=== PATIENT | female | born 1930 | race Two or more races ===

== ENCOUNTER 2016-07-24 10:23 | Outpatient (CLI) | payer MEDICARE, OTHER ==
[~2016-07-24] VITALS: Ht 152.4 cm; Wt 60.9 kg
[2016-07-24 10:35] VITALS: BP 183/72; PULSE 73; RESP 18; Ht 152.4 cm; Wt 60.9 kg
[2016-07-24] MEDS ORDERED: HYDR-3670 PO (10:45)
[2016-07-24] MEDS ORDERED: DOCU240C14 PO (10:45)
[2016-07-24] MEDS ORDERED: LEVO25TA53 PO (10:45)
[2016-07-24] MEDS ORDERED: MELA1TAB25 PO (10:45)
[2016-07-24] MEDS ORDERED: [UNRECOGNIZED DRUG - CODE] PO (10:45)
[2016-07-24] MEDS ORDERED: VIT1CAPS15 PO (10:45)
[2016-07-24] MEDS ORDERED: CITA10TA84 PO (10:45)
--- NOTE | 2016-07-24 23:18 | CONS ---
[facility] INITIAL OUTPATIENT CONSULTATION NOTE DATE OF CONSULTATION: 07/24/2016 PLACE OF SERVICE: [facility] at [facility], [place]. IMPRESSION AND PLAN: A very pleasant 85-year-old lady with a few comorbid issues presenting with pancreatic or splenic cysts that appear to be multiple in number and varied in size. These may certainly be from trauma to the left upper quadrant. The cysts appear to me to involve the spleen, more than they do the pancreas. She does not have any history of any infectious process to explain infectious cysts of the spleen. Her weight loss is certainly concerning for malignant process and malignancy cannot be ruled out with available images. I recommended that the patient undergo endoscopic ultrasound for further clarification of the clinical picture. My suspicion is that there is more than 60% to 80% chance that this is a benign process and that the patient would not need any further aggressive intervention, but the endoscopic ultrasound can shed more light on this clinical picture and help clarify goals of treatment. The patient herself is very hesitant to perform any procedures or interventions. She did not appear at all interested in surgical intervention and I asked her to please discuss the number of issues that I had brought up during our discussion regarding the risks, benefits, and alternatives of the performance of an endoscopic ultrasound and to hopefully agree to undergo this procedure. I answered all the patient's and family's questions to the best of my ability and I believe that they understood and agreed with the plan. With above assessment, I recommend the followin. Endoscopic ultrasound evaluation of the tail of pancreas with possible biopsy and workup for malignancy. 2. Multidisciplinary Tumor Board presentation. 3. Follow up with us after above. Thank you again for allowing us to participate in the care of this very pleasant lady and her wonderful family. If there are any questions, please feel free to contact me at [phone]. UPDATED CLINICAL SUMMARY: The patient is a very pleasant 85-year-old lady with a few comorbid issues including BMI 26.2 as well as hypertension, atrial fibrillation, hypothyroidism, chronic kidney disease, and legal blindness, presenting with cyst noted in the tail of the pancreas and spleen area after a fall that led to hemorrhage. COMORBIDITIES: 1. BMI 26.2. 2. Hypertension. 3. Atrial fibrillation. 4. Hyperthyroidism. 5. Chronic kidney disease. 6. Legal blindness. 7. Recent fall 05/2016 with admission to the hospital and CT of abdomen and pelvis showing splenic laceration with subcapsular hemorrhage. Cysts were noted near the tail of pancreas. No biopsy performed. HISTORY OF PRESENT ILLNESS: The patient is a very pleasant 85-year-old lady with above-mentioned comorbidities whom we were kindly asked to consult regarding management of the cysts seen on the CT scan of abdomen and pelvis as outlined above. The patient herself reports having approximately 10 to 20 pound weight loss over the last number of months with low appetite as the presumed cause. She does not report any abdominal pain. No nausea or vomiting. No fevers or chills. No history of infections and no prior history of pancreatitis. No family history of malignancy noted. She also does not smoke, drink, or use intravenous drugs. ALLERGIES: NO KNOWN DRUG ALLERGIES. MEDICATIONS: The patient is on a number of medications includin. Citalopram. 2. Docusate calcium. 3. Hydralazine. 4. Levothyroxine. 5. Melatonin. 6. PreserVision. 7. Lutein. 8. Vitamin E. SOCIAL HISTORY: The patient lives with her family in that includes her . She has 3 children and 2 [id number]. She has a few grandchildren. She does not report any smoking, drinking, or intravenous drug abuse. FAMILY HISTORY: No mention of any major medical, surgical, or oncologic problems in the family. REVIEW OF SYSTEMS: Other than the above-mentioned, there are no other pertinent positives or pertinent negatives in a complete 14-point review of systems. PHYSICAL EXAMINATION: GENERAL: The patient appears to be a very pleasant lady of /[place] descent, appearing stated age, sitting in a chair comfortably, and in no acute distress. Her BMI is 26.2. Essentially blind. VITAL SIGNS: Temperature 98.3, blood pressure 183/72, pulse 73, respiratory rate 18, pulse oximetry 97% on room air. HEENT: Normocephalic and atraumatic. Extraocular muscles and hearing are grossly intact bilaterally and symmetrically. Sclerae are nonicteric. Oral cavity is clear; oral mucosa appeared to be pink and moist. Dentition: fair. NECK: Supple. There is no lymphadenopathy or JVD. There is no submental, submandibular or supraclavicular lymphadenopathy. CHEST: Rises symmetrically with each breath; patient is breathing comfortably. There are no audible wheezes, rales or rhonchi on the gross exam. HEART: Pulse is regular and palpable on the right wrist. Capillary refill was normal. Carotid pulses are palpable bilaterally and symmetrically in the neck. EXTREMITIES: Lower extremities contain no pitting edema around the ankles bilaterally and symmetrically. ABDOMEN: Abdomen is soft, nontender and nondistended. There are no peritoneal signs or guarding. No evidence of ascites, organomegaly, caput medusae, engorged subcutaneous veins, or other abnormalities. SKIN: Appears to be pink and feels warm to touch. NEUROLOGIC: Awake, alert, and follows commands appropriately. LABORATORY VALUES: Dated 03/2016: White blood cell count 7.3, platelets 186. INR 4.9. Creatinine 0.82, CO2 of 29. IMAGING: The patient's MRI from 07/06/2016 showed an approximately 4.8 x 2.5 cm area of abnormal enhancement localized to the pancreatic tail and inseparable from the adjacent splenic hilum with adjacent soft tissue stranding and multiple associated cysts. Inflammatory process extended to the gastrosplenic ligament. Largest cyst measures approximately 5 cm with smaller adjacent cysts measuring between 1 cm and 1.6 cm in size. Differential includes pancreatitis with multiple pseudocysts versus pancreatic malignancy. Note that I personally reviewed all the available and pertinent images and I agree in general with their overall reported findings, although some of these cysts appear to be more within the spleen itself and they seem to be sparing most of the tail of the pancreas. Dictated By: ERIK CAROLINA/REINA Conf#: [id number] DID#: [id number] CC: Silvino Ly; Javed Baum;*EndCC* MTDD
== END 2016-07-24 14:40 | disposition home or self-care (01) ==
LOC: HPC 10:23
PROVIDERS: ATTEND Transplant Surgery
DX: K86.2 Cyst of pancreas (principal); D73.4 Cyst of spleen; R63.4 Abnormal weight loss; Z68.26 Body mass index [BMI] 26.0-26.9, adult; I48.91 Unspecified atrial fibrillation; E03.9 Hypothyroidism, unspecified; I12.9 Hypertensive chronic kidney disease with stage 1 through stage 4 chronic kidney disease, or unspecified chronic kidney disease; N18.9 Chronic kidney disease, unspecified; H54.8 Legal blindness, as defined in USA
CPT/HCPCS: G0463

== ENCOUNTER 2016-10-18 10:17 | Outpatient (CLI) | payer MEDICARE, OTHER ==
[~2016-10-18 10:17] MED LIST: CITA10TA84 PO; DOCU240C14 PO; HYDR-3670 PO; LEVO25TA53 PO; MELA1TAB25 PO; VIT1CAPS15 PO; [UNRECOGNIZED DRUG - CODE] PO
[2016-10-18 10:25] VITALS: BP 107/53; PULSE 85; RESP 18
[2016-10-18] MEDS ORDERED: LEVO50TA74 PO (10:43)
[2016-10-18] MEDS ORDERED: MEGE40TA17 PO (10:43)
[2016-10-18] MEDS ORDERED: LOSA25TA5 PO (10:43)
[2016-10-18] MEDS ORDERED: METO-448 PO (10:43)
[2016-10-18] MEDS ORDERED: CITA20TA6 PO (10:43)
[2016-10-18] MEDS ORDERED: ATOR20TA38 PO (10:43)
[2016-10-18] MEDS ORDERED: MELA1TAB10 PO (10:43)
[2016-10-18] MEDS ORDERED: WARF3TAB PO (10:43)
[2016-10-18] MEDS ORDERED: DOCU-159 PO (10:43)
[2016-10-18] MEDS ORDERED: HYDR-3671 PO (10:43)
--- NOTE | 2016-10-18 11:16 | CONS ---
Date/Time of Note Date/Time of Note DATE: 10/18/16 TIME: 10:53 Assessment/Plan Assessment/Plan Additional Assessment/Plan [facility] INITIAL OUTPATIENT CONSULTATION NOTE DATE OF CONSULTATION: 10/18/16 PLACE OF SERVICE: [facility]creas [facility] at [facility]. IMPRESSION AND PLAN: Adenocarcinoma of tail of the pancreas. Questionable candidacy for surgery. Had a long discussion with patient and her , and then separately with her and son and [id number] and discussed the issues at length. I also had a long discussion with patient's primary care physician. It is questionable in my mind whether the patient will truly be eligible to receive distal pancreatectomy and splenectomy which would be what I would recommend in this situation. Patient's family is also not sure that the patient should have fairly major operation or procedures for this problem. I explained my rationale behind my reasoning to both patient and family and I answered multiple questions to the best my ability. Patient and family appear to understand and agreed with plans. With above assessment, I recommend the followin. Patient's family to have a discussion amongst themselves and with the patient and to decide on level of aggressiveness of care 2. If decision is to proceed, to then perform pancreas protocol CT with IV and oral contrast and repeat laboratory values including tumor markers 3. Multidisciplinary Tumor Board presentation. 4. Follow up with us after above. Thank you again for allowing us to participate in the care of this very pleasant lady and her wonderful family. If there are any questions, please feel free to contact me at [phone]. UPDATED CLINICAL SUMMARY: The patient is a very pleasant 85-year-old lady with a few comorbid issues including BMI 26.2 as well as hypertension, atrial fibrillation, hypothyroidism, chronic kidney disease, and legal blindness, presenting with cyst noted in the tail of the pancreas and spleen area after a fall that led to hemorrhage. COMORBIDITIES: 1. BMI 26.2. 2. Hypertension. 3. Atrial fibrillation. 4. Hyperthyroidism. 5. Chronic kidney disease. 6. Legal blindness. 7. Recent fall 05/2016 with admission to the hospital and CT of abdomen and pelvis showing splenic laceration with subcapsular hemorrhage. Cysts were noted near the tail of pancreas. No biopsy performed. HISTORY OF PRESENT ILLNESS: The patient is a very pleasant 85-year-old lady with above-mentioned comorbidities whom we were kindly asked to consult regarding management of the cysts seen on the CT scan of abdomen and pelvis as outlined above. The patient herself reports having approximately 10 to 20 pound weight loss over the last number of months with low appetite as the presumed cause. She does not report any abdominal pain. No nausea or vomiting. No fevers or chills. No history of infections and no prior history of pancreatitis. No family history of malignancy noted. She also does not smoke, drink, or use intravenous drugs. She underwent endoscopic ultrasound evaluation by Dr. Sow on 08/04/2016, where unfortunately adenocarcinoma of the tail of the pancreas was found. In retrospect, the cysts seen near the tail of the pancreas are likely pseudocysts from localized pancreatitis caused by this malignant process. Patient herself reports ongoing issues with fatigue, and the family reports that these 2 episodes where the patient was essentially nonresponsive and had to be taken to the emergency room for evaluation including EEG monitoring and further neurologic assessments. ALLERGIES: NO KNOWN DRUG ALLERGIES. MEDICATIONS: The patient is on a number of medications includin. Citalopram. 2. Docusate calcium. 3. Hydralazine. 4. Levothyroxine. 5. Melatonin. 6. PreserVision. 7. Lutein. 8. Vitamin E. SOCIAL HISTORY: The patient lives with her family in that includes her . She has 3 children and 2 [id number]. She has a few grandchildren. She does not report any smoking, drinking, or intravenous drug abuse. FAMILY HISTORY: No mention of any major medical, surgical, or oncologic problems in the family. REVIEW OF SYSTEMS: Other than the above-mentioned, there are no other pertinent positives or pertinent negatives in a complete 14-point review of systems. PHYSICAL EXAMINATION: GENERAL: The patient appears to be a very pleasant lady of /[place] descent, appearing stated age, sitting in a chair comfortably, and in no acute distress. Her BMI was 26.2. Essentially blind. VITAL SIGNS: Carefully recorded and reviewed in electronic health record system. HEENT: Normocephalic and atraumatic. Extraocular muscles and hearing are grossly intact bilaterally and symmetrically. Sclerae are nonicteric. Oral cavity is clear; oral mucosa appeared to be pink and moist. Dentition: fair. NECK: Supple. There is no lymphadenopathy or JVD. There is no submental, submandibular or supraclavicular lymphadenopathy. CHEST: Rises symmetrically with each breath; patient is breathing comfortably. There are no audible wheezes, rales or rhonchi on the gross exam. HEART: Pulse is regular and palpable on the right wrist. Capillary refill was normal. Carotid pulses are palpable bilaterally and symmetrically in the neck. EXTREMITIES: Lower extremities contain no pitting edema around the ankles bilaterally and symmetrically. ABDOMEN: Abdomen is soft, nontender and nondistended. There are no peritoneal signs or guarding. No evidence of ascites, organomegaly, caput medusae, engorged subcutaneous veins, or other abnormalities. SKIN: Appears to be pink and feels warm to touch. NEUROLOGIC: Awake, alert, and follows commands appropriately. LABORATORY VALUES: Dated 03/2016: White blood cell count 7.3, platelets 186. INR 4.9. Creatinine 0.82, CO2 of 29. IMAGING: The patient's MRI from 07/06/2016 showed an approximately 4.8 x 2.5 cm area of abnormal enhancement localized to the pancreatic tail and inseparable from the adjacent splenic hilum with adjacent soft tissue stranding and multiple associated cysts. Inflammatory process extended to the gastrosplenic ligament. Largest cyst measures approximately 5 cm with smaller adjacent cysts measuring between 1 cm and 1.6 cm in size. Differential includes pancreatitis with multiple pseudocysts versus pancreatic malignancy. Note that I personally reviewed all the available and pertinent images and I agree in general with their overall reported findings, although some of these cysts appear to be more within the spleen itself and they seem to be sparing most of the tail of the pancreas. Consultation Date/Type/Reason Admit Date/Time Initial Consult Date Exam/Review of Systems Vital Signs Vitals Vital Signs Date Time Temp Pulse Resp B/P Pulse Ox O2 Delivery O2 Flow Rate FiO2 10/18/16 10:25 98.0 85 18 107/53 95 Room Air ERIK ALVARADO M.D. Oct 18, 2016 11:16 ERIK ALVARADO M.D. Oct 18, 2016 11:16
== END 2016-10-18 17:00 | disposition home or self-care (01) ==
LOC: HPC 10:17
PROVIDERS: ATTEND Transplant Surgery
DX: C25.9 Malignant neoplasm of pancreas, unspecified (principal); I10 Essential (primary) hypertension; E03.9 Hypothyroidism, unspecified; E05.90 Thyrotoxicosis, unspecified without thyrotoxic crisis or storm; I48.91 Unspecified atrial fibrillation; N18.9 Chronic kidney disease, unspecified; H54.8 Legal blindness, as defined in USA; Z91.81 History of falling
CPT/HCPCS: G0463

== ENCOUNTER 2017-01-23 11:01 | Inpatient (IN) | payer MEDICARE, OTHER ==
[~2017-01-23] VITALS: Ht 157.5 cm; Wt 65.0 kg
[~2017-01-23 11:01] MED LIST changes: +ATOR20TA38 PO; -CITA10TA84 PO; +CITA20TA6 PO; +DOCU-159 PO; -DOCU240C14 PO; -HYDR-3670 PO; +HYDR-3671 PO; -LEVO25TA53 PO; +LEVO50TA74 PO; +LOSA25TA5 PO; +MEGE40TA17 PO; +MELA1TAB10 PO; -MELA1TAB25 PO; +METO-448 PO; +WARF3TAB PO
[2017-01-23 11:13] VITALS: Ht 157.5 cm; Wt 65.0 kg
[2017-01-23] MEDS ORDERED: SOD CHLORIDE 0.9% 500 ML IV STA (11:27)
[2017-01-23] MEDS ORDERED: DILTIAZEM 25 MG INJ IV ONE (11:30)
[2017-01-23 12:04] LABS: ABNORMAL IP MESSAGE 1; MEAN CORPUSCULAR HEMOGLOBIN 27.2 pg (29.0-33.0); MEAN CORPUSCULAR VOLUME 82.3 fl (82.0-101.0); MEAN PLATELET VOLUME 11.5 fl (7.4-10.4); NUCLEATED RED BLOOD CELLS% 0.1 /100WBC (0.0-0.0); PLATELET COUNT 299 10^3/UL (140-415); RED BLOOD COUNT 2.43 10^6/ul (4.20-5.40); RED CELL DISTRIBUTION WIDTH 16.1 % (11.5-14.5); WHITE BLOOD COUNT 32.3 10^3/ul (4.8-10.8)
[2017-01-23 12:13] LABS: HEMOGLOBIN 6.6 g/dl (12.0-16.0); POSITIVE DIFF @See below
--- NOTE | 2017-01-23 12:16 | RADRPT ---
PROCEDURE: XR Chest. CLINICAL INDICATION: Chest pain TECHNIQUE: Single portable view of the chest was obtained COMPARISON: No priors for comparison FINDINGS: The trachea is midline. The cardiac silhouette is enlarged and pulmonary vascularity are within norm al limits. There is a left lower lobe opacification and small left pleural effusion. There is athero sclerotic calcification of the aorta. IMPRESSION: 1. Left lower lobe opacification; pneumonia versus atelectasis and small left pleural effusion. 2. Cardiomegaly and atherosclerotic disease. RPTAT: AAPP Physician Andry Date Time Electronically viewed and signed by Physician Andry on 01/23/2017 12:16 CELINA/
[2017-01-23 12:22] LABS: CALCIUM 9.3 mg/dl (8.4-10.2); CREATININE 1.63 mg/dl (0.44-1.00); POTASSIUM 4.8 mmol/L (3.5-5.1)
[2017-01-23] MEDS ORDERED: CEFEPIME 2GM/50 ML (PMX) 50 ML IVPB STA (12:25)
[2017-01-23] MEDS ORDERED: SODIUM CHLORIDE 0.9% 1L BAG IV* STA (12:25)
[2017-01-23] MEDS ORDERED: VANCOMYCIN 1 GM (PMX) 250 ML IVPB ONE (12:30)
[2017-01-23 12:37] LABS: TROPONIN-I 0.016 ng/ml (0.00-0.12)
[2017-01-23 12:48] LABS: ALBUMIN 2.5 g/dl (3.3-4.9); BILIRUBIN,INDIRECT 0.1 mg/dl (0-1.1); BILIRUBIN,TOTAL 0.1 mg/dl (0.2-1.3); TOTAL PROTEIN 5.9 g/dl (6.1-8.1)
[2017-01-23 12:48] LABS: URINE BLOOD (Dip) POC Trace-intact (NEGATIVE)
[2017-01-23 12:59] LABS: ADD UMIC YES; UR ASCORBIC ACID 40 mg/dL (NEGATIVE); UR BACTERIA MANY /HPF (NONE SEEN); UR BILIRUBIN (Dip) NEGATIVE (NEGATIVE); UR BLOOD (Dip) NEGATIVE (NEGATIVE); UR CLARITY SLIGHTLY CLOUDY (CLEAR); UR COLOR YELLOW (YELLOW); UR GLUCOSE (Dip) NEGATIVE (NEGATIVE); UR KETONES (Dip) NEGATIVE (NEGATIVE); UR LEUKOCYTE ESTERASE (Dip) 2+ Leu/ul (NEGATIVE); UR NITRITE (Dip) POSITIVE (NEGATIVE); UR RBC 1 /HPF (0-5); UR SPECIFIC GRAVITY (Dip) 1.013 (1.003-1.030); UR TOTAL PROTEIN (Dip) NEGATIVE (NEGATIVE); UR UROBILINOGEN (Dip) NEGATIVE (NEGATIVE)
[2017-01-23] MEDS ORDERED: SOD CHLORIDE 0.9% 250 ML IV ONE (13:06)
[2017-01-23] MEDS ORDERED: SOD CHLORIDE 0.9% 1,000 ML IV SCH (13:09)
--- NOTE | 2017-01-23 13:16 | ERD ---
ER Documentation Chief Complaint Chief Complaint BIB RA 81 FOR EVAL OF GENERALIZED WEAKNESS. HPI This is an 86-year-old female with a history of hypertension, hypothyroidism, atrial fibrillation who presents to the emergency room for evaluation of generalized weakness. This patient was brought in by ambulance from her home for evaluation of her symptoms. According to the patient's family member was at bedside this patient has had these symptoms for 24 hours. The patient has been feeling weak and does state that she feels warm and has had chills as well. He denies any aggravating or relieving factors for her symptoms and family members called 9 1 about the patient to the ER ROS All systems reviewed and are negative except as per history of present illness. Medications Home Meds Reported Medications Atorvastatin Calcium* (Atorvastatin Calcium*) 20 Mg Tablet, 20 MG PO QHS, #30 TAB 10/18/16 Melatonin-Pyridoxine Hcl (Melatonin) 5-10 Mg Tablet, 1 TAB PO HS, TAB 10/18/16 Megestrol Acetate* (Megestrol Acetate*) 40 Mg Tablet, 40 MG PO DAILY, TAB 10/18/16 Warfarin Sodium* (Coumadin*) 3 Mg Tablet, 3 MG PO DAILY, TAB 10/18/16 Citalopram Hydrobromide* (Citalopram Hydrobromide*) 20 Mg Tablet, 20 MG PO DAILY , #30 TAB 10/18/16 Hydralazine Hcl* (Hydralazine Hcl*) 25 Mg Tab, 25 MG PO DAILY, #120 TAB 10/18/16 Losartan Potassium* (Losartan Potassium*) 25 Mg Tablet, 25 MG PO DAILY, TAB 10/18/16 Docusate Sodium* (Docusate Sodium*) 100 Mg Capsule, 100 MG PO BID, #60 CAP 10/18/16 Metoprolol Tartrate* (Lopressor*) 25 Mg Tab, 25 MG PO BID, #60 TAB 10/18/16 Levothyroxine Sodium* (Levothyroxine Sodium*) 50 Mcg Tablet, 50 MCG PO BEFORE BREAKFAST, #30 TAB 10/18/16 Vitamin E (Dl,Tocopheryl Acet) (Vitamin E) 100 Unit/0.25 Ml Drops, 100 UNIT PO, DROP 07/24/16 Vit C/Giuliano Ac/Lut/Copper/Znox (PRESERVISION LUTEIN SOFTGEL) 1 Each Capsule, 1 EACH PO, CAP 07/24/16 Allergies Allergies: Coded Allergies: No Known Allergy (Unverified , 02/14/13) PMhx/Soc History of Surgery: Yes (APPENDECTOMY, KNEES REPLACEMENT) Anesthesia Reaction: No Hx Neurological Disorder: No Hx Respiratory Disorders: No Hx Cardiac Disorders: Yes (AFIB?) Hx Psychiatric Problems: No Hx Miscellaneous Medical Probl: No (pancreatic CA) Hx Alcohol Use: No Hx Substance Use: No Hx Tobacco Use: No Smoking Status: Unknown if ever smoked Physical Exam Vitals Vital Signs Date Time Temp Pulse Resp B/P Pulse Ox O2 Delivery O2 Flow Rate FiO2 01/23/17 13:06 98.0 98 18 101/45 98 Room Air 01/23/17 11:48 Nasal Cannula 3 01/23/17 11:13 97.5 126 20 80/59 100 Physical Exam INITIAL VITAL SIGNS: Reviewed by me GENERAL: The patient is well developed and appropriate for usual state of health in no apparent distress HEENT: Conjunctival pallor, dry mucous membranes, pupils equal, round, and reactive to light. EOMI. There is no scleral icterus. NECK: C-spine is soft and supple, there is no meningismus. There is no cervical lymphadenopathy. LUNGS: Breath sounds bilaterally with rhonchi auscultated in the bilateral lower lobes HEART: Irregularly irregular rhythm, no murmurs, clicks, rubs or gallops. ABDOMEN: Soft, non-tender, non-distended. There are bowel sounds in all four quadrants. No rebound or guarding. EXTREMITIES: There is no peripheral cyanosis or edema. No focal swelling or erythema. NEUROLOGICAL: The patient moves all four extremities with 5/5 strength. Cranial nerves II - XII are intact. Normal gait. Alert and oriented SKIN: Pale skin, there is no apparent rash or petechiae. HEME/LYMPHATIC: There is no evidence of excessive bruising or lymphedema. PSYCHIATRIC: The patient does not appear anxious or depressed. Result Diagram: 01/23/17 1125 01/23/17 1127 Results 24 hrs Laboratory Tests Test 01/23/17 11:25 01/23/17 11:27 01/23/17 12:30 01/23/17 12:45 White Blood Count 32.310^3/ul Red Blood Count 2.4310^6/ul Hemoglobin 6.6g/dl Hematocrit 20.0% Mean Corpuscular Volume 82.3fl Mean Corpuscular Hemoglobin 27.2pg Mean Corpuscular Hemoglobin Concent 33.0g/dl Red Cell Distribution Width 16.1% Platelet Count 99829^3/UL Mean Platelet Volume 11.5fl Neutrophils % % Lymphocytes % % Monocytes % % Eosinophils % % Basophils % % Nucleated Red Blood Cells % 0.1/100WBC Neutrophils # 10^3/ul Lymphocytes # 10^3/ul Monocytes # 10^3/ul Eosinophils # 10^3/ul Basophils # 10^3/ul Nucleated Red Blood Cells # 10^3/ul Lactic Acid Level 2.0mmol/L Total Bilirubin 0.1mg/dl Direct Bilirubin 0.00mg/dl Indirect Bilirubin 0.1mg/dl Aspartate Amino Transf (AST/SGOT) 51IU/L Alanine Aminotransferase (ALT/SGPT) 44IU/L Alkaline Phosphatase 182IU/L Total Protein 5.9g/dl Albumin 2.5g/dl Sodium Level 141mmol/L Potassium Level 4.8mmol/L Chloride Level 105mmol/L Carbon Dioxide Level 23mmol/L Anion Gap 18 Blood Urea Nitrogen 108mg/dl Creatinine 1.63mg/dl Glucose Level 89mg/dl Calcium Level 9.3mg/dl Troponin I 0.016ng/ml Prothrombin Time Pending Prothrombin Time Ratio 7.0 INR International Normalized Ratio Pending Activated Partial Thromboplast Time Pending Bedside Urine pH (LAB) 5.5 Bedside Urine Protein (LAB) Trace Bedside Urine Glucose (UA) Negative Bedside Urine Ketones (LAB) Negative Bedside Urine Blood Trace-intact Bedside Urine Nitrite (LAB) Positive Bedside Urine Leukocyte Esterase (L 2+ Test 01/23/17 12:50 Urine Color YELLOW Urine Clarity SLIGHTLY CLOUDY Urine pH 5.0 Urine Specific [place] 1.013 Urine Ketones NEGATIVEmg/dL Urine Nitrite POSITIVEmg/dL Urine Bilirubin NEGATIVEmg/dL Urine Urobilinogen NEGATIVEmg/dL Urine Leukocyte Esterase 2+Daphne/ul Urine Microscopic RBC 1/HPF Urine Microscopic WBC 53/HPF Urine Bacteria MANY/HPF Urine Hemoglobin NEGATIVEmg/dL Urine Glucose NEGATIVEmg/dL Urine Total Protein NEGATIVEmg/dl Current Medications Medications (Trade) Dose Ordered Sig/Pavel Route PRN Reason Start Time Stop Time Status Last Admin Dose Admin Sodium Chloride (NS) 500 ml @ 500 mls/hr Q1H STAT IV 01/23/17 11:27 01/23/17 12:26 DC 01/23/17 11:37 Diltiazem HCl (Cardizem Iv) 10 mg ONCE ONCE IV 01/23/17 11:30 01/23/17 11:31 DC 01/23/17 11:37 Sodium Chloride 2020 ml 2,020 ml BOLUS OVER 2 HOURS STAT IV* 01/23/17 12:25 01/23/17 12:36 DC 01/23/17 13:05 Cefepime HCl 50 ml @ 100 mls/hr ONCE STAT IVPB 01/23/17 12:25 01/23/17 12:54 DC 01/23/17 13:05 Vancomycin HCl 250 ml @ 125 mls/hr ONCE ONCE IVPB 01/23/17 12:30 01/23/17 14:29 Sodium Chloride 250 ml @ 0 mls/hr Q0M ONCE IV 01/23/17 13:06 01/23/17 13:08 DC Sodium Chloride (NS) 1,000 ml @ 80 mls/hr [id number] IV 01/23/17 13:09 01/24/17 01:38 Ondansetron HCl (Zofran Inj) 4 mg ER BRIDGE PRN IV NAUSEA AND/OR VOMITING 01/23/17 13:30 01/24/17 13:29 Acetaminophen (Tylenol Tab) 650 mg ER BRIDGE PRN PO MILD PAIN/FEVER 01/23/17 13:30 01/24/17 13:29 Procedures/MDM EKG: Rate/Rhythm: A. fib with RVR QRS, ST, T-waves: [No changes consistent w/ acute ischemia] Impression: A. fib with RVR Chest X-ray 1V Interpreted by me: Soft Tissue: No acute abnormalities Bones: No acute abnormalities Mediastinum/Cardiac Silhouette/Lungs: Bilateral pneumonia CT brain without: This 86-year-old female presents to the ER for evaluation of generalized weakness. When I evaluated this patient this patient was febrile tachycardic and was hypotensive with a systolic blood pressure of 82. This patient was immediately given IV fluids, and a septic workup was started on this patient. This patient was found to have a leukocytosis, x-ray does reveal bilateral pneumonia, and urinalysis does reveal nitrite positive urinary tract infection. Patient was given greater than 30 cc/kg of IV normal saline. She was started on vancomycin and cefepime after blood and urine cultures were obtained. The patient was given 10 mg of Cardizem for A. fib with RVR and when I reevaluated this patient she had a blood pressure of 101/64, and a heart rate of 92 bpm. This patient was also found to have a hemoglobin of 6.6. She is refusing a rectal exam at this time however she does take Coumadin 3 mg daily for A. fib. Given this patient's drop in hemoglobin this patient will be transfused 2 units of packed red blood cells. She was given 80 mg of Protonix IV. I have spoken to this patient and the patient's family in regards to her diagnosis, and they are in agreement with admission at this time. This patient will be placed on the telemetry floor under the care of Dr. Castro. Critical Care: Excluding all billable procedures Time: 48 minutes Treatments/Evaluations: Close monitoring and treatment of unstable vital signs, cardiorespiratory, and neurologic status, while maintaining tight balance of fluid, respiratory, and cardiac interventions. Departure Diagnosis: Primary Impression: Sepsis Additional Impressions: Bilateral pneumonia Anemia Atrial fibrillation with RVR GI bleed Condition: LUZ MARINA Person DO Jan 23, 2017 13:16
[2017-01-23] MEDS ORDERED: ONDANSETRON 4 MG INJ IV PRN ×2 (13:30→14:30)
[2017-01-23] MEDS ORDERED: ACETAMINOPHEN 325 MG TAB PO PRN ×2 (13:30→14:30)
[2017-01-23] MEDS ORDERED: PANTOPRAZOLE 40 MG INJ IV ONE (13:30)
[2017-01-23 13:39] LABS: EOSINOPHILS % (M) 4 % (0-7); GIANT THROMBO% (M) 1 % (0-0); MONOCYTES % (M) 6 % (0-11); PLATELET ESTIMATE NORMAL; POIKILOCYTOSIS 3+ (0-0); POLYCHROMASIA 3+ (0-0)
[2017-01-23 13:54] LABS: PROTIME 95.8 Sec (12.2-14.2); PT RATIO 7.5
[2017-01-23 13:58] LABS: INR > 10.00
[2017-01-23 13:59] LABS: PARTIAL THROMBOPLASTIN TIME 109.3 Sec (25.0-35.0)
--- NOTE | 2017-01-23 14:13 | HP ---
Date/Time of Note Date/Time of Note DATE: 01/23/17 TIME: 14:13 Assessment/Plan VTE Prophylaxis VTE Prophylaxis Intervention: contraindicated Lines/Catheters IV Catheter Type (from [facility]): [place] Assessment/Plan Chief Complaint/Hosp Course 1. Sepsis. The source of infection is most probably underlying pneumonia versus urinary tract infection. No evidence of any septic shock at this time. The patient will be started on empiric antibiotics. Pancultures will be obtained. Infectious diseases will evaluate the patient. 2. Coagulopathy from Coumadin toxicity. No overt sources of bleeding. The patient been treated with vitamin K and fresh frozen plasma. Brain CT scan is pending at this time. We will avoid any anticoagulation. 3. Atrial fibrillation with rapid ventricular response. Status post IV Cardizem in the emergency room. The patient's heart rate is more controlled at this time. We will have cardiology evaluate the patient. The patient's troponins remain negative. Serial troponins will be ordered to evaluate for any underlying acute coronary syndrome. 4. Acute kidney injury. Unknown baseline creatinine. Probably has underlying chronic kidney disease. Nephrotoxic drugs will be avoided. Nephrology consult will be obtained. 5. Symptomatic anemia. Etiology unclear. No evidence of any overt bleeding. Will transfuse blood products as needed. We will obtain a stool for OB. Will obtain an iron panel. 6. Essential hypertension. The patient's antihypertensives will be resumed. However, we will hold antihypertensives if the patient's blood pressure continues to remain low. 7. Hypothyroidism. The patient's Synthroid will be resumed. Will obtain a thyroid panel. 8. History of adenocarcinoma the tail of the pancreas. Conservatively managed as per the family. Plan: The patient will be admitted to inpatient telemetry floor. The patient will be started on a regular diet. The patient will be started on gastrointestinal prophylaxis. Will avoid any anticoagulation because of underlying coagulopathy. The patient will remain a full code. Activities will be with assist. The rest of the patient's management will be based on the clinical course, inputs from consultants, and the results of diagnostic studies. Based on the patient's clinical presentation, she most probably requires at least 2 midnights' stay for further management and evaluation of her clinical presentation. The case and management of this patient was fully discussed with Dr. Castro. Problems: HPI/ROS Admit Date/Time Admit Date/Time Hx of Present Illness Reason for admission: Generalized weakness. Consultants 1. Negro Goddard MD, Cardiology. 2. Je Jimenez MD, Gastroenterology. 3. Vitor Costa MD, Nephrology. 4. Can Bill MD, Infectious Diseases. 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 The patient also complained of some dyspnea. There was no reported fevers. The patient's family also complained of poor oral intake. There was no reported nausea or vomiting. There was no reported overt bleeding. The patient follows up with Dr. Kriss Roblero for her primary care issues. She does not have an outpatient import/export clerk. In the emergency room, the patient was noticed to be significantly anemic with a hemoglobin and hematocrit of 6.6 and 20.0 respectively. The patient was found to be coagulopathic with an INR of greater than 10. She had underlying leukocytosis with a WBC of 32.3 with bandemia. She had evidence of acute kidney injury with increased BUN/creatinine ratio. Lactic acid levels were within normal limits. The patient's chest x-ray showed left lower lobe opacification; pneumonia versus atelectasis and small pleural effusion. The patient's urinalysis showed positive nitrate and positive leukocyte esterase with urine microscopic WBC of 53. The patient was treated with IV vancomycin and IV ceftriaxone. The patient was given Cardizem IV push 1 for her underlying A. fib with RVR. The patient has a brain CT scan ordered at this time which is pending. ROS Subjective hx not possible: other PMH/Family/Social Past Medical History Medical History: hypertension, hypothyroid, other (Essential hypertension, atrial fibrillation, hypothyroidism, chronic kidney disease, adenocarcinoma of the tail of the pancreas) Past Surgical History Past Surgical Hx: appendectomy Family History Significant Family History: other (Knee replacement) Social History Alcohol Use: none Smoking Status: Unknown if ever smoked Drug Use: none Exam/Review of Systems Vital Signs Vitals Vital Signs Date Time Temp Pulse Resp B/P Pulse Ox O2 Delivery O2 Flow Rate FiO2 01/23/17 13:06 98.0 98 18 101/45 98 Room Air 01/23/17 11:48 3 Exam Exam General: 86-year-old, elderly, pale looking female lying in bed in no apparent distress. HEENT: Normocephalic, atraumatic. Eyes: Anicteric sclerae, conjunctivae clear. ENT: Nasal septum midline, oral mucosa moist. Neck supple, no JVD noticed. Respiratory: Bilaterally diminished breath sounds. No use of accessory muscles of respiration. No adventitious breath sounds. Cardiovascular: S1, S2 heard. Irregularly irregular rhythm. Systolic murmur. Abdomen: Soft, nontender, and nondistended. Bowel sounds positive in all 4 quadrants. Genitourinary: Deferred. Extremities: No cyanosis, no clubbing, no edema. Peripheral pulses palpable. Neurologic: Patient is awake and alert. No focal weakness. Skin: Normal skin turgor. No skin rashes. Labs Result Diagram: 01/23/17 1125 01/23/17 1127 Medications Medications Current Medications Vancomycin HCl 250 ml @ 125 mls/hr ONCE ONCE IVPB Last administered on t 12:30; Admin Dose 125 MLS/HR; Start 01/23/17 at 12:30; Stop 01/23/17 at 14:29 Sodium Chloride (NS) 1,000 ml @ 80 mls/hr [id number] IV ; Start 01/23/17 at 13:09 ; Stop 01/24/17 at 01:38 Procedures Procedures CXR IMPRESSION: 1. Left lower lobe opacification; pneumonia versus atelectasis and small left pleural effusion. 2. Cardiomegaly and atherosclerotic disease. Twelve-Lead EKG A. fib with RVR SANCHEZ APARICIO NP Jan 23, 2017 14:13
[2017-01-23] MEDS ORDERED: SOD CHLORIDE 0.9% 250 ML IV* ONE (14:17)
[2017-01-23] MEDS ORDERED: PHYTONADIONE 10 MG in DEXTROSE 5% 50 ML IVPB ONE (14:30)
[2017-01-23] MEDS ORDERED: NACL 0.9% 3 ML SYG IV SCH (14:30)
--- NOTE | 2017-01-23 14:34 | RADRPT ---
PROCEDURE: CT Head without. CLINICAL INDICATION: Altered mental status. TECHNIQUE: The study was performed utilizing a multi-slice, multidetector CT scanner. Direct spira l 1 mm axial sections were obtained through the head without the use of intravenous contrast materia l. 1 or more of the following dose reduction techniques were utilized: Automated exposure control, adjustment of the mA and/or kV according to patient's size, iterative reconstruction technique. Co lazaro and sagittal reformations were obtained. The images were reviewed on a PACS workstation. DICOM images are available. RADIATION DOSE: CTDIvol: 44.3 mGyDLP: 630.2 mGy-cm COMPARISON: No prior studies are available for comparison. FINDINGS: There is no intracranial hemorrhage, extra-axial fluid collection, mass lesion, midline shift or hyd rocephalus. There is well-circumscribed encephalomalacia involving the left frontal operculum, sugg estive of remote prior infarct. There is associated gliosis in the underlying white matter. There is a well-circumscribed area of encephalomalacia involving the paramedian right thalamus, suggestive o f remote prior infarct. There is also a subtle well-circumscribed area of hypodensity involving the left thalamus suggesting remote lacunar infarct. There is moderate prominence of the cerebral sulci, lateral and third ventricles. There is severe patchy and confluent periventricular and subcortical white matter hypodensity. There is moderate arteriosclerotic calcification of the parasellar inter nal carotid arteries. The león-white matter differentiation is preserved. The basal cisterns are p atent. The midline structures are intact. The orbits, calvarium and extracranial soft tissues are normal in appearance. The visualized paranasal sinuses, mastoid air cells and middle ear cavities ar e normally aerated. IMPRESSION: 1. No acute intracranial abnormality. No intracranial hemorrhage, extra-axial fluid collection, ma ss lesion or hydrocephalous. 2. Moderate peripheral and central cerebral volume loss. 3. Severe patchy and confluent periventricular and subcortical white matter hypodensity, likely rel ated to chronic microangiopathic changes. 4. Remote infarct involving the left frontal operculum. Number 5. Remote lacunar infarcts involving the paramedian right thalamus and the left thalamus. 5. No CT evidence of acute infarct at this time. If clinical concern for acute infarct, MRI is rec ommended for further evaluation. RPTAT: HGAS .Clayton Troy MD, MD Date Time Electronically viewed and signed by .Clayton Troy MD, MD on 01/23/2017 14:34 .S/
--- NOTE | 2017-01-23 15:48 | CONS ---
DATE OF ADMISSION: 01/23/2017 DATE OF CONSULTATION: 01/23/2017 TYPE OF CONSULTATION: Infectious disease. REASON FOR CONSULTATION: Antibiotic management. HISTORY OF PRESENT ILLNESS: Rosa Robison is an 86-year-old female who was brought to the [facility] ency room for evaluation of generalized weakness. Her past problems include: 1. Hypertension. 2. Hypothyroidism. 3. Atrial fibrillation. She presents with generalized weakness. She has had these symptoms for the last 24 hours. She has been feeling weak and states that she feels warm and has had chills as well. Additional problems in clude hyperlipidemia. The patient is also on anticoagulants. PAST MEDICAL HISTORY: . PAST SURGICAL HISTORY: Status post appendectomy, status post knee replacements. She also has a his tory of atrial fibrillation. There is a questionable history of pancreatic carcinoma. SOCIAL HISTORY: She does not smoke, drink or abuse drugs. ALLERGIES: NONE TO PENICILLIN, SULFA OR FOODS. MEDICATIONS: Per chart. REVIEW OF SYSTEMS: Noncontributory. PHYSICAL EXAMINATION: GENERAL: The patient is an elderly-appearing female who is awake, responsive, in no acute distress. VITAL SIGNS: Stable. She is afebrile. SKIN: Without generalized rash. She is pale. HEAD: Normocephalic. EENT: Within normal limits. NECK: Supple. LYMPH NODES: None palpable. CHEST: Decreased breath sounds at the bases with occasional rhonchi. HEART: Irregularly irregular rhythm. ABDOMEN: Soft and nontender without organosplenomegaly or masses. EXTREMITIES: Without cyanosis, clubbing or edema. RECTAL AND GENITAL: Deferred. NEUROLOGIC: No focal neurological abnormalities. ANCILLARY LABORATORY DATA: Her white count was 32.5, H and H of 6.6 and 20, platelet count 299,000. BUN and creatinine 108/1.63. Random glucose is 89. Her urine is positive for nitrites, 2+ leukoc yte esterase, 53 white cells per high-power field, many bacteria. Her EKG shows atrial fibrillation . She was febrile, tachycardic and was hypotensive in the emergency room. She was given fluids and a septic workup was begun. X-ray showed bilateral pneumonia. Left lower lobe opacity, pneumonia vers us small left pleural effusion. The patient may have aspirated. She was started on vancomycin and cefepime as noted. Blood cultures and urine cultures were obtained. She was given Cardizem for atr ial fibrillation with rapid ventricular response, and her blood pressure and heart rate leveled out. The patient had a hemoglobin of 6.6. She takes Coumadin 3 mg daily for atrial fibrillation. The plan is to transfuse her for 2 units, give her Protonix and to have GI evaluate the patient. I will dictate my findings to the hospitalist. Dictated By: DONNIE DOMÍNGUEZ MD, JD/REINA Conf#: [id number] DID#: [id number]
[2017-01-23] MEDS ORDERED: VANCOMYCIN IV PER PHARMACY XX SCH (16:00)
--- NOTE | 2017-01-23 17:15 | CONS ---
Date/Time of Note Date/Time of Note DATE: 01/23/17 TIME: 17:04 Assessment/Plan Assessment/Plan Chief Complaint/Hosp Course Acute on ?chronic ?diastolic heart failure: Likely from blood products and aggressive IV hydration. Will diurese Chronic Afib with RVR: Partially compensatory to multiple active issues. HR close to 110 which is acceptable for now Coagulopathy: INR >10. No active bleeding but anemic. Pt not eating well which may be contributing Anemia: Hgb 6.6 but no active bleeding Sepsis: likely urinary UTI Acute vs chronic renal failure Pancreatic ca -hold further fluids -lasix 40mg IV x1 now and assess for further need -repeat CXR -metoprolol 25mg BID, uptitrate as BP tolerates -hold coumadin, agree with Vit K -echo Problems: Consultation Date/Type/Reason Admit Date/Time Date of Consultation: Jan 23, 2017 Type of Consultation: Cardiology Reason for Consultation AFib Referring Provider: SANCHEZ APARICIO CUSTOMER OPERATIONS SPECIALIST Hx of Present Illness 86 yo F with a h/o chronic afib on coumadin, pancreatic ca treated conservatively, CKD, who presented due to altered mentation, SOB, weakness. She was found to be coagulopathic with INR >10, anemic (hgb 6.6) without active bleeding, UTI +/- PNA, and with afib with RVR. She was transfused and given ~3L fluids. Per the son at bedside, she looks better and her breathing appears improved but the pt appears to have mild respiratory distress. No chest pain. HRs have been in the 100-120 range per HPI Past Medical History per HPI Medical History: hypertension, hypothyroid, other (Essential hypertension, atrial fibrillation, hypothyroidism, chronic kidney disease, adenocarcinoma of the tail of the pancreas) Past Surgical History Past Surgical Hx: appendectomy Social History Alcohol Use: none Smoking Status: Unknown if ever smoked Drug Use: none Exam/Review of Systems Vital Signs Vitals Vital Signs Date Time Temp Pulse Resp B/P Pulse Ox O2 Delivery O2 Flow Rate FiO2 01/23/17 16:30 98.0 114 18 113/64 100 Room Air 01/23/17 11:48 3 Exam Constitutional: alert, distress (mild respiratory ), oriented Head: atraumatic, normocephalic Eyes: nl conjunctiva ENMT: nl external ears & nose Neck: jvd (9cm), supple Respiratory: crackles/rales (throughout ), No clear to auscultation, No diminished breath sounds Cardiovascular: edema (trace-1+), systolic murmur (2/6 HSM), No regular rate and rhythm (IRIR, tachy) Gastrointestinal: non-tender, soft Neurological: nl mental status, nl speech Results Result Diagram: 01/23/17 1125 01/23/17 1127 Results 24 hrs Laboratory Tests Test 01/23/17 11:25 01/23/17 11:27 01/23/17 12:30 01/23/17 12:45 White Blood Count 32.3 H Red Blood Count 2.43 L Hemoglobin 6.6 *L Hematocrit 20.0 L Mean Corpuscular Volume 82.3 Mean Corpuscular Hemoglobin 27.2 L Mean Corpuscular Hemoglobin Concent 33.0 Red Cell Distribution Width 16.1 H Platelet Count 299 Mean Platelet Volume 11.5 H Neutrophils % Segmented Neutrophils % (Manual) 75 Band Neutrophils % (Manual) 8 H Lymphocytes % Lymphocytes % (Manual) 8 L Monocytes % Monocytes % (Manual) 6 Eosinophils % Eosinophils % (Manual) 4 Basophils % Nucleated Red Blood Cells % 0.1 H Neutrophils # Neutrophils # (Manual) 25.0 H Band Neutrophils # 2.5 H Absolute Lymphocytes (Manual) 2.5 Lymphocytes # Monocytes # Absolute Monocytes (Manual) 1.9 H Eosinophils # Basophils # Nucleated Red Blood Cells # Pathologist Review (Hematology) Y Platelet Estimate NORMAL Giant Platelets 1 H Polychromasia 3+ Poikilocytosis 3+ Lactic Acid Level 2.0 Total Bilirubin 0.1 L Direct Bilirubin 0.00 Indirect Bilirubin 0.1 Aspartate Amino Transf (AST/SGOT) 51 H Alanine Aminotransferase (ALT/SGPT) 44 Alkaline Phosphatase 182 H Total Protein 5.9 L Albumin 2.5 L Sodium Level 141 Potassium Level 4.8 Chloride Level 105 Carbon Dioxide Level 23 Anion Gap 18 H Blood Urea Nitrogen 108 H Creatinine 1.63 H Glucose Level 89 Calcium Level 9.3 Troponin I 0.016 Prothrombin Time 95.8 H Prothrombin Time Ratio 7.5 INR International Normalized Ratio > 10.00 *H Activated Partial Thromboplast Time 109.3 *H B-Type Natriuretic Peptide 7330 H Thyroid Stimulating Hormone (TSH) 3.340 Free Thyroxine 1.29 Bedside Urine pH (LAB) 5.5 Bedside Urine Protein (LAB) Trace H Bedside Urine Glucose (UA) Negative Bedside Urine Ketones (LAB) Negative Bedside Urine Blood Trace-intact H Bedside Urine Nitrite (LAB) Positive H Bedside Urine Leukocyte Esterase (L 2+ H Test 01/23/17 12:50 01/23/17 13:40 Urine Color YELLOW Urine Clarity SLIGHTLY CLOUDY A Urine pH 5.0 Urine Specific [place] 1.013 Urine Ketones NEGATIVE Urine Nitrite POSITIVE A Urine Bilirubin NEGATIVE Urine Urobilinogen NEGATIVE Urine Leukocyte Esterase 2+ H Urine Microscopic RBC 1 Urine Microscopic WBC 53 H Urine Bacteria MANY A Urine Hemoglobin NEGATIVE Urine Glucose NEGATIVE Urine Total Protein NEGATIVE Lactic Acid Level 1.8 Medications Medications Current Medications Sodium Chloride (NS) 1,000 ml @ 80 mls/hr [id number] IV ; Start 01/23/17 at 13:09 ; Stop 01/24/17 at 01:38 Ondansetron HCl (Zofran Inj) 4 mg Q6H PRN IV NAUSEA AND/OR VOMITING; Start at 14:30 Acetaminophen (Tylenol Tab) 650 mg Q6H PRN PO PAIN LEVEL 1-3 OR FEVER; Start 01/23/17 at 14:30 Acetaminophen/ Hydrocodone Bitart ([place] (5/325)) 1 tab Q6H PRN PO PAIN LEVEL 4 -6; Start 01/23/17 at 14:30 Atorvastatin Calcium (Lipitor) 20 mg QHS PO ; Start 01/23/17 at 21:00 Citalopram Hydrobromide (Celexa) 20 mg DAILY PO ; Start 01/24/17 at 09:00 Docusate Sodium (Colace) 100 mg BID PO ; Start 01/23/17 at 21:00 Hydralazine HCl (Apresoline) 25 mg DAILY PO ; Start 01/24/17 at 09:00 Metoprolol Tartrate (Lopressor) 25 mg BID PO ; Start 01/23/17 at 21:00 Pantoprazole 40 mg 40 mg BID@06,18 IV ; Start 01/23/17 at 18:00 Cefepime HCl 0.5 gm/Sodium Chloride 50 ml @ 100 mls/hr Q24H IVPB ; Start 01/24 at 13:00 Vancomycin HCl/ Dextrose/Water (Vancocin/D5W) 150 ml @ 100 mls/hr Q36H IVPB ; Start 01/24/17 at 06:00 ERIC LUCIO Jan 23, 2017 17:15
[2017-01-23] MEDS ORDERED: FUROSEMIDE 40 MG INJ IV ONE (17:30)
--- NOTE | 2017-01-23 17:34 | RADRPT ---
PROCEDURE: XR Chest. CLINICAL INDICATION: Shortness of breath. TECHNIQUE: Single frontal view. COMPARISON: 01/23/2017. 1201 hours. FINDINGS: There is mild left basilar atelectasis, unchanged. The lungs are otherwise clear. The heart is enlarged. Calcification is present in the aorta consistent with atherosclerosis. There is no pleural effusion. There is no pneumothorax. IMPRESSION: 1. Mild left basilar atelectasis, unchanged. 2. Cardiomegaly and atherosclerosis. 3. Otherwise unremarkable chest radiograph. RPTAT: QQ .Rio Arce MD, MD Date Time Electronically viewed and signed by .Rio Arce MD, MD on 01/23/2017 17:34 .R/
[2017-01-23] MEDS: PANTOPRAZOLE 40 MG INJ IV SCH ×2 (18:00→18:10)
[2017-01-23] MEDS: METOPROLOL 25 MG TAB PO SCH (18:09)
--- NOTE | 2017-01-23 18:22 | CONS ---
DATE OF ADMISSION: 01/23/2017 DATE OF CONSULTATION: 01/23/2017 REASON FOR CONSULTATION: JORGITO. HISTORY OF PRESENT ILLNESS: This is an 86-year-old female with a past medical history of hypertensi on, atrial fibrillation, on Coumadin, hypothyroidism, questionable CKD, legal blindness, adenocarcin jesica of tail of the pancreas, not on any medical treatment, presented to the emergency department com plaining of weakness since yesterday. The patient was also complaining of some shortness of breath. The patient also complained that she was feeling very tired, weak, had poor oral intake. There wa s no report of any GI bleeding. On arrival to the ED, the patient was noticed to have hemoglobin of 6.6, hematocrit 20.0. Patient was noted to also have INR of greater than 10, leukocytosis of 32 wi th bandemia. Lactic acid was within normal limits. Patient had a chest x-ray that showed mild basi lar atelectasis. Also had a CT of the brain, which showed no acute intracranial abnormality. Remot e infarct involving the left frontal operculum. BUN was 108, creatinine was 1.63 from baseline of 0 .94 in 2012, and renal was consulted. Patient received vancomycin, cefepime, diltiazem, NS 500 mL, PPI NS 80 mL an hour. PAST MEDICAL HISTORY: 1. Hypertension. 2. Atrial fibrillation with rapid ventricular response. 3. Coagulopathy. 4. Anemia. 5. Hypothyroidism. 6. 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 ALLERGIES: NONE. PAST SURGICAL HISTORY: Bilateral knee replacement, appendectomy. MEDICATIONS: At home are: 1. Coumadin. 2. Megestrol acetate 40 mg. 3. Lipitor 20 mg. 4. Hydralazine 25 mg every day. 5. Losartan 25 mg. 6. Metoprolol 25 mg b.i.d. 7. Celexa. 8. Colace. 9. Levothyroxine. 10. Vitamin E. 11. Melatonin. SOCIAL HISTORY: No history of smoking, alcohol or any drugs. FAMILY HISTORY: Noncontributory. REVIEW OF SYSTEMS: Patient complains of generalized weakness. Denies any nausea, vomiting, diarrhe a. Has decreased p.o. intake. Denies any hematemesis. No bright red blood per rectum. Denies any dysuria, urgency, frequency. Denies any fevers and chills. PHYSICAL EXAMINATION: VITAL SIGNS: The patient is afebrile. Heart rate is 114, respiratory rate is 18, blood pressure 11 3/64, saturating 100%. GENERAL: The patient is awake, alert, oriented, appears to be in moderate distress secondary to michell n. HEENT: Pupils equal, round, reactive to light. Neck is supple. No JVD. Oral mucosa dry. HEART: Irregularly irregular. LUNGS: Decreased breath sounds in the left base. ABDOMEN: Soft, nontender. EXTREMITIES: No clubbing, cyanosis, or edema. NEUROLOGIC: Patient is awake, alert. DIAGNOSTIC DATA: Shows sodium 141, potassium 4.8, chloride 105, bicarbonate 23, BUN 108, creatinine 1.63. BNP 7330. Troponin 0.016. TSH of 3.340, T4 is 1.29. Lactic acid 1.8. White count was 32. 3, hemoglobin 6.6, platelet count 299, neutrophils 25. INR was greater than 10. UA shows 2+ leukoc yte esterase, 53 WBCs. Chest x-ray showed left lower lobe opacification, pneumonia versus atelectasis. Cardiomegaly and at herosclerotic disease. ASSESSMENT AND PLAN: This is an 86-year-old woman presenting with: 1. Sepsis, likely secondary to urinary tract infection and pneumonia. 2. Severe anemia in the setting of coagulopathy with INR greater than 10. 3. Acute renal failure. Baseline creatinine 0.94 in 2013. At this period of time, patient has seps is, etiology of renal failure. The patient has relatively high BUN as compared to creatinine ratio, indicates either dehydration, steroid use, or gastrointestinal bleeding. Plus family was saying th e patient has decreased p.o. intake. The patient also had Motrin use at home, and patient was also taking Losartan at home, which could have contributed to the renal failure. 4. Elevated INR. 5. Urinary tract infection. 6. Elevated BNP. 7. History of hypertension. 8. Hypothyroidism. 9. Pneumonia. 10. 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 PLAN: At this period of time, the patient will be admitted to . Patient is in atrial fibrilla tion. Heart rate is 110s to 120s. INR is greater than 10. Hemoglobin is 6.6. Patient has receive d 3 liters of fluids, including blood. The patient can be given very gentle IV fluids as tolerated per cardiology. Will send for urine culture, urine electrolytes. Report strict I's and O's. Ramirez . Hold Losartan and Motrin. A GI evaluation for GI bleed. There is no indication for dialysis at this point. We will follow the patient closely with you. Rest of the treatment will depend on rach ent's hospitalization course. Dictated By: LIZZETTE GUEVARA/REINA Conf#: [id number] DID#: [id number]
--- NOTE | 2017-01-23 18:45 | RADRPT ---
PROCEDURE: Retroperitoneal US. CLINICAL INDICATION: Renal insufficiency TECHNIQUE: Multiple sonographic images of the kidneys and retroperitoneum were obtained. The imag es were reviewed on a PACS workstation. COMPARISON: No prior studies are available for comparison. FINDINGS: The right kidney measures 8.9 cm. The left kidney measures 8.8 cm. There is increased echogenicity of the kidneys. There is no evidence of hydronephrosis. The urinary bladder is not visualized.. IMPRESSION: Echogenic kidneys, consistent with medical renal disease. No evidence of hydronephrosis. RPTAT: AA .Kiel Johnston MD, MD Date Time Electronically viewed and signed by .Kiel Johnston MD, on 01/23/2017 18:44 .S/
--- NOTE | 2017-01-23 19:02 | CONS ---
Date/Time of Note Date/Time of Note DATE: 01/23/17 TIME: 18:34 Assessment/Plan Assessment/Plan Chief Complaint/Hosp Course Summary Assessment and Plan: Assessment: Anemia secondary to coagulopathy with INR greater than 10 A-fib on metoprolol 25mg BID Leucocytosis- on antibiotics Plan: Agree to hold Coumadin and give vitamin K Continue to monitor H/H transfuse for Hgb less than 7.5 Stool for OB No overt signs of GI bleed will continue to monitor need for upper and/or lower endoscopy Patient seen in collaboration with Dr. 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 She presented to the ER with increased weakness, some SOB , and poor appetite for the past 24hours. She currently denies abdominal pain ,hematemesis, hematochezia, melena, or dysphagia. Upon initial work-up hemoglobin was noted to be 6.6, hematocrit 20.0 , INR of greater than 10, leukocytosis of 32.3, lactic acid was within normal range. A chest x-ray was obtained and showed mild basilar atelectasis. CT of the brain,was also obtained and showed no acute intracranial abnormality, remote infarct involving the left frontal operculum She has received 1 unit PRBCs and 2 units of FFP have been ordered. Plan to order stool for OB, continue to monitor H/H, and will monitor need for GI intervention. Past Medical History: History of adenocarcinoma of the tail of the pancreas. Hypertension Atrial fibrillation with RVR Coagulopathy. Anemia. Hypothyroidism appendectomy Previous knee surgery Has never had EGD or colonoscopy Allergies: NKA Problems: Consultation Date/Type/Reason Admit Date/Time Date of Consultation: Jan 23, 2017 Type of Consultation: GI Reason for Consultation Anemia Respiratory: shortness of breath Cardiovascular: no complaints Gastrointestinal: decreased appetite Genitourinary: no complaints Musculoskeletal: other (weakness) Past Medical History Medical History: hypertension, hypothyroid, other (Essential hypertension, atrial fibrillation, hypothyroidism, chronic kidney disease, adenocarcinoma of the tail of the pancreas) Past Surgical History Past Surgical Hx: appendectomy Social History Alcohol Use: none Smoking Status: Never smoker Drug Use: none Exam/Review of Systems Vital Signs Vitals Vital Signs Date Time Temp Pulse Resp B/P Pulse Ox O2 Delivery O2 Flow Rate FiO2 01/23/17 16:30 98.0 114 18 113/64 100 Room Air 01/23/17 11:48 3 Exam Constitutional: alert Psych: no complaints Head: atraumatic, normocephalic Eyes: nl conjunctiva Neck: non-tender, supple Respiratory: diminished breath sounds Cardiovascular: irregular rhythm Gastrointestinal: bowel sounds, nl liver, spleen, non-tender, soft Genitourinary - Female: nl adnexae Musculoskeletal: nl extremities to inspection Results Result Diagram: 01/23/17 1125 01/23/17 1127 Results 24 hrs Laboratory Tests Test 01/23/17 11:25 01/23/17 11:27 01/23/17 12:30 01/23/17 12:45 White Blood Count 32.3 H Red Blood Count 2.43 L Hemoglobin 6.6 *L Hematocrit 20.0 L Mean Corpuscular Volume 82.3 Mean Corpuscular Hemoglobin 27.2 L Mean Corpuscular Hemoglobin Concent 33.0 Red Cell Distribution Width 16.1 H Platelet Count 299 Mean Platelet Volume 11.5 H Neutrophils % Segmented Neutrophils % (Manual) 75 Band Neutrophils % (Manual) 8 H Lymphocytes % Lymphocytes % (Manual) 8 L Monocytes % Monocytes % (Manual) 6 Eosinophils % Eosinophils % (Manual) 4 Basophils % Nucleated Red Blood Cells % 0.1 H Neutrophils # Neutrophils # (Manual) 25.0 H Band Neutrophils # 2.5 H Absolute Lymphocytes (Manual) 2.5 Lymphocytes # Monocytes # Absolute Monocytes (Manual) 1.9 H Eosinophils # Basophils # Nucleated Red Blood Cells # Pathologist Review (Hematology) Y Platelet Estimate NORMAL Giant Platelets 1 H Polychromasia 3+ Poikilocytosis 3+ Lactic Acid Level 2.0 Total Bilirubin 0.1 L Direct Bilirubin 0.00 Indirect Bilirubin 0.1 Aspartate Amino Transf (AST/SGOT) 51 H Alanine Aminotransferase (ALT/SGPT) 44 Alkaline Phosphatase 182 H Total Protein 5.9 L Albumin 2.5 L Sodium Level 141 Potassium Level 4.8 Chloride Level 105 Carbon Dioxide Level 23 Anion Gap 18 H Blood Urea Nitrogen 108 H Creatinine 1.63 H Glucose Level 89 Calcium Level 9.3 Troponin I 0.016 Prothrombin Time 95.8 H Prothrombin Time Ratio 7.5 INR International Normalized Ratio > 10.00 *H Activated Partial Thromboplast Time 109.3 *H Hemoglobin A1c 5.8 B-Type Natriuretic Peptide 7330 H Thyroid Stimulating Hormone (TSH) 3.340 Free Thyroxine 1.29 Bedside Urine pH (LAB) 5.5 Bedside Urine Protein (LAB) Trace H Bedside Urine Glucose (UA) Negative Bedside Urine Ketones (LAB) Negative Bedside Urine Blood Trace-intact H Bedside Urine Nitrite (LAB) Positive H Bedside Urine Leukocyte Esterase (L 2+ H Test 01/23/17 12:50 01/23/17 13:40 Urine Color YELLOW Urine Clarity SLIGHTLY CLOUDY A Urine pH 5.0 Urine Specific [place] 1.013 Urine Ketones NEGATIVE Urine Nitrite POSITIVE A Urine Bilirubin NEGATIVE Urine Urobilinogen NEGATIVE Urine Leukocyte Esterase 2+ H Urine Microscopic RBC 1 Urine Microscopic WBC 53 H Urine Bacteria MANY A Urine Hemoglobin NEGATIVE Urine Glucose NEGATIVE Urine Total Protein NEGATIVE Lactic Acid Level 1.8 Medications Medications Current Medications Ondansetron HCl (Zofran Inj) 4 mg Q6H PRN IV NAUSEA AND/OR VOMITING; Start at 14:30 Acetaminophen (Tylenol Tab) 650 mg Q6H PRN PO PAIN LEVEL 1-3 OR FEVER; Start 01/23/17 at 14:30 Acetaminophen/ Hydrocodone Bitart ([place] (5/325)) 1 tab Q6H PRN PO PAIN LEVEL 4 -6; Start 01/23/17 at 14:30 Atorvastatin Calcium (Lipitor) 20 mg QHS PO ; Start 01/23/17 at 21:00 Citalopram Hydrobromide (Celexa) 20 mg DAILY PO ; Start 01/24/17 at 09:00 Docusate Sodium (Colace) 100 mg BID PO ; Start 01/23/17 at 21:00 Metoprolol Tartrate (Lopressor) 25 mg BID PO Last administered on 01/23/17 18 :09; Admin Dose 25 MG; Start 01/23/17 at 21:00 Pantoprazole 40 mg 40 mg BID@06,18 IV Last administered on 01/23/17 18:10; Admin Dose 40 MG; Start 01/23/17 at 18:00 Cefepime HCl 0.5 gm/Sodium Chloride 50 ml @ 100 mls/hr Q24H IVPB ; Start 01/24 at 13:00 Vancomycin HCl/ Dextrose/Water (Vancocin/D5W) 150 ml @ 100 mls/hr Q36H IVPB ; Start 01/24/17 at 06:00 Copies To: CC: WAN JIMENEZ MDGUSTAVO Jan 23, 2017 18:47
[2017-01-23 19:52] LABS: HEMATOCRIT 20.6 % (37.0-47.0)
[2017-01-23 19:57] LABS: HEMOGLOBIN 6.8 g/dl (12.0-16.0)
[2017-01-23 20:07] LABS: TROPONIN-I 0.016 ng/ml (0.00-0.12)
[2017-01-23 20:10] LABS: CREATINE KINASE < 20 IU/L (23-200)
[2017-01-23] MEDS: HYDROCODONE/APAP (5/325) TAB PO PRN (20:35)
[2017-01-23] MEDS: ATORVASTATIN 20 MG TAB PO SCH (21:00)
[2017-01-23] MEDS: DOCUSATE SODIUM 100 MG CAP PO SCH (21:00)
[2017-01-24] VITALS (14 sets, daily range): BP systolic 114–160; BP diastolic 60–73; PULSE 88–151; RESP 17–24; TEMP 97.5
[2017-01-24 01:04] LABS: CREATINE KINASE < 20 IU/L (23-200)
[2017-01-24 01:07] LABS: CK-MB 0.77 ng/ml (0.0-2.4); TROPONIN-I 0.013 ng/ml (0.00-0.12)
[2017-01-24] MEDS ORDERED: morphine 2 MG INJ ONE (03:31)
[2017-01-24] MEDS: morphine 2 MG INJ IV PRN (03:40)
[2017-01-24] MEDS ORDERED: PANTOPRAZOLE 40 MG INJ IV SCH (06:00)
[2017-01-24] MEDS ORDERED: VANCOMYCIN 750 MG in DEXTROSE 5% 150 ML IVPB SCH (06:00)
[2017-01-24 06:23] LABS: BASOPHILS % 0.2 % (0.0-2.0); EOSINOPHILS # 0.2 10^3/ul (0.0-0.5); EOSINOPHILS % 1.1 % (0.0-7.0); HEMATOCRIT 27.3 % (37.0-47.0); HEMOGLOBIN 9.4 g/dl (12.0-16.0); LYMPHOCYTES # 1.3 10^3/ul (0.8-2.9); LYMPHOCYTES % 7.3 % (15.0-51.0); MEAN CORPUSCULAR HEMOGLOBIN 29.4 pg (29.0-33.0); MEAN CORPUSCULAR HGB CONC 34.4 g/dl (32.0-37.0); MEAN CORPUSCULAR VOLUME 85.3 fl (82.0-101.0); MEAN PLATELET VOLUME 10.6 fl (7.4-10.4); MONOCYTE # 1.1 10^3/ul (0.3-0.9); MONOCYTES % 6.3 % (0.0-11.0); NEUTROPHIL # 14.3 10^3/ul (1.6-7.5); NEUTROPHILS % 82.2 % (39.0-77.0); NUCLEATED RED BLOOD CELLS% 0.1 /100WBC (0.0-0.0); PLATELET COUNT 167 10^3/UL (140-415); RED CELL DISTRIBUTION WIDTH 14.7 % (11.5-14.5); WHITE BLOOD COUNT 17.4 10^3/ul (4.8-10.8)
[2017-01-24 06:34] LABS: INR 1.31; PROTIME 16.4 Sec (12.2-14.2); PT RATIO 1.3
[2017-01-24 06:39] LABS: IRON 188 ug/dl (35-150)
[2017-01-24] MEDS: PANTOPRAZOLE 40 MG INJ IV SCH ×2 (06:39→20:15)
[2017-01-24 06:42] LABS: ALBUMIN 2.1 g/dl (3.3-4.9); ALBUMIN/GLOBULIN RATIO 0.77; BILIRUBIN,INDIRECT 0.9 mg/dl (0-1.1); BILIRUBIN,TOTAL 0.9 mg/dl (0.2-1.3); CREATININE 1.16 mg/dl (0.44-1.00); POTASSIUM 4.1 mmol/L (3.5-5.1); TOTAL PROTEIN 4.8 g/dl (6.1-8.1)
[2017-01-24 06:49] LABS: TOTAL IRON BINDING CAPACITY 249 ug/dl (241-421)
[2017-01-24 07:00] LABS: MAGNESIUM 1.6 mg/dl (1.7-2.5); PHOSPHORUS 5.2 mg/dl (2.5-4.9); TROPONIN-I < 0.012 ng/ml (0.00-0.12)
[2017-01-24] MEDS: LEVOTHYROXINE 50 MCG TAB PO SCH (07:00)
[2017-01-24 07:47] LABS: FOLATE 7.7 ng/ml (2.8-20.0)
[2017-01-24] MEDS ORDERED: FUROSEMIDE 20 MG INJ IV ONE (09:00)
[2017-01-24] MEDS: METOPROLOL 25 MG TAB PO SCH (09:00)
[2017-01-24] MEDS: CITALOPRAM 20 MG TAB PO SCH (09:00)
[2017-01-24] MEDS: DOCUSATE SODIUM 100 MG CAP PO SCH ×2 (09:00→21:00)
--- NOTE | 2017-01-24 09:13 | CONS ---
Date/Time of Note Date/Time of Note DATE: 01/24/17 TIME: 09:13 Assessment/Plan Assessment/Plan Chief Complaint/Hosp Course 86-year-old woman presenting with: 1. Sepsis, likely secondary to urinary tract infection and pneumonia. 2. Severe anemia in the setting of coagulopathy with INR greater than 10 which is improved 3. Acute renal failure. Baseline creatinine 0.94 in 2013. At this period of time, patient has sepsis, etiology of renal failure. The patient has relatively high BUN as compared to creatinine ratio, indicates either dehydration, steroid use, or gastrointestinal bleeding. Plus family was saying the patient has decreased p.o. intake. The patient also had Motrin use at home , and patient was also taking Losartan at home, which could have contributed to the renal failure. Cr improving, BUN still elevated 4. Elevated INR> improved 5. Urinary tract infection with GNR 6. Elevated BNP. 7. History of hypertension. 8. Hypothyroidism. 9. Pneumonia. 10. 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 Recs - Agree with lasix use today , but would assess it everyday, and would be cautious - BUN still elevated in comparison to Cr which is improving, however it lags behind in improvement as Cr is improving. relatively high BUN/Cr points towards Likey GI bleeding which should be evaluated with EGD/Colonoscopy - Since Cr is improving, only indication to HD with uremia would be uremic pericarditis, GI bleeding, worsening nausea/vomiting/AMS - UCx+GNR - Renal u/s + medical renal disease and negative for hydronephrosis - c/w Hold Losartan/motrin - Avoid Nephrotoxic agents - Please renally dose all meds - Will fu pt closely with Primary team Problems: Consultation Date/Type/Reason Admit Date/Time Jan 23, 2017 at 13:10 Initial Consult Date 01/23/17 Type of Consultation: Renal Referring Provider: SANCHEZ APARICIO NP 24 HR Interval Summary Free Text/Dictation Pt receiving lasix 40 bid today sob today, recieved blood products Exam/Review of Systems Vital Signs Vitals Vital Signs Date Time Temp Pulse Resp B/P Pulse Ox O2 Delivery O2 Flow Rate FiO2 01/24/17 05:58 97.5 98 17 133/61 100 Room Air 01/23/17 11:48 3 Intake and Output 01/23/17 01/23/17 01/24/17 14:59 22:59 06:59 Intake Total 350 ml Output Total 450 ml Balance 350 ml -450 ml Exam GENERAL: The patient is awake, alert, oriented, appears to be in moderate distress secondary to pain. HEENT: Pupils equal, round, reactive to light. Neck is supple. No JVD. Oral mucosa dry. HEART: Irregularly irregular. LUNGS: Decreased breath sounds , few crackles ABDOMEN: Soft, nontender. EXTREMITIES: No clubbing, cyanosis, or edema. NEUROLOGIC: Patient is awake, alert. Results Result Diagram: 01/24/17 0601 01/24/17 0601 Results 24 hrs Laboratory Tests Test 01/23/17 11:25 01/23/17 11:27 01/23/17 12:30 01/23/17 12:45 White Blood Count 32.3 H Red Blood Count 2.43 L Hemoglobin 6.6 *L Hematocrit 20.0 L Mean Corpuscular Volume 82.3 Mean Corpuscular Hemoglobin 27.2 L Mean Corpuscular Hemoglobin Concent 33.0 Red Cell Distribution Width 16.1 H Platelet Count 299 Mean Platelet Volume 11.5 H Neutrophils % Segmented Neutrophils % (Manual) 75 Band Neutrophils % (Manual) 8 H Lymphocytes % Lymphocytes % (Manual) 8 L Monocytes % Monocytes % (Manual) 6 Eosinophils % Eosinophils % (Manual) 4 Basophils % Nucleated Red Blood Cells % 0.1 H Neutrophils # Neutrophils # (Manual) 25.0 H Band Neutrophils # 2.5 H Absolute Lymphocytes (Manual) 2.5 Lymphocytes # Monocytes # Absolute Monocytes (Manual) 1.9 H Eosinophils # Basophils # Nucleated Red Blood Cells # Pathologist Review (Hematology) Y Platelet Estimate NORMAL Giant Platelets 1 H Polychromasia 3+ Poikilocytosis 3+ Lactic Acid Level 2.0 Total Bilirubin 0.1 L Direct Bilirubin 0.00 Indirect Bilirubin 0.1 Aspartate Amino Transf (AST/SGOT) 51 H Alanine Aminotransferase (ALT/SGPT) 44 Alkaline Phosphatase 182 H Total Protein 5.9 L Albumin 2.5 L Sodium Level 141 Potassium Level 4.8 Chloride Level 105 Carbon Dioxide Level 23 Anion Gap 18 H Blood Urea Nitrogen 108 H Creatinine 1.63 H Glucose Level 89 Calcium Level 9.3 Troponin I 0.016 Prothrombin Time 95.8 H Prothrombin Time Ratio 7.5 INR International Normalized Ratio > 10.00 *H Activated Partial Thromboplast Time 109.3 *H Hemoglobin A1c 5.8 B-Type Natriuretic Peptide 7330 H Thyroid Stimulating Hormone (TSH) 3.340 Free Thyroxine 1.29 Bedside Urine pH (LAB) 5.5 Bedside Urine Protein (LAB) Trace H Bedside Urine Glucose (UA) Negative Bedside Urine Ketones (LAB) Negative Bedside Urine Blood Trace-intact H Bedside Urine Nitrite (LAB) Positive H Bedside Urine Leukocyte Esterase (L 2+ H Test 01/23/17 12:50 01/23/17 13:40 01/23/17 19:05 01/24/17 00:15 Urine Color YELLOW Urine Clarity SLIGHTLY CLOUDY A Urine pH 5.0 Urine Specific [place] 1.013 Urine Ketones NEGATIVE Urine Nitrite POSITIVE A Urine Bilirubin NEGATIVE Urine Urobilinogen NEGATIVE Urine Leukocyte Esterase 2+ H Urine Microscopic RBC 1 Urine Microscopic WBC 53 H Urine Bacteria MANY A Urine Eosinophils % 0.0 Urine Hemoglobin NEGATIVE Urine Random Creatinine 46.99 Urine Random Sodium 38 Urine Glucose NEGATIVE Urine Total Protein NEGATIVE Lactic Acid Level 1.8 1.3 Hemoglobin 6.8 *L Hematocrit 20.6 L Creatine Kinase < 20 L < 20 L Creatine Kinase Index Creatinine Kinase MB (Mass) 0.90 0.77 Troponin I 0.016 0.013 Test 01/24/17 06:01 White Blood Count 17.4 #H Red Blood Count 3.20 #L Hemoglobin 9.4 #L Hematocrit 27.3 #L Mean Corpuscular Volume 85.3 Mean Corpuscular Hemoglobin 29.4 Mean Corpuscular Hemoglobin Concent 34.4 Red Cell Distribution Width 14.7 H Platelet Count 167 # Mean Platelet Volume 10.6 H Neutrophils % 82.2 H Lymphocytes % 7.3 L Monocytes % 6.3 Eosinophils % 1.1 Basophils % 0.2 Nucleated Red Blood Cells % 0.1 H Neutrophils # 14.3 H Lymphocytes # 1.3 Monocytes # 1.1 H Eosinophils # 0.2 Basophils # 0.0 Nucleated Red Blood Cells # 0.0 Prothrombin Time 16.4 #H Prothrombin Time Ratio 1.3 INR International Normalized Ratio 1.31 Activated Partial Thromboplast Time 33.0 Sodium Level 143 Potassium Level 4.1 Chloride Level 112 H Carbon Dioxide Level 20 L Anion Gap 15 Blood Urea Nitrogen 101 H Creatinine 1.16 H Glucose Level 99 Calcium Level 8.0 L Phosphorus Level 5.2 H Magnesium Level 1.6 L Iron Level 188 H Total Iron Binding Capacity 249 Percent Iron Saturation 76 H Ferritin 448.0 H Total Bilirubin 0.9 Direct Bilirubin 0.00 Indirect Bilirubin 0.9 Aspartate Amino Transf (AST/SGOT) 72 H Alanine Aminotransferase (ALT/SGPT) 57 Alkaline Phosphatase 110 Troponin I < 0.012 Total Protein 4.8 #L Albumin 2.1 L Globulin 2.70 Albumin/Globulin Ratio 0.77 Vitamin B12 Level 986 H Folate 7.7 Medications Medications Current Medications Ondansetron HCl (Zofran Inj) 4 mg Q6H PRN IV NAUSEA AND/OR VOMITING; Start at 14:30 Acetaminophen (Tylenol Tab) 650 mg Q6H PRN PO PAIN LEVEL 1-3 OR FEVER; Start 01/23/17 at 14:30 Acetaminophen/ Hydrocodone Bitart ([place] (5/325)) 1 tab Q6H PRN PO PAIN LEVEL 4 -6 Last administered on 01/23/17 20:35; Admin Dose 1 TAB; Start 01/23/17 at 14:30 Atorvastatin Calcium (Lipitor) 20 mg QHS PO Last administered on 01/23/17 21: 00; Admin Dose 20 MG; Start 01/23/17 at 21:00 Citalopram Hydrobromide (Celexa) 20 mg DAILY PO ; Start 01/24/17 at 09:00 Docusate Sodium (Colace) 100 mg BID PO ; Start 01/23/17 at 21:00 Metoprolol Tartrate (Lopressor) 25 mg BID PO Last administered on 01/23/17 18 :09; Admin Dose 25 MG; Start 01/23/17 at 21:00 Pantoprazole 40 mg 40 mg BID@06,18 IV Last administered on 01/24/17 06:39; Admin Dose 40 MG; Start 01/23/17 at 18:00 Cefepime HCl 0.5 gm/Sodium Chloride 50 ml @ 100 mls/hr Q24H IVPB ; Start 01/24 at 13:00 Vancomycin HCl/ Dextrose/Water (Vancocin/D5W) 150 ml @ 100 mls/hr Q36H IVPB Last administered on 01/24/17 06:00; Admin Dose 100 MLS/HR; Start 01/24/17 at 06:00 Morphine Sulfate 1 mg 1 mg Q4H PRN IV PAIN Last administered on 01/24/17 03: 40; Admin Dose 1 MG; Start 01/24/17 at 04:30 Magnesium Sulfate (Magnesium Sulfate 2 Gm/50 ml) 50 ml @ 25 mls/hr ONCE ONCE IVPB ; Start 01/24/17 at 09:30; Stop 01/24/17 at 11:29; Status UNLIZZETTE CELIS MD Jan 24, 2017 09:13
--- NOTE | 2017-01-24 09:21 | CONS ---
Date/Time of Note Date/Time of Note DATE: 01/24/17 TIME: 09:16 Assessment/Plan Assessment/Plan Chief Complaint/Hosp Course Acute on ?chronic ?diastolic heart failure: Likely from blood products and aggressive IV hydration. Worse today as now 4 units PRBCs and 2 units FFP. Needs diuresis Chronic Afib with RVR: Partially compensatory to multiple active issues. HR relatively controlled Coagulopathy: INR >10 on admission, now 1.3 Anemia with possible GI bleed: Hgb 6.6 on admission, now improved with transfusion Sepsis: likely urinary UTI Acute vs chronic renal failure Pancreatic ca -lasix 40mg IV BID -increase to metoprolol 50mg BID -echo Problems: Consultation Date/Type/Reason Admit Date/Time Jan 23, 2017 at 13:10 Initial Consult Date 01/23/17 Type of Consultation: Cardiology Referring Provider: SANCHEZ APARICIO NP 24 HR Interval Summary Free Text/Dictation s/p 2 units FFP and 4 units PRBCs. More SOB this am. HR overall controlled. Likely melena overnight per report Exam/Review of Systems Vital Signs Vitals Vital Signs Date Time Temp Pulse Resp B/P Pulse Ox O2 Delivery O2 Flow Rate FiO2 01/24/17 05:58 97.5 98 17 133/61 100 Room Air 01/23/17 11:48 3 Intake and Output 01/23/17 01/23/17 01/24/17 15:00 23:00 07:00 Intake Total 350 ml Output Total 450 ml Balance 350 ml -450 ml Exam Constitutional: alert, distress (mild respiratory ), oriented Psych: nl mood/affect Head: atraumatic, normocephalic Neck: jvd (10cm) Respiratory: crackles/rales, wheezing, No clear to auscultation (crackles, wheezing ) Cardiovascular: systolic murmur (2/6 HSM), No edema, No regular rate and rhythm (IRIR) Gastrointestinal: non-tender, soft Neurological: nl mental status, nl speech Skin: No rash or lesions Results Result Diagram: 01/24/17 0601 01/24/17 06 Results 24 hrs Laboratory Tests Test 01/23/17 11:25 01/23/17 11:27 01/23/17 12:30 01/23/17 12:45 White Blood Count 32.3 H Red Blood Count 2.43 L Hemoglobin 6.6 *L Hematocrit 20.0 L Mean Corpuscular Volume 82.3 Mean Corpuscular Hemoglobin 27.2 L Mean Corpuscular Hemoglobin Concent 33.0 Red Cell Distribution Width 16.1 H Platelet Count 299 Mean Platelet Volume 11.5 H Neutrophils % Segmented Neutrophils % (Manual) 75 Band Neutrophils % (Manual) 8 H Lymphocytes % Lymphocytes % (Manual) 8 L Monocytes % Monocytes % (Manual) 6 Eosinophils % Eosinophils % (Manual) 4 Basophils % Nucleated Red Blood Cells % 0.1 H Neutrophils # Neutrophils # (Manual) 25.0 H Band Neutrophils # 2.5 H Absolute Lymphocytes (Manual) 2.5 Lymphocytes # Monocytes # Absolute Monocytes (Manual) 1.9 H Eosinophils # Basophils # Nucleated Red Blood Cells # Pathologist Review (Hematology) Y Platelet Estimate NORMAL Giant Platelets 1 H Polychromasia 3+ Poikilocytosis 3+ Lactic Acid Level 2.0 Total Bilirubin 0.1 L Direct Bilirubin 0.00 Indirect Bilirubin 0.1 Aspartate Amino Transf (AST/SGOT) 51 H Alanine Aminotransferase (ALT/SGPT) 44 Alkaline Phosphatase 182 H Total Protein 5.9 L Albumin 2.5 L Sodium Level 141 Potassium Level 4.8 Chloride Level 105 Carbon Dioxide Level 23 Anion Gap 18 H Blood Urea Nitrogen 108 H Creatinine 1.63 H Glucose Level 89 Calcium Level 9.3 Troponin I 0.016 Prothrombin Time 95.8 H Prothrombin Time Ratio 7.5 INR International Normalized Ratio > 10.00 *H Activated Partial Thromboplast Time 109.3 *H Hemoglobin A1c 5.8 B-Type Natriuretic Peptide 7330 H Thyroid Stimulating Hormone (TSH) 3.340 Free Thyroxine 1.29 Bedside Urine pH (LAB) 5.5 Bedside Urine Protein (LAB) Trace H Bedside Urine Glucose (UA) Negative Bedside Urine Ketones (LAB) Negative Bedside Urine Blood Trace-intact H Bedside Urine Nitrite (LAB) Positive H Bedside Urine Leukocyte Esterase (L 2+ H Test 01/23/17 12:50 01/23/17 13:40 01/23/17 19:05 01/24/17 00:15 Urine Color YELLOW Urine Clarity SLIGHTLY CLOUDY A Urine pH 5.0 Urine Specific [place] 1.013 Urine Ketones NEGATIVE Urine Nitrite POSITIVE A Urine Bilirubin NEGATIVE Urine Urobilinogen NEGATIVE Urine Leukocyte Esterase 2+ H Urine Microscopic RBC 1 Urine Microscopic WBC 53 H Urine Bacteria MANY A Urine Eosinophils % 0.0 Urine Hemoglobin NEGATIVE Urine Random Creatinine 46.99 Urine Random Sodium 38 Urine Glucose NEGATIVE Urine Total Protein NEGATIVE Lactic Acid Level 1.8 1.3 Hemoglobin 6.8 *L Hematocrit 20.6 L Creatine Kinase < 20 L < 20 L Creatine Kinase Index Creatinine Kinase MB (Mass) 0.90 0.77 Troponin I 0.016 0.013 Test 01/24/17 06:01 White Blood Count 17.4 #H Red Blood Count 3.20 #L Hemoglobin 9.4 #L Hematocrit 27.3 #L Mean Corpuscular Volume 85.3 Mean Corpuscular Hemoglobin 29.4 Mean Corpuscular Hemoglobin Concent 34.4 Red Cell Distribution Width 14.7 H Platelet Count 167 # Mean Platelet Volume 10.6 H Neutrophils % 82.2 H Lymphocytes % 7.3 L Monocytes % 6.3 Eosinophils % 1.1 Basophils % 0.2 Nucleated Red Blood Cells % 0.1 H Neutrophils # 14.3 H Lymphocytes # 1.3 Monocytes # 1.1 H Eosinophils # 0.2 Basophils # 0.0 Nucleated Red Blood Cells # 0.0 Prothrombin Time 16.4 #H Prothrombin Time Ratio 1.3 INR International Normalized Ratio 1.31 Activated Partial Thromboplast Time 33.0 Sodium Level 143 Potassium Level 4.1 Chloride Level 112 H Carbon Dioxide Level 20 L Anion Gap 15 Blood Urea Nitrogen 101 H Creatinine 1.16 H Glucose Level 99 Calcium Level 8.0 L Phosphorus Level 5.2 H Magnesium Level 1.6 L Iron Level 188 H Total Iron Binding Capacity 249 Percent Iron Saturation 76 H Ferritin 448.0 H Total Bilirubin 0.9 Direct Bilirubin 0.00 Indirect Bilirubin 0.9 Aspartate Amino Transf (AST/SGOT) 72 H Alanine Aminotransferase (ALT/SGPT) 57 Alkaline Phosphatase 110 Troponin I < 0.012 Total Protein 4.8 #L Albumin 2.1 L Globulin 2.70 Albumin/Globulin Ratio 0.77 Vitamin B12 Level 986 H Folate 7.7 Medications Medications Current Medications Ondansetron HCl (Zofran Inj) 4 mg Q6H PRN IV NAUSEA AND/OR VOMITING; Start at 14:30 Acetaminophen (Tylenol Tab) 650 mg Q6H PRN PO PAIN LEVEL 1-3 OR FEVER; Start 01/23/17 at 14:30 Acetaminophen/ Hydrocodone Bitart ([place] (5/325)) 1 tab Q6H PRN PO PAIN LEVEL 4 -6 Last administered on 01/23/17 20:35; Admin Dose 1 TAB; Start 01/23/17 at 14:30 Atorvastatin Calcium (Lipitor) 20 mg QHS PO Last administered on 01/23/17 21: 00; Admin Dose 20 MG; Start 01/23/17 at 21:00 Citalopram Hydrobromide (Celexa) 20 mg DAILY PO ; Start 01/24/17 at 09:00 Docusate Sodium (Colace) 100 mg BID PO ; Start 01/23/17 at 21:00 Metoprolol Tartrate (Lopressor) 25 mg BID PO Last administered on 01/23/17 18 :09; Admin Dose 25 MG; Start 01/23/17 at 21:00 Pantoprazole 40 mg 40 mg BID@06,18 IV Last administered on 01/24/17 06:39; Admin Dose 40 MG; Start 01/23/17 at 18:00 Cefepime HCl 0.5 gm/Sodium Chloride 50 ml @ 100 mls/hr Q24H IVPB ; Start 01/24 at 13:00 Vancomycin HCl/ Dextrose/Water (Vancocin/D5W) 150 ml @ 100 mls/hr Q36H IVPB Last administered on 01/24/17 06:00; Admin Dose 100 MLS/HR; Start 01/24/17 at 06:00 Morphine Sulfate 1 mg 1 mg Q4H PRN IV PAIN Last administered on 01/24/17 03: 40; Admin Dose 1 MG; Start 01/24/17 at 04:30 Magnesium Sulfate (Magnesium Sulfate 2 Gm/50 ml) 50 ml @ 25 mls/hr ONCE ONCE IVPB ; Start 01/24/17 at 09:30; Stop 01/24/17 at 11:29; Status ERIC LARSEN Jan 24, 2017 09:21
--- NOTE | 2017-01-24 09:26 | PN ---
Date/Time of Note Date/Time of Note DATE: 01/24/17 TIME: 09:21 Assessment/Plan VTE Prophylaxis VTE Prophylaxis Intervention: contraindicated Lines/Catheters IV Catheter Type (from [facility]): Saline Lock Assessment/Plan Chief Complaint/Hosp Course 1. Sepsis. The source of infection is most probably underlying pneumonia versus urinary tract infection. No evidence of any septic shock at this time. The patient will be continued on empiric antibiotics. Pancultures pending. Infectious diseases following. 2. Coagulopathy. From Coumadin toxicity. No overt sources of bleeding. Improved status post vitamin K and fresh frozen plasma. Brain CT scan negative for any acute bleed. We will avoid any anticoagulation. 3. Atrial fibrillation with rapid ventricular response. Status post IV Cardizem in the emergency room. Continue beta-blockers. Cardiology following. 4. Acute kidney injury. Unknown baseline creatinine. Probably she has underlying chronic kidney disease. Nephrotoxic drugs will be avoided. Nephrology following. 5. Symptomatic anemia. Improved status post multiple blood transfusions. No evidence of any underlying iron deficiency. Gastroenterology following. Stool for OB pending. 6. Essential hypertension. Continue antihypertensives. 7. Hypothyroidism. Continue Synthroid. 8. 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 9. Fluids, electrolytes, and nutrition. N.p.o. except for medications until evaluated by speech therapy. 10. DVT prophylaxis. Contraindicated. 11. Prophylaxis. Proton pump inhibitors. 12. Plan. Continue close monitoring. Continue empiric antibiotics. Await final cultures. Await further recommendations from consultants. Case discussed with Dr. Castro. Problems: Subjective 24 Hr Interval Summary Free Text/Dictation Reported episodes of diarrhea. Reported episodes of pocketing food in her mouth. Exam/Review of Systems Vital Signs Vitals Vital Signs Date Time Temp Pulse Resp B/P Pulse Ox O2 Delivery O2 Flow Rate FiO2 01/24/17 05:58 97.5 98 17 133/61 100 Room Air 01/23/17 11:48 3 Intake and Output 01/23/17 01/23/17 01/24/17 14:59 22:59 06:59 Intake Total 350 ml Output Total 450 ml Balance 350 ml -450 ml Exam General: 86-year-old, elderly, pale looking female lying in bed in no apparent distress. HEENT: Normocephalic, atraumatic. Eyes: Anicteric sclerae, conjunctivae clear. ENT: Nasal septum midline, oral mucosa moist. Neck supple, JVD noticed. Respiratory: Bilaterally diminished breath sounds. No use of accessory muscles of respiration. No adventitious breath sounds. Cardiovascular: S1, S2 heard. Irregularly irregular rhythm. Systolic murmur. Abdomen: Soft, nontender, and nondistended. Bowel sounds positive in all 4 quadrants. Genitourinary: Deferred. Extremities: No cyanosis, no clubbing, no edema. Peripheral pulses palpable. Neurologic: Patient is awake and alert. No focal weakness. Skin: Normal skin turgor. No skin rashes. Results Result Diagram: 01/24/17 0601 01/24/17 0601 Results 24 hrs Laboratory Tests Test 01/23/17 11:25 01/23/17 11:27 01/23/17 12:30 01/23/17 12:45 White Blood Count 32.3 H Red Blood Count 2.43 L Hemoglobin 6.6 *L Hematocrit 20.0 L Mean Corpuscular Volume 82.3 Mean Corpuscular Hemoglobin 27.2 L Mean Corpuscular Hemoglobin Concent 33.0 Red Cell Distribution Width 16.1 H Platelet Count 299 Mean Platelet Volume 11.5 H Neutrophils % Segmented Neutrophils % (Manual) 75 Band Neutrophils % (Manual) 8 H Lymphocytes % Lymphocytes % (Manual) 8 L Monocytes % Monocytes % (Manual) 6 Eosinophils % Eosinophils % (Manual) 4 Basophils % Nucleated Red Blood Cells % 0.1 H Neutrophils # Neutrophils # (Manual) 25.0 H Band Neutrophils # 2.5 H Absolute Lymphocytes (Manual) 2.5 Lymphocytes # Monocytes # Absolute Monocytes (Manual) 1.9 H Eosinophils # Basophils # Nucleated Red Blood Cells # Pathologist Review (Hematology) Y Platelet Estimate NORMAL Giant Platelets 1 H Polychromasia 3+ Poikilocytosis 3+ Lactic Acid Level 2.0 Total Bilirubin 0.1 L Direct Bilirubin 0.00 Indirect Bilirubin 0.1 Aspartate Amino Transf (AST/SGOT) 51 H Alanine Aminotransferase (ALT/SGPT) 44 Alkaline Phosphatase 182 H Total Protein 5.9 L Albumin 2.5 L Sodium Level 141 Potassium Level 4.8 Chloride Level 105 Carbon Dioxide Level 23 Anion Gap 18 H Blood Urea Nitrogen 108 H Creatinine 1.63 H Glucose Level 89 Calcium Level 9.3 Troponin I 0.016 Prothrombin Time 95.8 H Prothrombin Time Ratio 7.5 INR International Normalized Ratio > 10.00 *H Activated Partial Thromboplast Time 109.3 *H Hemoglobin A1c 5.8 B-Type Natriuretic Peptide 7330 H Thyroid Stimulating Hormone (TSH) 3.340 Free Thyroxine 1.29 Bedside Urine pH (LAB) 5.5 Bedside Urine Protein (LAB) Trace H Bedside Urine Glucose (UA) Negative Bedside Urine Ketones (LAB) Negative Bedside Urine Blood Trace-intact H Bedside Urine Nitrite (LAB) Positive H Bedside Urine Leukocyte Esterase (L 2+ H Test 01/23/17 12:50 01/23/17 13:40 01/23/17 19:05 01/24/17 00:15 Urine Color YELLOW Urine Clarity SLIGHTLY CLOUDY A Urine pH 5.0 Urine Specific [place] 1.013 Urine Ketones NEGATIVE Urine Nitrite POSITIVE A Urine Bilirubin NEGATIVE Urine Urobilinogen NEGATIVE Urine Leukocyte Esterase 2+ H Urine Microscopic RBC 1 Urine Microscopic WBC 53 H Urine Bacteria MANY A Urine Eosinophils % 0.0 Urine Hemoglobin NEGATIVE Urine Random Creatinine 46.99 Urine Random Sodium 38 Urine Glucose NEGATIVE Urine Total Protein NEGATIVE Lactic Acid Level 1.8 1.3 Hemoglobin 6.8 *L Hematocrit 20.6 L Creatine Kinase < 20 L < 20 L Creatine Kinase Index Creatinine Kinase MB (Mass) 0.90 0.77 Troponin I 0.016 0.013 Test 01/24/17 06:01 White Blood Count 17.4 #H Red Blood Count 3.20 #L Hemoglobin 9.4 #L Hematocrit 27.3 #L Mean Corpuscular Volume 85.3 Mean Corpuscular Hemoglobin 29.4 Mean Corpuscular Hemoglobin Concent 34.4 Red Cell Distribution Width 14.7 H Platelet Count 167 # Mean Platelet Volume 10.6 H Neutrophils % 82.2 H Lymphocytes % 7.3 L Monocytes % 6.3 Eosinophils % 1.1 Basophils % 0.2 Nucleated Red Blood Cells % 0.1 H Neutrophils # 14.3 H Lymphocytes # 1.3 Monocytes # 1.1 H Eosinophils # 0.2 Basophils # 0.0 Nucleated Red Blood Cells # 0.0 Prothrombin Time 16.4 #H Prothrombin Time Ratio 1.3 INR International Normalized Ratio 1.31 Activated Partial Thromboplast Time 33.0 Sodium Level 143 Potassium Level 4.1 Chloride Level 112 H Carbon Dioxide Level 20 L Anion Gap 15 Blood Urea Nitrogen 101 H Creatinine 1.16 H Glucose Level 99 Calcium Level 8.0 L Phosphorus Level 5.2 H Magnesium Level 1.6 L Iron Level 188 H Total Iron Binding Capacity 249 Percent Iron Saturation 76 H Ferritin 448.0 H Total Bilirubin 0.9 Direct Bilirubin 0.00 Indirect Bilirubin 0.9 Aspartate Amino Transf (AST/SGOT) 72 H Alanine Aminotransferase (ALT/SGPT) 57 Alkaline Phosphatase 110 Troponin I < 0.012 Total Protein 4.8 #L Albumin 2.1 L Globulin 2.70 Albumin/Globulin Ratio 0.77 Vitamin B12 Level 986 H Folate 7.7 Medications Medications Current Medications Ondansetron HCl (Zofran Inj) 4 mg Q6H PRN IV NAUSEA AND/OR VOMITING; Start at 14:30 Acetaminophen (Tylenol Tab) 650 mg Q6H PRN PO PAIN LEVEL 1-3 OR FEVER; Start 01/23/17 at 14:30 Acetaminophen/ Hydrocodone Bitart ([place] (5/325)) 1 tab Q6H PRN PO PAIN LEVEL 4 -6 Last administered on 01/23/17 20:35; Admin Dose 1 TAB; Start 01/23/17 at 14:30 Atorvastatin Calcium (Lipitor) 20 mg QHS PO Last administered on 01/23/17 21: 00; Admin Dose 20 MG; Start 01/23/17 at 21:00 Citalopram Hydrobromide (Celexa) 20 mg DAILY PO ; Start 01/24/17 at 09:00 Docusate Sodium (Colace) 100 mg BID PO ; Start 01/23/17 at 21:00 Pantoprazole 40 mg 40 mg BID@06,18 IV Last administered on 01/24/17 06:39; Admin Dose 40 MG; Start 01/23/17 at 18:00 Cefepime HCl 0.5 gm/Sodium Chloride 50 ml @ 100 mls/hr Q24H IVPB ; Start 01/24 at 13:00 Vancomycin HCl/ Dextrose/Water (Vancocin/D5W) 150 ml @ 100 mls/hr Q36H IVPB Last administered on 01/24/17 06:00; Admin Dose 100 MLS/HR; Start 01/24/17 at 06:00 Morphine Sulfate 1 mg 1 mg Q4H PRN IV PAIN Last administered on 01/24/17 03: 40; Admin Dose 1 MG; Start 01/24/17 at 04:30 Magnesium Sulfate (Magnesium Sulfate 2 Gm/50 ml) 50 ml @ 25 mls/hr ONCE ONCE IVPB ; Start 01/24/17 at 09:30; Stop 01/24/17 at 11:29; Status UNV Metoprolol Tartrate (Lopressor) 50 mg BID PO ; Start 01/24/17 at 09:20; Status UNV SANCHEZ APARICIO [employer] ENGINEER Jan 24, 2017 09:26
[2017-01-24] MEDS: METOPROLOL 50 MG TAB PO SCH ×2 (09:50→21:00)
[2017-01-24] MEDS: FUROSEMIDE 40 MG INJ IV SCH ×2 (09:51→20:14)
[2017-01-24] MEDS ORDERED: MAGNESIUM SULFATE 2 GM/50 ML 50 ML IVPB ONE (10:00)
--- NOTE | 2017-01-24 10:18 | PN ---
Date/Time of Note Date/Time of Note DATE: 01/24/17 TIME: 10:14 Assessment/Plan VTE Prophylaxis VTE Prophylaxis Intervention: SCD's Lines/Catheters [facility] Saline Lock Assessment/Plan Chief Complaint/Hosp Course Summary Assessment and Plan: Assessment: Anemia secondary to coagulopathy with INR greater than 10 A-fib on metoprolol 25mg BID UTI Leucocytosis- likely secondary to UTI- on antibiotics Plan: Continue PPI Continue to monitor H/H transfuse for Hgb less than 7.5 Stool for OB-pending stool for c-diff Patient may need either EGD or colonoscopy in near future- will need cardiac clearance Patient seen in collaboration with Dr. Jimenez Subjective: Course reviewed with nursing staff Patient interviewed and examined All labs, imaging and other results reviewed The patient resting in bed, at bedside, Pt with labored breathing on lasix. Nurse states patient has had multiple episodes of diarrhea, Will send in stool for C-diff and stool for OB, Currently Hgb stable s/p 4 units PRBC's and 2 units FFP. Will continue to monitor may need endoscopy in near future, patient will need cardiac clearance. PHYSICAL EXAMINATION: GENERAL: Pale, ill-appearing, alert & oriented x 3, SKIN: No lesions, no stigmata chronic liver disease, no evidence of bleeding diathesis LYMPHATIC: No palpable lymphadenopathy. HEAD: Normocephalic, atraumatic, no tenderness. EYES: Pupils equal reactive to light and accommodation, full extraocular movements, sclera clear, non-icteric, no discharge. EARS/NOSE AND THROAT: Ears normal, nose normal, oropharynx normal, oral membranes well hydrated without lesions. NECK: Supple, no masses, CHEST: Inspection within normal limits. CARDIOVASCULAR: Heart: irregular rhythm. RESPIRATORY: Rales GASTROINTESTINAL AND LIVER: Abdomen: Soft, non tenderness, non-distended, no hernias, no masses, no organomegaly, no ascites, no guarding, no rebound tenderness, normoactive bowel sounds. Rectal: Deferred. GENITOURINARY: Female genitalia within normal limits. Problems: Exam/Review of Systems Vital Signs Vitals Vital Signs Date Time Temp Pulse Resp B/P Pulse Ox O2 Delivery O2 Flow Rate FiO2 01/24/17 09:41 109 24 160/67 96 Nasal Cannula 2.0 01/24/17 05:58 97.5 Intake and Output 01/23/17 01/23/17 01/24/17 15:00 23:00 07:00 Intake Total 350 ml Output Total 450 ml Balance 350 ml -450 ml Results Result Diagram: 01/24/17 0601 01/24/17 0601 Results 24 hrs Laboratory Tests Test 01/23/17 11:25 01/23/17 11:27 01/23/17 12:30 01/23/17 12:45 White Blood Count 32.3 H Red Blood Count 2.43 L Hemoglobin 6.6 *L Hematocrit 20.0 L Mean Corpuscular Volume 82.3 Mean Corpuscular Hemoglobin 27.2 L Mean Corpuscular Hemoglobin Concent 33.0 Red Cell Distribution Width 16.1 H Platelet Count 299 Mean Platelet Volume 11.5 H Neutrophils % Segmented Neutrophils % (Manual) 75 Band Neutrophils % (Manual) 8 H Lymphocytes % Lymphocytes % (Manual) 8 L Monocytes % Monocytes % (Manual) 6 Eosinophils % Eosinophils % (Manual) 4 Basophils % Nucleated Red Blood Cells % 0.1 H Neutrophils # Neutrophils # (Manual) 25.0 H Band Neutrophils # 2.5 H Absolute Lymphocytes (Manual) 2.5 Lymphocytes # Monocytes # Absolute Monocytes (Manual) 1.9 H Eosinophils # Basophils # Nucleated Red Blood Cells # Pathologist Review (Hematology) Y Platelet Estimate NORMAL Giant Platelets 1 H Polychromasia 3+ Poikilocytosis 3+ Lactic Acid Level 2.0 Total Bilirubin 0.1 L Direct Bilirubin 0.00 Indirect Bilirubin 0.1 Aspartate Amino Transf (AST/SGOT) 51 H Alanine Aminotransferase (ALT/SGPT) 44 Alkaline Phosphatase 182 H Total Protein 5.9 L Albumin 2.5 L Sodium Level 141 Potassium Level 4.8 Chloride Level 105 Carbon Dioxide Level 23 Anion Gap 18 H Blood Urea Nitrogen 108 H Creatinine 1.63 H Glucose Level 89 Calcium Level 9.3 Troponin I 0.016 Prothrombin Time 95.8 H Prothrombin Time Ratio 7.5 INR International Normalized Ratio > 10.00 *H Activated Partial Thromboplast Time 109.3 *H Hemoglobin A1c 5.8 B-Type Natriuretic Peptide 7330 H Thyroid Stimulating Hormone (TSH) 3.340 Free Thyroxine 1.29 Bedside Urine pH (LAB) 5.5 Bedside Urine Protein (LAB) Trace H Bedside Urine Glucose (UA) Negative Bedside Urine Ketones (LAB) Negative Bedside Urine Blood Trace-intact H Bedside Urine Nitrite (LAB) Positive H Bedside Urine Leukocyte Esterase (L 2+ H Test 01/23/17 12:50 01/23/17 13:40 01/23/17 19:05 01/24/17 00:15 Urine Color YELLOW Urine Clarity SLIGHTLY CLOUDY A Urine pH 5.0 Urine Specific [place] 1.013 Urine Ketones NEGATIVE Urine Nitrite POSITIVE A Urine Bilirubin NEGATIVE Urine Urobilinogen NEGATIVE Urine Leukocyte Esterase 2+ H Urine Microscopic RBC 1 Urine Microscopic WBC 53 H Urine Bacteria MANY A Urine Eosinophils % 0.0 Urine Hemoglobin NEGATIVE Urine Random Creatinine 46.99 Urine Random Sodium 38 Urine Glucose NEGATIVE Urine Total Protein NEGATIVE Lactic Acid Level 1.8 1.3 Hemoglobin 6.8 *L Hematocrit 20.6 L Creatine Kinase < 20 L < 20 L Creatine Kinase Index Creatinine Kinase MB (Mass) 0.90 0.77 Troponin I 0.016 0.013 Test 01/24/17 06:01 White Blood Count 17.4 #H Red Blood Count 3.20 #L Hemoglobin 9.4 #L Hematocrit 27.3 #L Mean Corpuscular Volume 85.3 Mean Corpuscular Hemoglobin 29.4 Mean Corpuscular Hemoglobin Concent 34.4 Red Cell Distribution Width 14.7 H Platelet Count 167 # Mean Platelet Volume 10.6 H Neutrophils % 82.2 H Lymphocytes % 7.3 L Monocytes % 6.3 Eosinophils % 1.1 Basophils % 0.2 Nucleated Red Blood Cells % 0.1 H Neutrophils # 14.3 H Lymphocytes # 1.3 Monocytes # 1.1 H Eosinophils # 0.2 Basophils # 0.0 Nucleated Red Blood Cells # 0.0 Prothrombin Time 16.4 #H Prothrombin Time Ratio 1.3 INR International Normalized Ratio 1.31 Activated Partial Thromboplast Time 33.0 Sodium Level 143 Potassium Level 4.1 Chloride Level 112 H Carbon Dioxide Level 20 L Anion Gap 15 Blood Urea Nitrogen 101 H Creatinine 1.16 H Glucose Level 99 Calcium Level 8.0 L Phosphorus Level 5.2 H Magnesium Level 1.6 L Iron Level 188 H Total Iron Binding Capacity 249 Percent Iron Saturation 76 H Ferritin 448.0 H Total Bilirubin 0.9 Direct Bilirubin 0.00 Indirect Bilirubin 0.9 Aspartate Amino Transf (AST/SGOT) 72 H Alanine Aminotransferase (ALT/SGPT) 57 Alkaline Phosphatase 110 Troponin I < 0.012 Total Protein 4.8 #L Albumin 2.1 L Globulin 2.70 Albumin/Globulin Ratio 0.77 Vitamin B12 Level 986 H Folate 7.7 Medications Medications Current Medications Ondansetron HCl (Zofran Inj) 4 mg Q6H PRN IV NAUSEA AND/OR VOMITING; Start at 14:30 Acetaminophen (Tylenol Tab) 650 mg Q6H PRN PO PAIN LEVEL 1-3 OR FEVER; Start 01/23/17 at 14:30 Acetaminophen/ Hydrocodone Bitart ([place] (5/325)) 1 tab Q6H PRN PO PAIN LEVEL 4 -6 Last administered on 01/23/17 20:35; Admin Dose 1 TAB; Start 01/23/17 at 14:30 Atorvastatin Calcium (Lipitor) 20 mg QHS PO Last administered on 01/23/17 21: 00; Admin Dose 20 MG; Start 01/23/17 at 21:00 Citalopram Hydrobromide (Celexa) 20 mg DAILY PO ; Start 01/24/17 at 09:00 Docusate Sodium (Colace) 100 mg BID PO ; Start 01/23/17 at 21:00 Pantoprazole 40 mg 40 mg BID@06,18 IV Last administered on 01/24/17 06:39; Admin Dose 40 MG; Start 01/23/17 at 18:00 Cefepime HCl 0.5 gm/Sodium Chloride 50 ml @ 100 mls/hr Q24H IVPB ; Start 01/24 at 13:00 Vancomycin HCl/ Dextrose/Water (Vancocin/D5W) 150 ml @ 100 mls/hr Q36H IVPB Last administered on 01/24/17 06:00; Admin Dose 100 MLS/HR; Start 01/24/17 at 06:00 Morphine Sulfate 1 mg 1 mg Q4H PRN IV PAIN Last administered on 01/24/17 03: 40; Admin Dose 1 MG; Start 01/24/17 at 04:30 Magnesium Sulfate (Magnesium Sulfate 2 Gm/50 ml) 50 ml @ 25 mls/hr ONCE ONCE IVPB ; Start 01/24/17 at 10:00; Stop 01/24/17 at 11:59 Metoprolol Tartrate (Lopressor) 50 mg BID PO Last administered on 01/24/17 09 :50; Admin Dose 50 MG; Start 01/24/17 at 09:20 GUSTAVO MACIAS Jan 24, 2017 10:18
[2017-01-24] MEDS ORDERED: CEFEPIME HCL 0.5 GM in SOD CHLORIDE 0.9% 50 ML IVPB SCH (13:00)
--- NOTE | 2017-01-24 14:02 | PN ---
DATE: 01/24/2017 SUBJECTIVE: No acute events overnight. The patient is lethargic, looks comfortable, at bed side. Afebrile. WBC today 17.4, H and H 9.1 and 27.3, platelets 167, neutrophils 82.2. Sodium 143, potassium 4.1, B UN 101, creatinine 1.16. MICROBIOLOGY: Blood cultures remain negative. Urine culture growing gram-negative rods. ANTIMICROBIALS: The patient is on IV cefepime and Vancomycin. DIAGNOSTICS: CT of the brain on admission revealed no acute intracranial abnormality, severe patchy and confluent periventricular and subcortical white matter hyperdensity likely related to chronic m icroangiopathic changes, remote infarct involving the left frontal operculum. Remote lacunar infarc t involving paramedial right thalamus and the left thalamus. No evidence of acute infarct. Chest x -ray on admission revealed left lower lobe opacification, questionable pneumonia versus atelectasis. Renal ultrasound showed echogenic kidneys consistent with medical renal disease, no evidence of hy dronephrosis. PHYSICAL EXAMINATION: GENERAL: This is a fragile, chronically ill-appearing, elderly woman who is lethargic, arousable an d in no distress. HEENT: Head atraumatic, normocephalic. Sclerae anicteric. Buccal mucosa dry. NECK: Supple. CHEST: Rise symmetrical. Breath sounds diminished to bases. HEART: S1, S2. ABDOMEN: Soft. Bowel tones hypoactive. EXTREMITIES: Without cyanosis or edema. ASSESSMENT: 1. Sepsis with leukocytosis and encephalopathy, rapid atrial fibrillation, low grade fever and admi ssion. 2. Urinary tract infection. 3. Possible pneumonia. 4. Coagulopathy from Coumadin toxicity. 5. Status post rapid atrial fibrillation. 6. Acute kidney injury. 7. Symptomatic anemia, status post blood transfusion. PLAN: The patient remains clinically stable. She is covered with broad spectrum antibiotics. She is being seen by multiple consultants, pending a 2D echo. We will keep her on current antimicrobial s, await for final cultures. Follow chest x-ray. Further recommendations per clinical course. Dictated By: SHELIA HUFF NP for DONNIE DON/REINA Conf#: [id number] DID#: [id number] CC: SHELIA HUFF NP;*EndCC*
--- NOTE | 2017-01-24 15:10 | RADRPT ---
Echocardiogram Report Patient Name: DRU REVELES Gender: Female Date: 1930 Study Date: 24-Jan-2017 Rough Carpenter: Kriss Sargent [facility] Location: 3303 Ref. Physician: ERIC GODDARD Quality: Good Procedures: Transthoracic echocardiogram with complete 2D, M-Mode, and doppler examination. Indications: Atrial Fibrillation. Congestive Heart Failure. 2D/M Mode Doppler Measurement Value Normal Ranges Measurement Value Normal Ranges LVIDd 2D 4.5 3.5 - 5.6 cm AV Peak Alpesh 1.8 m/sec LVIDs 2D 3.5 2.1 - 4.1 cm AV Peak PG 12.3 mmHg LVPWd 2D 1.0 0.6 - 1.1 cm AI Peak PG 69.9 mmHg IVSd 2D 1.0 0.6 - 1.1 cm AI Peak Alpesh 4.2 m/sec AoR Diam 2D 2.3 2.0 - 3.7 cm AI PHT 330.0 msec EDV 2D 92.2 cm3 LVOT Peak Alpesh 0.9 m/sec ESV 2D 41.1 cm3 LVOT Peak PG 3.3 mmHg LA Dimen 2D 3.7 2.3 - 4.0 cm TR Peak Alpesh 3.3 m/sec TR Peak PG 44.3 mmHg RVSP 47.0 mmHg Findings Left Ventricle: Normal left ventricular cavity size. Normal left ventricular wall thickness. Mild left ventricular systolic dysfunction. Ejection fraction is visually estimated at 45 %. Right Ventricle: Normal right ventricular size. Normal right ventricular systolic function. Left Atrium: There is severe enlargement of left atrium. Right Atrium: There is severe enlargement of right atrium. Mitral Valve: Mild mitral leaflet calcification. Moderate mitral annular calcification. Moderate mitral valve regurgitation. Aortic Valve: Aortic cusps appear mildly calcified. Moderate aortic valve regurgitation. Tricuspid Valve: Normal appearance of the tricuspid valve. Estimated peak PA systolic pressure 52 mmHg. There is moderate to severe tricuspid regurgitation. Pulmonic Valve: Pulmonic valve not well visualized. There is mild pulmonic regurgitation. Pericardium: Normal pericardium with no significant pericardial effusion. Aorta: Normal aortic root. IVC: Normal size and no respiratory collapse consistent with elevated right atrial pressure. Conclusions 1.Normal left ventricular cavity size. Normal left ventricular wall thickness. Mild left ventricular systolic dysfunction. Ejection fraction is visually estimated at 45 %. 2.Moderate mitral annular calcification. Moderate mitral valve regurgitation. 3.Moderate aortic valve regurgitation. 4.Moderate to severe tricuspid regurgitation. 5.Severe biatrial enlargement. 6.Estimated peak PA systolic pressure 52 mmHg based on RA pressure of 8 mmHg. Electronically Signed By: Eric Goddard 24-Jan-2017 15:09:15 0800 Patient Name: DRU REVELES Study Date: 24-Jan-2017 [id number]
[2017-01-24] MEDS: ATORVASTATIN 20 MG TAB PO SCH (21:00)
[2017-01-25] VITALS (13 sets, daily range): BP systolic 100–152; BP diastolic 51–73; PULSE 66–120; RESP 17–20
[2017-01-25] MEDS ORDERED: KETOROLAC 30 MG INJ IV ONE (01:51)
[2017-01-25] MEDS: PANTOPRAZOLE 40 MG INJ IV SCH ×2 (05:38→18:18)
[2017-01-25] MEDS: FUROSEMIDE 40 MG INJ IV SCH (05:38)
[2017-01-25] MEDS: LEVOTHYROXINE 50 MCG TAB PO SCH (06:25)
[2017-01-25 07:33] LABS: BASOPHIL # 0.1 10^3/ul (0.0-0.1); BASOPHILS % 0.3 % (0.0-2.0); EOSINOPHILS # 0.2 10^3/ul (0.0-0.5); EOSINOPHILS % 1.1 % (0.0-7.0); HEMATOCRIT 30.3 % (37.0-47.0); HEMOGLOBIN 10.6 g/dl (12.0-16.0); LYMPHOCYTES # 1.6 10^3/ul (0.8-2.9); LYMPHOCYTES % 10.5 % (15.0-51.0); MEAN CORPUSCULAR HEMOGLOBIN 29.3 pg (29.0-33.0); MEAN CORPUSCULAR VOLUME 83.7 fl (82.0-101.0); MEAN PLATELET VOLUME 10.8 fl (7.4-10.4); MONOCYTE # 1.4 10^3/ul (0.3-0.9); NEUTROPHIL # 11.7 10^3/ul (1.6-7.5); NEUTROPHILS % 77.2 % (39.0-77.0); NUCLEATED RED BLOOD CELLS # 0.1 10^3/ul (0.0-0.0); NUCLEATED RED BLOOD CELLS% 0.3 /100WBC (0.0-0.0); PLATELET COUNT 198 10^3/UL (140-415); RED BLOOD COUNT 3.62 10^6/ul (4.20-5.40); RED CELL DISTRIBUTION WIDTH 15.1 % (11.5-14.5); WHITE BLOOD COUNT 15.1 10^3/ul (4.8-10.8)
[2017-01-25 07:47] LABS: INR 1.33; PROTIME 16.6 Sec (12.2-14.2); PT RATIO 1.3
[2017-01-25 08:07] LABS: ALBUMIN 2.8 g/dl (3.3-4.9); ALBUMIN/GLOBULIN RATIO 0.84; BILIRUBIN,INDIRECT 0.5 mg/dl (0-1.1); BILIRUBIN,TOTAL 0.5 mg/dl (0.2-1.3); CALCIUM 9.1 mg/dl (8.4-10.2); CREATININE 1.28 mg/dl (0.44-1.00); TOTAL PROTEIN 6.1 g/dl (6.1-8.1)
[2017-01-25 08:16] LABS: MAGNESIUM 1.9 mg/dl (1.7-2.5)
[2017-01-25 08:26] LABS: POTASSIUM 2.7 mmol/L (3.5-5.1)
[2017-01-25] MEDS ORDERED: POTASSIUM CHLORIDE (SR) 20 MEQ TAB PO STA (08:31)
[2017-01-25] MEDS: DOCUSATE SODIUM 100 MG CAP PO SCH ×2 (09:00→20:57)
[2017-01-25 09:14] LABS: PATH REVIEW CH
--- NOTE | 2017-01-25 09:28 | CONS ---
Date/Time of Note Date/Time of Note DATE: 01/25/17 TIME: 09:28 Assessment/Plan Assessment/Plan Chief Complaint/Hosp Course 86-year-old woman presenting with: 1. Sepsis, likely secondary to urinary tract infection and pneumonia. 2. Severe anemia in the setting of coagulopathy with INR greater than 10 which is improved 3. Acute renal failure. Baseline creatinine 0.94 in 2013. At this period of time, patient has sepsis, etiology of renal failure. The patient has relatively high BUN as compared to creatinine ratio, indicates either dehydration, steroid use, or gastrointestinal bleeding. Plus family was saying the patient has decreased p.o. intake. The patient also had Motrin use at home , and patient was also taking Losartan at home, which could have contributed to the renal failure. Cr improving, BUN still elevated 4. Elevated INR> improved 5. Urinary tract infection with GNR 6. Elevated BNP. 7. History of hypertension. 8. Hypothyroidism. 9. Pneumonia. 10. 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 11 Hypokalemia due to Lasix Recs - Would hold Lasix - K repletion with IV KCL 40 meq IV X2 doses - BUN still elevated in comparison to Cr which is improving, however it lags behind in improvement as Cr is improving. relatively high BUN/Cr points towards Likey GI bleeding which should be evaluated with EGD/Colonoscopy - Hold Toradol in this elderly woman with JORGITO - Since Cr is improving, only indication to HD with uremia would be uremic pericarditis, GI bleeding, worsening nausea/vomiting/AMS - UCx+Ecoli - Renal u/s + medical renal disease and negative for hydronephrosis - c/w Hold Losartan/motrin - Avoid Nephrotoxic agents - Please renally dose all meds - Will fu pt closely with Primary team Problems: Consultation Date/Type/Reason Admit Date/Time Jan 23, 2017 at 13:10 Initial Consult Date 01/23/17 Type of Consultation: Renal Referring Provider: SANCHEZ APARICIO NP 24 HR Interval Summary Free Text/Dictation Net negative 4 L yesterday Hypokalemia Exam/Review of Systems Vital Signs Vitals Vital Signs Date Time Temp Pulse Resp B/P Pulse Ox O2 Delivery O2 Flow Rate FiO2 01/25/17 08:06 120 01/25/17 07:46 98.7 17 120/59 95 01/25/17 00:05 Nasal Cannula 2.0 Intake and Output 01/24/17 01/24/17 01/25/17 14:59 22:59 06:59 Intake Total 0 ml Output Total 2600 ml 1502 ml Balance -2600 ml -1502 ml Exam GENERAL: The patient is awake, alert, oriented, appears to be in moderate distress secondary to pain. HEENT: Pupils equal, round, reactive to light. Neck is supple. No JVD. Oral mucosa dry. HEART: Irregularly irregular. LUNGS: Decreased breath sounds , few crackles improved ABDOMEN: Soft, nontender. EXTREMITIES: No clubbing, cyanosis, or edema. NEUROLOGIC: Patient is awake, alert. Results Result Diagram: 01/25/17 0649 01/25/17 0648 Results 24 hrs Laboratory Tests Test 01/25/17 06:09 01/25/17 06:48 01/25/17 06:49 Lab Scanned Report BLOOD TRANSFUSION Sodium Level 148 H Potassium Level 2.7 *L Chloride Level 109 Carbon Dioxide Level 28 Anion Gap 14 Blood Urea Nitrogen 82 H Creatinine 1.28 H Glucose Level 97 Calcium Level 9.1 Phosphorus Level 5.0 H Magnesium Level 1.9 Total Bilirubin 0.5 Direct Bilirubin 0.00 Indirect Bilirubin 0.5 Aspartate Amino Transf (AST/SGOT) 85 H Alanine Aminotransferase (ALT/SGPT) 79 H Alkaline Phosphatase 175 #H Total Protein 6.1 # Albumin 2.8 L Globulin 3.30 H Albumin/Globulin Ratio 0.84 White Blood Count 15.1 H Red Blood Count 3.62 L Hemoglobin 10.6 L Hematocrit 30.3 L Mean Corpuscular Volume 83.7 Mean Corpuscular Hemoglobin 29.3 Mean Corpuscular Hemoglobin Concent 35.0 Red Cell Distribution Width 15.1 H Platelet Count 198 Mean Platelet Volume 10.8 H Neutrophils % 77.2 H Lymphocytes % 10.5 L Monocytes % 9.0 Eosinophils % 1.1 Basophils % 0.3 Nucleated Red Blood Cells % 0.3 H Neutrophils # 11.7 H Lymphocytes # 1.6 Monocytes # 1.4 H Eosinophils # 0.2 Basophils # 0.1 Nucleated Red Blood Cells # 0.1 H Prothrombin Time 16.6 H Prothrombin Time Ratio 1.3 INR International Normalized Ratio 1.33 Activated Partial Thromboplast Time 30.0 Medications Medications Current Medications Ondansetron HCl (Zofran Inj) 4 mg Q6H PRN IV NAUSEA AND/OR VOMITING; Start at 14:30 Acetaminophen (Tylenol Tab) 650 mg Q6H PRN PO PAIN LEVEL 1-3 OR FEVER; Start 01/23/17 at 14:30 Acetaminophen/ Hydrocodone Bitart ([place] (5/325)) 1 tab Q6H PRN PO PAIN LEVEL 4 -6 Last administered on 01/23/17 20:35; Admin Dose 1 TAB; Start 01/23/17 at 14:30 Atorvastatin Calcium (Lipitor) 20 mg QHS PO Last administered on 01/23/17 21: 00; Admin Dose 20 MG; Start 01/23/17 at 21:00 Citalopram Hydrobromide (Celexa) 20 mg DAILY PO ; Start 01/24/17 at 09:00 Docusate Sodium (Colace) 100 mg BID PO ; Start 01/23/17 at 21:00 Pantoprazole 40 mg 40 mg BID@06,18 IV Last administered on 01/25/17 05:38; Admin Dose 40 MG; Start 01/23/17 at 18:00 Vancomycin HCl/ Dextrose/Water (Vancocin/D5W) 150 ml @ 100 mls/hr Q36H IVPB Last administered on 01/24/17 06:00; Admin Dose 100 MLS/HR; Start 01/24/17 at 06:00 Morphine Sulfate (morphine) 1 mg Q4H PRN IV PAIN Last administered on 03:40; Admin Dose 1 MG; Start 01/24/17 at 04:30 Metoprolol Tartrate (Lopressor) 50 mg BID PO Last administered on 01/24/17 09 :50; Admin Dose 50 MG; Start 01/24/17 at 09:20 Miscellaneous Information VANCO TROUGH @ 1,700 ON ... ONCE ONCE XX ; Start at 17:00; Stop 01/25/17 at 17:01 Cefepime HCl 50 ml @ 100 mls/hr Q24H IVPB ; Start 01/25/17 at 14:00 Potassium Chloride (KCl 40 MEQ/250 ML NS) 250 ml @ 62.5 mls/hr ONCE ONCE IVPB ; Start 01/25/17 at 10:00; Stop 01/25/17 at 13:59 LIZZETTE BLANC MD Jan 25, 2017 09:28
[2017-01-25] MEDS ORDERED: POTASSIUM CHLORIDE 250 ML IVPB ONE (10:00)
[2017-01-25] MEDS: POTASSIUM CHLORIDE 250 ML IVPB SCH ×2 (11:04→16:45)
--- NOTE | 2017-01-25 11:08 | CONS ---
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 Likely from blood products and aggressive IV hydration. Much improved with diuresis. Still mild pulm edema by exam but JVP is now flat and already received lasix this am so will hold any further dosing today. Chronic Afib with RVR: Partially compensatory to multiple active issues. HR was controlled on meds but did not receive the last 2 doses due to concern for dysphagia but now passed swallow eval Coagulopathy: INR >10 on admission, now normalized Anemia with possible GI bleed: Hgb 6.6 on admission, now improved with transfusion. Plan for EGD Sepsis secondary to UTI UTI Acute vs chronic renal failure Pancreatic ca -hold further lasix today as approaching euvolemia and already received a dose today -continue metoprolol 50mg BID (pt has not had last two doses but will receive this am) -Ok to proceed with EGD assuming pt is able to take her metoprolol and HR is < 110bpm. She is otherwise optimized. Problems: Consultation Date/Type/Reason Admit Date/Time Jan 23, 2017 at 13:10 Initial Consult Date 01/23/17 Type of Consultation: Cardiology Referring Provider: SANCHEZ APARICIO SAND CUTTER 24 HR Interval Summary Free Text/Dictation Much improved respiratory status and pt appears very comfortable. Her HR is 120s this am but did not receive PM dose of metoprolol as concern for dysphagia. She passed her swallow eval this am (speech therapist in the room with me) and can resume PO. Plan for EGD tomorrow to assess melena/anemia. Exam/Review of Systems Vital Signs Vitals Vital Signs Date Time Temp Pulse Resp B/P Pulse Ox O2 Delivery O2 Flow Rate FiO2 01/25/17 08:06 120 01/25/17 07:46 98.7 17 120/59 95 01/25/17 00:05 Nasal Cannula 2.0 Intake and Output 01/24/17 01/24/17 01/25/17 15:00 23:00 07:00 Intake Total 0 ml Output Total 2600 ml 1502 ml Balance -2600 ml -1502 ml Exam Constitutional: alert, oriented, No distress Psych: nl mood/affect, no complaints Head: atraumatic, normocephalic Neck: No jvd Respiratory: No clear to auscultation (crackles to mid lungs, no further wheezing), No wheezing Cardiovascular: No edema, No regular rate and rhythm (IRIR, tachy ) Gastrointestinal: non-tender, soft Extremities: normal pulses Neurological: nl mental status, nl speech Results Result Diagram: 01/25/17 0649 01/25/17 0648 Results 24 hrs Laboratory Tests Test 01/25/17 06:09 01/25/17 06:48 01/25/17 06:49 Lab Scanned Report BLOOD TRANSFUSION Sodium Level 148 H Potassium Level 2.7 *L Chloride Level 109 Carbon Dioxide Level 28 Anion Gap 14 Blood Urea Nitrogen 82 H Creatinine 1.28 H Glucose Level 97 Calcium Level 9.1 Phosphorus Level 5.0 H Magnesium Level 1.9 Total Bilirubin 0.5 Direct Bilirubin 0.00 Indirect Bilirubin 0.5 Aspartate Amino Transf (AST/SGOT) 85 H Alanine Aminotransferase (ALT/SGPT) 79 H Alkaline Phosphatase 175 #H Total Protein 6.1 # Albumin 2.8 L Globulin 3.30 H Albumin/Globulin Ratio 0.84 White Blood Count 15.1 H Red Blood Count 3.62 L Hemoglobin 10.6 L Hematocrit 30.3 L Mean Corpuscular Volume 83.7 Mean Corpuscular Hemoglobin 29.3 Mean Corpuscular Hemoglobin Concent 35.0 Red Cell Distribution Width 15.1 H Platelet Count 198 Mean Platelet Volume 10.8 H Neutrophils % 77.2 H Lymphocytes % 10.5 L Monocytes % 9.0 Eosinophils % 1.1 Basophils % 0.3 Nucleated Red Blood Cells % 0.3 H Neutrophils # 11.7 H Lymphocytes # 1.6 Monocytes # 1.4 H Eosinophils # 0.2 Basophils # 0.1 Nucleated Red Blood Cells # 0.1 H Prothrombin Time 16.6 H Prothrombin Time Ratio 1.3 INR International Normalized Ratio 1.33 Activated Partial Thromboplast Time 30.0 Medications Medications Current Medications Ondansetron HCl (Zofran Inj) 4 mg Q6H PRN IV NAUSEA AND/OR VOMITING; Start at 14:30 Acetaminophen (Tylenol Tab) 650 mg Q6H PRN PO PAIN LEVEL 1-3 OR FEVER; Start 01/23/17 at 14:30 Acetaminophen/ Hydrocodone Bitart ([place] (5/325)) 1 tab Q6H PRN PO PAIN LEVEL 4 -6 Last administered on 01/23/17 20:35; Admin Dose 1 TAB; Start 01/23/17 at 14:30 Atorvastatin Calcium (Lipitor) 20 mg QHS PO Last administered on 01/23/17 21: 00; Admin Dose 20 MG; Start 01/23/17 at 21:00 Citalopram Hydrobromide (Celexa) 20 mg DAILY PO ; Start 01/24/17 at 09:00 Docusate Sodium (Colace) 100 mg BID PO ; Start 01/23/17 at 21:00 Pantoprazole 40 mg 40 mg BID@06,18 IV Last administered on 01/25/17 05:38; Admin Dose 40 MG; Start 01/23/17 at 18:00 Vancomycin HCl/ Dextrose/Water (Vancocin/D5W) 150 ml @ 100 mls/hr Q36H IVPB Last administered on 01/24/17 06:00; Admin Dose 100 MLS/HR; Start 01/24/17 at 06:00 Morphine Sulfate (morphine) 1 mg Q4H PRN IV PAIN Last administered on 03:40; Admin Dose 1 MG; Start 01/24/17 at 04:30 Metoprolol Tartrate (Lopressor) 50 mg BID PO Last administered on 01/24/17 09 :50; Admin Dose 50 MG; Start 01/24/17 at 09:20 Miscellaneous Information VANCO TROUGH @ 1,700 ON ... ONCE ONCE XX ; Start at 17:00; Stop 01/25/17 at 17:01 Cefepime HCl 50 ml @ 100 mls/hr Q24H IVPB ; Start 01/25/17 at 14:00 Potassium Chloride (KCl 40 MEQ/250 ML NS) 250 ml @ 62.5 mls/hr Q4H IVPB ; Start 01/25/17 at 11:00; Stop 01/25/17 at 18:59 ERIC LUCIO Jan 25, 2017 11:08
--- NOTE | 2017-01-25 13:20 | PN ---
Date/Time of Note Date/Time of Note DATE: 01/25/17 TIME: 13:13 Assessment/Plan VTE Prophylaxis VTE Prophylaxis Intervention: SCD's Lines/Catheters IV Catheter Type (from Nrsg): Peripheral IV Urinary Cath still in place: Yes Reason Cath still needed: other (indicate) (moniotr out-put) Assessment/Plan Chief Complaint/Hosp Course Summary Assessment and Plan: Assessment: Anemia secondary to coagulopathy with INR greater than 10/INR now 1.3 A-fib on metoprolol 25mg BID UTI- on antibiotics therapy Leucocytosis- likely secondary to UTI- on antibiotics/improved Plan: Continue PPI Continue to monitor H/H transfuse for Hgb less than 7.5 Plan for EGD tomorrow- will follow Cardiac recommendations: Ok to proceed with EGD assuming pt is able to take her metoprolol and HR is < 110bpm. She is otherwise optimized. Endoscopy - risks/benefits/alternatives/indications of procedure and sedation/ anesthesia discussed with patient who states understanding and gives informed consent to proceed. Questions were answered. Patient seen in collaboration with Dr. Jimenez Subjective: Course reviewed with nursing staff Patient interviewed and examined All labs, imaging and other results reviewed The patient resting in bed, at bedside, No results for C-diff or stool for OB, Currently Hgb stable Will continue to monitor need for transfusion Will plan for EGD tomorrow and will follow recommendations of cardiology PHYSICAL EXAMINATION: GENERAL: Pale, ill-appearing, alert & oriented x 3, SKIN: No lesions, no stigmata chronic liver disease, no evidence of bleeding diathesis LYMPHATIC: No palpable lymphadenopathy. HEAD: Normocephalic, atraumatic, no tenderness. EYES: Pupils equal reactive to light and accommodation, full extraocular movements, sclera clear, non-icteric, no discharge. EARS/NOSE AND THROAT: Ears normal, nose normal, oropharynx normal, oral membranes well hydrated without lesions. NECK: Supple, no masses, CHEST: Inspection within normal limits. CARDIOVASCULAR: Heart: irregular rhythm. RESPIRATORY: Rales GASTROINTESTINAL AND LIVER: Abdomen: Soft, non tenderness, non-distended, no hernias, no masses, no organomegaly, no ascites, no guarding, no rebound tenderness, normoactive bowel sounds. Rectal: Deferred. GENITOURINARY: Female genitalia within normal limits. Problems: Exam/Review of Systems Vital Signs Vitals Vital Signs Date Time Temp Pulse Resp B/P Pulse Ox O2 Delivery O2 Flow Rate FiO2 01/25/17 12:12 105 01/25/17 11:46 98.7 17 126/60 99 01/25/17 00:05 Nasal Cannula 2.0 Intake and Output 01/24/17 01/24/17 01/25/17 14:59 22:59 06:59 Intake Total 0 ml Output Total 2600 ml 1502 ml Balance -2600 ml -1502 ml Results Result Diagram: 01/25/17 0649 01/25/17 0648 Results 24 hrs Laboratory Tests Test 01/25/17 06:09 01/25/17 06:48 01/25/17 06:49 Lab Scanned Report BLOOD TRANSFUSION Sodium Level 148 H Potassium Level 2.7 *L Chloride Level 109 Carbon Dioxide Level 28 Anion Gap 14 Blood Urea Nitrogen 82 H Creatinine 1.28 H Glucose Level 97 Calcium Level 9.1 Phosphorus Level 5.0 H Magnesium Level 1.9 Total Bilirubin 0.5 Direct Bilirubin 0.00 Indirect Bilirubin 0.5 Aspartate Amino Transf (AST/SGOT) 85 H Alanine Aminotransferase (ALT/SGPT) 79 H Alkaline Phosphatase 175 #H Total Protein 6.1 # Albumin 2.8 L Globulin 3.30 H Albumin/Globulin Ratio 0.84 White Blood Count 15.1 H Red Blood Count 3.62 L Hemoglobin 10.6 L Hematocrit 30.3 L Mean Corpuscular Volume 83.7 Mean Corpuscular Hemoglobin 29.3 Mean Corpuscular Hemoglobin Concent 35.0 Red Cell Distribution Width 15.1 H Platelet Count 198 Mean Platelet Volume 10.8 H Neutrophils % 77.2 H Lymphocytes % 10.5 L Monocytes % 9.0 Eosinophils % 1.1 Basophils % 0.3 Nucleated Red Blood Cells % 0.3 H Neutrophils # 11.7 H Lymphocytes # 1.6 Monocytes # 1.4 H Eosinophils # 0.2 Basophils # 0.1 Nucleated Red Blood Cells # 0.1 H Prothrombin Time 16.6 H Prothrombin Time Ratio 1.3 INR International Normalized Ratio 1.33 Activated Partial Thromboplast Time 30.0 Medications Medications Current Medications Ondansetron HCl (Zofran Inj) 4 mg Q6H PRN IV NAUSEA AND/OR VOMITING; Start at 14:30 Acetaminophen (Tylenol Tab) 650 mg Q6H PRN PO PAIN LEVEL 1-3 OR FEVER; Start 01/23/17 at 14:30 Acetaminophen/ Hydrocodone Bitart ([place] (5/325)) 1 tab Q6H PRN PO PAIN LEVEL 4 -6 Last administered on 01/23/17 20:35; Admin Dose 1 TAB; Start 01/23/17 at 14:30 Atorvastatin Calcium (Lipitor) 20 mg QHS PO Last administered on 01/23/17 21: 00; Admin Dose 20 MG; Start 01/23/17 at 21:00 Citalopram Hydrobromide (Celexa) 20 mg DAILY PO ; Start 01/24/17 at 09:00 Docusate Sodium (Colace) 100 mg BID PO ; Start 01/23/17 at 21:00 Pantoprazole 40 mg 40 mg BID@06,18 IV Last administered on 01/25/17 05:38; Admin Dose 40 MG; Start 01/23/17 at 18:00 Vancomycin HCl/ Dextrose/Water (Vancocin/D5W) 150 ml @ 100 mls/hr Q36H IVPB Last administered on 01/24/17 06:00; Admin Dose 100 MLS/HR; Start 01/24/17 at 06:00 Morphine Sulfate (morphine) 1 mg Q4H PRN IV PAIN Last administered on 03:40; Admin Dose 1 MG; Start 01/24/17 at 04:30 Metoprolol Tartrate (Lopressor) 50 mg BID PO Last administered on 01/24/17 09 :50; Admin Dose 50 MG; Start 01/24/17 at 09:20 Miscellaneous Information VANCO TROUGH @ 1,700 ON ... ONCE ONCE XX ; Start at 17:00; Stop 01/25/17 at 17:01 Cefepime HCl 50 ml @ 100 mls/hr Q24H IVPB ; Start 01/25/17 at 14:00 Potassium Chloride (KCl 40 MEQ/250 ML NS) 250 ml @ 62.5 mls/hr Q4H IVPB Last administered on 01/25/17 11:04; Admin Dose 62.5 MLS/HR; Start 01/25/17 at 11: 00; Stop 01/25/17 at 18:59 GUSTAVO MACIAS Jan 25, 2017 13:20
--- NOTE | 2017-01-25 13:22 | PN ---
Date/Time of Note Date/Time of Note DATE: 01/25/17 TIME: 13:21 Assessment/Plan VTE Prophylaxis VTE Prophylaxis Intervention: contraindicated Lines/Catheters IV Catheter Type (from [facility]): Peripheral IV Urinary Cath still in place: Yes Reason Cath still needed: other (indicate) Assessment/Plan Chief Complaint/Hosp Course 1. Sepsis secondary to underlying urinary tract infection. No evidence of any septic shock at this time. The patient will be continued on antibiotics as per ID. 2. Coagulopathy. From Coumadin toxicity. No overt sources of bleeding. Resolved with vitamin K and fresh frozen plasma. Brain CT scan negative for any acute bleed. We will avoid any anticoagulation. 3. Atrial fibrillation with rapid ventricular response. Status post IV Cardizem in the emergency room. Continue beta-blockers. Cardiology following. 4. Acute kidney injury. Unknown baseline creatinine. Probably she has underlying chronic kidney disease. Nephrotoxic drugs will be avoided. Nephrology following. 5. Symptomatic anemia. Improved status post multiple blood transfusions. No evidence of any underlying iron deficiency. Gastroenterology following. Stool for OB pending. Plan for EGDscopy and colonoscopy. 6. Essential hypertension. Continue antihypertensives. 7. Cardiomyopathy with ejection fraction of 45%. The patient on beta- blockers. No MEHRAN inhibitors as of now because of renal function. 8. Acute on chronic systolic heart failure exacerbation. Continue diuresis as per cardiology. 9. Pulmonary hypertension. PA systolic pressure of 52 mmHg as per 2D echocardiogram. Most probably secondary to underlying valvular heart disease. 10. Hypothyroidism. Continue Synthroid. 11. Dysphagia. ST evaluation ongoing. Aspiration precautions. 12. 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 13. Fluids, electrolytes, and nutrition. N.p.o. except for medications until evaluated by speech therapy. 14. DVT prophylaxis. Contraindicated. 15. Gastrointestinal prophylaxis. Proton pump inhibitors. 16. Plan. Continue close monitoring. Continue antibiotics. Plan for EGDscopy and colonoscopy on 01/26/2017. Case discussed with Dr. Castro. Problems: Subjective 24 Hr Interval Summary Free Text/Dictation Denies any complaints. No diarrhea. Exam/Review of Systems Vital Signs Vitals Vital Signs Date Time Temp Pulse Resp B/P Pulse Ox O2 Delivery O2 Flow Rate FiO2 01/25/17 12:12 105 01/25/17 11:46 98.7 17 126/60 99 01/25/17 00:05 Nasal Cannula 2.0 Intake and Output 01/24/17 01/24/17 01/25/17 14:59 22:59 06:59 Intake Total 0 ml Output Total 2600 ml 1502 ml Balance -2600 ml -1502 ml Exam General: 86-year-old, elderly, pale looking female lying in bed in no apparent distress. HEENT: Normocephalic, atraumatic. Eyes: Anicteric sclerae, conjunctivae clear. ENT: Nasal septum midline, oral mucosa moist. Neck supple, JVD noticed. Respiratory: Bilaterally diminished breath sounds. No use of accessory muscles of respiration. No adventitious breath sounds. Cardiovascular: S1, S2 heard. Irregularly irregular rhythm. Systolic murmur. Abdomen: Soft, nontender, and nondistended. Bowel sounds positive in all 4 quadrants. Genitourinary: Deferred. Extremities: No cyanosis, no clubbing, no edema. Peripheral pulses palpable. Neurologic: Patient is awake and alert. No focal weakness. Skin: Normal skin turgor. No skin rashes. Results Result Diagram: 01/25/17 0649 01/25/17 0648 Results 24 hrs Laboratory Tests Test 01/25/17 06:09 01/25/17 06:48 01/25/17 06:49 Lab Scanned Report BLOOD TRANSFUSION Sodium Level 148 H Potassium Level 2.7 *L Chloride Level 109 Carbon Dioxide Level 28 Anion Gap 14 Blood Urea Nitrogen 82 H Creatinine 1.28 H Glucose Level 97 Calcium Level 9.1 Phosphorus Level 5.0 H Magnesium Level 1.9 Total Bilirubin 0.5 Direct Bilirubin 0.00 Indirect Bilirubin 0.5 Aspartate Amino Transf (AST/SGOT) 85 H Alanine Aminotransferase (ALT/SGPT) 79 H Alkaline Phosphatase 175 #H Total Protein 6.1 # Albumin 2.8 L Globulin 3.30 H Albumin/Globulin Ratio 0.84 White Blood Count 15.1 H Red Blood Count 3.62 L Hemoglobin 10.6 L Hematocrit 30.3 L Mean Corpuscular Volume 83.7 Mean Corpuscular Hemoglobin 29.3 Mean Corpuscular Hemoglobin Concent 35.0 Red Cell Distribution Width 15.1 H Platelet Count 198 Mean Platelet Volume 10.8 H Neutrophils % 77.2 H Lymphocytes % 10.5 L Monocytes % 9.0 Eosinophils % 1.1 Basophils % 0.3 Nucleated Red Blood Cells % 0.3 H Neutrophils # 11.7 H Lymphocytes # 1.6 Monocytes # 1.4 H Eosinophils # 0.2 Basophils # 0.1 Nucleated Red Blood Cells # 0.1 H Prothrombin Time 16.6 H Prothrombin Time Ratio 1.3 INR International Normalized Ratio 1.33 Activated Partial Thromboplast Time 30.0 Medications Medications Current Medications Ondansetron HCl (Zofran Inj) 4 mg Q6H PRN IV NAUSEA AND/OR VOMITING; Start at 14:30 Acetaminophen (Tylenol Tab) 650 mg Q6H PRN PO PAIN LEVEL 1-3 OR FEVER; Start 01/23/17 at 14:30 Acetaminophen/ Hydrocodone Bitart ([place] (5/325)) 1 tab Q6H PRN PO PAIN LEVEL 4 -6 Last administered on 01/23/17 20:35; Admin Dose 1 TAB; Start 01/23/17 at 14:30 Atorvastatin Calcium (Lipitor) 20 mg QHS PO Last administered on 01/23/17 21: 00; Admin Dose 20 MG; Start 01/23/17 at 21:00 Citalopram Hydrobromide (Celexa) 20 mg DAILY PO ; Start 01/24/17 at 09:00 Docusate Sodium (Colace) 100 mg BID PO ; Start 01/23/17 at 21:00 Pantoprazole 40 mg 40 mg BID@06,18 IV Last administered on 01/25/17 05:38; Admin Dose 40 MG; Start 01/23/17 at 18:00 Vancomycin HCl/ Dextrose/Water (Vancocin/D5W) 150 ml @ 100 mls/hr Q36H IVPB Last administered on 01/24/17 06:00; Admin Dose 100 MLS/HR; Start 01/24/17 at 06:00 Morphine Sulfate (morphine) 1 mg Q4H PRN IV PAIN Last administered on 03:40; Admin Dose 1 MG; Start 01/24/17 at 04:30 Metoprolol Tartrate (Lopressor) 50 mg BID PO Last administered on 01/24/17 09 :50; Admin Dose 50 MG; Start 01/24/17 at 09:20 Miscellaneous Information VANCO TROUGH @ 1,700 ON ... ONCE ONCE XX ; Start at 17:00; Stop 01/25/17 at 17:01 Cefepime HCl 50 ml @ 100 mls/hr Q24H IVPB ; Start 01/25/17 at 14:00 Potassium Chloride (KCl 40 MEQ/250 ML NS) 250 ml @ 62.5 mls/hr Q4H IVPB Last administered on 01/25/17t 11:04; Admin Dose 62.5 MLS/HR; Start 01/25/17 at 11: 00; Stop 01/25/17 at 18:59 SANCHEZ APARICIO [employer] Jan 25, 2017 13:22
[2017-01-25] MEDS ORDERED: CEFEPIME 1GM/50 ML IVPB SCH (14:00)
--- NOTE | 2017-01-25 14:26 | CONS ---
Date/Time of Note Date/Time of Note DATE: 01/25/17 TIME: 14:24 Consult Date/Type/Reason Admit Date/Time Jan 23, 2017 at 13:10 Initial Consult Date 01/23/17 Type of Consultation: ID Ordering Provider: SANCHEZ APARICIO TELEVISION EQUIPMENT OPERATOR Objective Vital Signs Date Time Temp Pulse Resp B/P Pulse Ox O2 Delivery O2 Flow Rate FiO2 01/25/17 12:12 105 01/25/17 11:46 98.7 17 126/60 99 01/25/17 00:05 Nasal Cannula 2.0 Intake and Output 01/24/17 01/24/17 01/25/17 15:00 23:00 07:00 Intake Total 0 ml Output Total 2600 ml 1502 ml Balance -2600 ml -1502 ml Results/Medications Result Diagram: 01/25/17 0649 01/25/17 0648 Results 24 hrs Laboratory Tests Test 01/25/17 06:09 01/25/17 06:48 01/25/17 06:49 Lab Scanned Report BLOOD TRANSFUSION Sodium Level 148 H Potassium Level 2.7 *L Chloride Level 109 Carbon Dioxide Level 28 Anion Gap 14 Blood Urea Nitrogen 82 H Creatinine 1.28 H Glucose Level 97 Calcium Level 9.1 Phosphorus Level 5.0 H Magnesium Level 1.9 Total Bilirubin 0.5 Direct Bilirubin 0.00 Indirect Bilirubin 0.5 Aspartate Amino Transf (AST/SGOT) 85 H Alanine Aminotransferase (ALT/SGPT) 79 H Alkaline Phosphatase 175 #H Total Protein 6.1 # Albumin 2.8 L Globulin 3.30 H Albumin/Globulin Ratio 0.84 White Blood Count 15.1 H Red Blood Count 3.62 L Hemoglobin 10.6 L Hematocrit 30.3 L Mean Corpuscular Volume 83.7 Mean Corpuscular Hemoglobin 29.3 Mean Corpuscular Hemoglobin Concent 35.0 Red Cell Distribution Width 15.1 H Platelet Count 198 Mean Platelet Volume 10.8 H Neutrophils % 77.2 H Lymphocytes % 10.5 L Monocytes % 9.0 Eosinophils % 1.1 Basophils % 0.3 Nucleated Red Blood Cells % 0.3 H Neutrophils # 11.7 H Lymphocytes # 1.6 Monocytes # 1.4 H Eosinophils # 0.2 Basophils # 0.1 Nucleated Red Blood Cells # 0.1 H Prothrombin Time 16.6 H Prothrombin Time Ratio 1.3 INR International Normalized Ratio 1.33 Activated Partial Thromboplast Time 30.0 Medications Current Medications Ondansetron HCl (Zofran Inj) 4 mg Q6H PRN IV NAUSEA AND/OR VOMITING; Start at 14:30 Acetaminophen (Tylenol Tab) 650 mg Q6H PRN PO PAIN LEVEL 1-3 OR FEVER; Start 01/23/17 at 14:30 Acetaminophen/ Hydrocodone Bitart ([place] (5/325)) 1 tab Q6H PRN PO PAIN LEVEL 4 -6 Last administered on 01/23/17 20:35; Admin Dose 1 TAB; Start 01/23/17 at 14:30 Atorvastatin Calcium (Lipitor) 20 mg QHS PO Last administered on 01/23/17 21: 00; Admin Dose 20 MG; Start 01/23/17 at 21:00 Citalopram Hydrobromide (Celexa) 20 mg DAILY PO ; Start 01/24/17 at 09:00 Docusate Sodium (Colace) 100 mg BID PO ; Start 01/23/17 at 21:00 Pantoprazole 40 mg 40 mg BID@06,18 IV Last administered on 01/25/17 05:38; Admin Dose 40 MG; Start 01/23/17 at 18:00 Vancomycin HCl/ Dextrose/Water (Vancocin/D5W) 150 ml @ 100 mls/hr Q36H IVPB Last administered on 01/24/17 06:00; Admin Dose 100 MLS/HR; Start 01/24/17 at 06:00 Morphine Sulfate (morphine) 1 mg Q4H PRN IV PAIN Last administered on 03:40; Admin Dose 1 MG; Start 01/24/17 at 04:30 Metoprolol Tartrate (Lopressor) 50 mg BID PO Last administered on 01/24/17 09 :50; Admin Dose 50 MG; Start 01/24/17 at 09:20 Miscellaneous Information VANCO TROUGH @ 1,700 ON ... ONCE ONCE XX ; Start at 17:00; Stop 01/25/17 at 17:01 Cefepime HCl 50 ml @ 100 mls/hr Q24H IVPB ; Start 01/25/17 at 14:00 Potassium Chloride (KCl 40 MEQ/250 ML NS) 250 ml @ 62.5 mls/hr Q4H IVPB Last administered on 11/16/17at 11:04; Admin Dose 62.5 MLS/HR; Start 01/25/17 at 11: 00; Stop 01/25/17 at 18:59 Assessment/Plan Chief Complaint/Hosp Course SUBJECTIVE: No acute events overnight. The patient is more awake and feels better, looks comfortable, at bedside. Afebrile. MICROBIOLOGY: Blood cultures remain negative. Urine culture grew E coli. ANTIMICROBIALS: The patient is on IV cefepime and Vancomycin. DIAGNOSTICS: CT of the brain on admission revealed no acute intracranial abnormality, severe patchy and confluent periventricular and subcortical white matter hyperdensity likely related to chronic microangiopathic changes, remote infarct involving the left frontal operculum. Remote lacunar infarct involving paramedial right thalamus and the left thalamus. No evidence of acute infarct. Chest x-ray on admission revealed left lower lobe opacification, questionable pneumonia versus atelectasis. Renal ultrasound showed echogenic kidneys consistent with medical renal disease, no evidence of hydronephrosis. PHYSICAL EXAMINATION: GENERAL: This is a fragile, chronically ill-appearing, elderly woman who is in no distress. HEENT: Head atraumatic, normocephalic. Sclerae anicteric. Buccal mucosa dry. NECK: Supple. CHEST: Rise symmetrical. Breath sounds diminished to bases. HEART: S1, S2. ABDOMEN: Soft. Bowel tones hypoactive. EXTREMITIES: Without cyanosis or edema. ASSESSMENT: 1. Sepsis with leukocytosis and encephalopathy, rapid atrial fibrillation, low grade fever and admission. 2. Urinary tract infection. 3. Possible pneumonia. 4. Coagulopathy from Coumadin toxicity. 5. Status post rapid atrial fibrillation. 6. Acute kidney injury. 7. Symptomatic anemia, status post blood transfusion. 8. Pancreatic ca PLAN: The patient remains stable, clinically improved, will dc Vanco, continue Cefepime, f/u card/GI rec-s, f/u cxr. DW at bedside Problems: SHELIA HUFF NP Jan 25, 2017 14:26
[2017-01-25] MEDS: METOPROLOL 50 MG TAB PO SCH ×2 (14:35→20:57)
--- NOTE | 2017-01-25 15:08 | RADRPT ---
PROCEDURE: Chest x-ray CLINICAL INDICATION: Shortness of breath TECHNIQUE: Chest single view COMPARISON: 01/23/2017 FINDINGS: There is stable moderate cardiomegaly and mild atherosclerotic aortic calcification. There is persis tent elevation left hemidiaphragm with left lower lung consolidation and volume loss. The right lung is grossly clear. Costophrenic angles are sharp. Pulmonary vessels are normal in caliber. IMPRESSION: 1. Stable cardiomegaly and an sclerotic aortic calcification. 2. No CHF identified. 3. Persistent elevation left hemidiaphragm with left lower lung volume loss RPTAT: HH .Sedrikc Conley MD, MD Date Time Electronically viewed and signed by .Sedrick Conley MD, on 01/25/2017 15:07 .W/
[2017-01-25] MEDS: CITALOPRAM 20 MG TAB PO SCH (16:45)
[2017-01-25] MEDS: ATORVASTATIN 20 MG TAB PO SCH (20:57)
[2017-01-26] VITALS (17 sets, daily range): BP systolic 114–155; BP diastolic 52–96; PULSE 89–130; RESP 12–21
[2017-01-26] MEDS: PANTOPRAZOLE 40 MG INJ IV SCH ×2 (06:33→20:51)
[2017-01-26] MEDS: LEVOTHYROXINE 50 MCG TAB PO SCH (06:33)
[2017-01-26 07:26] LABS: BASOPHIL # 0.1 10^3/ul (0.0-0.1); BASOPHILS % 0.3 % (0.0-2.0); EOSINOPHILS # 0.1 10^3/ul (0.0-0.5); EOSINOPHILS % 0.6 % (0.0-7.0); HEMATOCRIT 32.6 % (37.0-47.0); HEMOGLOBIN 10.9 g/dl (12.0-16.0); LYMPHOCYTES # 1.7 10^3/ul (0.8-2.9); LYMPHOCYTES % 10.7 % (15.0-51.0); MEAN CORPUSCULAR HEMOGLOBIN 29.2 pg (29.0-33.0); MEAN CORPUSCULAR HGB CONC 33.4 g/dl (32.0-37.0); MEAN CORPUSCULAR VOLUME 87.4 fl (82.0-101.0); MONOCYTE # 1.4 10^3/ul (0.3-0.9); NEUTROPHIL # 12.3 10^3/ul (1.6-7.5); NEUTROPHILS % 77.7 % (39.0-77.0); NUCLEATED RED BLOOD CELLS% 0.1 /100WBC (0.0-0.0); PLATELET COUNT 246 10^3/UL (140-415); RED BLOOD COUNT 3.73 10^6/ul (4.20-5.40); RED CELL DISTRIBUTION WIDTH 15.9 % (11.5-14.5); WHITE BLOOD COUNT 15.8 10^3/ul (4.8-10.8)
[2017-01-26 07:47] LABS: INR 1.66; PROTIME 19.7 Sec (12.2-14.2); PT RATIO 1.5
[2017-01-26 07:51] LABS: ALBUMIN 2.9 g/dl (3.3-4.9); ALBUMIN/GLOBULIN RATIO 0.9; BILIRUBIN,DIRECT 0.1 mg/dl (0.00-0.20); BILIRUBIN,INDIRECT 0.7 mg/dl (0-1.1); BILIRUBIN,TOTAL 0.8 mg/dl (0.2-1.3); CALCIUM 8.9 mg/dl (8.4-10.2); CREATININE 1.09 mg/dl (0.44-1.00); POTASSIUM 3.3 mmol/L (3.5-5.1); TOTAL PROTEIN 6.1 g/dl (6.1-8.1)
[2017-01-26 07:59] LABS: PHOSPHORUS 3.3 mg/dl (2.5-4.9)
[2017-01-26] MEDS: DOCUSATE SODIUM 100 MG CAP PO SCH ×2 (09:00→20:51)
[2017-01-26] MEDS ORDERED: DEXTROSE 5% 1,000 ML IV SCH (09:00)
--- NOTE | 2017-01-26 09:26 | PN ---
Date/Time of Note Date/Time of Note DATE: 01/26/17 TIME: 09:26 Assessment/Plan VTE Prophylaxis VTE Prophylaxis Intervention: ambulation Lines/Catheters IV Catheter Type (from Nrs): Peripheral IV Urinary Cath still in place: Yes Reason Cath still needed: other (indicate) Assessment/Plan Chief Complaint/Hosp Course This is a unfortunate 86-year-old female who was diagnosed with adenocarcinoma of pancreatic tail, atrial fibrillation, who was brought to the emergency room for evaluation of generalized body pain and weakness who was noted with a urinary tract infection with sepsis. 1. Sepsis with E. coli urinary tract infection. Improving. -On antibiotics per ID recommendations -Repeat urine culture. 2. 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 -This was addressed by hepatobiliary surgeon in the past and patient opted for conservative medical management. At that time, surgical options were discussed. 3. Coumadin coagulopathy. Resolved. Status post FFP's and vitamin K. -At this time, will not recommend patient on anticoagulation secondary to her high risk factors including multiple falls in the past. She should be conservatively managed with rate control for atrial fibrillation. 4. Atrial fibrillation with rapid ventricular response. Currently rate controlled. -Continue beta-blockers. Follow-up with cardiology recommendations. - Patient is not stable candidate for further anticoagulation. 5. Acute kidney injury, most likely nephrotoxins induced/hemodynamic/sepsis. Renal function stabilizing. -Hold nephrotoxins. Follow-up with nephrology recommendations. -Monitor renal function closely. 6. Acute on chronic anemia with underlying adenocarcinoma of pancreas with possible advancement to splenic hilum. Also please note that patient presentation was with coagulopathy with Coumadin. Patient currently does not have any rectal bleed. -H&H stable after blood transfusion-would not recommend further transfusion unless otherwise indicated. -Patient is on schedule for endoscopy/colonoscopy today to rule out GI bleeding sources. 7. Essential hypertension. Continue antihypertensives. 8. Cardiomyopathy with ejection fraction of 45%. -Continue beta-blockers. Patient is not a good candidate for MEHRAN inhibitor/ARB secondary to renal function. 9. Acute on chronic systolic heart failure exacerbation, likely from volume overload from blood transfusion. - Currently stable. Status post diuresis. 10. Pulmonary hypertension. -Monitor. 11. Hypothyroidism. Continue Synthroid. 12. Dysphagia. -Continue with nectar thick/Pureed Diet. DVT prophylaxis. SCDs. Gastrointestinal prophylaxis. Proton pump inhibitors. Plan: Overall, patient with poor prognosis secondary to comorbid condition and adenocarcinoma of pancreas with possible splenic hilum involvement. At this time, I spoke with patient's in detail regarding goals of care. Suggested DNR and potentially hospice focused care with no further aggressive intervention on this patient. According to her , they will discuss this with patient's son who is the primary decision maker and will get back to us. Meanwhile, I am also going to request our palliative care doctor, DR. Castillo to involve in this care. Case discussed with Dr. Castro. Problems: Subjective 24 Hr Interval Summary Free Text/Dictation Elderly female, lying in bed having generalized body pain, and weakness. She is scheduled for endoscopy and colonoscopy today. Patient is afebrile. Currently she does not complain of any lower GI bleed episodes. Patient has been n.p.o. for the procedure. She is not complaining of any nausea or vomiting or abdominal pain. Exam/Review of Systems Vital Signs Vitals Vital Signs Date Time Temp Pulse Resp B/P Pulse Ox O2 Delivery O2 Flow Rate FiO2 01/26/17 08:09 116 01/26/17 07:40 99.6 19 137/96 98 01/25/17 00:05 Nasal Cannula 2.0 Intake and Output 01/25/17 01/25/17 01/26/17 15:00 23:00 07:00 Intake Total 300 ml 120 ml Output Total 1800 ml 700 ml Balance -1500 ml -580 ml Exam General: Chronically ill looking, elderly female, not in any acute distress . HEENT: Normocephalic, Atraumatic, No laceration or hematoma; Eyes: PEERL, Conjunctiva clear, Anicteric sclera Neck: Supple without any lymphadenopathy, nontender, no JVD, no carotid bruits, trachea midline, no thyromegaly Cardiac: Irregular heart sounds. Systolic murmur grade II/, best heard at second intercostal space and apex. Pulmonary: Few crackles audible on right mid lung sounds. Normal respiratory effort. No wheezing. GI: With deep palpation, there is tenderness to right upper and lower quadrant. No rebound tenderness. Abdomen normal to inspection. Soft, non- distended, no masses, no rebound tenderness or guarding. Bowel sounds active on all four quadrants Genitourinary: Deferred Extremities: Trace 1+ generalized edema. No cyanosis, clubbing. Pulses [2+] bilaterally. Full ROM on all four extremities. No focal weakness appreciated. Neurologic: Alert to person, place, time, and situation. Affect appropriate, intact sensation. Skin: Clean,dry, and intact. No ecchymosis, no rashes, or lesions Results Result Diagram: 01/26/17 0633 01/26/17 0633 Results 24 hrs Laboratory Tests Test 01/25/17 16:18 01/25/17 20:56 01/26/17 06:33 01/26/17 06:36 Potassium Level 3.3 L 3.3 L Bedside Glucose 132 White Blood Count 15.8 H Red Blood Count 3.73 L Hemoglobin 10.9 L Hematocrit 32.6 L Mean Corpuscular Volume 87.4 Mean Corpuscular Hemoglobin 29.2 Mean Corpuscular Hemoglobin Concent 33.4 Red Cell Distribution Width 15.9 H Platelet Count 246 # Mean Platelet Volume 11.0 H Neutrophils % 77.7 H Lymphocytes % 10.7 L Monocytes % 9.0 Eosinophils % 0.6 Basophils % 0.3 Nucleated Red Blood Cells % 0.1 H Neutrophils # 12.3 H Lymphocytes # 1.7 Monocytes # 1.4 H Eosinophils # 0.1 Basophils # 0.1 Nucleated Red Blood Cells # 0.0 Prothrombin Time 19.7 H Prothrombin Time Ratio 1.5 INR International Normalized Ratio 1.66 Activated Partial Thromboplast Time 32.0 Sodium Level 155 H Chloride Level 114 H Carbon Dioxide Level 31 Anion Gap 13 Blood Urea Nitrogen 62 H Creatinine 1.09 H Glucose Level 105 Calcium Level 8.9 Phosphorus Level 3.3 Magnesium Level 2.0 Total Bilirubin 0.8 Direct Bilirubin 0.10 Indirect Bilirubin 0.7 Aspartate Amino Transf (AST/SGOT) 324 H Alanine Aminotransferase (ALT/SGPT) 230 H Alkaline Phosphatase 262 H Total Protein 6.1 Albumin 2.9 L Globulin 3.20 Albumin/Globulin Ratio 0.90 Lab Scanned Report BLOOD TRANSFUSION Medications Medications Current Medications Ondansetron HCl (Zofran Inj) 4 mg Q6H PRN IV NAUSEA AND/OR VOMITING; Start at 14:30 Acetaminophen (Tylenol Tab) 650 mg Q6H PRN PO PAIN LEVEL 1-3 OR FEVER; Start 01/23/17 at 14:30 Acetaminophen/ Hydrocodone Bitart ([place] (5/325)) 1 tab Q6H PRN PO PAIN LEVEL 4 -6 Last administered on 01/23/17 20:35; Admin Dose 1 TAB; Start 01/23/17 at 14:30 Atorvastatin Calcium (Lipitor) 20 mg QHS PO Last administered on 01/25/17 20: 57; Admin Dose 20 MG; Start 01/23/17 at 21:00 Citalopram Hydrobromide (Celexa) 20 mg DAILY PO Last administered on 16:45; Admin Dose 20 MG; Start 01/24/17 at 09:00 Docusate Sodium (Colace) 100 mg BID PO Last administered on 01/25/17 20:57; Admin Dose 100 MG; Start 01/23/17 at 21:00 Pantoprazole (Protonix Iv) 40 mg BID@06,18 IV Last administered on 01/26/17 06:33; Admin Dose 40 MG; Start 01/23/17 at 18:00 Morphine Sulfate (morphine) 1 mg Q4H PRN IV PAIN Last administered on 03:40; Admin Dose 1 MG; Start 01/24/17 at 04:30 Metoprolol Tartrate 50 mg 50 mg BID PO Last administered on 01/25/17 20:57; Admin Dose 50 MG; Start 01/24/17 at 09:20 Potassium Chloride 250 ml @ 62.5 mls/hr ONCE ONCE IVPB ; Start 01/26/17 at 10 :00; Stop 01/26/17 at 13:59 Dextrose 1,000 ml @ 50 mls/hr Q20H IV ; Start 01/26/17 at 09:00; Stop at 19:00 Cefepime HCl/ Dextrose (Maxipime/D5W) 50 ml @ 100 mls/hr Q24H IVPB ; Start at 14:00 EDNA GUERRA NP Jan 26, 2017 09:26 EDNA GUERRA NP Jan 26, 2017 09:26
[2017-01-26] MEDS ORDERED: POTASSIUM CHLORIDE 20 MEQ in DEXTROSE 5% 100 ML IVPB ONE (09:30)
[2017-01-26] MEDS ORDERED: POTASSIUM CHLORIDE 250 ML IVPB ONE (10:00)
[2017-01-26] MEDS: METOPROLOL 50 MG TAB PO SCH ×2 (10:13→20:53)
[2017-01-26] MEDS: CITALOPRAM 20 MG TAB PO SCH (10:13)
--- NOTE | 2017-01-26 11:34 | CONS ---
KEVIN PEREZ 01/26/17 1134: Date/Time of Note Date/Time of Note DATE: 01/26/17 TIME: 11:33 Assessment/Plan Assessment/Plan Chief Complaint/Hosp Course 1. Sepsis, likely secondary to urinary tract infection and pneumonia. 2. Severe anemia in the setting of coagulopathy with INR greater than 10 which is improved 3. Acute renal failure. 4. Elevated INR> improved 5. Urinary tract infection with GNR 6. Elevated BNP. 7. History of hypertension. 8. Hypothyroidism. 9. Pneumonia. 10. 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 11. Hypernatremia Problems: Additional Assessment/Plan 1. Continue a/b 2. Potassium was supplemented 3. Improving CR Consultation Date/Type/Reason Admit Date/Time Jan 23, 2017 at 13:10 Initial Consult Date 01/23/17 Type of Consultation: nephrology Reason for Consultation [facility] Referring Provider: SANCHEZ APARICIO CARCASS SPLITTER 24 HR Interval Summary Constitutional: improved Exam/Review of Systems Vital Signs Vitals Vital Signs Date Time Temp Pulse Resp B/P Pulse Ox O2 Delivery O2 Flow Rate FiO2 01/26/17 08:09 116 01/26/17 07:40 99.6 19 137/96 98 01/25/17 00:05 Nasal Cannula 2.0 Intake and Output 01/25/17 01/25/17 01/26/17 15:00 23:00 07:00 Intake Total 300 ml 120 ml Output Total 1800 ml 700 ml Balance -1500 ml -580 ml Exam Constitutional: frail Psych: no complaints Neck: supple Respiratory: diminished breath sounds Cardiovascular: regular rate and rhythm Results Result Diagram: 01/26/17 0633 01/26/17 0633 Results 24 hrs Laboratory Tests Test 01/25/17 16:18 01/25/17 20:56 01/26/17 06:33 01/26/17 06:36 Potassium Level 3.3 L 3.3 L Bedside Glucose 132 White Blood Count 15.8 H Red Blood Count 3.73 L Hemoglobin 10.9 L Hematocrit 32.6 L Mean Corpuscular Volume 87.4 Mean Corpuscular Hemoglobin 29.2 Mean Corpuscular Hemoglobin Concent 33.4 Red Cell Distribution Width 15.9 H Platelet Count 246 # Mean Platelet Volume 11.0 H Neutrophils % 77.7 H Lymphocytes % 10.7 L Monocytes % 9.0 Eosinophils % 0.6 Basophils % 0.3 Nucleated Red Blood Cells % 0.1 H Neutrophils # 12.3 H Lymphocytes # 1.7 Monocytes # 1.4 H Eosinophils # 0.1 Basophils # 0.1 Nucleated Red Blood Cells # 0.0 Prothrombin Time 19.7 H Prothrombin Time Ratio 1.5 INR International Normalized Ratio 1.66 Activated Partial Thromboplast Time 32.0 Sodium Level 155 H Chloride Level 114 H Carbon Dioxide Level 31 Anion Gap 13 Blood Urea Nitrogen 62 H Creatinine 1.09 H Glucose Level 105 Calcium Level 8.9 Phosphorus Level 3.3 Magnesium Level 2.0 Total Bilirubin 0.8 Direct Bilirubin 0.10 Indirect Bilirubin 0.7 Aspartate Amino Transf (AST/SGOT) 324 H Alanine Aminotransferase (ALT/SGPT) 230 H Alkaline Phosphatase 262 H Total Protein 6.1 Albumin 2.9 L Globulin 3.20 Albumin/Globulin Ratio 0.90 Lab Scanned Report BLOOD TRANSFUSION Medications Medications Current Medications Ondansetron HCl (Zofran Inj) 4 mg Q6H PRN IV NAUSEA AND/OR VOMITING; Start at 14:30 Acetaminophen (Tylenol Tab) 650 mg Q6H PRN PO PAIN LEVEL 1-3 OR FEVER; Start 01/23/17 at 14:30 Acetaminophen/ Hydrocodone Bitart ([place] (5/325)) 1 tab Q6H PRN PO PAIN LEVEL 4 -6 Last administered on 01/23/17 20:35; Admin Dose 1 TAB; Start 01/23/17 at 14:30 Atorvastatin Calcium (Lipitor) 20 mg QHS PO Last administered on 01/25/17 20: 57; Admin Dose 20 MG; Start 01/23/17 at 21:00 Citalopram Hydrobromide (Celexa) 20 mg DAILY PO Last administered on 10:13; Admin Dose 20 MG; Start 01/24/17 at 09:00 Docusate Sodium (Colace) 100 mg BID PO Last administered on 01/25/17 20:57; Admin Dose 100 MG; Start 01/23/17 at 21:00 Pantoprazole (Protonix Iv) 40 mg BID@06,18 IV Last administered on 01/26/17 06:33; Admin Dose 40 MG; Start 01/23/17 at 18:00 Morphine Sulfate (morphine) 1 mg Q4H PRN IV PAIN Last administered on 03:40; Admin Dose 1 MG; Start 01/24/17 at 04:30 Metoprolol Tartrate 50 mg 50 mg BID PO Last administered on 01/26/17 10:13; Admin Dose 50 MG; Start 01/24/17 at 09:20 Potassium Chloride 250 ml @ 62.5 mls/hr ONCE ONCE IVPB Last administered on 01/26/17 10:04; Admin Dose 62.5 MLS/HR; Start 01/26/17 at 10:00; Stop at 13:59 Dextrose 1,000 ml @ 50 mls/hr Q20H IV Last administered on 01/26/17 10:10; Admin Dose 50 MLS/HR; Start 01/26/17 at 09:00; Stop 01/26/17 at 19:00 Cefepime HCl/ Dextrose (Maxipime/D5W) 50 ml @ 100 mls/hr Q24H IVPB ; Start at 14:00 LIZZETTE BLANC MD 01/26/17 1757: Assessment/Plan Assessment/Plan Additional Assessment/Plan d5 w at 50 cc/hr Exam/Review of Systems Results Result Diagram: 01/26/17 0633 01/26/17 0633 KEVIN PEREZ Jan 26, 2017 11:34 LIZZETTE BLANC MD Jan 26, 2017 17:57
[2017-01-26] MEDS ORDERED: METOPROLOL 50 MG TAB PO ONE (12:30)
--- NOTE | 2017-01-26 12:31 | CONS ---
Date/Time of Note Date/Time of Note DATE: 01/26/17 TIME: 12:27 Assessment/Plan Assessment/Plan Chief Complaint/Hosp Course Acute on chronic systolic/valvular heart failure: EF 45%, mod MR/AR and mod- severe TR. Likely from blood products and aggressive IV hydration. Much improved with diuresis. Close to euvolemic now. Chronic Afib with RVR: Partially compensatory to multiple active issues. HR was mostly controlled but tachycardic this am Coagulopathy: INR >10 on admission, now normalized Anemia with possible GI bleed: Hgb 6.6 on admission, now improved with transfusion. Plan for EGD Sepsis secondary to UTI UTI Acute vs chronic renal failure Pancreatic ca -will give another metoprolol 50mg PO now, increase to 75mg BID -if HR >110 prior to EGD, can give IV metoprolol 5mg x 1 (assuming SBP >100) -Ok to proceed with EGD if HR mostly <110 -hold lasix again today, reassess tomorrow Problems: Consultation Date/Type/Reason Admit Date/Time Jan 23, 2017 at 13:10 Initial Consult Date 01/23/17 Type of Consultation: Cardiology Referring Provider: SANCHEZ APARICIO NP 24 HR Interval Summary Free Text/Dictation HR was controlled yesterday but this am ~120 even after metoprolol. No complaints. SOB resolved. Plan for EGD today Exam/Review of Systems Vital Signs Vitals Vital Signs Date Time Temp Pulse Resp B/P Pulse Ox O2 Delivery O2 Flow Rate FiO2 01/26/17 12:12 130 01/26/17 11:32 98.2 19 131/71 100 01/25/17 00:05 Nasal Cannula 2.0 Intake and Output 01/25/17 01/25/17 01/26/17 15:00 23:00 07:00 Intake Total 300 ml 120 ml Output Total 1800 ml 700 ml Balance -1500 ml -580 ml Exam Constitutional: alert, oriented Psych: nl mood/affect, no complaints Head: atraumatic, normocephalic Eyes: nl conjunctiva ENMT: nl external ears & nose Neck: jvd (8cm), supple Respiratory: crackles/rales (mild), No clear to auscultation Cardiovascular: systolic murmur (2/6 RONNY), No edema, No regular rate and rhythm (IRIR) Gastrointestinal: non-tender, soft Neurological: nl mental status, nl speech Results Result Diagram: 01/26/17 0633 01/26/17 0633 Results 24 hrs Laboratory Tests Test 01/25/17 16:18 01/25/17 20:56 01/26/17 06:33 01/26/17 06:36 Potassium Level 3.3 L 3.3 L Bedside Glucose 132 White Blood Count 15.8 H Red Blood Count 3.73 L Hemoglobin 10.9 L Hematocrit 32.6 L Mean Corpuscular Volume 87.4 Mean Corpuscular Hemoglobin 29.2 Mean Corpuscular Hemoglobin Concent 33.4 Red Cell Distribution Width 15.9 H Platelet Count 246 # Mean Platelet Volume 11.0 H Neutrophils % 77.7 H Lymphocytes % 10.7 L Monocytes % 9.0 Eosinophils % 0.6 Basophils % 0.3 Nucleated Red Blood Cells % 0.1 H Neutrophils # 12.3 H Lymphocytes # 1.7 Monocytes # 1.4 H Eosinophils # 0.1 Basophils # 0.1 Nucleated Red Blood Cells # 0.0 Prothrombin Time 19.7 H Prothrombin Time Ratio 1.5 INR International Normalized Ratio 1.66 Activated Partial Thromboplast Time 32.0 Sodium Level 155 H Chloride Level 114 H Carbon Dioxide Level 31 Anion Gap 13 Blood Urea Nitrogen 62 H Creatinine 1.09 H Glucose Level 105 Calcium Level 8.9 Phosphorus Level 3.3 Magnesium Level 2.0 Total Bilirubin 0.8 Direct Bilirubin 0.10 Indirect Bilirubin 0.7 Aspartate Amino Transf (AST/SGOT) 324 H Alanine Aminotransferase (ALT/SGPT) 230 H Alkaline Phosphatase 262 H Total Protein 6.1 Albumin 2.9 L Globulin 3.20 Albumin/Globulin Ratio 0.90 Lab Scanned Report BLOOD TRANSFUSION Medications Medications Current Medications Ondansetron HCl (Zofran Inj) 4 mg Q6H PRN IV NAUSEA AND/OR VOMITING; Start at 14:30 Acetaminophen (Tylenol Tab) 650 mg Q6H PRN PO PAIN LEVEL 1-3 OR FEVER; Start 01/23/17 at 14:30 Acetaminophen/ Hydrocodone Bitart ([place] (5/325)) 1 tab Q6H PRN PO PAIN LEVEL 4 -6 Last administered on 01/23/17t 20:35; Admin Dose 1 TAB; Start 01/23/17 at 14:30 Atorvastatin Calcium (Lipitor) 20 mg QHS PO Last administered on 01/25/17 20: 57; Admin Dose 20 MG; Start 01/23/17 at 21:00 Citalopram Hydrobromide (Celexa) 20 mg DAILY PO Last administered on 10:13; Admin Dose 20 MG; Start 01/24/17 at 09:00 Docusate Sodium (Colace) 100 mg BID PO Last administered on 01/25/17 20:57; Admin Dose 100 MG; Start 01/23/17 at 21:00 Pantoprazole (Protonix Iv) 40 mg BID@06,18 IV Last administered on 01/26/17 06:33; Admin Dose 40 MG; Start 01/23/17 at 18:00 Morphine Sulfate 1 mg 1 mg Q4H PRN IV PAIN Last administered on 01/24/17 03: 40; Admin Dose 1 MG; Start 01/24/17 at 04:30 Potassium Chloride 250 ml @ 62.5 mls/hr ONCE ONCE IVPB Last administered on 01/26/17 10:04; Admin Dose 62.5 MLS/HR; Start 01/26/17 at 10:00; Stop at 13:59 Dextrose 1,000 ml @ 50 mls/hr Q20H IV Last administered on 01/26/17 10:10; Admin Dose 50 MLS/HR; Start 01/26/17 at 09:00; Stop 01/26/17 at 19:00 Cefepime HCl/ Dextrose (Maxipime/D5W) 50 ml @ 100 mls/hr Q24H IVPB ; Start at 14:00 Metoprolol Tartrate (Lopressor) 50 mg NOW ONCE PO ; Start 01/26/17 at 12:30; Stop 01/26/17 at 12:31 Metoprolol Tartrate (Lopressor) 75 mg BID PO ; Start 01/26/17 at 21:00 ERIC LUCIO Jan 26, 2017 12:31
[2017-01-26] MEDS: CEFEPIME HCL 1 GM in DEXTROSE 5% 50 ML IVPB SCH (13:36)
--- NOTE | 2017-01-26 14:16 | PN ---
DATE: 01/26/2017 SUBJECTIVE: No acute changes overnight. The patient is awake, feels better. Looks comfortable. WBC today 15.8, platelets 246, neutrophils 77.7, BUN 62, creatinine 1.09. MICROBIOLOGY: Blood culture on admission grew gram-positive rods, 1 out of 2 sets. Urine culture g rew E. coli. ANTIMICROBIALS: The patient is on cefepime status post vancomycin. PHYSICAL EXAMINATION: GENERAL: This is a fragile, chronically ill-appearing, elderly woman who is awake, in no distress. HEENT: Head atraumatic, normocephalic. Sclerae anicteric. Buccal mucosa dry. NECK: Supple. CHEST: Rise symmetrical. Breath sounds diminished to bases. HEART: S1, S2. ABDOMEN: Soft, bowel tones present. EXTREMITIES: Without cyanosis. ASSESSMENT: 1. Sepsis with Escherichia coli urinary tract infection on admission. 2. Bacteremia with blood culture growing gram-positive rods, one set, consistent with contaminant. 3. Questionable pneumonia. 4. Status post rapid atrial fibrillation. 5. Acute anemia. 6. Pancreatic cancer. 7. Acute kidney injury. PLAN: The patient remains stable. She is being followed by multiple consultants. She is clinicall y improving. We will continue her on current regimen in regards to antibiotics. Dictated By: SHELIA HUFF LIBRARIAN for DONNIE DON/NTS Conf#: [id number] DID#: [id number] CC: Rhea Castro;*End*
[2017-01-26] MEDS ORDERED: TOLVAPTAN 15 MG TABLET PO ONE (18:00)
[2017-01-26] MEDS ORDERED: PROPOFOL 20 ML ONE (18:26)
[2017-01-26] MEDS ORDERED: LIDOCAINE 2% (SDV) 5 ML INJ ONE (18:26)
--- NOTE | 2017-01-26 18:46 | OPPN ---
Date/Time of Note Date/Time of Note DATE: 01/26/17 TIME: 18:40 Proc Note GI Procedure Date 01/26/17 Indication: other (ANEMIA) Pre-procedure Diagnosis Anemia Post-procedure Diagnosis Impression: 6 mm clean base esophageal ulcer Distal esophagitis Small hiatal hernia Moderate gastritis. Rule out H. pylori infection. Biopsies obtained Otherwise normal EGD Plan: Continue Protonix 40 mg twice daily Add Carafate 1 g liquid 4 times daily Advance diet as tolerated . Procedure Performed: Endoscopy (With biopsies) Surgeon WAN ALVAREZ MD See signature line Housekeeping Room Inspector none Anesthesia Type: MAC Anesthesiologist: KAUR ZAPATA MD Tourniquet Time none EBL none Transfusion required none Biopsy 1: Gastric body and antrum Grafts/Implants none Tubes/Drains none Complication(s) none Disposition: PACU Procedure Description Preoperative Diagnosis: After informed consent, with the patient/relatives understanding the procedure, its indications, potential risks and complications, including but not limited to : allergic reaction, bleeding, perforation or infection, and after all pertinent questions were answered to the patients satisfaction, the patient/ relatives signed witnessed informed consent. Following this, premedication was administered slowly IV push under careful cardiovascular and respiratory monitoring with pulse oximetry, automatic blood pressure, and laboratory monitor. Once the sedative effect was achieved the patient was place in the left lateral decubitus, the panendoscope was introduced and advanced under visual control. Careful examination of the upper gastrointestinal tract, both on insertion as well as withdrawal of the instrument disclosing the following findings: ESOPHAGUS: the mucosa of the entire esophagus was carefully examined and showed the following findings: There is a 6 mm clean base esophageal ulcer at the esophagogastric junction. There is significant erythema and edema of the mucosa of the distal esophagus. Otherwise the mucosa appears within normal limits. There is no evidence of varices, neoplasm, or stricture. Small hiatal Hernia identified. STOMACH: Upon entrance to the stomach air was insufflated, the gastric juan distended normally. The mucosa of the fundus, body and antrum of the stomach was carefully examined both head-on and on retroflexion, and showed the following findings: There is erythema and edema because of a moderate degree. Biopsies were obtained to rule out H. pylori infection. Otherwise the mucosa appears within normal limits with no abnormalities. There is no evidence of ulcers or neoplasm. PYLORUS: The pylorus was carefully examined and showed the following findings: the pylorus appears patent and within normal limits, with no evidence of gastric outlet obstruction. DUODENUM: The duodenal mucosa was carefully examined in the duodenal bulb as well as the second portion of the duodenum and showed the following findings: the mucosa appears unremarkable with no evidence of duodenitis, ulcer or neoplasm. Copies To: CC: WAN ALVAREZ MD, MORDO MD Jan 26, 2017 18:46
[2017-01-26] MEDS: ATORVASTATIN 20 MG TAB PO SCH (20:51)
[2017-01-26] MEDS: SUCRALFATE (100 MG/ML) 10ML CUP PO SCH ×2 (20:51→21:03)
[2017-01-26 21:11] LABS: CALCIUM 8.8 mg/dl (8.4-10.2); CREATININE 0.96 mg/dl (0.44-1.00); POTASSIUM 3.8 mmol/L (3.5-5.1)
[2017-01-27] VITALS (14 sets, daily range): BP systolic 84–148; BP diastolic 46–64; PULSE 84–119; RESP 18–22
[2017-01-27] MEDS: PANTOPRAZOLE 40 MG INJ IV SCH ×2 (05:55→17:54)
[2017-01-27] MEDS: LEVOTHYROXINE 50 MCG TAB PO SCH (07:08)
[2017-01-27 07:26] LABS: ABNORMAL IP MESSAGE 1; BASOPHIL # 0.1 10^3/ul (0.0-0.1); BASOPHILS % 0.3 % (0.0-2.0); EOSINOPHILS # 0.1 10^3/ul (0.0-0.5); EOSINOPHILS % 0.9 % (0.0-7.0); HEMATOCRIT 33.7 % (37.0-47.0); HEMOGLOBIN 10.9 g/dl (12.0-16.0); LYMPHOCYTES # 1.8 10^3/ul (0.8-2.9); LYMPHOCYTES % 11.8 % (15.0-51.0); MEAN CORPUSCULAR HEMOGLOBIN 29.5 pg (29.0-33.0); MEAN CORPUSCULAR HGB CONC 32.3 g/dl (32.0-37.0); MEAN CORPUSCULAR VOLUME 91.1 fl (82.0-101.0); MEAN PLATELET VOLUME 11.3 fl (7.4-10.4); MONOCYTE # 1.5 10^3/ul (0.3-0.9); MONOCYTES % 10.2 % (0.0-11.0); NEUTROPHIL # 11.4 10^3/ul (1.6-7.5); NEUTROPHILS % 75.5 % (39.0-77.0); NUCLEATED RED BLOOD CELLS% 0.1 /100WBC (0.0-0.0); PLATELET COUNT 272 10^3/UL (140-415); RED CELL DISTRIBUTION WIDTH 17.3 % (11.5-14.5)
[2017-01-27 07:43] LABS: POSITIVE DIFF @See below
[2017-01-27 07:48] LABS: CALCIUM 8.9 mg/dl (8.4-10.2); CREATININE 0.85 mg/dl (0.44-1.00); MAGNESIUM 2.1 mg/dl (1.7-2.5); POTASSIUM 4.1 mmol/L (3.5-5.1)
[2017-01-27] MEDS: DOCUSATE SODIUM 10 MG/ML (10ML CUP) PO SCH ×2 (09:23→21:00)
[2017-01-27] MEDS: SUCRALFATE (100 MG/ML) 10ML CUP PO SCH ×4 (09:23→21:13)
[2017-01-27] MEDS: METOPROLOL 50 MG TAB PO SCH (09:24)
[2017-01-27] MEDS: CITALOPRAM 20 MG TAB PO SCH (09:24)
[2017-01-27] MEDS ORDERED: METOPROLOL 25 MG TAB PO ONE (10:00)
--- NOTE | 2017-01-27 10:16 | PN ---
Date/Time of Note Date/Time of Note DATE: 01/27/17 TIME: 10:15 Assessment/Plan VTE Prophylaxis VTE Prophylaxis Intervention: contraindicated Lines/Catheters IV [facility] (from [facility] Saline Lock Urinary Cath still in place: Yes Reason Cath still needed: other (indicate) Assessment/Plan Chief Complaint/Hosp Course 1. Sepsis secondary to underlying urinary tract infection. No evidence of any septic shock at this time. The patient will be continued on antibiotics as per ID. 2. Coagulopathy. From Coumadin toxicity. No overt sources of bleeding. Resolved with vitamin K and fresh frozen plasma. Brain CT scan negative for any acute bleed. We will avoid any anticoagulation. 3. Atrial fibrillation with rapid ventricular response. Status post IV Cardizem in the emergency room. Continue beta-blockers. Cardiology following. 4. Acute kidney injury. Unknown baseline creatinine. Probably she has underlying chronic kidney disease. Nephrotoxic drugs will be avoided. Nephrology following. 5. Symptomatic anemia. Improved status post multiple blood transfusions. No evidence of any underlying iron deficiency. Gastroenterology following. Status post esophagogastroduodenoscopy on 01/26/2017 that showed a 6 mm clean- based esophageal ulcer, distal esophagitis, small hiatal hernia, and moderate gastritis. Continue proton pump inhibitors. The patient was also started on Carafate. 6. Essential hypertension. Continue antihypertensives. 7. Cardiomyopathy with ejection fraction of 45%. The patient on beta- blockers. No MEHRAN inhibitors as of now because of renal function. 8. Acute on chronic systolic heart failure exacerbation. Continue diuresis as per cardiology. 9. Pulmonary hypertension. PA systolic pressure of 52 mmHg as per 2D echocardiogram. Most probably secondary to underlying valvular heart disease. 10. Hypothyroidism. Continue Synthroid. 11. Dysphagia. ST evaluation ongoing. Pureed diet with nectar thick liquids. 12. 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 13. Fluids, electrolytes, and nutrition. Pured diet with nectar thick liquids. 14. DVT prophylaxis. Contraindicated. 15. Gastrointestinal prophylaxis. Proton pump inhibitors. 16. Plan. Continue close monitoring. Continue antibiotics. PT evaluation. Case discussed with Dr. Jalloh. Problems: Subjective 24 Hr Interval Summary Free Text/Dictation Patient continues to have A. fib with RVR. Remains afebrile. Exam/Review of Systems Vital Signs Vitals Vital Signs Date Time Temp Pulse Resp B/P Pulse Ox O2 Delivery O2 Flow Rate FiO2 01/27/17 08:02 119 01/27/17 07:48 98.0 18 148/63 98 01/26/17 20:00 Nasal Cannula 2.0 Intake and Output 01/26/17 01/26/17 01/27/17 15:00 23:00 07:00 Intake Total 50 ml 50 ml 100 ml Output Total 650 ml 900 ml Balance 50 ml -600 ml -800 ml Exam General: 86-year-old, elderly, pale looking female lying in bed in no apparent distress. HEENT: Normocephalic, atraumatic. Eyes: Anicteric sclerae, conjunctivae clear. ENT: Nasal septum midline, oral mucosa moist. Neck supple, JVD noticed. Respiratory: Bilaterally diminished breath sounds. No use of accessory muscles of respiration. No adventitious breath sounds. Cardiovascular: S1, S2 heard. Irregularly irregular rhythm. Systolic murmur. Abdomen: Soft, nontender, and nondistended. Bowel sounds positive in all 4 quadrants. Genitourinary: Deferred. Extremities: No cyanosis, no clubbing, no edema. Peripheral pulses palpable. Neurologic: Patient is awake and alert. No focal weakness. Skin: Normal skin turgor. No skin rashes. Results Result Diagram: 01/27/17 0643 01/27/17 0643 Results 24 hrs Laboratory Tests Test 01/26/17 20:24 01/27/17 06:43 Sodium Level 157 H 159 H Potassium Level 3.8 4.1 Chloride Level 118 H 119 H Carbon Dioxide Level 26 30 Anion Gap 17 H 14 Blood Urea Nitrogen 53 H 52 H Creatinine 0.96 0.85 Glucose Level 196 112 # Calcium Level 8.8 8.9 White Blood Count 15.0 H Red Blood Count 3.70 L Hemoglobin 10.9 L Hematocrit 33.7 L Mean Corpuscular Volume 91.1 Mean Corpuscular Hemoglobin 29.5 Mean Corpuscular Hemoglobin Concent 32.3 Red Cell Distribution Width 17.3 H Platelet Count 272 Mean Platelet Volume 11.3 H Neutrophils % 75.5 Lymphocytes % 11.8 L Monocytes % 10.2 Eosinophils % 0.9 Basophils % 0.3 Nucleated Red Blood Cells % 0.1 H Neutrophils # 11.4 H Lymphocytes # 1.8 Monocytes # 1.5 H Eosinophils # 0.1 Basophils # 0.1 Nucleated Red Blood Cells # 0.0 Magnesium Level 2.1 Medications Medications Current Medications Ondansetron HCl (Zofran Inj) 4 mg Q6H PRN IV NAUSEA AND/OR VOMITING; Start at 14:30 Acetaminophen (Tylenol Tab) 650 mg Q6H PRN PO PAIN LEVEL 1-3 OR FEVER Last administered on 01/26/17 13:51; Admin Dose 650 MG; Start 01/23/17 at 14:30 Acetaminophen/ Hydrocodone Bitart ([place] (5/325)) 1 tab Q6H PRN PO PAIN LEVEL 4 -6 Last administered on 01/23/17 20:35; Admin Dose 1 TAB; Start 01/23/17 at 14:30 Atorvastatin Calcium (Lipitor) 20 mg QHS PO Last administered on 01/26/17 20: 51; Admin Dose 20 MG; Start 01/23/17 at 21:00 Citalopram Hydrobromide (Celexa) 20 mg DAILY PO Last administered on 09:24; Admin Dose 20 MG; Start 01/24/17 at 09:00 Pantoprazole (Protonix Iv) 40 mg BID@06,18 IV Last administered on 01/27/17 05:55; Admin Dose 40 MG; Start 01/23/17 at 18:00 Morphine Sulfate 1 mg 1 mg Q4H PRN IV PAIN Last administered on 01/24/17 03: 40; Admin Dose 1 MG; Start 01/24/17 at 04:30 Cefepime HCl/ Dextrose (Maxipime/D5W) 50 ml @ 100 mls/hr Q24H IVPB Last administered on 01/26/17 13:36; Admin Dose 100 MLS/HR; Start 01/26/17 at 14: 00 Metoprolol Tartrate (Lopressor) 75 mg BID PO Last administered on 01/27/17 09 :24; Admin Dose 75 MG; Start 01/26/17 at 21:00 Sucralfate (Carafate Susp) 1 gm QID PO Last administered on 01/27/17 09:23; Admin Dose 1 GM; Start 01/26/17 at 19:00 Docusate Sodium (Colace Liquid Cup) 100 mg BID PO Last administered on 09:23; Admin Dose 100 MG; Start 01/27/17 at 09:00 SANCHEZ APARICIO NP Jan 27, 2017 10:16
--- NOTE | 2017-01-27 10:59 | CONS ---
Date/Time of Note Date/Time of Note DATE: 01/27/17 TIME: 10:58 Assessment/Plan Assessment/Plan Chief Complaint/Hosp Course 1. Hypernatremia 2. Severe anemia in the setting of coagulopathy with INR greater than 10 which is improved 3. Acute renal failure. 4. Elevated INR> improved 5. Urinary tract infection with GNR 6. Elevated BNP. 7. History of hypertension. 8. Hypothyroidism. 9. Pneumonia. 10. 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 11. SIRS Problems: Additional Assessment/Plan 1. D5 water IV infusion 2. Optimization kidney function Consultation Date/Type/Reason Admit Date/Time Jan 23, 2017 at 13:10 Initial Consult Date 01/23/17 Type of Consultation: nephrology Reason for Consultation Dr Costa Referring Provider: SANCHEZ APARICIO NP 24 HR Interval Summary Constitutional: poor po, requiring IVF Exam/Review of Systems Vital Signs Vitals Vital Signs Date Time Temp Pulse Resp B/P Pulse Ox O2 Delivery O2 Flow Rate FiO2 01/27/17 10:30 103 128/62 01/27/17 07:48 98.0 18 98 01/26/17 20:00 Nasal Cannula 2.0 Intake and Output 01/26/17 01/26/17 01/27/17 14:59 22:59 06:59 Intake Total 50 ml 50 ml 100 ml Output Total 650 ml 900 ml Balance 50 ml -600 ml -800 ml Exam Constitutional: alert, oriented Neck: supple Respiratory: diminished breath sounds Cardiovascular: irregular rhythm Gastrointestinal: soft Results Result Diagram: 01/27/17 0643 01/27/17 0643 Results 24 hrs Laboratory Tests Test 01/26/17 20:24 01/27/17 06:43 Sodium Level 157 H 159 H Potassium Level 3.8 4.1 Chloride Level 118 H 119 H Carbon Dioxide Level 26 30 Anion Gap 17 H 14 Blood Urea Nitrogen 53 H 52 H Creatinine 0.96 0.85 Glucose Level 196 112 # Calcium Level 8.8 8.9 White Blood Count 15.0 H Red Blood Count 3.70 L Hemoglobin 10.9 L Hematocrit 33.7 L Mean Corpuscular Volume 91.1 Mean Corpuscular Hemoglobin 29.5 Mean Corpuscular Hemoglobin Concent 32.3 Red Cell Distribution Width 17.3 H Platelet Count 272 Mean Platelet Volume 11.3 H Neutrophils % 75.5 Lymphocytes % 11.8 L Monocytes % 10.2 Eosinophils % 0.9 Basophils % 0.3 Nucleated Red Blood Cells % 0.1 H Neutrophils # 11.4 H Lymphocytes # 1.8 Monocytes # 1.5 H Eosinophils # 0.1 Basophils # 0.1 Nucleated Red Blood Cells # 0.0 Magnesium Level 2.1 Medications Medications Current Medications Ondansetron HCl (Zofran Inj) 4 mg Q6H PRN IV NAUSEA AND/OR VOMITING; Start at 14:30 Acetaminophen (Tylenol Tab) 650 mg Q6H PRN PO PAIN LEVEL 1-3 OR FEVER Last administered on 01/26/17 13:51; Admin Dose 650 MG; Start 01/23/17 at 14:30 Acetaminophen/ Hydrocodone Bitart ([place] (5/325)) 1 tab Q6H PRN PO PAIN LEVEL 4 -6 Last administered on 01/23/17 20:35; Admin Dose 1 TAB; Start 01/23/17 at 14:30 Atorvastatin Calcium (Lipitor) 20 mg QHS PO Last administered on 01/26/17 20: 51; Admin Dose 20 MG; Start 01/23/17 at 21:00 Citalopram Hydrobromide (Celexa) 20 mg DAILY PO Last administered on 09:24; Admin Dose 20 MG; Start 01/24/17 at 09:00 Pantoprazole (Protonix Iv) 40 mg BID@06,18 IV Last administered on 01/27/17 05:55; Admin Dose 40 MG; Start 01/23/17 at 18:00 Morphine Sulfate 1 mg 1 mg Q4H PRN IV PAIN Last administered on 01/24/17 03: 40; Admin Dose 1 MG; Start 01/24/17 at 04:30 Cefepime HCl/ Dextrose (Maxipime/D5W) 50 ml @ 100 mls/hr Q24H IVPB Last administered on 01/26/17 13:36; Admin Dose 100 MLS/HR; Start 01/26/17 at 14: 00 Sucralfate (Carafate Susp) 1 gm QID PO Last administered on 01/27/17 09:23; Admin Dose 1 GM; Start 01/26/17 at 19:00 Docusate Sodium (Colace Liquid Cup) 100 mg BID PO Last administered on 09:23; Admin Dose 100 MG; Start 01/27/17 at 09:00 Metoprolol Tartrate (Lopressor) 100 mg BID PO ; Start 01/27/17 at 21:00; Status KEVIN BROOKS Jan 27, 2017 10:59
--- NOTE | 2017-01-27 11:20 | PN ---
Date/Time of Note Date/Time of Note DATE: 01/27/17 TIME: 11:16 Assessment/Plan VTE Prophylaxis VTE Prophylaxis Intervention: ambulation Lines/Catheters [facility] Saline Lock Urinary Cath still in place: Yes Reason Cath still needed: other (indicate) (Monitor output) Assessment/Plan Chief Complaint/Hosp Course Assessment: Anemia multifactorial EGD 01/26/2017 6 mm clean base esophageal ulcer Distal esophagitis Small hiatal hernia Moderate gastritis. Rule out H. pylori infection. Biopsies obtained Otherwise normal EGD Over anticoagulation/resolved A-fib on metoprolol 25mg BID UTI- on antibiotics therapy Leucocytosis- likely secondary to UTI- on antibiotics/improved Plan: Continue PPI Continue to monitor H/H transfuse for Hgb less than 7.5 Subjective: Course reviewed with nursing staff Patient interviewed and examined All labs, imaging and other results reviewed The patient appears comfortable Tolerating diet, son at bedside Advised him endoscopic findings We will continue present management Very cautious anticoagulation may be considered if absolutely necessary PHYSICAL EXAMINATION: GENERAL: Pale, ill-appearing, alert & oriented x 3, SKIN: No lesions, no stigmata chronic liver disease, no evidence of bleeding diathesis LYMPHATIC: No palpable lymphadenopathy. HEAD: Normocephalic, atraumatic, no tenderness. EYES: Pupils equal reactive to light and accommodation, full extraocular movements, sclera clear, non-icteric, no discharge. EARS/NOSE AND THROAT: Ears normal, nose normal, oropharynx normal, oral membranes well hydrated without lesions. NECK: Supple, no masses, CHEST: Inspection within normal limits. CARDIOVASCULAR: Heart: irregular rhythm. RESPIRATORY: Rales GASTROINTESTINAL AND LIVER: Abdomen: Soft, non tenderness, non-distended, no hernias, no masses, no organomegaly, no ascites, no guarding, no rebound tenderness, normoactive bowel sounds. Rectal: Deferred. GENITOURINARY: Female genitalia within normal limits. Problems: Exam/Review of Systems Vital Signs Vitals Vital Signs Date Time Temp Pulse Resp B/P Pulse Ox O2 Delivery O2 Flow Rate FiO2 01/27/17 10:30 103 128/62 01/27/17 07:48 98.0 18 98 01/26/17 20:00 Nasal Cannula 2.0 Intake and Output 01/26/17 01/26/17 01/27/17 15:00 23:00 07:00 Intake Total 50 ml 50 ml 100 ml Output Total 650 ml 900 ml Balance 50 ml -600 ml -800 ml Results Result Diagram: 01/27/17 0643 01/27/17 0643 Results 24 hrs Laboratory Tests Test 01/26/17 20:24 01/27/17 06:43 Sodium Level 157 H 159 H Potassium Level 3.8 4.1 Chloride Level 118 H 119 H Carbon Dioxide Level 26 30 Anion Gap 17 H 14 Blood Urea Nitrogen 53 H 52 H Creatinine 0.96 0.85 Glucose Level 196 112 # Calcium Level 8.8 8.9 White Blood Count 15.0 H Red Blood Count 3.70 L Hemoglobin 10.9 L Hematocrit 33.7 L Mean Corpuscular Volume 91.1 Mean Corpuscular Hemoglobin 29.5 Mean Corpuscular Hemoglobin Concent 32.3 Red Cell Distribution Width 17.3 H Platelet Count 272 Mean Platelet Volume 11.3 H Neutrophils % 75.5 Lymphocytes % 11.8 L Monocytes % 10.2 Eosinophils % 0.9 Basophils % 0.3 Nucleated Red Blood Cells % 0.1 H Neutrophils # 11.4 H Lymphocytes # 1.8 Monocytes # 1.5 H Eosinophils # 0.1 Basophils # 0.1 Nucleated Red Blood Cells # 0.0 Magnesium Level 2.1 Medications Medications Current Medications Ondansetron HCl (Zofran Inj) 4 mg Q6H PRN IV NAUSEA AND/OR VOMITING; Start at 14:30 Acetaminophen (Tylenol Tab) 650 mg Q6H PRN PO PAIN LEVEL 1-3 OR FEVER Last administered on 01/26/17 13:51; Admin Dose 650 MG; Start 01/23/17 at 14:30 Acetaminophen/ Hydrocodone Bitart ([place] (5/325)) 1 tab Q6H PRN PO PAIN LEVEL 4 -6 Last administered on 01/23/17 20:35; Admin Dose 1 TAB; Start 01/23/17 at 14:30 Atorvastatin Calcium (Lipitor) 20 mg QHS PO Last administered on 01/26/17 20: 51; Admin Dose 20 MG; Start 01/23/17 at 21:00 Citalopram Hydrobromide (Celexa) 20 mg DAILY PO Last administered on 09:24; Admin Dose 20 MG; Start 01/24/17 at 09:00 Pantoprazole (Protonix Iv) 40 mg BID@06,18 IV Last administered on 01/27/17 05:55; Admin Dose 40 MG; Start 01/23/17 at 18:00 Morphine Sulfate 1 mg 1 mg Q4H PRN IV PAIN Last administered on 01/24/17 03: 40; Admin Dose 1 MG; Start 01/24/17 at 04:30 Cefepime HCl/ Dextrose (Maxipime/D5W) 50 ml @ 100 mls/hr Q24H IVPB Last administered on 01/26/17 13:36; Admin Dose 100 MLS/HR; Start 01/26/17 at 14: 00 Sucralfate (Carafate Susp) 1 gm QID PO Last administered on 01/27/17 09:23; Admin Dose 1 GM; Start 01/26/17 at 19:00 Docusate Sodium (Colace Liquid Cup) 100 mg BID PO Last administered on 09:23; Admin Dose 100 MG; Start 01/27/17 at 09:00 Metoprolol Tartrate 100 mg 100 mg BID PO ; Start 01/27/17 at 21:00 Dextrose (D5W) 1,000 ml @ 75 mls/hr [id number] IV ; Start 01/27/17 at 11:00 WAN ALVAREZ MD Jan 27, 2017 11:20
--- NOTE | 2017-01-27 11:43 | CONS ---
Date/Time of Note Date/Time of Note DATE: 01/27/17 TIME: 11:40 Assessment/Plan Assessment/Plan Chief Complaint/Hosp Course Acute on chronic systolic/valvular heart failure: EF 45%, mod MR/AR and mod- severe TR. Likely from blood products and aggressive IV hydration. Much improved with diuresis. Slight CHF again Chronic Afib with RVR: Partially compensatory to multiple active issues. HR fluctuating and uncontrolled in am Coagulopathy: INR >10 on admission, now normalized Anemia with upper GI bleed: Hgb 6.6 on admission, now improved with transfusion. EGD with esophageal ulcer Sepsis secondary to UTI UTI Acute vs chronic renal failure Pancreatic ca -lasix 20mg IV once, then 20mg PO daily -increase to metoprolol 100mg BID -continue to hod coumadin Problems: Consultation Date/Type/Reason Admit Date/Time Jan 23, 2017 at 13:10 Initial Consult Date 01/23/17 Type of Consultation: Cardiology Referring Provider: SANCHEZ APARICIO NP 24 HR Interval Summary Free Text/Dictation s/p EGD with esophageal ulcer. HR controlled in the evening but elevated in am. Exam/Review of Systems Vital Signs Vitals Vital Signs Date Time Temp Pulse Resp B/P Pulse Ox O2 Delivery O2 Flow Rate FiO2 01/27/17 10:30 103 128/62 01/27/17 08:28 Nasal Cannula 2.0 01/27/17 07:48 98.0 18 98 Intake and Output 01/26/17 01/26/17 01/27/17 15:00 23:00 07:00 Intake Total 50 ml 50 ml 100 ml Output Total 650 ml 900 ml Balance 50 ml -600 ml -800 ml Exam Constitutional: alert, oriented Psych: nl mood/affect, no complaints Head: atraumatic, normocephalic Neck: jvd (8cm) Respiratory: crackles/rales (mid lungs ), No clear to auscultation Cardiovascular: systolic murmur, No edema, No regular rate and rhythm Gastrointestinal: non-tender, soft Neurological: nl mental status, nl speech Results Result Diagram: 01/27/17 0643 01/27/17 0643 Results 24 hrs Laboratory Tests Test 01/26/17 20:24 01/27/17 06:43 Sodium Level 157 H 159 H Potassium Level 3.8 4.1 Chloride Level 118 H 119 H Carbon Dioxide Level 26 30 Anion Gap 17 H 14 Blood Urea Nitrogen 53 H 52 H Creatinine 0.96 0.85 Glucose Level 196 112 # Calcium Level 8.8 8.9 White Blood Count 15.0 H Red Blood Count 3.70 L Hemoglobin 10.9 L Hematocrit 33.7 L Mean Corpuscular Volume 91.1 Mean Corpuscular Hemoglobin 29.5 Mean Corpuscular Hemoglobin Concent 32.3 Red Cell Distribution Width 17.3 H Platelet Count 272 Mean Platelet Volume 11.3 H Neutrophils % 75.5 Lymphocytes % 11.8 L Monocytes % 10.2 Eosinophils % 0.9 Basophils % 0.3 Nucleated Red Blood Cells % 0.1 H Neutrophils # 11.4 H Lymphocytes # 1.8 Monocytes # 1.5 H Eosinophils # 0.1 Basophils # 0.1 Nucleated Red Blood Cells # 0.0 Magnesium Level 2.1 Medications Medications Current Medications Ondansetron HCl (Zofran Inj) 4 mg Q6H PRN IV NAUSEA AND/OR VOMITING; Start at 14:30 Acetaminophen (Tylenol Tab) 650 mg Q6H PRN PO PAIN LEVEL 1-3 OR FEVER Last administered on 01/26/17 13:51; Admin Dose 650 MG; Start 01/23/17 at 14:30 Acetaminophen/ Hydrocodone Bitart ([place] (5/325)) 1 tab Q6H PRN PO PAIN LEVEL 4 -6 Last administered on 01/23/17 20:35; Admin Dose 1 TAB; Start 01/23/17 at 14:30 Atorvastatin Calcium (Lipitor) 20 mg QHS PO Last administered on 01/26/17 20: 51; Admin Dose 20 MG; Start 01/23/17 at 21:00 Citalopram Hydrobromide (Celexa) 20 mg DAILY PO Last administered on 09:24; Admin Dose 20 MG; Start 01/24/17 at 09:00 Pantoprazole (Protonix Iv) 40 mg BID@18 IV Last administered on 01/27/17 05:55; Admin Dose 40 MG; Start 01/23/17 at 18:00 Morphine Sulfate 1 mg 1 mg Q4H PRN IV PAIN Last administered on 01/24/17 03: 40; Admin Dose 1 MG; Start 01/24/17 at 04:30 Cefepime HCl/ Dextrose (Maxipime/D5W) 50 ml @ 100 mls/hr Q24H IVPB Last administered on 01/26/17 13:36; Admin Dose 100 MLS/HR; Start 01/26/17 at 14: 00 Sucralfate (Carafate Susp) 1 gm QID PO Last administered on 01/27/17 09:23; Admin Dose 1 GM; Start 01/26/17 at 19:00 Docusate Sodium (Colace Liquid Cup) 100 mg BID PO Last administered on 09:23; Admin Dose 100 MG; Start 01/27/17 at 09:00 Metoprolol Tartrate 100 mg 100 mg BID PO ; Start 01/27/17 at 21:00 Dextrose (D5W) 1,000 ml @ 75 mls/hr [id number] IV ; Start 01/27/17 at 11:00 ERIC LUCIO Jan 27, 2017 11:43
[2017-01-27] MEDS ORDERED: FUROSEMIDE 20 MG INJ IV ONE (12:00)
[2017-01-27] MEDS: DEXTROSE 5% 1,000 ML IV SCH (12:28)
[2017-01-27] MEDS: CEFEPIME HCL 1 GM in DEXTROSE 5% 50 ML IVPB SCH (14:31)
--- NOTE | 2017-01-27 18:03 | CONS ---
Date/Time of Note Date/Time of Note DATE: 01/27/17 TIME: 17:54 Assessment/Plan Assessment/Plan Chief Complaint/Hosp Course ID PROGRESS NOTE CURRENT ABX: DAY #5 =>cefepime status post vancomycin. 24H INTERVAL SUMMARY * Resting comfortably , afebrile, VSS, NAD, no new c/o, no new issues * CHART REVIEWED: See vitals, labs as per below. * MICRO REVIEWED: MICROBIOLOGY: Blood culture on admission grew gram-positive rods, 1 out of 2 sets. Urine culture grew E. coli. PHYSICAL EXAMINATION: GENERAL: VSS, afebrile, NAD HEENT: Unremarkable NECK: Supple, trach midline CHEST: Equal chest rise bilaterally, without dyspnea on observation HEART: RRR ABDOMEN: Soft, NT, ND EXT: Warm, no edema SKIN: No rash, no diaphoresis ID ASSESSMENT: 86 yo F admit [facility]: 1. Sepsis with Escherichia coli urinary tract infection on admission. 2. Bacteremia with blood culture growing gram-positive rods, one set, consistent with contaminant. 3. Questionable pneumonia. 4. Status post rapid atrial fibrillation. 5. Acute anemia. 6. Pancreatic cancer. 7. Acute kidney injury. (- )Influenza A/B screen ABX ALLERGIES: None to ABX INVASIVES: PIV CURRENT ABX: cefepime #4 status post vancomycin. ID RECOMMENDATIONS/PLAN: 1. Continue current ABX over the weekend 2. ID team consultants will continue to follow . Problems: Consultation Date/Type/Reason Admit Date/Time Jan 23, 2017 at 13:10 Initial Consult Date 01/23/17 Referring Provider: SANCHEZ APARICIO [employer]ISH[employer]DER PRESS OPERATOR Exam/Review of Systems Vital Signs Vitals Vital Signs Date Time Temp Pulse Resp B/P Pulse Ox O2 Delivery O2 Flow Rate FiO2 01/27/17 16:45 103 100/56 01/27/17 16:02 98.4 21 94 01/27/17 08:28 Nasal Cannula 2.0 Intake and Output 01/26/17 01/26/17 01/27/17 15:00 23:00 07:00 Intake Total 50 ml 50 ml 100 ml Output Total 650 ml 900 ml Balance 50 ml -600 ml -800 ml Results Result Diagram: 01/27/17 0643 01/27/17 0643 Results 24 hrs Laboratory Tests Test 01/26/17 20:24 01/27/17 06:43 Sodium Level 157 H 159 H Potassium Level 3.8 4.1 Chloride Level 118 H 119 H Carbon Dioxide Level 26 30 Anion Gap 17 H 14 Blood Urea Nitrogen 53 H 52 H Creatinine 0.96 0.85 Glucose Level 196 112 # Calcium Level 8.8 8.9 White Blood Count 15.0 H Red Blood Count 3.70 L Hemoglobin 10.9 L Hematocrit 33.7 L Mean Corpuscular Volume 91.1 Mean Corpuscular Hemoglobin 29.5 Mean Corpuscular Hemoglobin Concent 32.3 Red Cell Distribution Width 17.3 H Platelet Count 272 Mean Platelet Volume 11.3 H Neutrophils % 75.5 Lymphocytes % 11.8 L Monocytes % 10.2 Eosinophils % 0.9 Basophils % 0.3 Nucleated Red Blood Cells % 0.1 H Neutrophils # 11.4 H Lymphocytes # 1.8 Monocytes # 1.5 H Eosinophils # 0.1 Basophils # 0.1 Nucleated Red Blood Cells # 0.0 Magnesium Level 2.1 Medications Medications Current Medications Ondansetron HCl (Zofran Inj) 4 mg Q6H PRN IV NAUSEA AND/OR VOMITING; Start at 14:30 Acetaminophen (Tylenol Tab) 650 mg Q6H PRN PO PAIN LEVEL 1-3 OR FEVER Last administered on 01/26/17 13:51; Admin Dose 650 MG; Start 01/23/17 at 14:30 Acetaminophen/ Hydrocodone Bitart ([place] (5/325)) 1 tab Q6H PRN PO PAIN LEVEL 4 -6 Last administered on 01/23/17 20:35; Admin Dose 1 TAB; Start 01/23/17 at 14:30 Atorvastatin Calcium (Lipitor) 20 mg QHS PO Last administered on 01/26/17 20: 51; Admin Dose 20 MG; Start 01/23/17 at 21:00 Citalopram Hydrobromide (Celexa) 20 mg DAILY PO Last administered on 09:24; Admin Dose 20 MG; Start 01/24/17 at 09:00 Pantoprazole (Protonix Iv) 40 mg BID@,18 IV Last administered on 01/27/17 05:55; Admin Dose 40 MG; Start 01/23/17 at 18:00 Morphine Sulfate 1 mg 1 mg Q4H PRN IV PAIN Last administered on 11/15/17at 03: 40; Admin Dose 1 MG; Start 01/24/17 at 04:30 Cefepime HCl/ Dextrose (Maxipime/D5W) 50 ml @ 100 mls/hr Q24H IVPB Last administered on 01/27/17 14:31; Admin Dose 100 MLS/HR; Start 01/26/17 at 14: 00 Sucralfate (Carafate Susp) 1 gm QID PO Last administered on 01/27/17 12:29; Admin Dose 1 GM; Start 01/26/17 at 19:00 Docusate Sodium (Colace Liquid Cup) 100 mg BID PO Last administered on 09:23; Admin Dose 100 MG; Start 01/27/17 at 09:00 Metoprolol Tartrate 100 mg 100 mg BID PO ; Start 01/27/17 at 21:00 Dextrose (D5W) 1,000 ml @ 75 mls/hr [id number] IV Last administered on 12:28; Admin Dose 75 MLS/HR; Start 01/27/17 at 11:00 Furosemide (Lasix) 20 mg DAILY PO ; Start 01/28/17 at 09:00 KEVIN RED NP Jan 27, 2017 18:02
[2017-01-27] MEDS: METOPROLOL 100 MG TAB PO SCH (21:14)
[2017-01-27] MEDS: ATORVASTATIN 20 MG TAB PO SCH (21:17)
[2017-01-28] VITALS (13 sets, daily range): BP systolic 111–160; BP diastolic 53–73; PULSE 100–123; RESP 16–20
[2017-01-28] MEDS: DEXTROSE 5% 1,000 ML IV SCH ×2 (00:30→12:35)
[2017-01-28] MEDS: morphine 2 MG INJ IV PRN (03:59)
[2017-01-28] MEDS: PANTOPRAZOLE 40 MG INJ IV SCH ×2 (05:48→17:23)
[2017-01-28 07:29] LABS: BASOPHIL # 0.1 10^3/ul (0.0-0.1); BASOPHILS % 0.4 % (0.0-2.0); EOSINOPHILS # 0.2 10^3/ul (0.0-0.5); EOSINOPHILS % 1.1 % (0.0-7.0); HEMATOCRIT 33.5 % (37.0-47.0); HEMOGLOBIN 10.7 g/dl (12.0-16.0); LYMPHOCYTES # 1.7 10^3/ul (0.8-2.9); LYMPHOCYTES % 10.6 % (15.0-51.0); MEAN CORPUSCULAR HEMOGLOBIN 29.8 pg (29.0-33.0); MEAN CORPUSCULAR HGB CONC 31.9 g/dl (32.0-37.0); MEAN CORPUSCULAR VOLUME 93.3 fl (82.0-101.0); MEAN PLATELET VOLUME 11.4 fl (7.4-10.4); MONOCYTE # 1.2 10^3/ul (0.3-0.9); MONOCYTES % 7.7 % (0.0-11.0); NEUTROPHIL # 12.5 10^3/ul (1.6-7.5); NEUTROPHILS % 79.3 % (39.0-77.0); PLATELET COUNT 264 10^3/UL (140-415); RED BLOOD COUNT 3.59 10^6/ul (4.20-5.40); RED CELL DISTRIBUTION WIDTH 17.1 % (11.5-14.5); WHITE BLOOD COUNT 15.8 10^3/ul (4.8-10.8)
[2017-01-28 07:52] LABS: INR 1.82; PROTIME 21.2 Sec (12.2-14.2); PT RATIO 1.7
[2017-01-28 07:53] LABS: PARTIAL THROMBOPLASTIN TIME 33.1 Sec (25.0-35.0)
[2017-01-28 07:57] LABS: CALCIUM 8.7 mg/dl (8.4-10.2); CREATININE 0.94 mg/dl (0.44-1.00); POTASSIUM 3.6 mmol/L (3.5-5.1)
[2017-01-28 07:59] LABS: MAGNESIUM 1.8 mg/dl (1.7-2.5); PHOSPHORUS 2.5 mg/dl (2.5-4.9)
[2017-01-28] MEDS: DOCUSATE SODIUM 10 MG/ML (10ML CUP) PO SCH ×2 (08:26→22:01)
[2017-01-28] MEDS: SUCRALFATE (100 MG/ML) 10ML CUP PO SCH ×4 (08:26→22:01)
[2017-01-28] MEDS: LEVOTHYROXINE 50 MCG TAB PO SCH (08:26)
[2017-01-28] MEDS: METOPROLOL 100 MG TAB PO SCH ×2 (08:27→21:00)
[2017-01-28] MEDS: FUROSEMIDE 20 MG TAB PO SCH (08:27)
[2017-01-28] MEDS: CITALOPRAM 20 MG TAB PO SCH (08:27)
--- NOTE | 2017-01-28 09:48 | PN ---
Date/Time of Note Date/Time of Note DATE: 01/28/17 TIME: 09:46 Assessment/Plan VTE Prophylaxis VTE Prophylaxis Intervention: ambulation, SCD's Lines/Catheters IV Catheter Type (from Nrs): Peripheral IV Urinary Cath still in place: Yes Reason Cath still needed: other (indicate) (Monitor output) Assessment/Plan Chief Complaint/Hosp Course Assessment: Anemia multifactorial EGD 01/26/2017 6 mm clean base esophageal ulcer Distal esophagitis Small hiatal hernia Moderate gastritis. Rule out H. pylori infection. Biopsies obtained Otherwise normal EGD Over anticoagulation/resolved A-fib on metoprolol 25mg BID UTI- on antibiotics therapy Leucocytosis- likely secondary to UTI- on antibiotics/improved Plan: Continue PPI Continue to monitor H/H transfuse for Hgb less than 7.5 Subjective: Course reviewed with nursing staff Patient interviewed and examined All labs, imaging and other results reviewed The patient appears comfortable Tolerating diet, at bedside Advised him endoscopic findings denies any significant abdominal pain We will continue present management Very cautious anticoagulation may be considered if absolutely necessary PHYSICAL EXAMINATION: GENERAL: Pale, ill-appearing, alert & oriented x 3, SKIN: No lesions, no stigmata chronic liver disease, no evidence of bleeding diathesis LYMPHATIC: No palpable lymphadenopathy. HEAD: Normocephalic, atraumatic, no tenderness. EYES: Pupils equal reactive to light and accommodation, full extraocular movements, sclera clear, non-icteric, no discharge. EARS/NOSE AND THROAT: Ears normal, nose normal, oropharynx normal, oral membranes well hydrated without lesions. NECK: Supple, no masses, CHEST: Inspection within normal limits. CARDIOVASCULAR: Heart: irregular rhythm. RESPIRATORY: Rales GASTROINTESTINAL AND LIVER: Abdomen: Soft, non tenderness, non-distended, no hernias, no masses, no organomegaly, no ascites, no guarding, no rebound tenderness, normoactive bowel sounds. Rectal: Deferred. GENITOURINARY: Female genitalia within normal limits. Problems: Exam/Review of Systems Vital Signs Vitals Vital Signs Date Time Temp Pulse Resp B/P Pulse Ox O2 Delivery O2 Flow Rate FiO2 01/28/17 09:17 Nasal Cannula 2.0 01/28/17 08:18 98.4 115 18 134/64 97 Intake and Output 01/27/17 01/27/17 01/28/17 15:00 23:00 07:00 Intake Total 700 ml 1100 ml Output Total 1100 ml 400 ml Balance -400 ml 700 ml Results Result Diagram: 01/28/17 0649 01/28/17 0649 Results 24 hrs Laboratory Tests Test 01/28/17 06:48 01/28/17 06:49 Prothrombin Time 21.2 H Prothrombin Time Ratio 1.7 INR International Normalized Ratio 1.82 Activated Partial Thromboplast Time 33.1 White Blood Count 15.8 H Red Blood Count 3.59 L Hemoglobin 10.7 L Hematocrit 33.5 L Mean Corpuscular Volume 93.3 Mean Corpuscular Hemoglobin 29.8 Mean Corpuscular Hemoglobin Concent 31.9 L Red Cell Distribution Width 17.1 H Platelet Count 264 Mean Platelet Volume 11.4 H Neutrophils % 79.3 H Lymphocytes % 10.6 L Monocytes % 7.7 Eosinophils % 1.1 Basophils % 0.4 Nucleated Red Blood Cells % 0.0 Neutrophils # 12.5 H Lymphocytes # 1.7 Monocytes # 1.2 H Eosinophils # 0.2 Basophils # 0.1 Nucleated Red Blood Cells # 0.0 Sodium Level 152 H Potassium Level 3.6 Chloride Level 115 H Carbon Dioxide Level 31 Anion Gap 10 Blood Urea Nitrogen 44 H Creatinine 0.94 Glucose Level 125 Calcium Level 8.7 Phosphorus Level 2.5 Magnesium Level 1.8 Medications Medications Current Medications Ondansetron HCl (Zofran Inj) 4 mg Q6H PRN IV NAUSEA AND/OR VOMITING; Start at 14:30 Acetaminophen (Tylenol Tab) 650 mg Q6H PRN PO PAIN LEVEL 1-3 OR FEVER Last administered on 01/26/17 13:51; Admin Dose 650 MG; Start 01/23/17 at 14:30 Acetaminophen/ Hydrocodone Bitart ([place] (5/325)) 1 tab Q6H PRN PO PAIN LEVEL 4 -6 Last administered on 01/23/17 20:35; Admin Dose 1 TAB; Start 01/23/17 at 14:30 Atorvastatin Calcium (Lipitor) 20 mg QHS PO Last administered on 01/27/17 21: 17; Admin Dose 20 MG; Start 01/23/17 at 21:00 Citalopram Hydrobromide (Celexa) 20 mg DAILY PO Last administered on 08:27; Admin Dose 20 MG; Start 01/24/17 at 09:00 Pantoprazole (Protonix Iv) 40 mg BID@06,18 IV Last administered on 01/28/17 05:48; Admin Dose 40 MG; Start 01/23/17 at 18:00 Morphine Sulfate 1 mg 1 mg Q4H PRN IV PAIN Last administered on 01/28/17 03: 59; Admin Dose 1 MG; Start 01/24/17 at 04:30 Cefepime HCl/ Dextrose (Maxipime/D5W) 50 ml @ 100 mls/hr Q24H IVPB Last administered on 01/27/17 14:31; Admin Dose 100 MLS/HR; Start 01/26/17 at 14: 00 Sucralfate (Carafate Susp) 1 gm QID PO Last administered on 01/28/17 08:26; Admin Dose 1 GM; Start 01/26/17 at 19:00 Docusate Sodium (Colace Liquid Cup) 100 mg BID PO Last administered on 08:26; Admin Dose 100 MG; Start 01/27/17 at 09:00 Metoprolol Tartrate 100 mg 100 mg BID PO Last administered on 01/28/17 08:27 ; Admin Dose 100 MG; Start 01/27/17 at 21:00 Dextrose (D5W) 1,000 ml @ 75 mls/hr [id number] IV Last administered on 00:30; Admin Dose 75 MLS/HR; Start 01/27/17 at 11:00 Furosemide (Lasix) 20 mg DAILY PO Last administered on 01/28/17 08:27; Admin Dose 20 MG; Start 01/28/17 at 09:00 WAN ALVAREZ MD Jan 28, 2017 09:48
--- NOTE | 2017-01-28 10:28 | CONS ---
Date/Time of Note Date/Time of Note DATE: 01/28/17 TIME: 10:27 Assessment/Plan Assessment/Plan Chief Complaint/Hosp Course Acute on chronic systolic/valvular heart failure: EF 45%, mod MR/AR and mod- severe TR. Likely from blood products and aggressive IV hydration. Much improved with diuresis. ~euvolemic Chronic Afib with RVR: Partially compensatory to multiple active issues. HR better controlled Coagulopathy: INR >10 on admission, now normalized Anemia with upper GI bleed: Hgb 6.6 on admission, now improved with transfusion. EGD with esophageal ulcer Sepsis secondary to UTI UTI Acute vs chronic renal failure Pancreatic ca -lasix 20mg PO daily to keep even -metoprolol 100mg BID -continue to hod coumadin Problems: Consultation Date/Type/Reason Admit Date/Time Jan 23, 2017 at 13:10 Initial Consult Date 01/23/17 Type of Consultation: Cardiology Referring Provider: SANCHEZ APARICIO NP 24 HR Interval Summary Free Text/Dictation No o/n events,. HR mostly controlled. Exam/Review of Systems Vital Signs Vitals Vital Signs Date Time Temp Pulse Resp B/P Pulse Ox O2 Delivery O2 Flow Rate FiO2 01/28/17 09:17 Nasal Cannula 2.0 01/28/17 08:18 98.4 115 18 134/64 97 Intake and Output 01/27/17 01/27/17 01/28/17 14:59 22:59 06:59 Intake Total 700 ml 1100 ml Output Total 1100 ml 400 ml Balance -400 ml 700 ml Exam Constitutional: alert, oriented Psych: nl mood/affect, no complaints Head: atraumatic, normocephalic Neck: No jvd Respiratory: crackles/rales (mild), No clear to auscultation Cardiovascular: systolic murmur (2/6 RONNY), No edema, No regular rate and rhythm (IRIR) Gastrointestinal: non-tender, soft Neurological: nl mental status, nl speech Results Result Diagram: 01/28/17 0649 01/28/17 0649 Results 24 hrs Laboratory Tests Test 01/28/17 06:48 01/28/17 06:49 Prothrombin Time 21.2 H Prothrombin Time Ratio 1.7 INR International Normalized Ratio 1.82 Activated Partial Thromboplast Time 33.1 White Blood Count 15.8 H Red Blood Count 3.59 L Hemoglobin 10.7 L Hematocrit 33.5 L Mean Corpuscular Volume 93.3 Mean Corpuscular Hemoglobin 29.8 Mean Corpuscular Hemoglobin Concent 31.9 L Red Cell Distribution Width 17.1 H Platelet Count 264 Mean Platelet Volume 11.4 H Neutrophils % 79.3 H Lymphocytes % 10.6 L Monocytes % 7.7 Eosinophils % 1.1 Basophils % 0.4 Nucleated Red Blood Cells % 0.0 Neutrophils # 12.5 H Lymphocytes # 1.7 Monocytes # 1.2 H Eosinophils # 0.2 Basophils # 0.1 Nucleated Red Blood Cells # 0.0 Sodium Level 152 H Potassium Level 3.6 Chloride Level 115 H Carbon Dioxide Level 31 Anion Gap 10 Blood Urea Nitrogen 44 H Creatinine 0.94 Glucose Level 125 Calcium Level 8.7 Phosphorus Level 2.5 Magnesium Level 1.8 Medications Medications Current Medications Ondansetron HCl (Zofran Inj) 4 mg Q6H PRN IV NAUSEA AND/OR VOMITING; Start at 14:30 Acetaminophen (Tylenol Tab) 650 mg Q6H PRN PO PAIN LEVEL 1-3 OR FEVER Last administered on 01/26/17 13:51; Admin Dose 650 MG; Start 01/23/17 at 14:30 Acetaminophen/ Hydrocodone Bitart ([place] (5/325)) 1 tab Q6H PRN PO PAIN LEVEL 4 -6 Last administered on 01/23/17 20:35; Admin Dose 1 TAB; Start 01/23/17 at 14:30 Atorvastatin Calcium (Lipitor) 20 mg QHS PO Last administered on 01/27/17 21: 17; Admin Dose 20 MG; Start 01/23/17 at 21:00 Citalopram Hydrobromide (Celexa) 20 mg DAILY PO Last administered on 08:27; Admin Dose 20 MG; Start 01/24/17 at 09:00 Pantoprazole (Protonix Iv) 40 mg BID@06,18 IV Last administered on 01/28/17 05:48; Admin Dose 40 MG; Start 01/23/17 at 18:00 Morphine Sulfate 1 mg 1 mg Q4H PRN IV PAIN Last administered on 01/28/17 03: 59; Admin Dose 1 MG; Start 01/24/17 at 04:30 Cefepime HCl/ Dextrose (Maxipime/D5W) 50 ml @ 100 mls/hr Q24H IVPB Last administered on 01/27/17 14:31; Admin Dose 100 MLS/HR; Start 01/26/17 at 14: 00 Sucralfate (Carafate Susp) 1 gm QID PO Last administered on 01/28/17 08:26; Admin Dose 1 GM; Start 01/26/17 at 19:00 Docusate Sodium (Colace Liquid Cup) 100 mg BID PO Last administered on 08:26; Admin Dose 100 MG; Start 01/27/17 at 09:00 Metoprolol Tartrate 100 mg 100 mg BID PO Last administered on 01/28/17 08:27 ; Admin Dose 100 MG; Start 01/27/17 at 21:00 Dextrose (D5W) 1,000 ml @ 75 mls/hr [id number] IV Last administered on 00:30; Admin Dose 75 MLS/HR; Start 01/27/17 at 11:00 Furosemide (Lasix) 20 mg DAILY PO Last administered on 01/28/17 08:27; Admin Dose 20 MG; Start 01/28/17 at 09:00 ERIC LUCIO Jan 28, 2017 10:28
--- NOTE | 2017-01-28 10:38 | CONS ---
Date/Time of Note Date/Time of Note DATE: 01/28/17 TIME: 10:37 Assessment/Plan Assessment/Plan Chief Complaint/Hosp Course 1. Hypernatremia, better 2. Severe anemia, improved 3. Acute renal failure. 4. Elevated INR> improved 5. Urinary tract infection with GNR 6. Elevated BNP. 7. History of hypertension. 8. Hypothyroidism. 9. Pneumonia. 10. 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 11. SIRS Problems: Additional Assessment/Plan 1. continue current treatment Consultation Date/Type/Reason Admit Date/Time Jan 23, 2017 at 13:10 Initial Consult Date 01/23/17 Type of Consultation: nephrology Reason for Consultation Dr Costa Referring Provider: SANCHEZ APARICIO NP Exam/Review of Systems Vital Signs Vitals Vital Signs Date Time Temp Pulse Resp B/P Pulse Ox O2 Delivery O2 Flow Rate FiO2 01/28/17 09:17 Nasal Cannula 2.0 01/28/17 08:18 98.4 115 18 134/64 97 Intake and Output 01/27/17 01/27/17 01/28/17 15:00 23:00 07:00 Intake Total 700 ml 1100 ml Output Total 1100 ml 400 ml Balance -400 ml 700 ml Exam Constitutional: alert, oriented ENMT: nl external ears & nose Neck: supple Results Result Diagram: 01/28/17 0649 01/28/17 0649 Results 24 hrs Laboratory Tests Test 01/28/17 06:48 01/28/17 06:49 Prothrombin Time 21.2 H Prothrombin Time Ratio 1.7 INR International Normalized Ratio 1.82 Activated Partial Thromboplast Time 33.1 White Blood Count 15.8 H Red Blood Count 3.59 L Hemoglobin 10.7 L Hematocrit 33.5 L Mean Corpuscular Volume 93.3 Mean Corpuscular Hemoglobin 29.8 Mean Corpuscular Hemoglobin Concent 31.9 L Red Cell Distribution Width 17.1 H Platelet Count 264 Mean Platelet Volume 11.4 H Neutrophils % 79.3 H Lymphocytes % 10.6 L Monocytes % 7.7 Eosinophils % 1.1 Basophils % 0.4 Nucleated Red Blood Cells % 0.0 Neutrophils # 12.5 H Lymphocytes # 1.7 Monocytes # 1.2 H Eosinophils # 0.2 Basophils # 0.1 Nucleated Red Blood Cells # 0.0 Sodium Level 152 H Potassium Level 3.6 Chloride Level 115 H Carbon Dioxide Level 31 Anion Gap 10 Blood Urea Nitrogen 44 H Creatinine 0.94 Glucose Level 125 Calcium Level 8.7 Phosphorus Level 2.5 Magnesium Level 1.8 Medications Medications Current Medications Ondansetron HCl (Zofran Inj) 4 mg Q6H PRN IV NAUSEA AND/OR VOMITING; Start at 14:30 Acetaminophen (Tylenol Tab) 650 mg Q6H PRN PO PAIN LEVEL 1-3 OR FEVER Last administered on 01/26/17 13:51; Admin Dose 650 MG; Start 01/23/17 at 14:30 Acetaminophen/ Hydrocodone Bitart ([place] (5/325)) 1 tab Q6H PRN PO PAIN LEVEL 4 -6 Last administered on 01/23/17 20:35; Admin Dose 1 TAB; Start 01/23/17 at 14:30 Atorvastatin Calcium (Lipitor) 20 mg QHS PO Last administered on 01/27/17 21: 17; Admin Dose 20 MG; Start 01/23/17 at 21:00 Citalopram Hydrobromide (Celexa) 20 mg DAILY PO Last administered on 08:27; Admin Dose 20 MG; Start 01/24/17 at 09:00 Pantoprazole (Protonix Iv) 40 mg BID@06,18 IV Last administered on 01/28/17 05:48; Admin Dose 40 MG; Start 01/23/17 at 18:00 Morphine Sulfate 1 mg 1 mg Q4H PRN IV PAIN Last administered on 01/28/17 03: 59; Admin Dose 1 MG; Start 01/24/17 at 04:30 Cefepime HCl/ Dextrose (Maxipime/D5W) 50 ml @ 100 mls/hr Q24H IVPB Last administered on 01/27/17 14:31; Admin Dose 100 MLS/HR; Start 01/26/17 at 14: 00 Sucralfate (Carafate Susp) 1 gm QID PO Last administered on 01/28/17 08:26; Admin Dose 1 GM; Start 01/26/17 at 19:00 Docusate Sodium (Colace Liquid Cup) 100 mg BID PO Last administered on 08:26; Admin Dose 100 MG; Start 01/27/17 at 09:00 Metoprolol Tartrate 100 mg 100 mg BID PO Last administered on 01/28/17 08:27 ; Admin Dose 100 MG; Start 01/27/17 at 21:00 Dextrose (D5W) 1,000 ml @ 75 mls/hr [id number] IV Last administered on 00:30; Admin Dose 75 MLS/HR; Start 01/27/17 at 11:00 Furosemide (Lasix) 20 mg DAILY PO Last administered on 01/28/17 08:27; Admin Dose 20 MG; Start 01/28/17 at 09:00 KEVIN PEREZ Jan 28, 2017 10:38
[2017-01-28] MEDS: CEFEPIME HCL 1 GM in DEXTROSE 5% 50 ML IVPB SCH (13:33)
--- NOTE | 2017-01-28 16:36 | PN ---
Date/Time of Note Date/Time of Note DATE: 01/28/17 TIME: 16:35 Assessment/Plan VTE Prophylaxis VTE Prophylaxis Intervention: contraindicated Lines/Catheters IV [facility]ter Type (from [facility]): Peripheral IV Urinary Cath still in place: Yes Reason Cath still needed: other (indicate) Assessment/Plan Chief Complaint/Hosp Course 1. Sepsis secondary to underlying urinary tract infection. The patient will be continued on antibiotics as per ID. 2. Coagulopathy. From Coumadin toxicity. No overt sources of bleeding. Resolved with vitamin K and fresh frozen plasma. Brain CT scan negative for any acute bleed. We will avoid any anticoagulation. 3. Atrial fibrillation with rapid ventricular response. Status post IV Cardizem in the emergency room. Continue beta-blockers. Cardiology following. 4. Acute kidney injury. Unknown baseline creatinine. Probably she has underlying chronic kidney disease. Nephrotoxic drugs will be avoided. Nephrology following. 5. Symptomatic anemia. Improved status post multiple blood transfusions. No evidence of any underlying iron deficiency. Gastroenterology following. Status post esophagogastroduodenoscopy on 01/26/2017 that showed a 6 mm clean- based esophageal ulcer, distal esophagitis, small hiatal hernia, and moderate gastritis. Continue proton pump inhibitors. The patient was also started on Carafate. 6. Essential hypertension. Continue antihypertensives. 7. Cardiomyopathy with ejection fraction of 45%. The patient on beta- blockers. No MEHRAN inhibitors as of now because of renal function. 8. Acute on chronic systolic heart failure exacerbation. Continue diuresis as per cardiology. 9. Pulmonary hypertension. PA systolic pressure of 52 mmHg as per 2D echocardiogram. Most probably secondary to underlying valvular heart disease. 10. Hypothyroidism. Continue Synthroid. 11. Dysphagia. ST evaluation ongoing. Pureed diet with nectar thick liquids. 12. 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 13. Fluids, electrolytes, and nutrition. Pured diet with nectar thick liquids. 14. DVT prophylaxis. Contraindicated. 15. Gastrointestinal prophylaxis. Proton pump inhibitors. 16. Plan. Continue close monitoring. Continue antibiotics. PT evaluation. Case discussed with Dr. Jalloh. Problems: Subjective 24 Hr Interval Summary Free Text/Dictation Denies any complaints. Exam/Review of Systems Vital Signs Vitals Vital Signs Date Time Temp Pulse Resp B/P Pulse Ox O2 Delivery O2 Flow Rate FiO2 01/28/17 16:00 119 01/28/17 15:58 97.9 16 115/57 96 01/28/17 09:17 Nasal Cannula 2.0 Intake and Output 01/27/17 01/27/17 01/28/17 14:59 22:59 06:59 Intake Total 700 ml 1100 ml Output Total 1100 ml 400 ml Balance -400 ml 700 ml Exam General: 86-year-old, elderly, pale looking female lying in bed in no apparent distress. HEENT: Normocephalic, atraumatic. Eyes: Anicteric sclerae, conjunctivae clear. ENT: Nasal septum midline, oral mucosa moist. Neck supple, JVD noticed. Respiratory: Bilaterally diminished breath sounds. No use of accessory muscles of respiration. No adventitious breath sounds. Cardiovascular: S1, S2 heard. Irregularly irregular rhythm. Systolic murmur. Abdomen: Soft, nontender, and nondistended. Bowel sounds positive in all 4 quadrants. Genitourinary: Deferred. Extremities: No cyanosis, no clubbing, no edema. Peripheral pulses palpable. Neurologic: Patient is awake and alert. No focal weakness. Skin: Normal skin turgor. No skin rashes. Results Result Diagram: 01/28/17 0649 01/28/17 0649 Results 24 hrs Laboratory Tests Test 01/28/17 06:48 01/28/17 06:49 Prothrombin Time 21.2 H Prothrombin Time Ratio 1.7 INR International Normalized Ratio 1.82 Activated Partial Thromboplast Time 33.1 White Blood Count 15.8 H Red Blood Count 3.59 L Hemoglobin 10.7 L Hematocrit 33.5 L Mean Corpuscular Volume 93.3 Mean Corpuscular Hemoglobin 29.8 Mean Corpuscular Hemoglobin Concent 31.9 L Red Cell Distribution Width 17.1 H Platelet Count 264 Mean Platelet Volume 11.4 H Neutrophils % 79.3 H Lymphocytes % 10.6 L Monocytes % 7.7 Eosinophils % 1.1 Basophils % 0.4 Nucleated Red Blood Cells % 0.0 Neutrophils # 12.5 H Lymphocytes # 1.7 Monocytes # 1.2 H Eosinophils # 0.2 Basophils # 0.1 Nucleated Red Blood Cells # 0.0 Sodium Level 152 H Potassium Level 3.6 Chloride Level 115 H Carbon Dioxide Level 31 Anion Gap 10 Blood Urea Nitrogen 44 H Creatinine 0.94 Glucose Level 125 Calcium Level 8.7 Phosphorus Level 2.5 Magnesium Level 1.8 Medications Medications Current Medications Ondansetron HCl (Zofran Inj) 4 mg Q6H PRN IV NAUSEA AND/OR VOMITING; Start at 14:30 Acetaminophen (Tylenol Tab) 650 mg Q6H PRN PO PAIN LEVEL 1-3 OR FEVER Last administered on 01/26/17 13:51; Admin Dose 650 MG; Start 01/23/17 at 14:30 Acetaminophen/ Hydrocodone Bitart ([place] (5/325)) 1 tab Q6H PRN PO PAIN LEVEL 4 -6 Last administered on 01/23/17 20:35; Admin Dose 1 TAB; Start 01/23/17 at 14:30 Atorvastatin Calcium (Lipitor) 20 mg QHS PO Last administered on 01/27/17 21: 17; Admin Dose 20 MG; Start 01/23/17 at 21:00 Citalopram Hydrobromide (Celexa) 20 mg DAILY PO Last administered on 08:27; Admin Dose 20 MG; Start 01/24/17 at 09:00 Pantoprazole (Protonix Iv) 40 mg BID@06,18 IV Last administered on 01/28/17 05:48; Admin Dose 40 MG; Start 01/23/17 at 18:00 Morphine Sulfate 1 mg 1 mg Q4H PRN IV PAIN Last administered on 01/28/17 03: 59; Admin Dose 1 MG; Start 01/24/17 at 04:30 Cefepime HCl/ Dextrose (Maxipime/D5W) 50 ml @ 100 mls/hr Q24H IVPB Last administered on 01/28/17 13:33; Admin Dose 100 MLS/HR; Start 01/26/17 at 14: 00 Sucralfate (Carafate Susp) 1 gm QID PO Last administered on 01/28/17 12:32; Admin Dose 1 GM; Start 01/26/17 at 19:00 Docusate Sodium (Colace Liquid Cup) 100 mg BID PO Last administered on 08:26; Admin Dose 100 MG; Start 01/27/17 at 09:00 Metoprolol Tartrate 100 mg 100 mg BID PO Last administered on 01/28/17 08:27 ; Admin Dose 100 MG; Start 01/27/17 at 21:00 Dextrose (D5W) 1,000 ml @ 75 mls/hr [id number] IV Last administered on 12:35; Admin Dose 75 MLS/HR; Start 01/27/17 at 11:00 Furosemide (Lasix) 20 mg DAILY PO Last administered on 01/28/17 08:27; Admin Dose 20 MG; Start 01/28/17 at 09:00 SANCHEZ APARICIO NP Jan 28, 2017 16:36
[2017-01-28] MEDS: PANTOPRAZOLE (EC) 40 MG TAB PO SCH (18:00)
--- NOTE | 2017-01-28 18:25 | CONS ---
Date/Time of Note Date/Time of Note DATE: 01/28/17 TIME: 18:21 Assessment/Plan Assessment/Plan Chief Complaint/Hosp Course Assessment/Plan Chief Complaint/Hosp Course ID PROGRESS NOTE CURRENT ABX: DAY #6 =>cefepime status post vancomycin. 24H INTERVAL SUMMARY 1. Awake. Afebrile. No acute distress. * MICRO REVIEWED: MICROBIOLOGY: Blood culture on admission grew gram-positive rods, 1 out of 2 sets. Urine culture grew E. coli. PHYSICAL EXAMINATION: GENERAL: VSS, afebrile, NAD HEENT: Unremarkable NECK: Supple, trach midline CHEST: Equal chest rise bilaterally, without dyspnea on observation HEART: RRR ABDOMEN: Soft, NT, ND EXT: Warm, no edema SKIN: No rash, no diaphoresis ID ASSESSMENT: 86 yo F admit [facility]: 1. Sepsis with Escherichia coli urinary tract infection on admission. 2. Bacteremia with blood culture growing gram-positive rods, one set, consistent with contaminant. 3. Questionable pneumonia. 4. Status post rapid atrial fibrillation. 5. Acute anemia. 6. Pancreatic cancer. 7. Acute kidney injury. 8. Tachycardia. (- )Influenza A/B screen ABX ALLERGIES: None to ABX INVASIVES: PIV CURRENT ABX: cefepime #4 status post vancomycin. ID RECOMMENDATIONS/PLAN: 1. Continue current Antibiotics. Monitor Labs. Monitor heart rate and Vital signs. 2. ID team consultants will continue to follow. Problems: Consultation Date/Type/Reason Admit Date/Time Jan 23, 2017 at 13:10 Initial Consult Date 01/23/17 Type of Consultation: id Referring Provider: SANCHEZ APARICIO NIGHT GUARD Exam/Review of Systems Vital Signs Vitals Vital Signs Date Time Temp Pulse Resp B/P Pulse Ox O2 Delivery O2 Flow Rate FiO2 01/28/17 16:00 119 01/28/17 15:58 97.9 16 115/57 96 01/28/17 09:17 Nasal Cannula 2.0 Intake and Output 01/27/17 01/27/17 01/28/17 15:00 23:00 07:00 Intake Total 700 ml 1100 ml Output Total 1100 ml 400 ml Balance -400 ml 700 ml Results Result Diagram: 01/28/17 0649 01/28/17 0649 Results 24 hrs Laboratory Tests Test 01/28/17 06:48 01/28/17 06:49 Prothrombin Time 21.2 H Prothrombin Time Ratio 1.7 INR International Normalized Ratio 1.82 Activated Partial Thromboplast Time 33.1 White Blood Count 15.8 H Red Blood Count 3.59 L Hemoglobin 10.7 L Hematocrit 33.5 L Mean Corpuscular Volume 93.3 Mean Corpuscular Hemoglobin 29.8 Mean Corpuscular Hemoglobin Concent 31.9 L Red Cell Distribution Width 17.1 H Platelet Count 264 Mean Platelet Volume 11.4 H Neutrophils % 79.3 H Lymphocytes % 10.6 L Monocytes % 7.7 Eosinophils % 1.1 Basophils % 0.4 Nucleated Red Blood Cells % 0.0 Neutrophils # 12.5 H Lymphocytes # 1.7 Monocytes # 1.2 H Eosinophils # 0.2 Basophils # 0.1 Nucleated Red Blood Cells # 0.0 Sodium Level 152 H Potassium Level 3.6 Chloride Level 115 H Carbon Dioxide Level 31 Anion Gap 10 Blood Urea Nitrogen 44 H Creatinine 0.94 Glucose Level 125 Calcium Level 8.7 Phosphorus Level 2.5 Magnesium Level 1.8 Medications Medications Current Medications Ondansetron HCl (Zofran Inj) 4 mg Q6H PRN IV NAUSEA AND/OR VOMITING; Start at 14:30 Acetaminophen (Tylenol Tab) 650 mg Q6H PRN PO PAIN LEVEL 1-3 OR FEVER Last administered on 01/26/17 13:51; Admin Dose 650 MG; Start 01/23/17 at 14:30 Acetaminophen/ Hydrocodone Bitart ([place] (5/325)) 1 tab Q6H PRN PO PAIN LEVEL 4 -6 Last administered on 01/23/17 20:35; Admin Dose 1 TAB; Start 01/23/17 at 14:30 Atorvastatin Calcium (Lipitor) 20 mg QHS PO Last administered on 01/27/17 21: 17; Admin Dose 20 MG; Start 01/23/17 at 21:00 Citalopram Hydrobromide (Celexa) 20 mg DAILY PO Last administered on 08:27; Admin Dose 20 MG; Start 01/24/17 at 09:00 Morphine Sulfate 1 mg 1 mg Q4H PRN IV PAIN Last administered on 01/28/17 03: 59; Admin Dose 1 MG; Start 01/24/17 at 04:30 Cefepime HCl/ Dextrose (Maxipime/D5W) 50 ml @ 100 mls/hr Q24H IVPB Last administered on 01/28/17 13:33; Admin Dose 100 MLS/HR; Start 01/26/17 at 14: 00 Sucralfate (Carafate Susp) 1 gm QID PO Last administered on 01/28/17 17:23; Admin Dose 1 GM; Start 01/26/17 at 19:00 Docusate Sodium (Colace Liquid Cup) 100 mg BID PO Last administered on 08:26; Admin Dose 100 MG; Start 01/27/17 at 09:00 Metoprolol Tartrate 100 mg 100 mg BID PO Last administered on 01/28/17 08:27 ; Admin Dose 100 MG; Start 01/27/17 at 21:00 Dextrose (D5W) 1,000 ml @ 75 mls/hr [id number] IV Last administered on 12:35; Admin Dose 75 MLS/HR; Start 01/27/17 at 11:00 Furosemide (Lasix) 20 mg DAILY PO Last administered on 01/28/17 08:27; Admin Dose 20 MG; Start 01/28/17 at 09:00 Pantoprazole (Protonix Tab) 40 mg BID@06,18 PO ; Start 01/28/17 at 18:00 GA ROCK NP Jan 28, 2017 18:25
[2017-01-28] MEDS: ATORVASTATIN 20 MG TAB PO SCH (22:01)
[2017-01-28] MEDS: HYDROCODONE/APAP (5/325) TAB PO PRN (22:06)
[2017-01-29] VITALS (10 sets, daily range): BP systolic 112–145; BP diastolic 57–65; PULSE 76–104; RESP 18–20
[2017-01-29] MEDS: DEXTROSE 5% 1,000 ML IV SCH (03:00)
[2017-01-29] MEDS: PANTOPRAZOLE (EC) 40 MG TAB PO SCH ×2 (06:29→17:20)
[2017-01-29 08:50] LABS: BASOPHIL # 0.1 10^3/ul (0.0-0.1); BASOPHILS % 0.3 % (0.0-2.0); EOSINOPHILS # 0.2 10^3/ul (0.0-0.5); EOSINOPHILS % 1.2 % (0.0-7.0); HEMOGLOBIN 9.8 g/dl (12.0-16.0); LYMPHOCYTES # 1.5 10^3/ul (0.8-2.9); LYMPHOCYTES % 10.1 % (15.0-51.0); MEAN CORPUSCULAR HEMOGLOBIN 29.1 pg (29.0-33.0); MEAN CORPUSCULAR HGB CONC 31.6 g/dl (32.0-37.0); MEAN PLATELET VOLUME 11.7 fl (7.4-10.4); MONOCYTES % 6.9 % (0.0-11.0); NEUTROPHIL # 12.2 10^3/ul (1.6-7.5); NEUTROPHILS % 80.8 % (39.0-77.0); PLATELET COUNT 248 10^3/UL (140-415); RED BLOOD COUNT 3.37 10^6/ul (4.20-5.40); RED CELL DISTRIBUTION WIDTH 17.1 % (11.5-14.5); WHITE BLOOD COUNT 15.1 10^3/ul (4.8-10.8)
[2017-01-29] MEDS: DOCUSATE SODIUM 10 MG/ML (10ML CUP) PO SCH ×2 (09:06→20:48)
[2017-01-29] MEDS: LEVOTHYROXINE 50 MCG TAB PO SCH (09:06)
[2017-01-29] MEDS: FUROSEMIDE 20 MG TAB PO SCH (09:06)
[2017-01-29] MEDS: SUCRALFATE (100 MG/ML) 10ML CUP PO SCH ×4 (09:06→20:48)
[2017-01-29] MEDS: CITALOPRAM 20 MG TAB PO SCH (09:07)
[2017-01-29] MEDS: METOPROLOL 100 MG TAB PO SCH ×2 (09:07→20:49)
[2017-01-29 09:27] LABS: CALCIUM 8.2 mg/dl (8.4-10.2); CREATININE 0.86 mg/dl (0.44-1.00); POTASSIUM 3.3 mmol/L (3.5-5.1)
[2017-01-29 09:35] LABS: MAGNESIUM 1.6 mg/dl (1.7-2.5); PHOSPHORUS 2.8 mg/dl (2.5-4.9)
--- NOTE | 2017-01-29 10:24 | CONS ---
Date/Time of Note Date/Time of Note DATE: 01/29/17 TIME: 10:23 Assessment/Plan Assessment/Plan Chief Complaint/Hosp Course 1. Hypernatremia, resolved 2. Severe anemia, improved 3. Acute renal failure. 4. Elevated INR> improved 5. Urinary tract infection with GNR 6. Elevated BNP. 7. History of hypertension. 8. Hypothyroidism. 9. Pneumonia. 10. 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 11. SIRS 12. hypokalemia today Problems: Additional Assessment/Plan 1. Potassium supplement Consultation Date/Type/Reason Admit Date/Time Jan 23, 2017 at 13:10 Initial Consult Date 01/23/17 Type of Consultation: nephrology Reason for Consultation Dr Costa Referring Provider: SANCHEZ APARICIO TOLL PATROLMAN 24 HR Interval Summary Constitutional: improved Exam/Review of Systems Vital Signs Vitals Vital Signs Date Time Temp Pulse Resp B/P Pulse Ox O2 Delivery O2 Flow Rate FiO2 01/29/17 08:00 97 01/29/17 07:50 97.8 18 145/65 95 01/28/17 20:00 Nasal Cannula 2.0 Intake and Output 01/28/17 01/28/17 01/29/17 14:59 22:59 06:59 Intake Total 50 ml 2400 ml 1100 ml Output Total 425 ml Balance 50 ml 2400 ml 675 ml Exam Constitutional: alert, oriented Head: normocephalic Eyes: nl conjunctiva Respiratory: diminished breath sounds Cardiovascular: regular rate and rhythm Results Result Diagram: 01/29/17 0812 01/29/17 0813 Results 24 hrs Laboratory Tests Test 01/29/17 08:12 01/29/17 08:13 White Blood Count 15.1 H Red Blood Count 3.37 L Hemoglobin 9.8 L Hematocrit 31.0 L Mean Corpuscular Volume 92.0 Mean Corpuscular Hemoglobin 29.1 Mean Corpuscular Hemoglobin Concent 31.6 L Red Cell Distribution Width 17.1 H Platelet Count 248 Mean Platelet Volume 11.7 H Neutrophils % 80.8 H Lymphocytes % 10.1 L Monocytes % 6.9 Eosinophils % 1.2 Basophils % 0.3 Nucleated Red Blood Cells % 0.0 Neutrophils # 12.2 H Lymphocytes # 1.5 Monocytes # 1.0 H Eosinophils # 0.2 Basophils # 0.1 Nucleated Red Blood Cells # 0.0 Phosphorus Level 2.8 Magnesium Level 1.6 L Sodium Level 142 Potassium Level 3.3 L Chloride Level 107 Carbon Dioxide Level 31 Anion Gap 7 L Blood Urea Nitrogen 34 H Creatinine 0.86 Glucose Level 122 Calcium Level 8.2 L Medications Medications Current Medications Ondansetron HCl (Zofran Inj) 4 mg Q6H PRN IV NAUSEA AND/OR VOMITING; Start at 14:30 Acetaminophen (Tylenol Tab) 650 mg Q6H PRN PO PAIN LEVEL 1-3 OR FEVER Last administered on 01/26/17 13:51; Admin Dose 650 MG; Start 01/23/17 at 14:30 Acetaminophen/ Hydrocodone Bitart ([place] (5/325)) 1 tab Q6H PRN PO PAIN LEVEL 4 -6 Last administered on 01/28/17 22:06; Admin Dose 1 TAB; Start 01/23/17 at 14:30 Atorvastatin Calcium (Lipitor) 20 mg QHS PO Last administered on 01/28/17 22: 01; Admin Dose 20 MG; Start 01/23/17 at 21:00 Citalopram Hydrobromide (Celexa) 20 mg DAILY PO Last administered on 09:07; Admin Dose 20 MG; Start 01/24/17 at 09:00 Morphine Sulfate 1 mg 1 mg Q4H PRN IV PAIN Last administered on 01/28/17 03: 59; Admin Dose 1 MG; Start 01/24/17 at 04:30 Cefepime HCl/ Dextrose (Maxipime/D5W) 50 ml @ 100 mls/hr Q24H IVPB Last administered on 01/28/17 13:33; Admin Dose 100 MLS/HR; Start 01/26/17 at 14: 00 Sucralfate (Carafate Susp) 1 gm QID PO Last administered on 01/29/17 09:06; Admin Dose 1 GM; Start 01/26/17 at 19:00 Docusate Sodium (Colace Liquid Cup) 100 mg BID PO Last administered on 09:06; Admin Dose 100 MG; Start 01/27/17 at 09:00 Metoprolol Tartrate 100 mg 100 mg BID PO Last administered on 01/29/17 09:07 ; Admin Dose 100 MG; Start 01/27/17 at 21:00 Dextrose (D5W) 1,000 ml @ 75 mls/hr [id number] IV Last administered on 03:00; Admin Dose 75 MLS/HR; Start 01/27/17 at 11:00 Furosemide (Lasix) 20 mg DAILY PO Last administered on 01/29/17 09:06; Admin Dose 20 MG; Start 01/28/17 at 09:00 Pantoprazole (Protonix Tab) 40 mg BID@06,18 PO Last administered on 01/29/17 06:29; Admin Dose 40 MG; Start 01/28/17 at 18:00 KEVIN PEREZ Jan 29, 2017 10:24
[2017-01-29] MEDS ORDERED: POTASSIUM CHLORIDE 20 MEQ POWDER FOR ORAL SOLN PO ONE (10:30)
--- NOTE | 2017-01-29 11:12 | CONS ---
Date/Time of Note Date/Time of Note DATE: 01/29/17 TIME: 11:10 Assessment/Plan Assessment/Plan Chief Complaint/Hosp Course Acute on chronic systolic/valvular heart failure: EF 45%, mod MR/AR and mod- severe TR. Likely from blood products and aggressive IV hydration. Euvolemic after diuresis but now mild CHF again as received IVF for hypernatremia. Chronic Afib with RVR: Partially compensatory to multiple active issues. HR better controlled Coagulopathy: INR >10 on admission, now normalized Anemia with upper GI bleed: Hgb 6.6 on admission, now improved with transfusion. EGD with esophageal ulcer Sepsis secondary to UTI UTI Acute vs chronic renal failure Pancreatic ca -lasix 20mg PO daily but will give one extra dose of lasix 20mg Iv x 1 today -d/c IVF -metoprolol 100mg BID -continue to hod coumadin Problems: Consultation Date/Type/Reason Admit Date/Time Jan 23, 2017 at 13:10 Initial Consult Date 01/23/17 Type of Consultation: Cardiology Referring Provider: SANCHEZ APARICIO NP 24 HR Interval Summary Free Text/Dictation HR controlled. Sodium normalized. Net positive again with IVF she was receiving. Exam/Review of Systems Vital Signs Vitals Vital Signs Date Time Temp Pulse Resp B/P Pulse Ox O2 Delivery O2 Flow Rate FiO2 01/29/17 08:00 97 01/29/17 08:00 Nasal Cannula 2.0 01/29/17 07:50 97.8 18 145/65 95 Intake and Output 01/28/17 01/28/17 01/29/17 14:59 22:59 06:59 Intake Total 50 ml 2400 ml 1100 ml Output Total 425 ml Balance 50 ml 2400 ml 675 ml Exam Constitutional: alert, oriented Psych: nl mood/affect, no complaints Head: atraumatic, normocephalic Neck: jvd (8cm) Respiratory: crackles/rales, No clear to auscultation Cardiovascular: systolic murmur (2/6 RONNY), No edema, No regular rate and rhythm Gastrointestinal: non-tender, soft Neurological: nl mental status, nl speech Results Result Diagram: 01/29/17 0812 01/29/17 0813 Results 24 hrs Laboratory Tests Test 01/29/17 08:12 01/29/17 08:13 White Blood Count 15.1 H Red Blood Count 3.37 L Hemoglobin 9.8 L Hematocrit 31.0 L Mean Corpuscular Volume 92.0 Mean Corpuscular Hemoglobin 29.1 Mean Corpuscular Hemoglobin Concent 31.6 L Red Cell Distribution Width 17.1 H Platelet Count 248 Mean Platelet Volume 11.7 H Neutrophils % 80.8 H Lymphocytes % 10.1 L Monocytes % 6.9 Eosinophils % 1.2 Basophils % 0.3 Nucleated Red Blood Cells % 0.0 Neutrophils # 12.2 H Lymphocytes # 1.5 Monocytes # 1.0 H Eosinophils # 0.2 Basophils # 0.1 Nucleated Red Blood Cells # 0.0 Phosphorus Level 2.8 Magnesium Level 1.6 L Sodium Level 142 Potassium Level 3.3 L Chloride Level 107 Carbon Dioxide Level 31 Anion Gap 7 L Blood Urea Nitrogen 34 H Creatinine 0.86 Glucose Level 122 Calcium Level 8.2 L Medications Medications Current Medications Ondansetron HCl (Zofran Inj) 4 mg Q6H PRN IV NAUSEA AND/OR VOMITING; Start at 14:30 Acetaminophen (Tylenol Tab) 650 mg Q6H PRN PO PAIN LEVEL 1-3 OR FEVER Last administered on 01/26/17 13:51; Admin Dose 650 MG; Start 01/23/17 at 14:30 Acetaminophen/ Hydrocodone Bitart ([place] (5/325)) 1 tab Q6H PRN PO PAIN LEVEL 4 -6 Last administered on 01/28/17 22:06; Admin Dose 1 TAB; Start 01/23/17 at 14:30 Atorvastatin Calcium (Lipitor) 20 mg QHS PO Last administered on 01/28/17 22: 01; Admin Dose 20 MG; Start 01/23/17 at 21:00 Citalopram Hydrobromide (Celexa) 20 mg DAILY PO Last administered on 09:07; Admin Dose 20 MG; Start 01/24/17 at 09:00 Morphine Sulfate 1 mg 1 mg Q4H PRN IV PAIN Last administered on 01/28/17 03: 59; Admin Dose 1 MG; Start 01/24/17 at 04:30 Cefepime HCl/ Dextrose (Maxipime/D5W) 50 ml @ 100 mls/hr Q24H IVPB Last administered on 01/28/17 13:33; Admin Dose 100 MLS/HR; Start 01/26/17 at 14: 00 Sucralfate (Carafate Susp) 1 gm QID PO Last administered on 01/29/17 09:06; Admin Dose 1 GM; Start 01/26/17 at 19:00 Docusate Sodium (Colace Liquid Cup) 100 mg BID PO Last administered on 09:06; Admin Dose 100 MG; Start 01/27/17 at 09:00 Metoprolol Tartrate (Lopressor) 100 mg BID PO Last administered on 01/29/17 09:07; Admin Dose 100 MG; Start 01/27/17 at 21:00 Furosemide (Lasix) 20 mg DAILY PO Last administered on 01/29/17 09:06; Admin Dose 20 MG; Start 01/28/17 at 09:00 Pantoprazole 40 mg 40 mg BID@06,18 PO Last administered on 01/29/17 06:29; Admin Dose 40 MG; Start 01/28/17 at 18:00 Magnesium Sulfate (Magnesium Sulfate 4 Gm/100 ml) 100 ml @ 25 mls/hr ONCE ONCE IVPB ; Start 01/29/17 at 13:00; Stop 01/29/17 at 16:59 ERIC LUCIO Jan 29, 2017 11:12
[2017-01-29] MEDS ORDERED: FUROSEMIDE 20 MG INJ IV ONE (11:30)
--- NOTE | 2017-01-29 11:44 | PN ---
Date/Time of Note Date/Time of Note DATE: 01/29/17 TIME: 11:36 Assessment/Plan VTE Prophylaxis VTE Prophylaxis Intervention: SCD's Lines/Catheters IV Catheter Type (from Nrs): Peripheral IV Urinary Cath still in place: Yes Reason Cath still needed: other (indicate) (monitor I&O) Assessment/Plan Chief Complaint/Hosp Course Assessment and plan 1. Sepsis secondary to underlying UTI. Continue antibiotics. Afebrile present. Stable at present. 2. Coagulopathy. Secondary to Coumadin toxicity. Off of Coumadin at this time. Resume per supervisor process testing. Improved status post vitamin K and fresh frozen plasma administration 3. Atrial fibrillation with RVR. Patient is status post Cardizem IV. Continue on beta-iraida. Continue telemetry monitoring. 4. Acute kidney injury. Improving at present. Route Rider following. Medications to be renally dosed. 5. Symptomatic anemia. Improved status post blood transfusion. GI following. Status post EGD that showed a 6 mm clean-based esophageal ulcer and distal esophagitis and also moderate gastritis. Continue PPI medication. Monitor H& H. Continue on Carafate. 6. Essential hypertension. Continue antihypertensives and adjust as needed. 7. 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 Continue optimization with beta iraida. No MEHRAN inhibitor at this time due to recent CKD. 8. Acute on chronic systolic heart failure. Continue diuresis per cardiology. 9. Pulmonary hypertension with PA systolic pressure of 52 mmHg. Continue with O2 as needed. Diuretics per supervisor process testing. 10. Hypothyroidism. Continue Synthroid 11. Reported dysphagia. Continue with. [place] thick liquids. Continue with ST or conditions. 12. 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 Continue with conservative management patient for outpatient follow. Disposition plan: Awaiting for outpatient antibiotic regimen. Physical therapy to follow. Continue in-house monitoring for now. Discussed plan of care with Problems: Subjective 24 Hr Interval Summary Free Text/Dictation Alert. Only reports some pain on right leg at this time. Nonspecific. Exam/Review of Systems Vital Signs Vitals Vital Signs Date Time Temp Pulse Resp B/P Pulse Ox O2 Delivery O2 Flow Rate FiO2 01/29/17 08:00 97 01/29/17 08:00 Nasal Cannula 2.0 01/29/17 07:50 97.8 18 145/65 95 Intake and Output 01/28/17 01/28/17 01/29/17 15:00 23:00 07:00 Intake Total 50 ml 2400 ml 1100 ml Output Total 425 ml Balance 50 ml 2400 ml 675 ml Exam Constitutional: alert, oriented Psych: nl mood/affect Head: normocephalic Eyes: nl conjunctiva Neck: supple Respiratory: clear to auscultation, normal air movement Cardiovascular: regular rate and rhythm Gastrointestinal: non-tender, soft Musculoskeletal: No nl gait and stance Neurological: FILTER PRESS TENDER HEAD II-XII intact, nl mental status, nl speech Skin: nl turgor Results Result Diagram: 01/29/17 0812 01/29/17 0813 Results 24 hrs Laboratory Tests Test 01/29/17 08:12 01/29/17 08:13 White Blood Count 15.1 H Red Blood Count 3.37 L Hemoglobin 9.8 L Hematocrit 31.0 L Mean Corpuscular Volume 92.0 Mean Corpuscular Hemoglobin 29.1 Mean Corpuscular Hemoglobin Concent 31.6 L Red Cell Distribution Width 17.1 H Platelet Count 248 Mean Platelet Volume 11.7 H Neutrophils % 80.8 H Lymphocytes % 10.1 L Monocytes % 6.9 Eosinophils % 1.2 Basophils % 0.3 Nucleated Red Blood Cells % 0.0 Neutrophils # 12.2 H Lymphocytes # 1.5 Monocytes # 1.0 H Eosinophils # 0.2 Basophils # 0.1 Nucleated Red Blood Cells # 0.0 Phosphorus Level 2.8 Magnesium Level 1.6 L Sodium Level 142 Potassium Level 3.3 L Chloride Level 107 Carbon Dioxide Level 31 Anion Gap 7 L Blood Urea Nitrogen 34 H Creatinine 0.86 Glucose Level 122 Calcium Level 8.2 L Medications Medications Current Medications Ondansetron HCl (Zofran Inj) 4 mg Q6H PRN IV NAUSEA AND/OR VOMITING; Start at 14:30 Acetaminophen (Tylenol Tab) 650 mg Q6H PRN PO PAIN LEVEL 1-3 OR FEVER Last administered on 01/26/17 13:51; Admin Dose 650 MG; Start 01/23/17 at 14:30 Acetaminophen/ Hydrocodone Bitart ([place] (5/325)) 1 tab Q6H PRN PO PAIN LEVEL 4 -6 Last administered on 01/28/17 22:06; Admin Dose 1 TAB; Start 01/23/17 at 14:30 Atorvastatin Calcium (Lipitor) 20 mg QHS PO Last administered on 01/28/17 22: 01; Admin Dose 20 MG; Start 01/23/17 at 21:00 Citalopram Hydrobromide (Celexa) 20 mg DAILY PO Last administered on 09:07; Admin Dose 20 MG; Start 01/24/17 at 09:00 Morphine Sulfate 1 mg 1 mg Q4H PRN IV PAIN Last administered on 01/28/17 03: 59; Admin Dose 1 MG; Start 01/24/17 at 04:30 Cefepime HCl/ Dextrose (Maxipime/D5W) 50 ml @ 100 mls/hr Q24H IVPB Last administered on 01/28/17 13:33; Admin Dose 100 MLS/HR; Start 01/26/17 at 14: 00 Sucralfate (Carafate Susp) 1 gm QID PO Last administered on 01/29/17 09:06; Admin Dose 1 GM; Start 01/26/17 at 19:00 Docusate Sodium (Colace Liquid Cup) 100 mg BID PO Last administered on 09:06; Admin Dose 100 MG; Start 01/27/17 at 09:00 Metoprolol Tartrate (Lopressor) 100 mg BID PO Last administered on 01/29/17 09:07; Admin Dose 100 MG; Start 01/27/17 at 21:00 Furosemide (Lasix) 20 mg DAILY PO Last administered on 01/29/17 09:06; Admin Dose 20 MG; Start 01/28/17 at 09:00 Pantoprazole 40 mg 40 mg BID@06,18 PO Last administered on 01/29/17 06:29; Admin Dose 40 MG; Start 01/28/17 at 18:00 Magnesium Sulfate (Magnesium Sulfate 4 Gm/100 ml) 100 ml @ 25 mls/hr ONCE ONCE IVPB Last administered on 01/29/17 11:33; Admin Dose 25 MLS/HR; Start 01/29/17 at 13:00; Stop 01/29/17 at 16:59 CHEMO BURROWS Jan 29, 2017 11:44
[2017-01-29] MEDS: CEFEPIME HCL 1 GM in DEXTROSE 5% 50 ML IVPB SCH (12:44)
[2017-01-29] MEDS ORDERED: MAGNESIUM SULFATE 4 GM/100 ML 100 ML IVPB ONE (13:00)
--- NOTE | 2017-01-29 14:29 | CONS ---
Date/Time of Note Date/Time of Note DATE: 01/29/17 TIME: 14:27 Consult Date/Type/Reason Admit Date/Time Jan 23, 2017 at 13:10 Initial Consult Date 01/23/17 Type of Consultation: id Ordering Provider: SANCHEZ APARICIO VIDEO TAPE EDITOR Objective Vital Signs Date Time Temp Pulse Resp B/P Pulse Ox O2 Delivery O2 Flow Rate FiO2 01/29/17 12:00 76 01/29/17 11:58 98.1 20 131/59 97 01/29/17 08:00 Nasal Cannula 2.0 Intake and Output 01/28/17 01/28/17 01/29/17 15:00 23:00 07:00 Intake Total 50 ml 2400 ml 1100 ml Output Total 425 ml Balance 50 ml 2400 ml 675 ml Results/Medications Result Diagram: 01/29/17 0812 01/29/17 0813 Results 24 hrs Laboratory Tests Test 01/29/17 08:12 01/29/17 08:13 White Blood Count 15.1 H Red Blood Count 3.37 L Hemoglobin 9.8 L Hematocrit 31.0 L Mean Corpuscular Volume 92.0 Mean Corpuscular Hemoglobin 29.1 Mean Corpuscular Hemoglobin Concent 31.6 L Red Cell Distribution Width 17.1 H Platelet Count 248 Mean Platelet Volume 11.7 H Neutrophils % 80.8 H Lymphocytes % 10.1 L Monocytes % 6.9 Eosinophils % 1.2 Basophils % 0.3 Nucleated Red Blood Cells % 0.0 Neutrophils # 12.2 H Lymphocytes # 1.5 Monocytes # 1.0 H Eosinophils # 0.2 Basophils # 0.1 Nucleated Red Blood Cells # 0.0 Phosphorus Level 2.8 Magnesium Level 1.6 L Sodium Level 142 Potassium Level 3.3 L Chloride Level 107 Carbon Dioxide Level 31 Anion Gap 7 L Blood Urea Nitrogen 34 H Creatinine 0.86 Glucose Level 122 Calcium Level 8.2 L Medications Current Medications Ondansetron HCl (Zofran Inj) 4 mg Q6H PRN IV NAUSEA AND/OR VOMITING; Start at 14:30 Acetaminophen (Tylenol Tab) 650 mg Q6H PRN PO PAIN LEVEL 1-3 OR FEVER Last administered on 01/26/17t 13:51; Admin Dose 650 MG; Start 01/23/17 at 14:30 Acetaminophen/ Hydrocodone Bitart ([place] (5/325)) 1 tab Q6H PRN PO PAIN LEVEL 4 -6 Last administered on 01/28/17 22:06; Admin Dose 1 TAB; Start 01/23/17 at 14:30 Atorvastatin Calcium (Lipitor) 20 mg QHS PO Last administered on 01/28/17 22: 01; Admin Dose 20 MG; Start 01/23/17 at 21:00 Citalopram Hydrobromide (Celexa) 20 mg DAILY PO Last administered on 09:07; Admin Dose 20 MG; Start 01/24/17 at 09:00 Morphine Sulfate 1 mg 1 mg Q4H PRN IV PAIN Last administered on 01/28/17 03: 59; Admin Dose 1 MG; Start 01/24/17 at 04:30 Cefepime HCl/ Dextrose (Maxipime/D5W) 50 ml @ 100 mls/hr Q24H IVPB Last administered on 01/29/17 12:44; Admin Dose 100 MLS/HR; Start 01/26/17 at 14: 00 Sucralfate (Carafate Susp) 1 gm QID PO Last administered on 01/29/17 12:44; Admin Dose 1 GM; Start 01/26/17 at 19:00 Docusate Sodium (Colace Liquid Cup) 100 mg BID PO Last administered on 09:06; Admin Dose 100 MG; Start 01/27/17 at 09:00 Metoprolol Tartrate (Lopressor) 100 mg BID PO Last administered on 01/29/17 09:07; Admin Dose 100 MG; Start 01/27/17 at 21:00 Furosemide (Lasix) 20 mg DAILY PO Last administered on 01/29/17 09:06; Admin Dose 20 MG; Start 01/28/17 at 09:00 Pantoprazole 40 mg 40 mg BID@06,18 PO Last administered on 01/29/17 06:29; Admin Dose 40 MG; Start 01/28/17 at 18:00 Magnesium Sulfate (Magnesium Sulfate 4 Gm/100 ml) 100 ml @ 25 mls/hr ONCE ONCE IVPB Last administered on 01/29/17 11:33; Admin Dose 25 MLS/HR; Start 01/29/17 at 13:00; Stop 01/29/17 at 16:59 Assessment/Plan Chief Complaint/Hosp Course SUBJECTIVE: No acute events overnight. Awake, looks comfortable, afebrile. MICROBIOLOGY: Blood cultures remain negative. Urine culture grew E coli. ANTIMICROBIALS: The patient is on IV cefepime DIAGNOSTICS: CT of the brain on admission revealed no acute intracranial abnormality, severe patchy and confluent periventricular and subcortical white matter hyperdensity likely related to chronic microangiopathic changes, remote infarct involving the left frontal operculum. Remote lacunar infarct involving paramedial right thalamus and the left thalamus. No evidence of acute infarct. Chest x-ray on admission revealed left lower lobe opacification, questionable pneumonia versus atelectasis. Renal ultrasound showed echogenic kidneys consistent with medical renal disease, no evidence of hydronephrosis. PHYSICAL EXAMINATION: GENERAL: This is a fragile, chronically ill-appearing, elderly woman who is in no distress. HEENT: Head atraumatic, normocephalic. Sclerae anicteric. Buccal mucosa dry. NECK: Supple. CHEST: Rise symmetrical. Breath sounds diminished to bases, more on the Left. HEART: S1, S2. ABDOMEN: Soft. Bowel tones hypoactive. EXTREMITIES: Without cyanosis or edema. ASSESSMENT: 1. Sepsis with leukocytosis and encephalopathy, rapid atrial fibrillation, low grade fever and admission. 2. Urinary tract infection. 3. Possible pneumonia. 4. Coagulopathy from Coumadin toxicity. 5. Status post rapid atrial fibrillation. 6. Acute kidney injury. 7. Symptomatic anemia, status post blood transfusion. 8. Pancreatic ca PLAN: The patient remains stable, continue abx, f/u cxr, card/GI rec-s. DW at bedside Problems: SHELIA HUFF NP Jan 29, 2017 14:29
--- NOTE | 2017-01-29 15:50 | RADRPT ---
PROCEDURE: XR Chest. CLINICAL INDICATION: Shortness of breath. TECHNIQUE: Single frontal view. COMPARISON: 01/25/2017. FINDINGS: There is air space disease in the left mid and lower lung zones with associated moderate left pleura l effusion. The right lung is clear and there is no right pleural effusion. The heart is mildly enlarged and there is calcification in the aorta consistent with atherosclerosis . There is no pneumothorax. IMPRESSION: 1. New left basilar atelectasis or pneumonia and moderate left pleural effusion. 2. Cardiomegaly and atherosclerosis. 3. Otherwise unremarkable chest radiograph. RPTAT: QQ .Rio Arce MD, MD Date Time Electronically viewed and signed by .Rio Arce MD, MD on 01/29/2017 15:49 .R/
[2017-01-29] MEDS: ATORVASTATIN 20 MG TAB PO SCH (20:48)
[2017-01-30] VITALS (10 sets, daily range): BP systolic 96–131; BP diastolic 48–92; PULSE 82–161; RESP 16–20
[2017-01-30] MEDS: HYDROCODONE/APAP (5/325) TAB PO PRN ×4 (01:04→22:15)
[2017-01-30] MEDS: PANTOPRAZOLE (EC) 40 MG TAB PO SCH ×2 (07:20→17:56)
[2017-01-30] MEDS: LEVOTHYROXINE 50 MCG TAB PO SCH (07:26)
[2017-01-30 07:34] LABS: BASOPHILS % 0.3 % (0.0-2.0); EOSINOPHILS # 0.1 10^3/ul (0.0-0.5); EOSINOPHILS % 0.8 % (0.0-7.0); HEMATOCRIT 33.4 % (37.0-47.0); HEMOGLOBIN 10.6 g/dl (12.0-16.0); LYMPHOCYTES # 1.5 10^3/ul (0.8-2.9); LYMPHOCYTES % 9.7 % (15.0-51.0); MEAN CORPUSCULAR HEMOGLOBIN 29.2 pg (29.0-33.0); MEAN CORPUSCULAR HGB CONC 31.7 g/dl (32.0-37.0); MEAN PLATELET VOLUME 11.6 fl (7.4-10.4); MONOCYTE # 1.1 10^3/ul (0.3-0.9); MONOCYTES % 6.8 % (0.0-11.0); NEUTROPHIL # 12.6 10^3/ul (1.6-7.5); NEUTROPHILS % 81.7 % (39.0-77.0); PLATELET COUNT 264 10^3/UL (140-415); RED BLOOD COUNT 3.63 10^6/ul (4.20-5.40); RED CELL DISTRIBUTION WIDTH 16.7 % (11.5-14.5); WHITE BLOOD COUNT 15.4 10^3/ul (4.8-10.8)
[2017-01-30 08:08] LABS: MAGNESIUM 2.5 mg/dl (1.7-2.5); PHOSPHORUS 3.1 mg/dl (2.5-4.9)
[2017-01-30 08:17] LABS: CALCIUM 8.3 mg/dl (8.4-10.2); CREATININE 0.87 mg/dl (0.44-1.00); POTASSIUM 3.5 mmol/L (3.5-5.1)
[2017-01-30] MEDS: METOPROLOL 100 MG TAB PO SCH ×2 (09:30→21:11)
[2017-01-30] MEDS: FUROSEMIDE 20 MG TAB PO SCH (09:30)
[2017-01-30] MEDS: SUCRALFATE (100 MG/ML) 10ML CUP PO SCH ×4 (09:30→21:10)
[2017-01-30] MEDS: CITALOPRAM 20 MG TAB PO SCH (09:30)
[2017-01-30] MEDS: DOCUSATE SODIUM 10 MG/ML (10ML CUP) PO SCH ×2 (09:30→21:10)
--- NOTE | 2017-01-30 13:17 | CONS ---
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 Likely from blood products and aggressive IV hydration. Euvolemic Chronic Afib with RVR: Partially compensatory to multiple active issues. HR better controlled Coagulopathy: INR >10 on admission, now normalized Anemia with upper GI bleed: Hgb 6.6 on admission, now improved with transfusion. EGD with esophageal ulcer Sepsis secondary to UTI UTI Acute vs chronic renal failure Pancreatic ca -lasix 20mg PO daily to keep even -metoprolol 100mg BID -continue to hold coumadin until ok per GI Problems: Consultation Date/Type/Reason Admit Date/Time Jan 23, 2017 at 13:10 Initial Consult Date 01/23/17 Type of Consultation: Cardiology Referring Provider: SANCHEZ APARICIO NP 24 HR Interval Summary Free Text/Dictation HR controlled except when she gets up or ambulates Exam/Review of Systems Vital Signs Vitals Vital Signs Date Time Temp Pulse Resp B/P Pulse Ox O2 Delivery O2 Flow Rate FiO2 01/30/17 13:06 161 01/30/17 12:50 99.1 19 124/92 93 01/29/17 20:00 Nasal Cannula 2.0 Intake and Output 01/29/17 01/29/17 01/30/17 15:00 23:00 07:00 Intake Total 1100 ml 100 ml Output Total 700 ml 350 ml Balance 400 ml -250 ml Exam Constitutional: alert Psych: nl mood/affect, no complaints Head: atraumatic, normocephalic Neck: No jvd Respiratory: clear to auscultation Cardiovascular: No edema, No regular rate and rhythm, No systolic murmur Gastrointestinal: non-tender, soft, No distended Neurological: nl mental status Results Result Diagram: 01/30/17 0701 01/30/17 0701 Results 24 hrs Laboratory Tests Test 01/30/17 07:01 White Blood Count 15.4 H Red Blood Count 3.63 L Hemoglobin 10.6 L Hematocrit 33.4 L Mean Corpuscular Volume 92.0 Mean Corpuscular Hemoglobin 29.2 Mean Corpuscular Hemoglobin Concent 31.7 L Red Cell Distribution Width 16.7 H Platelet Count 264 Mean Platelet Volume 11.6 H Neutrophils % 81.7 H Lymphocytes % 9.7 L Monocytes % 6.8 Eosinophils % 0.8 Basophils % 0.3 Nucleated Red Blood Cells % 0.0 Neutrophils # 12.6 H Lymphocytes # 1.5 Monocytes # 1.1 H Eosinophils # 0.1 Basophils # 0.0 Nucleated Red Blood Cells # 0.0 Sodium Level 140 Potassium Level 3.5 Chloride Level 104 Carbon Dioxide Level 29 Anion Gap 11 Blood Urea Nitrogen 33 H Creatinine 0.87 Glucose Level 97 Calcium Level 8.3 L Phosphorus Level 3.1 Magnesium Level 2.5 Medications Medications Current Medications Ondansetron HCl (Zofran Inj) 4 mg Q6H PRN IV NAUSEA AND/OR VOMITING; Start at 14:30 Acetaminophen (Tylenol Tab) 650 mg Q6H PRN PO PAIN LEVEL 1-3 OR FEVER Last administered on 01/26/17 13:51; Admin Dose 650 MG; Start 01/23/17 at 14:30 Acetaminophen/ Hydrocodone Bitart ([place] (5/325)) 1 tab Q6H PRN PO PAIN LEVEL 4 -6 Last administered on 01/30/17 12:19; Admin Dose 1 TAB; Start 01/23/17 at 14:30 Atorvastatin Calcium (Lipitor) 20 mg QHS PO Last administered on 01/29/17 20: 48; Admin Dose 20 MG; Start 01/23/17 at 21:00 Citalopram Hydrobromide (Celexa) 20 mg DAILY PO Last administered on 09:30; Admin Dose 20 MG; Start 01/24/17 at 09:00 Morphine Sulfate 1 mg 1 mg Q4H PRN IV PAIN Last administered on 01/28/17 03: 59; Admin Dose 1 MG; Start 01/24/17 at 04:30 Cefepime HCl/ Dextrose (Maxipime/D5W) 50 ml @ 100 mls/hr Q24H IVPB Last administered on 01/29/17 12:44; Admin Dose 100 MLS/HR; Start 01/26/17 at 14: 00 Sucralfate (Carafate Susp) 1 gm QID PO Last administered on 01/30/17 12:20; Admin Dose 1 GM; Start 01/26/17 at 19:00 Docusate Sodium (Colace Liquid Cup) 100 mg BID PO Last administered on 09:30; Admin Dose 100 MG; Start 01/27/17 at 09:00 Metoprolol Tartrate (Lopressor) 100 mg BID PO Last administered on 01/30/17 09:30; Admin Dose 100 MG; Start 01/27/17 at 21:00 Furosemide (Lasix) 20 mg DAILY PO Last administered on 01/30/17 09:30; Admin Dose 20 MG; Start 01/28/17 at 09:00 Pantoprazole (Protonix Tab) 40 mg BID@,18 PO Last administered on 01/30/17 07:20; Admin Dose 40 MG; Start 01/28/17 at 18:00 ERIC LUCIO Jan 30, 2017 13:17
[2017-01-30] MEDS: CEFEPIME HCL 1 GM in DEXTROSE 5% 50 ML IVPB SCH (13:20)
--- NOTE | 2017-01-30 13:33 | CONS ---
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) Past Surgical History Past Surgical Hx: appendectomy Social History Alcohol Use: none Smoking Status: Never smoker Drug Use: none Exam/Review of Systems Vital Signs Vitals Vital Signs Date Time Temp Pulse Resp B/P Pulse Ox O2 Delivery O2 Flow Rate FiO2 01/30/17 13:06 161 01/30/17 12:50 99.1 19 124/92 93 01/29/17 20:00 Nasal Cannula 2.0 Intake and Output 01/29/17 01/29/17 01/30/17 15:00 23:00 07:00 Intake Total 1100 ml 100 ml Output Total 700 ml 350 ml Balance 400 ml -250 ml Results Result Diagram: 01/30/17 0701 01/30/17 0701 Results 24 hrs Laboratory Tests Test 01/30/17 07:01 White Blood Count 15.4 H Red Blood Count 3.63 L Hemoglobin 10.6 L Hematocrit 33.4 L Mean Corpuscular Volume 92.0 Mean Corpuscular Hemoglobin 29.2 Mean Corpuscular Hemoglobin Concent 31.7 L Red Cell Distribution Width 16.7 H Platelet Count 264 Mean Platelet Volume 11.6 H Neutrophils % 81.7 H Lymphocytes % 9.7 L Monocytes % 6.8 Eosinophils % 0.8 Basophils % 0.3 Nucleated Red Blood Cells % 0.0 Neutrophils # 12.6 H Lymphocytes # 1.5 Monocytes # 1.1 H Eosinophils # 0.1 Basophils # 0.0 Nucleated Red Blood Cells # 0.0 Sodium Level 140 Potassium Level 3.5 Chloride Level 104 Carbon Dioxide Level 29 Anion Gap 11 Blood Urea Nitrogen 33 H Creatinine 0.87 Glucose Level 97 Calcium Level 8.3 L Phosphorus Level 3.1 Magnesium Level 2.5 Medications Medications Current Medications Ondansetron HCl (Zofran Inj) 4 mg Q6H PRN IV NAUSEA AND/OR VOMITING; Start at 14:30 Acetaminophen (Tylenol Tab) 650 mg Q6H PRN PO PAIN LEVEL 1-3 OR FEVER Last administered on 01/26/17 13:51; Admin Dose 650 MG; Start 01/23/17 at 14:30 Acetaminophen/ Hydrocodone Bitart ([place] (5/325)) 1 tab Q6H PRN PO PAIN LEVEL 4 -6 Last administered on 01/30/17 12:19; Admin Dose 1 TAB; Start 01/23/17 at 14:30 Atorvastatin Calcium (Lipitor) 20 mg QHS PO Last administered on 01/29/17 20: 48; Admin Dose 20 MG; Start 01/23/17 at 21:00 Citalopram Hydrobromide (Celexa) 20 mg DAILY PO Last administered on 09:30; Admin Dose 20 MG; Start 01/24/17 at 09:00 Morphine Sulfate 1 mg 1 mg Q4H PRN IV PAIN Last administered on 01/28/17 03: 59; Admin Dose 1 MG; Start 01/24/17 at 04:30 Cefepime HCl/ Dextrose (Maxipime/D5W) 50 ml @ 100 mls/hr Q24H IVPB Last administered on 01/29/17 12:44; Admin Dose 100 MLS/HR; Start 01/26/17 at 14: 00 Sucralfate (Carafate Susp) 1 gm QID PO Last administered on 01/30/17 12:20; Admin Dose 1 GM; Start 01/26/17 at 19:00 Docusate Sodium (Colace Liquid Cup) 100 mg BID PO Last administered on 09:30; Admin Dose 100 MG; Start 01/27/17 at 09:00 Metoprolol Tartrate (Lopressor) 100 mg BID PO Last administered on 01/30/17 09:30; Admin Dose 100 MG; Start 01/27/17 at 21:00 Furosemide (Lasix) 20 mg DAILY PO Last administered on 01/30/17 09:30; Admin Dose 20 MG; Start 01/28/17 at 09:00 Pantoprazole (Protonix Tab) 40 mg BID@06,18 PO Last administered on 01/30/17 07:20; Admin Dose 40 MG; Start 01/28/17 at 18:00 SEBASTIAN WEST Jan 30, 2017 13:33
--- NOTE | 2017-01-30 13:52 | CONS ---
Date/Time of Note Date/Time of Note DATE: 01/30/17 TIME: 13:49 Assessment/Plan Assessment/Plan Chief Complaint/Hosp Course SUBJECTIVE: No acute events overnight. Awake, looks comfortable, afebrile. MICROBIOLOGY: Blood cultures remain negative. Urine culture grew E coli. ANTIMICROBIALS: IV cefepime DIAGNOSTICS: CT of the brain on admission revealed no acute intracranial abnormality, severe patchy and confluent periventricular and subcortical white matter hyperdensity likely related to chronic microangiopathic changes, remote infarct involving the left frontal operculum. Remote lacunar infarct involving paramedial right thalamus and the left thalamus. No evidence of acute infarct. Chest x-ray on admission revealed left lower lobe opacification, questionable pneumonia versus atelectasis. Renal ultrasound showed echogenic kidneys consistent with medical renal disease, no evidence of hydronephrosis. PHYSICAL EXAMINATION: GENERAL: This is a fragile, chronically ill-appearing, elderly woman who is in no distress. HEENT: Head atraumatic, normocephalic. Sclerae anicteric. Buccal mucosa dry. NECK: Supple. CHEST: Rise symmetrical. Breath sounds diminished to bases, more on the Left. HEART: S1, S2. ABDOMEN: Soft. Bowel tones hypoactive. EXTREMITIES: Without cyanosis or edema. ASSESSMENT: 1. S/p sepsis with leukocytosis and encephalopathy, rapid atrial fibrillation, low grade fever and admission. 2. Urinary tract infection. 3. LLL pneumonia with moderate pleural effusion. 4. Coagulopathy from Coumadin toxicity. 5. Status post rapid atrial fibrillation. 6. Acute kidney injury. 7. Symptomatic anemia, status post blood transfusion. 8. Pancreatic ca 9. Failure to thrive PLAN: Clinically unchanged, leukocytosis persists, continue abx, aspiration precautions, consider pulmonary eval, card/GI rec-s. staff Problems: Consultation Date/Type/Reason Admit Date/Time Jan 23, 2017 at 13:10 Initial Consult Date 01/23/17 Type of Consultation: id Referring Provider: SANCHEZ APARICIO PENSION AGENT Exam/Review of Systems Vital Signs Vitals Vital Signs Date Time Temp Pulse Resp B/P Pulse Ox O2 Delivery O2 Flow Rate FiO2 01/30/17 13:06 161 01/30/17 12:50 99.1 19 124/92 93 01/29/17 20:00 Nasal Cannula 2.0 Intake and Output 01/29/17 01/29/17 01/30/17 14:59 22:59 06:59 Intake Total 1100 ml 100 ml Output Total 700 ml 350 ml Balance 400 ml -250 ml Results Result Diagram: 01/30/17 0701/30/17 0701 Results 24 hrs Laboratory Tests Test 01/30/17 07:01 White Blood Count 15.4 H Red Blood Count 3.63 L Hemoglobin 10.6 L Hematocrit 33.4 L Mean Corpuscular Volume 92.0 Mean Corpuscular Hemoglobin 29.2 Mean Corpuscular Hemoglobin Concent 31.7 L Red Cell Distribution Width 16.7 H Platelet Count 264 Mean Platelet Volume 11.6 H Neutrophils % 81.7 H Lymphocytes % 9.7 L Monocytes % 6.8 Eosinophils % 0.8 Basophils % 0.3 Nucleated Red Blood Cells % 0.0 Neutrophils # 12.6 H Lymphocytes # 1.5 Monocytes # 1.1 H Eosinophils # 0.1 Basophils # 0.0 Nucleated Red Blood Cells # 0.0 Sodium Level 140 Potassium Level 3.5 Chloride Level 104 Carbon Dioxide Level 29 Anion Gap 11 Blood Urea Nitrogen 33 H Creatinine 0.87 Glucose Level 97 Calcium Level 8.3 L Phosphorus Level 3.1 Magnesium Level 2.5 Medications Medications Current Medications Ondansetron HCl (Zofran Inj) 4 mg Q6H PRN IV NAUSEA AND/OR VOMITING; Start at 14:30 Acetaminophen (Tylenol Tab) 650 mg Q6H PRN PO PAIN LEVEL 1-3 OR FEVER Last administered on 01/26/17 13:51; Admin Dose 650 MG; Start 01/23/17 at 14:30 Acetaminophen/ Hydrocodone Bitart ([place] (5/325)) 1 tab Q6H PRN PO PAIN LEVEL 4 -6 Last administered on 01/30/17 12:19; Admin Dose 1 TAB; Start 01/23/17 at 14:30 Atorvastatin Calcium (Lipitor) 20 mg QHS PO Last administered on 01/29/17 20: 48; Admin Dose 20 MG; Start 01/23/17 at 21:00 Citalopram Hydrobromide (Celexa) 20 mg DAILY PO Last administered on 09:30; Admin Dose 20 MG; Start 01/24/17 at 09:00 Morphine Sulfate 1 mg 1 mg Q4H PRN IV PAIN Last administered on 01/28/17 03: 59; Admin Dose 1 MG; Start 01/24/17 at 04:30 Cefepime HCl/ Dextrose (Maxipime/D5W) 50 ml @ 100 mls/hr Q24H IVPB Last administered on 01/30/17 13:20; Admin Dose 100 MLS/HR; Start 01/26/17 at 14: 00 Sucralfate (Carafate Susp) 1 gm QID PO Last administered on 01/30/17 12:20; Admin Dose 1 GM; Start 01/26/17 at 19:00 Docusate Sodium (Colace Liquid Cup) 100 mg BID PO Last administered on 09:30; Admin Dose 100 MG; Start 01/27/17 at 09:00 Metoprolol Tartrate (Lopressor) 100 mg BID PO Last administered on 01/30/17 09:30; Admin Dose 100 MG; Start 01/27/17 at 21:00 Furosemide (Lasix) 20 mg DAILY PO Last administered on 01/30/17 09:30; Admin Dose 20 MG; Start 01/28/17 at 09:00 Pantoprazole (Protonix Tab) 40 mg BID@06,18 PO Last administered on 01/30/17 07:20; Admin Dose 40 MG; Start 01/28/17 at 18:00 SHELIA HUFF NP Jan 30, 2017 13:52
--- NOTE | 2017-01-30 14:11 | CONS ---
DATE OF ADMISSION: 01/23/2017 DATE OF CONSULTATION: 01/30/2017 PULMONARY CONSULTATION REFERRING PHYSICIAN: Dr. Castro REASON FOR REFERRAL: Evaluation of pneumonia. HISTORY OF PRESENT ILLNESS: Ms. Robison is an 86-year-old female who was admitted on the with complaints of generalized weakness. Upon evaluation, the patient was diagnosed with s epsis and has been started on appropriate antibiotic regimen. The patient continues to exhibit sign ificant generalized weakness, but denies any chest pain, fever, chills, abdominal pain, nausea, vomi ting. Patient has had chest x-rays done which are showing a very scant left lower lobe pleural effu melanie. Pulmonary consultation has been requested for further evaluation. By the time I saw the rach ent, the patient is completely awake, but appearing weak. Denies any coughing, chest pain, abdomina l pain, nausea, vomiting. PAST MEDICAL HISTORY: 1. 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 2. Chronic atrial fibrillation. 3. History of renal insufficiency. 4. Anemia. 5. Hypertension. 6. Hypothyroidism. 7. Patient has not had any treatment for pancreatic adenocarcinoma. MEDICATIONS: 1. Cefepime 1 gram q. 24 hours on the of this month. 2. Patient also has received magnesium. 3. Lipitor 20 mg a day. 4. Celexa 20 mg a day. 5. Lasix 20 mg orally daily. 6. Synthroid 0.05 mg a day. 7. Metoprolol 100 mg b.i.d. 8. Protonix 40 mg a day. 9. Carafate 1 gram b.i.d. ALLERGIES: NONE. SOCIAL HISTORY: The patient never smoked. No history of alcohol or drug abuse. FAMILY HISTORY: She is . She has a supportive , has 3 children. OCCUPATIONAL HISTORY: The patient used to work as a construction secretary. REVIEW OF SYSTEMS: Denies any headache, visual changes, sinus symptoms, postnasal drip, dysphagia. Complains of generalized weakness. Denies any coughing, sputum production, hemoptysis, any abdomin al pain, nausea, vomiting, has lost weight. Denies any melena. Denies any edema. PHYSICAL EXAMINATION: GENERAL: Elderly woman, awake, currently in no distress. VITAL SIGNS: Temperature is 99 degrees Fahrenheit, respiratory rate is 18 to 20 per minute, blood p ressure is 124/70, O2 saturation 93% on 2 liter nasal cannula, heart rate of 86 per minute, irregula r rhythm. HEENT: Supple neck, no JVD, no lymphadenopathy, midline trachea, no thyromegaly. Patient does have multiple carious teeth, has bilateral intraocular lens implant. CHEST: Minimally decreased breath sounds, left lower lobe, otherwise clear to auscultation. HEART: S1, S2 audible. No murmurs, irregular rhythm. ABDOMEN: Soft, nontender. No organomegaly. Bowel sounds audible. EXTREMITIES: No edema. NEUROLOGIC: No focal deficit, but the patient exhibiting severe generalized weakness. LABORATORY DATA: Yesterday, sodium 140, potassium 3.5, chloride 104, BUN 33, creatinine 0.8. White count 15.4, hemoglobin 10.6, platelet count of 264. Chest x-ray was reviewed from yesterday, which is showing very scant left lower lobe infiltrate. X-ray also was reviewed from of this month, which is showing similar findings. Echocardiogram was reviewed from of this month, which is s howing a preserved ejection fraction of around 45%. ASSESSMENT: 1. The patient admitted for generalized weakness with a history of pancreatic carcinoma which has n ot been treated. 2. Severe generalized weakness. 3. Scant left lower lobe infiltrate/atelectasis of uncertain clinical significance. 4. The patient is mildly intravascularly volume depleted. 5. History of hypothyroidism. 6. Atrial fibrillation. 7. Hypertension. RECOMMENDATIONS: Discontinue further Lasix dosing, consider stopping antibiotics. Currently, there is no indication to perform thoracentesis, as the left pleural findings are likely indicative of mi nimal atelectasis without any evidence of significant pleural effusion. Prognosis is guarded. Dictated By: SEBASTIAN WEST MD AQ/NTS Conf#: [id number] DID#: [id number] CC: Rhea Castro;*EndCC*
--- NOTE | 2017-01-30 15:08 | PN ---
Date/Time of Note Date/Time of Note DATE: 01/30/17 TIME: 15:06 Assessment/Plan VTE Prophylaxis VTE Prophylaxis Intervention: SCD's Lines/Catheters IV C[facility]ter Type (from [facility] Peripheral IV Urinary Cath still in place: Yes Reason Cath still needed: other (indicate) (monitor I&O) Assessment/Plan Chief Complaint/Hosp Course Assessment and plan 1. Sepsis secondary to underlying UTI. Continue antibiotics. Afebrile present. Stable at present. 2. Coagulopathy. Secondary to Coumadin toxicity. Off of Coumadin at this time. Resume per university tutor. Improved status post vitamin K and fresh frozen plasma administration 3. Atrial fibrillation with RVR. Patient is status post Cardizem IV. Continue on beta-iraida. Continue telemetry monitoring. 4. Acute kidney injury. Improving at present. Editing Internship following. Medications to be renally dosed. 5. Symptomatic anemia. Improved status post blood transfusion. GI following. Status post EGD that showed a 6 mm clean-based esophageal ulcer and distal esophagitis and also moderate gastritis. Continue PPI medication. Monitor H& H. Continue on Carafate. 6. Essential hypertension. Continue antihypertensives and adjust as needed. 7. 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 Continue optimization with beta iraida. No MEHRAN inhibitor at this time due to recent CKD. 8. Acute on chronic systolic heart failure. Continue diuresis per cardiology. 9. Pulmonary hypertension with PA systolic pressure of 52 mmHg. Continue with O2 as needed. Diuretics per university tutor . 10. Hypothyroidism. Continue Synthroid 11. Reported dysphagia. Continue with. [place] thick liquids. Continue with ST or conditions. 12. 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 Continue with conservative management patient for outpatient follow. 13. Pleural effusion. Patient was consulted by well tender. Follow-up with recommendations. No plan for thoracentesis at this time. Disposition plan: Noted pleural effusion today. Refining Still Operator was consulted. Monitor for improvement of respiratory status. No plan for thoracentesis at this time. Follow-up with use of diuretics. Discussed plan of care with Problems: Subjective 24 Hr Interval Summary Free Text/Dictation no s/s of distress. family at bedside Exam/Review of Systems Vital Signs Vitals Vital Signs Date Time Temp Pulse Resp B/P Pulse Ox O2 Delivery O2 Flow Rate FiO2 01/30/17 13:06 161 01/30/17 12:50 99.1 19 124/92 93 01/30/17 12:00 Nasal Cannula 2.0 Intake and Output 01/29/17 01/29/17 01/30/17 15:00 23:00 07:00 Intake Total 1100 ml 100 ml Output Total 700 ml 350 ml Balance 400 ml -250 ml Exam Constitutional: alert, oriented Psych: nl mood/affect Head: normocephalic Eyes: nl conjunctiva Neck: supple Respiratory: diminished at base Cardiovascular: regular rate and rhythm Gastrointestinal: non-tender, soft Musculoskeletal: No nl gait and stance Neurological: SALES FINANCIAL ANALYST II-XII intact, nl mental status, nl speech Skin: nl turgor Results Result Diagram: 01/30/1770001/30/17 07 Results 24 hrs Laboratory Tests Test 01/30/17 07:01 White Blood Count 15.4 H Red Blood Count 3.63 L Hemoglobin 10.6 L Hematocrit 33.4 L Mean Corpuscular Volume 92.0 Mean Corpuscular Hemoglobin 29.2 Mean Corpuscular Hemoglobin Concent 31.7 L Red Cell Distribution Width 16.7 H Platelet Count 264 Mean Platelet Volume 11.6 H Neutrophils % 81.7 H Lymphocytes % 9.7 L Monocytes % 6.8 Eosinophils % 0.8 Basophils % 0.3 Nucleated Red Blood Cells % 0.0 Neutrophils # 12.6 H Lymphocytes # 1.5 Monocytes # 1.1 H Eosinophils # 0.1 Basophils # 0.0 Nucleated Red Blood Cells # 0.0 Sodium Level 140 Potassium Level 3.5 Chloride Level 104 Carbon Dioxide Level 29 Anion Gap 11 Blood Urea Nitrogen 33 H Creatinine 0.87 Glucose Level 97 Calcium Level 8.3 L Phosphorus Level 3.1 Magnesium Level 2.5 Medications Medications Current Medications Ondansetron HCl (Zofran Inj) 4 mg Q6H PRN IV NAUSEA AND/OR VOMITING; Start at 14:30 Acetaminophen (Tylenol Tab) 650 mg Q6H PRN PO PAIN LEVEL 1-3 OR FEVER Last administered on 01/26/17 13:51; Admin Dose 650 MG; Start 01/23/17 at 14:30 Acetaminophen/ Hydrocodone Bitart ([place] (5/325)) 1 tab Q6H PRN PO PAIN LEVEL 4 -6 Last administered on 01/30/17 12:19; Admin Dose 1 TAB; Start 01/23/17 at 14:30 Atorvastatin Calcium (Lipitor) 20 mg QHS PO Last administered on 01/29/17 20: 48; Admin Dose 20 MG; Start 01/23/17 at 21:00 Citalopram Hydrobromide (Celexa) 20 mg DAILY PO Last administered on 09:30; Admin Dose 20 MG; Start 01/24/17 at 09:00 Morphine Sulfate 1 mg 1 mg Q4H PRN IV PAIN Last administered on 01/28/17 03: 59; Admin Dose 1 MG; Start 01/24/17 at 04:30 Cefepime HCl/ Dextrose (Maxipime/D5W) 50 ml @ 100 mls/hr Q24H IVPB Last administered on 01/30/17 13:20; Admin Dose 100 MLS/HR; Start 01/26/17 at 14: 00 Sucralfate (Carafate Susp) 1 gm QID PO Last administered on 01/30/17 12:20; Admin Dose 1 GM; Start 01/26/17 at 19:00 Docusate Sodium (Colace Liquid Cup) 100 mg BID PO Last administered on 09:30; Admin Dose 100 MG; Start 01/27/17 at 09:00 Metoprolol Tartrate (Lopressor) 100 mg BID PO Last administered on 01/30/17 09:30; Admin Dose 100 MG; Start 01/27/17 at 21:00 Furosemide (Lasix) 20 mg DAILY PO Last administered on 01/30/17 09:30; Admin Dose 20 MG; Start 01/28/17 at 09:00 Pantoprazole (Protonix Tab) 40 mg BID@06,18 PO Last administered on 01/30/17 07:20; Admin Dose 40 MG; Start 01/28/17 at 18:00 CHEMO BURROWS Jan 30, 2017 15:08
--- NOTE | 2017-01-30 16:30 | PN ---
Date/Time of Note Date/Time of Note DATE: 01/30/17 TIME: 16:24 Assessment/Plan VTE Prophylaxis VTE Prophylaxis Intervention: SCD's Lines/Catheters IV C[facility]ter Type (from [facility]): Peripheral IV Urinary Cath still in place: Yes Reason Cath still needed: other (indicate) (monitor output) Assessment/Plan Chief Complaint/Hosp Course Chief Complaint/Hosp Course Assessment: Anemia multifactorial EGD 01/26/2017 6 mm clean base esophageal ulcer Distal esophagitis Small hiatal hernia Moderate gastritis. Rule out H. pylori infection. Biopsies obtained Otherwise normal EGD Over anticoagulation/resolved A-fib on metoprolol 25mg BID UTI- on antibiotics therapy Leucocytosis- likely secondary to UTI- on antibiotics/improved Plan: Continue PPI Hgb currently stable Continue to monitor H/H transfuse for Hgb less than 7.5 Patient seen in collaboration with DR. Jimenez Subjective: Course reviewed with nursing staff Patient interviewed and examined All labs, imaging and other results reviewed The patient appears comfortable Tolerating diet fairly, family at bedside We will continue present management Very cautious anticoagulation may be considered if absolutely necessary PHYSICAL EXAMINATION: GENERAL: Pale, ill-appearing, alert & oriented x 3, SKIN: No lesions, no stigmata chronic liver disease, no evidence of bleeding diathesis LYMPHATIC: No palpable lymphadenopathy. HEAD: Normocephalic, atraumatic, no tenderness. EYES: Pupils equal reactive to light and accommodation, full extraocular movements, sclera clear, non-icteric, no discharge. EARS/NOSE AND THROAT: Ears normal, nose normal, oropharynx normal, oral membranes well hydrated without lesions. NECK: Supple, no masses, CHEST: Inspection within normal limits. CARDIOVASCULAR: Heart: irregular rhythm. RESPIRATORY: Rales GASTROINTESTINAL AND LIVER: Abdomen: Soft, non tenderness, non-distended, no hernias, no masses, no organomegaly, no ascites, no guarding, no rebound tenderness, normoactive bowel sounds. Rectal: Deferred. GENITOURINARY: Female genitalia within normal limits. Problems: Exam/Review of Systems Vital Signs Vitals Vital Signs Date Time Temp Pulse Resp B/P Pulse Ox O2 Delivery O2 Flow Rate FiO2 01/30/17 16:23 82 01/30/17 16:20 98.2 20 103/62 99 01/30/17 12:00 Nasal Cannula 2.0 Intake and Output 01/29/17 01/29/17 01/30/17 14:59 22:59 06:59 Intake Total 1100 ml 100 ml Output Total 700 ml 350 ml Balance 400 ml -250 ml Results Result Diagram: 01/30/17 0701/30/17 0701 Results 24 hrs Laboratory Tests Test 01/30/17 07:01 White Blood Count 15.4 H Red Blood Count 3.63 L Hemoglobin 10.6 L Hematocrit 33.4 L Mean Corpuscular Volume 92.0 Mean Corpuscular Hemoglobin 29.2 Mean Corpuscular Hemoglobin Concent 31.7 L Red Cell Distribution Width 16.7 H Platelet Count 264 Mean Platelet Volume 11.6 H Neutrophils % 81.7 H Lymphocytes % 9.7 L Monocytes % 6.8 Eosinophils % 0.8 Basophils % 0.3 Nucleated Red Blood Cells % 0.0 Neutrophils # 12.6 H Lymphocytes # 1.5 Monocytes # 1.1 H Eosinophils # 0.1 Basophils # 0.0 Nucleated Red Blood Cells # 0.0 Sodium Level 140 Potassium Level 3.5 Chloride Level 104 Carbon Dioxide Level 29 Anion Gap 11 Blood Urea Nitrogen 33 H Creatinine 0.87 Glucose Level 97 Calcium Level 8.3 L Phosphorus Level 3.1 Magnesium Level 2.5 Medications Medications Current Medications Ondansetron HCl (Zofran Inj) 4 mg Q6H PRN IV NAUSEA AND/OR VOMITING; Start at 14:30 Acetaminophen (Tylenol Tab) 650 mg Q6H PRN PO PAIN LEVEL 1-3 OR FEVER Last administered on 01/26/17 13:51; Admin Dose 650 MG; Start 01/23/17 at 14:30 Acetaminophen/ Hydrocodone Bitart ([place] (5/325)) 1 tab Q6H PRN PO PAIN LEVEL 4 -6 Last administered on 01/30/17 12:19; Admin Dose 1 TAB; Start 01/23/17 at 14:30 Atorvastatin Calcium (Lipitor) 20 mg QHS PO Last administered on 01/29/17 20: 48; Admin Dose 20 MG; Start 01/23/17 at 21:00 Citalopram Hydrobromide (Celexa) 20 mg DAILY PO Last administered on 09:30; Admin Dose 20 MG; Start 01/24/17 at 09:00 Morphine Sulfate 1 mg 1 mg Q4H PRN IV PAIN Last administered on 01/28/17 03: 59; Admin Dose 1 MG; Start 01/24/17 at 04:30 Cefepime HCl/ Dextrose (Maxipime/D5W) 50 ml @ 100 mls/hr Q24H IVPB Last administered on 01/30/17 13:20; Admin Dose 100 MLS/HR; Start 01/26/17 at 14: 00 Sucralfate (Carafate Susp) 1 gm QID PO Last administered on 01/30/17 12:20; Admin Dose 1 GM; Start 01/26/17 at 19:00 Docusate Sodium (Colace Liquid Cup) 100 mg BID PO Last administered on 09:30; Admin Dose 100 MG; Start 01/27/17 at 09:00 Metoprolol Tartrate (Lopressor) 100 mg BID PO Last administered on 01/30/17 09:30; Admin Dose 100 MG; Start 01/27/17 at 21:00 Furosemide (Lasix) 20 mg DAILY PO Last administered on 01/30/17 09:30; Admin Dose 20 MG; Start 01/28/17 at 09:00 Pantoprazole (Protonix Tab) 40 mg BID@06,18 PO Last administered on 01/30/17 07:20; Admin Dose 40 MG; Start 01/28/17 at 18:00 GUSTAVO MACIAS Jan 30, 2017 16:30
--- NOTE | 2017-01-30 20:11 | CONS ---
Date/Time of Note Date/Time of Note DATE: 01/30/17 TIME: 20:10 Assessment/Plan Assessment/Plan Chief Complaint/Hosp Course 1. Hypernatremia, resolved 2. Severe anemia, improved 3. Acute renal failure. 4. Elevated INR> improved, theraputic level 5. Urinary tract infection with GNR 6. Elevated BNP. 7. History of hypertension. 8. Hypothyroidism. 9. Pneumonia. 10. 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 11. SIRS 12. hypokalemia today Problems: Additional Assessment/Plan 1. Optimization kidney function Consultation Date/Type/Reason Admit Date/Time Jan 23, 2017 at 13:10 Initial Consult Date 01/23/17 Type of Consultation: nephrology Reason for Consultation Dr Costa Referring Provider: SANCHEZ APARICIO TURBINE ATTENDANT 24 HR Interval Summary Constitutional: improved, no complaints Exam/Review of Systems Vital Signs Vitals Vital Signs Date Time Temp Pulse Resp B/P Pulse Ox O2 Delivery O2 Flow Rate FiO2 01/30/17 20:05 90 01/30/17 16:33 Nasal Cannula 2.0 01/30/17 16:20 99.4 20 96/48 98 Intake and Output 01/29/17 01/29/17 01/30/17 15:00 23:00 07:00 Intake Total 1100 ml 100 ml Output Total 700 ml 350 ml Balance 400 ml -250 ml Exam pale, weak Constitutional: alert, oriented ENMT: nl external ears & nose Neck: supple Respiratory: diminished breath sounds Cardiovascular: irregular rhythm Gastrointestinal: soft Results Result Diagram: 01/30/17 0701 01/30/17 0701 Results 24 hrs Laboratory Tests Test 01/30/17 07:01 White Blood Count 15.4 H Red Blood Count 3.63 L Hemoglobin 10.6 L Hematocrit 33.4 L Mean Corpuscular Volume 92.0 Mean Corpuscular Hemoglobin 29.2 Mean Corpuscular Hemoglobin Concent 31.7 L Red Cell Distribution Width 16.7 H Platelet Count 264 Mean Platelet Volume 11.6 H Neutrophils % 81.7 H Lymphocytes % 9.7 L Monocytes % 6.8 Eosinophils % 0.8 Basophils % 0.3 Nucleated Red Blood Cells % 0.0 Neutrophils # 12.6 H Lymphocytes # 1.5 Monocytes # 1.1 H Eosinophils # 0.1 Basophils # 0.0 Nucleated Red Blood Cells # 0.0 Sodium Level 140 Potassium Level 3.5 Chloride Level 104 Carbon Dioxide Level 29 Anion Gap 11 Blood Urea Nitrogen 33 H Creatinine 0.87 Glucose Level 97 Calcium Level 8.3 L Phosphorus Level 3.1 Magnesium Level 2.5 Medications Medications Current Medications Ondansetron HCl (Zofran Inj) 4 mg Q6H PRN IV NAUSEA AND/OR VOMITING; Start at 14:30 Acetaminophen (Tylenol Tab) 650 mg Q6H PRN PO PAIN LEVEL 1-3 OR FEVER Last administered on 01/26/17 13:51; Admin Dose 650 MG; Start 01/23/17 at 14:30 Acetaminophen/ Hydrocodone Bitart ([place] (5/325)) 1 tab Q6H PRN PO PAIN LEVEL 4 -6 Last administered on 01/30/17 12:19; Admin Dose 1 TAB; Start 01/23/17 at 14:30 Atorvastatin Calcium (Lipitor) 20 mg QHS PO Last administered on 01/29/17 20: 48; Admin Dose 20 MG; Start 01/23/17 at 21:00 Citalopram Hydrobromide (Celexa) 20 mg DAILY PO Last administered on 09:30; Admin Dose 20 MG; Start 01/24/17 at 09:00 Morphine Sulfate 1 mg 1 mg Q4H PRN IV PAIN Last administered on 01/28/17 03: 59; Admin Dose 1 MG; Start 01/24/17 at 04:30 Cefepime HCl/ Dextrose (Maxipime/D5W) 50 ml @ 100 mls/hr Q24H IVPB Last administered on 01/30/17 13:20; Admin Dose 100 MLS/HR; Start 01/26/17 at 14: 00 Sucralfate (Carafate Susp) 1 gm QID PO Last administered on 01/30/17 17:56; Admin Dose 1 GM; Start 01/26/17 at 19:00 Docusate Sodium (Colace Liquid Cup) 100 mg BID PO Last administered on 09:30; Admin Dose 100 MG; Start 01/27/17 at 09:00 Metoprolol Tartrate (Lopressor) 100 mg BID PO Last administered on 01/30/17 09:30; Admin Dose 100 MG; Start 01/27/17 at 21:00 Furosemide (Lasix) 20 mg DAILY PO Last administered on 01/30/17 09:30; Admin Dose 20 MG; Start 01/28/17 at 09:00 Pantoprazole (Protonix Tab) 40 mg BID@,18 PO Last administered on 01/30/17 17:56; Admin Dose 40 MG; Start 01/28/17 at 18:00 KEVIN PEREZ Jan 30, 2017 20:11
[2017-01-30] MEDS: ATORVASTATIN 20 MG TAB PO SCH (21:10)
[2017-01-31] VITALS (12 sets, daily range): BP systolic 108–125; BP diastolic 51–76; PULSE 68–99; RESP 16–20
[2017-01-31] MEDS: LEVOTHYROXINE 50 MCG TAB PO SCH (06:36)
[2017-01-31] MEDS: PANTOPRAZOLE (EC) 40 MG TAB PO SCH ×2 (06:36→17:55)
[2017-01-31 08:11] LABS: BASOPHIL # 0.1 10^3/ul (0.0-0.1); BASOPHILS % 0.4 % (0.0-2.0); EOSINOPHILS # 0.1 10^3/ul (0.0-0.5); EOSINOPHILS % 0.6 % (0.0-7.0); HEMATOCRIT 30.1 % (37.0-47.0); HEMOGLOBIN 9.7 g/dl (12.0-16.0); LYMPHOCYTES # 1.1 10^3/ul (0.8-2.9); LYMPHOCYTES % 6.2 % (15.0-51.0); MEAN CORPUSCULAR HEMOGLOBIN 29.5 pg (29.0-33.0); MEAN CORPUSCULAR HGB CONC 32.2 g/dl (32.0-37.0); MEAN CORPUSCULAR VOLUME 91.5 fl (82.0-101.0); MEAN PLATELET VOLUME 11.9 fl (7.4-10.4); MONOCYTE # 1.3 10^3/ul (0.3-0.9); MONOCYTES % 7.1 % (0.0-11.0); NEUTROPHIL # 15.3 10^3/ul (1.6-7.5); NEUTROPHILS % 85.1 % (39.0-77.0); PLATELET COUNT 298 10^3/UL (140-415); RED BLOOD COUNT 3.29 10^6/ul (4.20-5.40); RED CELL DISTRIBUTION WIDTH 16.9 % (11.5-14.5)
[2017-01-31 08:37] LABS: CALCIUM 8.3 mg/dl (8.4-10.2); CREATININE 0.82 mg/dl (0.44-1.00); POTASSIUM 3.3 mmol/L (3.5-5.1)
[2017-01-31] MEDS: DOCUSATE SODIUM 10 MG/ML (10ML CUP) PO SCH ×2 (09:32→21:39)
[2017-01-31] MEDS: FUROSEMIDE 20 MG TAB PO SCH (09:33)
[2017-01-31] MEDS: CITALOPRAM 20 MG TAB PO SCH (09:33)
[2017-01-31] MEDS: SUCRALFATE (100 MG/ML) 10ML CUP PO SCH ×4 (09:33→21:39)
[2017-01-31] MEDS: METOPROLOL 100 MG TAB PO SCH ×2 (09:34→21:40)
[2017-01-31] MEDS ORDERED: POTASSIUM CHLORIDE (SR) 20 MEQ TAB PO STA (09:38)
--- NOTE | 2017-01-31 09:45 | PN ---
Date/Time of Note Date/Time of Note DATE: 01/31/17 TIME: 09:40 Assessment/Plan VTE Prophylaxis VTE Prophylaxis Intervention: SCD's Lines/Catheters IV Catheter Type (from Nrs): Peripheral IV Urinary Cath still in place: Yes Reason Cath still needed: other (indicate) (monitor I&O) Assessment/Plan Chief Complaint/Hosp Course Assessment and plan 1. Sepsis secondary to underlying UTI. Continue antibiotics. Afebrile present. Stable at present. 2. Coagulopathy. Secondary to Coumadin toxicity. Off of Coumadin at this time. Resume per waste transportation technician. Improved status post vitamin K and fresh frozen plasma administration 3. Atrial fibrillation with RVR. Patient is status post Cardizem IV. Continue on beta-iraida. Continue telemetry monitoring. 4. Acute kidney injury. Improving at present. Irrigation Tax Assessor Collector following. Medications to be renally dosed. 5. Symptomatic anemia. Improved status post blood transfusion. GI following. Status post EGD that showed a 6 mm clean-based esophageal ulcer and distal esophagitis and also moderate gastritis. Continue PPI medication. Monitor H& H. Continue on Carafate. 6. Essential hypertension. Continue antihypertensives and adjust as needed. 7. 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 Continue optimization with beta iraida. No MEHRAN inhibitor at this time due to recent CKD. 8. Acute on chronic systolic heart failure. Continue diuresis per cardiology. 9. Pulmonary hypertension with PA systolic pressure of 52 mmHg. Continue with O2 as needed. Diuretics per waste transportation technician . 10. Hypothyroidism. Continue Synthroid 11. Reported dysphagia. Continue with. [place] thick liquids. Continue with ST or conditions. 12. 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 Continue with conservative management patient for outpatient follow. 13. Pleural effusion. Patient was consulted by ship liner. Follow-up with recommendations. No plan for thoracentesis at this time. monitor for improvement Disposition plan: no s/s of respiratory distress. comfortable at present. d/c when cleared by consultants Discussed plan of care with Problems: Subjective 24 Hr Interval Summary Free Text/Dictation Appears to be breathing better at this time. No specific complaints. No signs of distress. Exam/Review of Systems Vital Signs Vitals Vital Signs Date Time Temp Pulse Resp B/P Pulse Ox O2 Delivery O2 Flow Rate FiO2 01/31/17 08:19 98.4 86 18 125/52 95 01/30/17 20:00 Nasal Cannula 2.0 Intake and Output 01/30/17 01/30/17 01/31/17 15:00 23:00 07:00 Intake Total 480 ml Output Total 800 ml Balance -320 ml Exam Constitutional: alert, oriented Psych: nl mood/affect Head: normocephalic Eyes: nl conjunctiva Neck: supple Respiratory: minimally diminished at base. no obvious wheezing Cardiovascular: regular rate and rhythm Gastrointestinal: non-tender, soft Musculoskeletal: No nl gait and stance Neurological: HIGH SCHOOL ACADEMIC COACH II-XII intact, nl mental status, nl speech Skin: nl turgor Results Result Diagram: 01/31/17 0744 01/31/17 0744 Results 24 hrs Laboratory Tests Test 01/31/17 07:44 White Blood Count 18.0 H Red Blood Count 3.29 L Hemoglobin 9.7 L Hematocrit 30.1 L Mean Corpuscular Volume 91.5 Mean Corpuscular Hemoglobin 29.5 Mean Corpuscular Hemoglobin Concent 32.2 Red Cell Distribution Width 16.9 H Platelet Count 298 Mean Platelet Volume 11.9 H Neutrophils % 85.1 H Lymphocytes % 6.2 L Monocytes % 7.1 Eosinophils % 0.6 Basophils % 0.4 Nucleated Red Blood Cells % 0.0 Neutrophils # 15.3 H Lymphocytes # 1.1 Monocytes # 1.3 H Eosinophils # 0.1 Basophils # 0.1 Nucleated Red Blood Cells # 0.0 Sodium Level 140 Potassium Level 3.3 L Chloride Level 104 Carbon Dioxide Level 28 Anion Gap 11 Blood Urea Nitrogen 39 H Creatinine 0.82 Glucose Level 93 Calcium Level 8.3 L Medications Medications Current Medications Ondansetron HCl (Zofran Inj) 4 mg Q6H PRN IV NAUSEA AND/OR VOMITING; Start at 14:30 Acetaminophen (Tylenol Tab) 650 mg Q6H PRN PO PAIN LEVEL 1-3 OR FEVER Last administered on 01/26/17 13:51; Admin Dose 650 MG; Start 01/23/17 at 14:30 Acetaminophen/ Hydrocodone Bitart ([place] (5/325)) 1 tab Q6H PRN PO PAIN LEVEL 4 -6 Last administered on 01/30/17 22:15; Admin Dose 1 TAB; Start 01/23/17 at 14:30 Atorvastatin Calcium (Lipitor) 20 mg QHS PO Last administered on 01/30/17 21: 10; Admin Dose 20 MG; Start 01/23/17 at 21:00 Citalopram Hydrobromide (Celexa) 20 mg DAILY PO Last administered on 09:33; Admin Dose 20 MG; Start 01/24/17 at 09:00 Morphine Sulfate 1 mg 1 mg Q4H PRN IV PAIN Last administered on 01/28/17 03: 59; Admin Dose 1 MG; Start 01/24/17 at 04:30 Cefepime HCl/ Dextrose (Maxipime/D5W) 50 ml @ 100 mls/hr Q24H IVPB Last administered on 01/30/17 13:20; Admin Dose 100 MLS/HR; Start 01/26/17 at 14: 00 Sucralfate (Carafate Susp) 1 gm QID PO Last administered on 01/31/17 09:33; Admin Dose 1 GM; Start 01/26/17 at 19:00 Docusate Sodium (Colace Liquid Cup) 100 mg BID PO Last administered on 09:32; Admin Dose 100 MG; Start 01/27/17 at 09:00 Metoprolol Tartrate (Lopressor) 100 mg BID PO Last administered on 01/31/17 09:34; Admin Dose 100 MG; Start 01/27/17 at 21:00 Furosemide (Lasix) 20 mg DAILY PO Last administered on 01/31/17 09:33; Admin Dose 20 MG; Start 01/28/17 at 09:00 Pantoprazole (Protonix Tab) 40 mg BID@06,18 PO Last administered on 01/31/17 06:36; Admin Dose 40 MG; Start 01/28/17 at 18:00 CHEMO BURROWS Jan 31, 2017 09:45
[2017-01-31] MEDS ORDERED: METO-407 PO (11:30)
[2017-01-31] MEDS ORDERED: CITA20TA11 PO (11:30)
[2017-01-31] MEDS ORDERED: PANT40TA4 PO (11:30)
[2017-01-31] MEDS ORDERED: LEVO50TA83 PO (11:30)
[2017-01-31] MEDS ORDERED: CARAS PO (11:30)
[2017-01-31] MEDS ORDERED: LAS20 PO (11:30)
[2017-01-31] MEDS: HYDROCODONE/APAP (5/325) TAB PO PRN (12:09)
--- NOTE | 2017-01-31 12:31 | CONS ---
KEVIN PEREZ 01/31/17 1231: Date/Time of Note Date/Time of Note DATE: 01/31/17 TIME: 12:31 Assessment/Plan Assessment/Plan Chief Complaint/Hosp Course 1. Hypernatremia, resolved 2. Severe anemia, improved 3. Acute renal failure. 4. Elevated INR> improved, theraputic level 5. Urinary tract infection with GNR 6. Elevated BNP. 7. History of hypertension. 8. Hypothyroidism. 9. Pneumonia. 10. 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 11. SIRS 12. hypokalemia today Problems: Additional Assessment/Plan 1. hypokalemia was supplemented today 2. high BUN can be due GI bleed 3. Creatinine normal Consultation Date/Type/Reason Admit Date/Time Jan 23, 2017 at 13:10 Initial Consult Date 01/23/17 Type of Consultation: nephrology Referring Provider: SANCHEZ APARICIO NP 24 HR Interval Summary Constitutional: poor po Exam/Review of Systems Vital Signs Vitals Vital Signs Date Time Temp Pulse Resp B/P Pulse Ox O2 Delivery O2 Flow Rate FiO2 01/31/17 12:17 97 01/31/17 12:11 97.9 17 108/51 95 01/31/17 08:00 Nasal Cannula 2.0 Intake and Output 01/30/17 01/30/17 01/31/17 14:59 22:59 06:59 Intake Total 480 ml Output Total 800 ml Balance -320 ml Exam Constitutional: alert, frail, oriented Head: normocephalic ENMT: nl external ears & nose Respiratory: diminished breath sounds Cardiovascular: regular rate and rhythm Results Result Diagram: 01/31/17 0744 01/31/17 0744 Results 24 hrs Laboratory Tests Test 01/31/17 07:44 White Blood Count 18.0 H Red Blood Count 3.29 L Hemoglobin 9.7 L Hematocrit 30.1 L Mean Corpuscular Volume 91.5 Mean Corpuscular Hemoglobin 29.5 Mean Corpuscular Hemoglobin Concent 32.2 Red Cell Distribution Width 16.9 H Platelet Count 298 Mean Platelet Volume 11.9 H Neutrophils % 85.1 H Lymphocytes % 6.2 L Monocytes % 7.1 Eosinophils % 0.6 Basophils % 0.4 Nucleated Red Blood Cells % 0.0 Neutrophils # 15.3 H Lymphocytes # 1.1 Monocytes # 1.3 H Eosinophils # 0.1 Basophils # 0.1 Nucleated Red Blood Cells # 0.0 Sodium Level 140 Potassium Level 3.3 L Chloride Level 104 Carbon Dioxide Level 28 Anion Gap 11 Blood Urea Nitrogen 39 H Creatinine 0.82 Glucose Level 93 Calcium Level 8.3 L Medications Medications Current Medications Ondansetron HCl (Zofran Inj) 4 mg Q6H PRN IV NAUSEA AND/OR VOMITING; Start at 14:30 Acetaminophen (Tylenol Tab) 650 mg Q6H PRN PO PAIN LEVEL 1-3 OR FEVER Last administered on 01/26/17 13:51; Admin Dose 650 MG; Start 01/23/17 at 14:30 Acetaminophen/ Hydrocodone Bitart ([place] (5/325)) 1 tab Q6H PRN PO PAIN LEVEL 4 -6 Last administered on 01/31/17 12:09; Admin Dose 1 TAB; Start 01/23/17 at 14:30 Atorvastatin Calcium (Lipitor) 20 mg QHS PO Last administered on 01/30/17 21: 10; Admin Dose 20 MG; Start 01/23/17 at 21:00 Citalopram Hydrobromide (Celexa) 20 mg DAILY PO Last administered on 09:33; Admin Dose 20 MG; Start 01/24/17 at 09:00 Morphine Sulfate 1 mg 1 mg Q4H PRN IV PAIN Last administered on 01/28/17 03: 59; Admin Dose 1 MG; Start 01/24/17 at 04:30 Cefepime HCl/ Dextrose (Maxipime/D5W) 50 ml @ 100 mls/hr Q24H IVPB Last administered on 01/30/17 13:20; Admin Dose 100 MLS/HR; Start 01/26/17 at 14: 00 Sucralfate (Carafate Susp) 1 gm QID PO Last administered on 01/31/17 12:08; Admin Dose 1 GM; Start 01/26/17 at 19:00 Docusate Sodium (Colace Liquid Cup) 100 mg BID PO Last administered on 09:32; Admin Dose 100 MG; Start 01/27/17 at 09:00 Metoprolol Tartrate (Lopressor) 100 mg BID PO Last administered on 01/31/17 09:34; Admin Dose 100 MG; Start 01/27/17 at 21:00 Furosemide (Lasix) 20 mg DAILY PO Last administered on 01/31/17 09:33; Admin Dose 20 MG; Start 01/28/17 at 09:00 Pantoprazole (Protonix Tab) 40 mg BID@ PO Last administered on 01/31/17 06:36; Admin Dose 40 MG; Start 01/28/17 at 18:00 LIZZETTE BLANC MD 01/31/17 1802: Assessment/Plan Assessment/Plan Additional Assessment/Plan Cr normalised. low dose lasix po Exam/Review of Systems Results Result Diagram: 01/31/17 0744 01/31/17 0744 KEVIN PEREZ Jan 31, 2017 12:31 LIZZETTE BLANC MD Jan 31, 2017 18:02
--- NOTE | 2017-01-31 14:14 | CONS ---
Date/Time of Note Date/Time of Note DATE: 01/31/17 TIME: 14:11 Consult Date/Type/Reason Admit Date/Time Jan 23, 2017 at 13:10 Initial Consult Date 01/30/17 Type of Consultation: Pulmonary Ordering Provider: SANCHEZ APARICIO GREENS TIER Subjective Food in mouth but clearly having difficulty swallowing. Objective Vital Signs Date Time Temp Pulse Resp B/P Pulse Ox O2 Delivery O2 Flow Rate FiO2 01/31/17 12:17 97 01/31/17 12:11 97.9 17 108/51 95 01/31/17 08:00 Nasal Cannula 2.0 Intake and Output 01/30/17 01/30/17 01/31/17 14:59 22:59 06:59 Intake Total 480 ml Output Total 800 ml Balance -320 ml Exam GENERAL: Thin elderly lady appears comfortable no acute distress. VITAL SIGNS: per chart NECK: Supple. No JVD or lymphadenopathy. CARDIAC EXAM: S1, S2. No added sounds or murmurs. CHEST: clear bilaterally, No added sounds, rales or wheezes ABDOMEN: Soft, nontender. No guarding or rebound. EXTREMITIES: No cyanosis, clubbing or edema. NEUROLOGIC: Generalized weakness. No focal deficits. Results/Medications Result Diagram: 01/31/17 0744 01/31/17 0744 Results 24 hrs Laboratory Tests Test 01/31/17 07:44 White Blood Count 18.0 H Red Blood Count 3.29 L Hemoglobin 9.7 L Hematocrit 30.1 L Mean Corpuscular Volume 91.5 Mean Corpuscular Hemoglobin 29.5 Mean Corpuscular Hemoglobin Concent 32.2 Red Cell Distribution Width 16.9 H Platelet Count 298 Mean Platelet Volume 11.9 H Neutrophils % 85.1 H Lymphocytes % 6.2 L Monocytes % 7.1 Eosinophils % 0.6 Basophils % 0.4 Nucleated Red Blood Cells % 0.0 Neutrophils # 15.3 H Lymphocytes # 1.1 Monocytes # 1.3 H Eosinophils # 0.1 Basophils # 0.1 Nucleated Red Blood Cells # 0.0 Sodium Level 140 Potassium Level 3.3 L Chloride Level 104 Carbon Dioxide Level 28 Anion Gap 11 Blood Urea Nitrogen 39 H Creatinine 0.82 Glucose Level 93 Calcium Level 8.3 L Medications Current Medications Ondansetron HCl (Zofran Inj) 4 mg Q6H PRN IV NAUSEA AND/OR VOMITING; Start at 14:30 Acetaminophen (Tylenol Tab) 650 mg Q6H PRN PO PAIN LEVEL 1-3 OR FEVER Last administered on 01/26/17 13:51; Admin Dose 650 MG; Start 01/23/17 at 14:30 Acetaminophen/ Hydrocodone Bitart ([place] (5/325)) 1 tab Q6H PRN PO PAIN LEVEL 4 -6 Last administered on 01/31/17 12:09; Admin Dose 1 TAB; Start 01/23/17 at 14:30 Atorvastatin Calcium (Lipitor) 20 mg QHS PO Last administered on 01/30/17 21: 10; Admin Dose 20 MG; Start 01/23/17 at 21:00 Citalopram Hydrobromide (Celexa) 20 mg DAILY PO Last administered on 09:33; Admin Dose 20 MG; Start 01/24/17 at 09:00 Morphine Sulfate 1 mg 1 mg Q4H PRN IV PAIN Last administered on 01/28/17 03: 59; Admin Dose 1 MG; Start 01/24/17 at 04:30 Cefepime HCl/ Dextrose (Maxipime/D5W) 50 ml @ 100 mls/hr Q24H IVPB Last administered on 01/30/17 13:20; Admin Dose 100 MLS/HR; Start 01/26/17 at 14: 00 Sucralfate (Carafate Susp) 1 gm QID PO Last administered on 01/31/17 12:08; Admin Dose 1 GM; Start 01/26/17 at 19:00 Docusate Sodium (Colace Liquid Cup) 100 mg BID PO Last administered on 09:32; Admin Dose 100 MG; Start 01/27/17 at 09:00 Metoprolol Tartrate (Lopressor) 100 mg BID PO Last administered on 01/31/17 09:34; Admin Dose 100 MG; Start 01/27/17 at 21:00 Furosemide (Lasix) 20 mg DAILY PO Last administered on 01/31/17 09:33; Admin Dose 20 MG; Start 01/28/17 at 09:00 Pantoprazole (Protonix Tab) 40 mg BID@,18 PO Last administered on 01/31/17 06:36; Admin Dose 40 MG; Start 11/19/17 at 18:00 Assessment/Plan Chief Complaint/Hosp Course Assessment 1. Likely significant aspiration risk 2. Persistent leukocytosis 3. Left pleural effusion 4. History of pancreatic cancer tail of pancreas not operated on. Plan 1. Thoracentesis given persistent leukocytosis 2. Continue antibiotics 3. Aspiration precautions speech therapy recommendations 4. [place] eval. Problems: TYRON MEANS MD, [facility] Jan 31, 2017 14:14
--- NOTE | 2017-01-31 14:20 | CONS ---
Date/Time of Note Date/Time of Note DATE: 01/31/17 TIME: 14:19 Assessment/Plan Assessment/Plan Chief Complaint/Hosp Course SUBJECTIVE: No acute events overnight. Awake, looks comfortable, afebrile. MICROBIOLOGY: Blood cultures remain negative. Urine culture grew E coli. ANTIMICROBIALS: IV cefepime DIAGNOSTICS: CT of the brain on admission revealed no acute intracranial abnormality, severe patchy and confluent periventricular and subcortical white matter hyperdensity likely related to chronic microangiopathic changes, remote infarct involving the left frontal operculum. Remote lacunar infarct involving paramedial right thalamus and the left thalamus. No evidence of acute infarct. Chest x-ray on admission revealed left lower lobe opacification, questionable pneumonia versus atelectasis. Renal ultrasound showed echogenic kidneys consistent with medical renal disease, no evidence of hydronephrosis. PHYSICAL EXAMINATION: GENERAL: This is a fragile, chronically ill-appearing, elderly woman who is in no distress. HEENT: Head atraumatic, normocephalic. Sclerae anicteric. Buccal mucosa dry. NECK: Supple. CHEST: Rise symmetrical. Breath sounds diminished to bases, more on the Left. HEART: S1, S2. ABDOMEN: Soft. Bowel tones hypoactive. EXTREMITIES: Without cyanosis or edema. ASSESSMENT: 1. S/p sepsis with leukocytosis and encephalopathy, rapid atrial fibrillation, low grade fever and admission. 2. Urinary tract infection. 3. LLL pneumonia with moderate pleural effusion. 4. Coagulopathy from Coumadin toxicity. 5. Status post rapid atrial fibrillation. 6. Acute kidney injury. 7. Symptomatic anemia, status post blood transfusion. 8. Pancreatic ca 9. Failure to thrive PLAN: Clinically unchanged, with worsening leukocytosis, per pulmonary notes no evidence of infectious pulmonary process, will repeat cultures, continue present care, aspiration precautions. DW staff Problems: Consultation Date/Type/Reason Admit Date/Time Jan 23, 2017 at 13:10 Initial Consult Date 01/23/17 Type of Consultation: ID Referring Provider: SANCHEZ APARICIO CLINICAL TECHNOLOGIST Exam/Review of Systems Vital Signs Vitals Vital Signs Date Time Temp Pulse Resp B/P Pulse Ox O2 Delivery O2 Flow Rate FiO2 01/31/17 12:17 97 01/31/17 12:11 97.9 17 108/51 95 01/31/17 08:00 Nasal Cannula 2.0 Intake and Output 01/30/17 01/30/1701/31/17 15:00 23:00 07:00 Intake Total 480 ml Output Total 800 ml Balance -320 ml Results Result Diagram: 01/31/1744 01/31/17 0744 Results 24 hrs Laboratory Tests Test 01/31/17 07:44 White Blood Count 18.0 H Red Blood Count 3.29 L Hemoglobin 9.7 L Hematocrit 30.1 L Mean Corpuscular Volume 91.5 Mean Corpuscular Hemoglobin 29.5 Mean Corpuscular Hemoglobin Concent 32.2 Red Cell Distribution Width 16.9 H Platelet Count 298 Mean Platelet Volume 11.9 H Neutrophils % 85.1 H Lymphocytes % 6.2 L Monocytes % 7.1 Eosinophils % 0.6 Basophils % 0.4 Nucleated Red Blood Cells % 0.0 Neutrophils # 15.3 H Lymphocytes # 1.1 Monocytes # 1.3 H Eosinophils # 0.1 Basophils # 0.1 Nucleated Red Blood Cells # 0.0 Sodium Level 140 Potassium Level 3.3 L Chloride Level 104 Carbon Dioxide Level 28 Anion Gap 11 Blood Urea Nitrogen 39 H Creatinine 0.82 Glucose Level 93 Calcium Level 8.3 L Medications Medications Current Medications Ondansetron HCl (Zofran Inj) 4 mg Q6H PRN IV NAUSEA AND/OR VOMITING; Start at 14:30 Acetaminophen (Tylenol Tab) 650 mg Q6H PRN PO PAIN LEVEL 1-3 OR FEVER Last administered on 01/26/17 13:51; Admin Dose 650 MG; Start 01/23/17 at 14:30 Acetaminophen/ Hydrocodone Bitart ([place] (5/325)) 1 tab Q6H PRN PO PAIN LEVEL 4 -6 Last administered on 01/31/17 12:09; Admin Dose 1 TAB; Start 01/23/17 at 14:30 Atorvastatin Calcium (Lipitor) 20 mg QHS PO Last administered on 01/30/17 21: 10; Admin Dose 20 MG; Start 01/23/17 at 21:00 Citalopram Hydrobromide (Celexa) 20 mg DAILY PO Last administered on 09:33; Admin Dose 20 MG; Start 01/24/17 at 09:00 Morphine Sulfate 1 mg 1 mg Q4H PRN IV PAIN Last administered on 01/28/17 03: 59; Admin Dose 1 MG; Start 01/24/17 at 04:30 Cefepime HCl/ Dextrose (Maxipime/D5W) 50 ml @ 100 mls/hr Q24H IVPB Last administered on 01/30/17 13:20; Admin Dose 100 MLS/HR; Start 01/26/17 at 14: 00 Sucralfate (Carafate Susp) 1 gm QID PO Last administered on 01/31/17 12:08; Admin Dose 1 GM; Start 01/26/17 at 19:00 Docusate Sodium (Colace Liquid Cup) 100 mg BID PO Last administered on 09:32; Admin Dose 100 MG; Start 01/27/17 at 09:00 Metoprolol Tartrate (Lopressor) 100 mg BID PO Last administered on 01/31/17 09:34; Admin Dose 100 MG; Start 01/27/17 at 21:00 Furosemide (Lasix) 20 mg DAILY PO Last administered on 01/31/17 09:33; Admin Dose 20 MG; Start 01/28/17 at 09:00 Pantoprazole (Protonix Tab) 40 mg BID@06,18 PO Last administered on 01/31/17 06:36; Admin Dose 40 MG; Start 01/28/17 at 18:00 SHELIA HUFF NP Jan 31, 2017 14:20
[2017-01-31] MEDS: CEFEPIME HCL 1 GM in DEXTROSE 5% 50 ML IVPB SCH (14:50)
--- NOTE | 2017-01-31 15:22 | CONS ---
Date/Time of Note Date/Time of Note DATE: 01/31/17 TIME: 15:21 Assessment/Plan Assessment/Plan Chief Complaint/Hosp Course Acute on chronic systolic/valvular heart failure: EF 45%, mod MR/AR and mod- severe TR. Likely from blood products and aggressive IV hydration. Euvolemic Chronic Afib with RVR: Partially compensatory to multiple active issues. HR better controlled Coagulopathy: INR >10 on admission, now normalized Anemia with upper GI bleed: Hgb 6.6 on admission, now improved with transfusion. EGD with esophageal ulcer Sepsis secondary to UTI UTI Acute vs chronic renal failure Pancreatic ca -lasix 20mg PO daily to keep even -metoprolol 100mg BID -continue to hold coumadin until ok per GI Problems: Consultation Date/Type/Reason Admit Date/Time Jan 23, 2017 at 13:10 Initial Consult Date 01/23/17 Type of Consultation: Cardiology Referring Provider: SANCHEZ APARICIO NP 24 HR Interval Summary Free Text/Dictation HR controlled. No SOB Exam/Review of Systems Vital Signs Vitals Vital Signs Date Time Temp Pulse Resp B/P Pulse Ox O2 Delivery O2 Flow Rate FiO2 01/31/17 12:17 97 01/31/17 12:11 97.9 17 108/51 95 01/31/17 08:00 Nasal Cannula 2.0 Intake and Output 01/30/17 01/30/17 01/31/17 15:00 23:00 07:00 Intake Total 480 ml Output Total 800 ml Balance -320 ml Exam Constitutional: alert Psych: nl mood/affect, no complaints Head: atraumatic, normocephalic Neck: supple, No jvd Respiratory: clear to auscultation, No crackles/rales Cardiovascular: systolic murmur (2/6 RONNY), No edema, No regular rate and rhythm Gastrointestinal: non-tender, soft Neurological: nl mental status, nl speech Results Result Diagram: 01/31/17 0744 01/31/17 0744 Results 24 hrs Laboratory Tests Test 01/31/17 07:44 White Blood Count 18.0 H Red Blood Count 3.29 L Hemoglobin 9.7 L Hematocrit 30.1 L Mean Corpuscular Volume 91.5 Mean Corpuscular Hemoglobin 29.5 Mean Corpuscular Hemoglobin Concent 32.2 Red Cell Distribution Width 16.9 H Platelet Count 298 Mean Platelet Volume 11.9 H Neutrophils % 85.1 H Lymphocytes % 6.2 L Monocytes % 7.1 Eosinophils % 0.6 Basophils % 0.4 Nucleated Red Blood Cells % 0.0 Neutrophils # 15.3 H Lymphocytes # 1.1 Monocytes # 1.3 H Eosinophils # 0.1 Basophils # 0.1 Nucleated Red Blood Cells # 0.0 Sodium Level 140 Potassium Level 3.3 L Chloride Level 104 Carbon Dioxide Level 28 Anion Gap 11 Blood Urea Nitrogen 39 H Creatinine 0.82 Glucose Level 93 Calcium Level 8.3 L Medications Medications Current Medications Ondansetron HCl (Zofran Inj) 4 mg Q6H PRN IV NAUSEA AND/OR VOMITING; Start at 14:30 Acetaminophen (Tylenol Tab) 650 mg Q6H PRN PO PAIN LEVEL 1-3 OR FEVER Last administered on 01/26/17 13:51; Admin Dose 650 MG; Start 01/23/17 at 14:30 Acetaminophen/ Hydrocodone Bitart ([place] (5/325)) 1 tab Q6H PRN PO PAIN LEVEL 4 -6 Last administered on 01/31/17 12:09; Admin Dose 1 TAB; Start 01/23/17 at 14:30 Atorvastatin Calcium (Lipitor) 20 mg QHS PO Last administered on 01/30/17 21: 10; Admin Dose 20 MG; Start 01/23/17 at 21:00 Citalopram Hydrobromide (Celexa) 20 mg DAILY PO Last administered on 09:33; Admin Dose 20 MG; Start 01/24/17 at 09:00 Morphine Sulfate 1 mg 1 mg Q4H PRN IV PAIN Last administered on 01/28/17 03: 59; Admin Dose 1 MG; Start 01/24/17 at 04:30 Cefepime HCl/ Dextrose (Maxipime/D5W) 50 ml @ 100 mls/hr Q24H IVPB Last administered on 01/31/17 14:50; Admin Dose 100 MLS/HR; Start 01/26/17 at 14: 00 Sucralfate (Carafate Susp) 1 gm QID PO Last administered on 01/31/17 12:08; Admin Dose 1 GM; Start 01/26/17 at 19:00 Docusate Sodium (Colace Liquid Cup) 100 mg BID PO Last administered on 09:32; Admin Dose 100 MG; Start 01/27/17 at 09:00 Metoprolol Tartrate (Lopressor) 100 mg BID PO Last administered on 01/31/17 09:34; Admin Dose 100 MG; Start 01/27/17 at 21:00 Furosemide (Lasix) 20 mg DAILY PO Last administered on 01/31/17 09:33; Admin Dose 20 MG; Start 01/28/17 at 09:00 Pantoprazole (Protonix Tab) 40 mg BID@ PO Last administered on 01/31/17 06:36; Admin Dose 40 MG; Start 01/28/17 at 18:00 ERIC LUCIO Jan 31, 2017 15:22
--- NOTE | 2017-01-31 16:03 | PN ---
Date/Time of Note Date/Time of Note DATE: 01/31/17 TIME: 16:01 Assessment/Plan VTE Prophylaxis VTE Prophylaxis Intervention: SCD's Lines/Catheters IV Catheter Type (from [facility]): [place] [facility] Urinary Cath still in place: Yes Reason Cath still needed: other (indicate) (monitor output) Assessment/Plan Chief Complaint/Hosp Course Chief Complaint/Hosp Course Assessment: Anemia multifactorial EGD 01/26/2017 6 mm clean base esophageal ulcer Distal esophagitis Small hiatal hernia Moderate gastritis. Rule out H. pylori infection. Biopsies obtained Otherwise normal EGD Over anticoagulation/resolved A-fib on metoprolol 25mg BID UTI- on antibiotics therapy Leucocytosis Plan: Continue PPI Hgb currently stable Continue to monitor H/H transfuse for Hgb less than 7.5 No overt signs of GI bleed Patient seen in collaboration with DR. Jimenez Subjective: Course reviewed with nursing staff Patient interviewed and examined All labs, imaging and other results reviewed The patient appears comfortable, hgb stable at this time, no overt signs of GI bleed. Gi will sign off at this time but will be available if needed. Very cautious anticoagulation may be considered if absolutely necessary PHYSICAL EXAMINATION: GENERAL: Pale, ill-appearing, alert & oriented x 3, SKIN: No lesions, no stigmata chronic liver disease, no evidence of bleeding diathesis LYMPHATIC: No palpable lymphadenopathy. HEAD: Normocephalic, atraumatic, no tenderness. EYES: Pupils equal reactive to light and accommodation, full extraocular movements, sclera clear, non-icteric, no discharge. EARS/NOSE AND THROAT: Ears normal, nose normal, oropharynx normal, oral membranes well hydrated without lesions. NECK: Supple, no masses, CHEST: Inspection within normal limits. CARDIOVASCULAR: Heart: irregular rhythm. RESPIRATORY: Rales GASTROINTESTINAL AND LIVER: Abdomen: Soft, non tenderness, non-distended, no hernias, no masses, no organomegaly, no ascites, no guarding, no rebound tenderness, normoactive bowel sounds. Rectal: Deferred. GENITOURINARY: Female genitalia within normal limits. Problems: Exam/Review of Systems Vital Signs Vitals Vital Signs Date Time Temp Pulse Resp B/P Pulse Ox O2 Delivery O2 Flow Rate FiO2 01/31/17 12:17 97 01/31/17 12:11 97.9 17 108/51 95 01/31/17 08:00 Nasal Cannula 2.0 Intake and Output 01/30/17 01/30/17 01/31/17 15:00 23:00 07:00 Intake Total 480 ml Output Total 800 ml Balance -320 ml Results Result Diagram: 01/31/17 0744 01/31/17 0744 Results 24 hrs Laboratory Tests Test 01/31/17 07:44 White Blood Count 18.0 H Red Blood Count 3.29 L Hemoglobin 9.7 L Hematocrit 30.1 L Mean Corpuscular Volume 91.5 Mean Corpuscular Hemoglobin 29.5 Mean Corpuscular Hemoglobin Concent 32.2 Red Cell Distribution Width 16.9 H Platelet Count 298 Mean Platelet Volume 11.9 H Neutrophils % 85.1 H Lymphocytes % 6.2 L Monocytes % 7.1 Eosinophils % 0.6 Basophils % 0.4 Nucleated Red Blood Cells % 0.0 Neutrophils # 15.3 H Lymphocytes # 1.1 Monocytes # 1.3 H Eosinophils # 0.1 Basophils # 0.1 Nucleated Red Blood Cells # 0.0 Sodium Level 140 Potassium Level 3.3 L Chloride Level 104 Carbon Dioxide Level 28 Anion Gap 11 Blood Urea Nitrogen 39 H Creatinine 0.82 Glucose Level 93 Calcium Level 8.3 L Medications Medications Current Medications Ondansetron HCl (Zofran Inj) 4 mg Q6H PRN IV NAUSEA AND/OR VOMITING; Start at 14:30 Acetaminophen (Tylenol Tab) 650 mg Q6H PRN PO PAIN LEVEL 1-3 OR FEVER Last administered on 01/26/17 13:51; Admin Dose 650 MG; Start 01/23/17 at 14:30 Acetaminophen/ Hydrocodone Bitart ([place] (5/325)) 1 tab Q6H PRN PO PAIN LEVEL 4 -6 Last administered on 01/31/17 12:09; Admin Dose 1 TAB; Start 01/23/17 at 14:30 Atorvastatin Calcium (Lipitor) 20 mg QHS PO Last administered on 01/30/17 21: 10; Admin Dose 20 MG; Start 01/23/17 at 21:00 Citalopram Hydrobromide (Celexa) 20 mg DAILY PO Last administered on 09:33; Admin Dose 20 MG; Start 01/24/17 at 09:00 Morphine Sulfate 1 mg 1 mg Q4H PRN IV PAIN Last administered on 01/28/17 03: 59; Admin Dose 1 MG; Start 01/24/17 at 04:30 Cefepime HCl/ Dextrose (Maxipime/D5W) 50 ml @ 100 mls/hr Q24H IVPB Last administered on 01/31/17 14:50; Admin Dose 100 MLS/HR; Start 01/26/17 at 14: 00 Sucralfate (Carafate Susp) 1 gm QID PO Last administered on 01/31/17 12:08; Admin Dose 1 GM; Start 01/26/17 at 19:00 Docusate Sodium (Colace Liquid Cup) 100 mg BID PO Last administered on 09:32; Admin Dose 100 MG; Start 01/27/17 at 09:00 Metoprolol Tartrate (Lopressor) 100 mg BID PO Last administered on 01/31/17 09:34; Admin Dose 100 MG; Start 01/27/17 at 21:00 Furosemide (Lasix) 20 mg DAILY PO Last administered on 01/31/17 09:33; Admin Dose 20 MG; Start 01/28/17 at 09:00 Pantoprazole (Protonix Tab) 40 mg BID@06,18 PO Last administered on 01/31/17 06:36; Admin Dose 40 MG; Start 01/28/17 at 18:00 GUSTAVO MACIAS Jan 31, 2017 16:03
[2017-01-31] MEDS: ATORVASTATIN 20 MG TAB PO SCH (21:39)
[2017-02-01] VITALS (13 sets, daily range): BP systolic 99–146; BP diastolic 47–87; PULSE 82–135; RESP 18–19
[2017-02-01] MEDS: morphine 2 MG INJ IV PRN ×2 (00:34→17:09)
[2017-02-01] MEDS: HYDROCODONE/APAP (5/325) TAB PO PRN ×2 (04:10→20:57)
[2017-02-01] MEDS: PANTOPRAZOLE (EC) 40 MG TAB PO SCH ×2 (06:15→17:09)
[2017-02-01] MEDS: LEVOTHYROXINE 50 MCG TAB PO SCH (06:15)
[2017-02-01 08:23] LABS: ABNORMAL IP MESSAGE 1; BASOPHIL # 0.1 10^3/ul (0.0-0.1); BASOPHILS % 0.4 % (0.0-2.0); EOSINOPHILS % 0.1 % (0.0-7.0); HEMATOCRIT 31.1 % (37.0-47.0); HEMOGLOBIN 9.8 g/dl (12.0-16.0); LYMPHOCYTES # 1.2 10^3/ul (0.8-2.9); LYMPHOCYTES % 7.2 % (15.0-51.0); MEAN CORPUSCULAR HEMOGLOBIN 28.7 pg (29.0-33.0); MEAN CORPUSCULAR HGB CONC 31.5 g/dl (32.0-37.0); MEAN CORPUSCULAR VOLUME 91.2 fl (82.0-101.0); MEAN PLATELET VOLUME 11.7 fl (7.4-10.4); MONOCYTE # 1.5 10^3/ul (0.3-0.9); NEUTROPHIL # 14.2 10^3/ul (1.6-7.5); NEUTROPHILS % 82.8 % (39.0-77.0); PLATELET COUNT 332 10^3/UL (140-415); RED BLOOD COUNT 3.41 10^6/ul (4.20-5.40); RED CELL DISTRIBUTION WIDTH 17.1 % (11.5-14.5); WHITE BLOOD COUNT 17.1 10^3/ul (4.8-10.8)
[2017-02-01 08:37] LABS: POSITIVE DIFF @See below
[2017-02-01 08:50] LABS: CALCIUM 8.9 mg/dl (8.4-10.2); CREATININE 0.84 mg/dl (0.44-1.00); POTASSIUM 3.5 mmol/L (3.5-5.1)
[2017-02-01] MEDS: DOCUSATE SODIUM 10 MG/ML (10ML CUP) PO SCH ×2 (09:17→20:56)
[2017-02-01] MEDS: METOPROLOL 100 MG TAB PO SCH ×2 (09:17→20:56)
[2017-02-01] MEDS: SUCRALFATE (100 MG/ML) 10ML CUP PO SCH ×4 (09:17→20:56)
[2017-02-01] MEDS: FUROSEMIDE 20 MG TAB PO SCH (09:17)
[2017-02-01] MEDS: CITALOPRAM 20 MG TAB PO SCH (09:18)
--- NOTE | 2017-02-01 11:40 | CONS ---
Date/Time of Note Date/Time of Note DATE: 02/01/17 TIME: 11:38 Assessment/Plan Assessment/Plan Chief Complaint/Hosp Course 1. Hypernatremia, resolved 2. Severe anemia, improved 3. Acute renal failure. 4. Elevated INR> improved, theraputic level 5. Urinary tract infection with GNR 6. Elevated BNP. 7. History of hypertension. 8. Hypothyroidism. 9. Pneumonia. 10. 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 11. SIRS 12. Constipation Problems: Additional Assessment/Plan 1. Optimization of kidney function Consultation Date/Type/Reason Admit Date/Time Jan 23, 2017 at 13:10 Initial Consult Date 01/23/17 Type of Consultation: nephrology Reason for Consultation dr Costa Referring Provider: SANCHEZ APARICIO SPEEDBOAT DRIVER Exam/Review of Systems Vital Signs Vitals Vital Signs Date Time Temp Pulse Resp B/P Pulse Ox O2 Delivery O2 Flow Rate FiO2 02/01/17 08:09 99.0 78 18 125/55 97 01/31/17 20:00 Nasal Cannula 2.0 Intake and Output 01/31/17 01/31/17 02/01/17 15:00 23:00 07:00 Intake Total 850 ml Output Total 400 ml Balance 450 ml Exam ENMT: nl external ears & nose Neck: supple Respiratory: clear to auscultation Cardiovascular: regular rate and rhythm Gastrointestinal: soft Results Result Diagram: 02/01/17 0812 02/01/17 0812 Results 24 hrs Laboratory Tests Test 02/01/17 08:12 White Blood Count 17.1 H Red Blood Count 3.41 L Hemoglobin 9.8 L Hematocrit 31.1 L Mean Corpuscular Volume 91.2 Mean Corpuscular Hemoglobin 28.7 L Mean Corpuscular Hemoglobin Concent 31.5 L Red Cell Distribution Width 17.1 H Platelet Count 332 Mean Platelet Volume 11.7 H Neutrophils % 82.8 H Lymphocytes % 7.2 L Monocytes % 9.0 Eosinophils % 0.1 Basophils % 0.4 Nucleated Red Blood Cells % 0.0 Neutrophils # 14.2 H Lymphocytes # 1.2 Monocytes # 1.5 H Eosinophils # 0.0 Basophils # 0.1 Nucleated Red Blood Cells # 0.0 Sodium Level 145 H Potassium Level 3.5 Chloride Level 108 Carbon Dioxide Level 30 Anion Gap 11 Blood Urea Nitrogen 38 H Creatinine 0.84 Glucose Level 113 Calcium Level 8.9 Medications Medications Current Medications Ondansetron HCl (Zofran Inj) 4 mg Q6H PRN IV NAUSEA AND/OR VOMITING; Start at 14:30 Acetaminophen (Tylenol Tab) 650 mg Q6H PRN PO PAIN LEVEL 1-3 OR FEVER Last administered on 01/26/17 13:51; Admin Dose 650 MG; Start 01/23/17 at 14:30 Acetaminophen/ Hydrocodone Bitart ([place] (5/325)) 1 tab Q6H PRN PO PAIN LEVEL 4 -6 Last administered on 02/01/17 04:10; Admin Dose 1 TAB; Start 01/23/17 at 14:30 Atorvastatin Calcium (Lipitor) 20 mg QHS PO Last administered on 01/31/17 21: 39; Admin Dose 20 MG; Start 01/23/17 at 21:00 Citalopram Hydrobromide (Celexa) 20 mg DAILY PO Last administered on 09:18; Admin Dose 20 MG; Start 01/24/17 at 09:00 Morphine Sulfate 1 mg 1 mg Q4H PRN IV PAIN Last administered on 02/01/17 00: 34; Admin Dose 1 MG; Start 01/24/17 at 04:30 Cefepime HCl/ Dextrose (Maxipime/D5W) 50 ml @ 100 mls/hr Q24H IVPB Last administered on 01/31/17 14:50; Admin Dose 100 MLS/HR; Start 01/26/17 at 14: 00 Sucralfate (Carafate Susp) 1 gm QID PO Last administered on 02/01/17 09:17; Admin Dose 1 GM; Start 01/26/17 at 19:00 Docusate Sodium (Colace Liquid Cup) 100 mg BID PO Last administered on 09:17; Admin Dose 100 MG; Start 01/27/17 at 09:00 Metoprolol Tartrate (Lopressor) 100 mg BID PO Last administered on 02/01/17 09:17; Admin Dose 100 MG; Start 01/27/17 at 21:00 Furosemide (Lasix) 20 mg DAILY PO Last administered on 02/01/17 09:17; Admin Dose 20 MG; Start 01/28/17 at 09:00 Pantoprazole (Protonix Tab) 40 mg BID@06,18 PO Last administered on 02/01/17t 06:15; Admin Dose 40 MG; Start 01/28/17 at 18:00 KEVIN PEREZ Feb 01, 2017 11:40
--- NOTE | 2017-02-01 12:47 | CONS ---
Date/Time of Note Date/Time of Note DATE: 02/01/17 TIME: 12:46 Assessment/Plan Assessment/Plan Chief Complaint/Hosp Course Acute on chronic systolic/valvular heart failure: EF 45%, mod MR/AR and mod- severe TR. Likely from blood products and IV hydration. Euvolemic Chronic Afib with RVR: Partially compensatory to multiple active issues. HR better controlled Coagulopathy: INR >10 on admission, now normalized Anemia with upper GI bleed: Hgb 6.6 on admission, now improved with transfusion. EGD with esophageal ulcer Sepsis secondary to UTI UTI Acute vs chronic renal failure Pancreatic ca -lasix 20mg PO daily to keep even -metoprolol 100mg BID -continue to hold coumadin until ok per GI Problems: Consultation Date/Type/Reason Admit Date/Time Jan 23, 2017 at 13:10 Initial Consult Date 01/23/17 Type of Consultation: Cardiology Referring Provider: SANCHEZ APARICIO NP 24 HR Interval Summary Free Text/Dictation No o/n events. No complaints Exam/Review of Systems Vital Signs Vitals Vital Signs Date Time Temp Pulse Resp B/P Pulse Ox O2 Delivery O2 Flow Rate FiO2 02/01/17 12:02 82 02/01/17 11:49 99.2 18 115/57 98 01/31/17 20:00 Nasal Cannula 2.0 Intake and Output 01/31/17 01/31/17 02/01/17 15:00 23:00 07:00 Intake Total 850 ml Output Total 400 ml Balance 450 ml Exam Constitutional: alert, oriented Psych: nl mood/affect, no complaints Head: atraumatic, normocephalic Neck: supple, No jvd Respiratory: clear to auscultation Cardiovascular: systolic murmur (2/6 RONNY), No edema, No regular rate and rhythm Gastrointestinal: non-tender, soft Neurological: nl mental status, nl speech Results Result Diagram: 02/01/17 0812 02/01/17 0812 Results 24 hrs Laboratory Tests Test 02/01/17 08:12 White Blood Count 17.1 H Red Blood Count 3.41 L Hemoglobin 9.8 L Hematocrit 31.1 L Mean Corpuscular Volume 91.2 Mean Corpuscular Hemoglobin 28.7 L Mean Corpuscular Hemoglobin Concent 31.5 L Red Cell Distribution Width 17.1 H Platelet Count 332 Mean Platelet Volume 11.7 H Neutrophils % 82.8 H Lymphocytes % 7.2 L Monocytes % 9.0 Eosinophils % 0.1 Basophils % 0.4 Nucleated Red Blood Cells % 0.0 Neutrophils # 14.2 H Lymphocytes # 1.2 Monocytes # 1.5 H Eosinophils # 0.0 Basophils # 0.1 Nucleated Red Blood Cells # 0.0 Sodium Level 145 H Potassium Level 3.5 Chloride Level 108 Carbon Dioxide Level 30 Anion Gap 11 Blood Urea Nitrogen 38 H Creatinine 0.84 Glucose Level 113 Calcium Level 8.9 Medications Medications Current Medications Ondansetron HCl (Zofran Inj) 4 mg Q6H PRN IV NAUSEA AND/OR VOMITING; Start at 14:30 Acetaminophen (Tylenol Tab) 650 mg Q6H PRN PO PAIN LEVEL 1-3 OR FEVER Last administered on 01/26/17 13:51; Admin Dose 650 MG; Start 01/23/17 at 14:30 Acetaminophen/ Hydrocodone Bitart ([place] (5/325)) 1 tab Q6H PRN PO PAIN LEVEL 4 -6 Last administered on 02/01/17 04:10; Admin Dose 1 TAB; Start 01/23/17 at 14:30 Atorvastatin Calcium (Lipitor) 20 mg QHS PO Last administered on 01/31/17 21: 39; Admin Dose 20 MG; Start 01/23/17 at 21:00 Citalopram Hydrobromide (Celexa) 20 mg DAILY PO Last administered on 09:18; Admin Dose 20 MG; Start 01/24/17 at 09:00 Morphine Sulfate 1 mg 1 mg Q4H PRN IV PAIN Last administered on 02/01/17 00: 34; Admin Dose 1 MG; Start 01/24/17 at 04:30 Cefepime HCl/ Dextrose (Maxipime/D5W) 50 ml @ 100 mls/hr Q24H IVPB Last administered on 01/31/17 14:50; Admin Dose 100 MLS/HR; Start 01/26/17 at 14: 00 Sucralfate (Carafate Susp) 1 gm QID PO Last administered on 02/01/17 09:17; Admin Dose 1 GM; Start 01/26/17 at 19:00 Docusate Sodium (Colace Liquid Cup) 100 mg BID PO Last administered on 09:17; Admin Dose 100 MG; Start 01/27/17 at 09:00 Metoprolol Tartrate (Lopressor) 100 mg BID PO Last administered on 02/01/17 09:17; Admin Dose 100 MG; Start 01/27/17 at 21:00 Furosemide (Lasix) 20 mg DAILY PO Last administered on 02/01/17 09:17; Admin Dose 20 MG; Start 01/28/17 at 09:00 Pantoprazole (Protonix Tab) 40 mg BID@ PO Last administered on 02/01/17 06:15; Admin Dose 40 MG; Start 01/28/17 at 18:00 ERIC LUCIO Feb 01, 2017 12:47
--- NOTE | 2017-02-01 12:52 | CONS ---
Date/Time of Note Date/Time of Note DATE: 02/01/17 TIME: 12:49 Assessment/Plan Assessment/Plan Chief Complaint/Hosp Course SUBJECTIVE: No acute events overnight. Awake, looks comfortable, afebrile. MICROBIOLOGY: Blood cultures remain negative. Urine culture grew E coli. ANTIMICROBIALS: IV cefepime DIAGNOSTICS: CT of the brain on admission revealed no acute intracranial abnormality, severe patchy and confluent periventricular and subcortical white matter hyperdensity likely related to chronic microangiopathic changes, remote infarct involving the left frontal operculum. Remote lacunar infarct involving paramedial right thalamus and the left thalamus. No evidence of acute infarct. Chest x-ray on admission revealed left lower lobe opacification, questionable pneumonia versus atelectasis. Renal ultrasound showed echogenic kidneys consistent with medical renal disease, no evidence of hydronephrosis. PHYSICAL EXAMINATION: GENERAL: This is a fragile, chronically ill-appearing, elderly woman who is in no distress. HEENT: Head atraumatic, normocephalic. Sclerae anicteric. Buccal mucosa dry. NECK: Supple. CHEST: Rise symmetrical. Breath sounds diminished to bases, more on the Left. HEART: S1, S2. ABDOMEN: Soft. Bowel tones hypoactive. EXTREMITIES: Without cyanosis or edema. ASSESSMENT: 1. S/p sepsis with leukocytosis and encephalopathy, rapid atrial fibrillation, low grade fever and admission. 2. Urinary tract infection. 3. S/p LLL pneumonia 4. Coagulopathy from Coumadin toxicity. 5. Status post rapid atrial fibrillation. 6. Acute kidney injury. 7. Symptomatic anemia, status post blood transfusion. 8. Pancreatic ca 9. Failure to thrive PLAN: Clinically unchanged, no fevers, no vomiting or diarrhea, repeat urine culture negative, no acute pulmonary process per pulmonary note, we are going to discontinue her antibiotics and observe for probable repeat cultures if she spikes fever, continue present care, aspiration precautions. DW staff Problems: Consultation Date/Type/Reason Admit Date/Time Jan 23, 2017 at 13:10 Initial Consult Date 01/23/17 Type of Consultation: id Referring Provider: SANCHEZ APARICIO CARDIOLOGY ASSOCIATE Exam/Review of Systems Vital Signs Vitals Vital Signs Date Time Temp Pulse Resp B/P Pulse Ox O2 Delivery O2 Flow Rate FiO2 02/01/17 12:02 82 02/01/17 11:49 99.2 18 115/57 98 01/31/17 20:00 Nasal Cannula 2.0 Intake and Output 01/31/17 01/31/17 02/01/17 15:00 23:00 07:00 Intake Total 850 ml Output Total 400 ml Balance 450 ml Results Result Diagram: 02/01/17 0812 02/01/17 0812 Results 24 hrs Laboratory Tests Test 02/01/17 08:12 White Blood Count 17.1 H Red Blood Count 3.41 L Hemoglobin 9.8 L Hematocrit 31.1 L Mean Corpuscular Volume 91.2 Mean Corpuscular Hemoglobin 28.7 L Mean Corpuscular Hemoglobin Concent 31.5 L Red Cell Distribution Width 17.1 H Platelet Count 332 Mean Platelet Volume 11.7 H Neutrophils % 82.8 H Lymphocytes % 7.2 L Monocytes % 9.0 Eosinophils % 0.1 Basophils % 0.4 Nucleated Red Blood Cells % 0.0 Neutrophils # 14.2 H Lymphocytes # 1.2 Monocytes # 1.5 H Eosinophils # 0.0 Basophils # 0.1 Nucleated Red Blood Cells # 0.0 Sodium Level 145 H Potassium Level 3.5 Chloride Level 108 Carbon Dioxide Level 30 Anion Gap 11 Blood Urea Nitrogen 38 H Creatinine 0.84 Glucose Level 113 Calcium Level 8.9 Medications Medications Current Medications Ondansetron HCl (Zofran Inj) 4 mg Q6H PRN IV NAUSEA AND/OR VOMITING; Start at 14:30 Acetaminophen (Tylenol Tab) 650 mg Q6H PRN PO PAIN LEVEL 1-3 OR FEVER Last administered on 01/26/17 13:51; Admin Dose 650 MG; Start 01/23/17 at 14:30 Acetaminophen/ Hydrocodone Bitart ([place] (5/325)) 1 tab Q6H PRN PO PAIN LEVEL 4 -6 Last administered on 02/01/17 04:10; Admin Dose 1 TAB; Start 01/23/17 at 14:30 Atorvastatin Calcium (Lipitor) 20 mg QHS PO Last administered on 01/31/17 21: 39; Admin Dose 20 MG; Start 01/23/17 at 21:00 Citalopram Hydrobromide (Celexa) 20 mg DAILY PO Last administered on 09:18; Admin Dose 20 MG; Start 01/24/17 at 09:00 Morphine Sulfate 1 mg 1 mg Q4H PRN IV PAIN Last administered on 02/01/17 00: 34; Admin Dose 1 MG; Start 01/24/17 at 04:30 Cefepime HCl/ Dextrose (Maxipime/D5W) 50 ml @ 100 mls/hr Q24H IVPB Last administered on 01/31/17 14:50; Admin Dose 100 MLS/HR; Start 01/26/17 at 14: 00 Sucralfate (Carafate Susp) 1 gm QID PO Last administered on 02/01/17 09:17; Admin Dose 1 GM; Start 01/26/17 at 19:00 Docusate Sodium (Colace Liquid Cup) 100 mg BID PO Last administered on 09:17; Admin Dose 100 MG; Start 01/27/17 at 09:00 Metoprolol Tartrate (Lopressor) 100 mg BID PO Last administered on 02/01/17 09:17; Admin Dose 100 MG; Start 01/27/17 at 21:00 Furosemide (Lasix) 20 mg DAILY PO Last administered on 02/01/17 09:17; Admin Dose 20 MG; Start 01/28/17 at 09:00 Pantoprazole (Protonix Tab) 40 mg BID@06,18 PO Last administered on 02/01/17 06:15; Admin Dose 40 MG; Start 01/28/17 at 18:00 SHELIA HUFF NP Feb 01, 2017 12:52
--- NOTE | 2017-02-01 13:07 | CONS ---
Date/Time of Note Date/Time of Note DATE: 02/01/17 TIME: 13:06 Consult Date/Type/Reason Admit Date/Time Jan 23, 2017 at 13:10 Initial Consult Date 01/30/17 Type of Consultation: Pulmonary Ordering Provider: SANCHEZ APARICIO WEB MARKETING ASSISTANT Subjective Comfortable no respiratory distress. Objective Vital Signs Date Time Temp Pulse Resp B/P Pulse Ox O2 Delivery O2 Flow Rate FiO2 02/01/17 12:02 82 02/01/17 11:49 99.2 18 115/57 98 01/31/17 20:00 Nasal Cannula 2.0 Intake and Output 01/31/17 01/31/17 02/01/17 15:00 23:00 07:00 Intake Total 850 ml Output Total 400 ml Balance 450 ml Exam GENERAL: Thin elderly lady appears comfortable no acute distress. VITAL SIGNS: per chart NECK: Supple. No JVD or lymphadenopathy. CARDIAC EXAM: S1, S2. No added sounds or murmurs. CHEST: clear bilaterally, No added sounds, rales or wheezes ABDOMEN: Soft, nontender. No guarding or rebound. EXTREMITIES: No cyanosis, clubbing or edema. NEUROLOGIC: Generalized weakness. No focal deficits. Results/Medications Result Diagram: 02/01/17 0812 02/01/17 0812 Results 24 hrs Laboratory Tests Test 02/01/17 08:12 White Blood Count 17.1 H Red Blood Count 3.41 L Hemoglobin 9.8 L Hematocrit 31.1 L Mean Corpuscular Volume 91.2 Mean Corpuscular Hemoglobin 28.7 L Mean Corpuscular Hemoglobin Concent 31.5 L Red Cell Distribution Width 17.1 H Platelet Count 332 Mean Platelet Volume 11.7 H Neutrophils % 82.8 H Lymphocytes % 7.2 L Monocytes % 9.0 Eosinophils % 0.1 Basophils % 0.4 Nucleated Red Blood Cells % 0.0 Neutrophils # 14.2 H Lymphocytes # 1.2 Monocytes # 1.5 H Eosinophils # 0.0 Basophils # 0.1 Nucleated Red Blood Cells # 0.0 Sodium Level 145 H Potassium Level 3.5 Chloride Level 108 Carbon Dioxide Level 30 Anion Gap 11 Blood Urea Nitrogen 38 H Creatinine 0.84 Glucose Level 113 Calcium Level 8.9 Medications Current Medications Ondansetron HCl (Zofran Inj) 4 mg Q6H PRN IV NAUSEA AND/OR VOMITING; Start at 14:30 Acetaminophen (Tylenol Tab) 650 mg Q6H PRN PO PAIN LEVEL 1-3 OR FEVER Last administered on 01/26/17 13:51; Admin Dose 650 MG; Start 01/23/17 at 14:30 Acetaminophen/ Hydrocodone Bitart ([place] (5/325)) 1 tab Q6H PRN PO PAIN LEVEL 4 -6 Last administered on 02/01/17 04:10; Admin Dose 1 TAB; Start 01/23/17 at 14:30 Atorvastatin Calcium (Lipitor) 20 mg QHS PO Last administered on 01/31/17 21: 39; Admin Dose 20 MG; Start 01/23/17 at 21:00 Citalopram Hydrobromide (Celexa) 20 mg DAILY PO Last administered on 09:18; Admin Dose 20 MG; Start 01/24/17 at 09:00 Morphine Sulfate (morphine) 1 mg Q4H PRN IV PAIN Last administered on 00:34; Admin Dose 1 MG; Start 01/24/17 at 04:30 Sucralfate (Carafate Susp) 1 gm QID PO Last administered on 02/01/17 09:17; Admin Dose 1 GM; Start 01/26/17 at 19:00 Docusate Sodium (Colace Liquid Cup) 100 mg BID PO Last administered on 09:17; Admin Dose 100 MG; Start 01/27/17 at 09:00 Metoprolol Tartrate (Lopressor) 100 mg BID PO Last administered on 02/01/17 09:17; Admin Dose 100 MG; Start 01/27/17 at 21:00 Furosemide (Lasix) 20 mg DAILY PO Last administered on 02/01/17 09:17; Admin Dose 20 MG; Start 01/28/17 at 09:00 Pantoprazole (Protonix Tab) 40 mg BID@18 PO Last administered on 02/01/17 06:15; Admin Dose 40 MG; Start 01/28/17 at 18:00 Assessment/Plan Chief Complaint/Hosp Course Assessment 1. Likely significant aspiration risk 2. Persistent leukocytosis 3. Left pleural effusion 4. History of pancreatic cancer tail of pancreas not operated on. Plan 1. Thoracentesis given persistent leukocytosis 2. Continue antibiotics 3. Aspiration precautions speech therapy evaluation 4. [facility] eval. Problems: TYRON MEANS MD, [facility] Feb 01, 2017 13:07
--- NOTE | 2017-02-01 14:16 | PN ---
Date/Time of Note Date/Time of Note DATE: 02/01/17 TIME: 14:13 Assessment/Plan VTE Prophylaxis VTE Prophylaxis Intervention: SCD's Lines/Catheters IV Catheter Type (from [facility] [facility] Urinary Cath still in place: Yes Reason Cath still needed: other (indicate) (monitor I&O) Assessment/Plan Chief Complaint/Hosp Course Assessment and plan 1. Sepsis secondary to underlying UTI. Continue antibiotics. Afebrile present. Stable at present. 2. Coagulopathy. Secondary to Coumadin toxicity. Off of Coumadin at this time. Resume per freight shipping agent. Improved status post vitamin K and fresh frozen plasma administration 3. Atrial fibrillation with RVR. Patient is status post Cardizem IV. Continue on beta-iraida. Continue telemetry monitoring. 4. Acute kidney injury. Improving at present. Pathology Specialist following. Medications to be renally dosed. 5. Symptomatic anemia. Improved status post blood transfusion. GI following. Status post EGD that showed a 6 mm clean-based esophageal ulcer and distal esophagitis and also moderate gastritis. Continue PPI medication. Monitor H& H. Continue on Carafate. 6. Essential hypertension. Continue antihypertensives and adjust as needed. 7. 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 Continue optimization with beta iraida. No MEHRAN inhibitor at this time due to recent CKD. 8. Acute on chronic systolic heart failure. Continue diuresis per cardiology. 9. Pulmonary hypertension with PA systolic pressure of 52 mmHg. Continue with O2 as needed. Diuretics per freight shipping agent . 10. Hypothyroidism. Continue Synthroid 11. Reported dysphagia. Continue with. [place] thick liquids. Continue with ST or conditions. 12. 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 Continue with conservative management. patient for outpatient follow up 13. Pleural effusion. Patient was consulted by entry tech. Follow-up with recommendations. No plan for thoracentesis at this time. monitor for improvement Disposition plan: Patient pending [facility] unit eval. Will follow up Discussed plan of care with Problems: Subjective 24 Hr Interval Summary Free Text/Dictation comfortable at present. no s/s of respiratory distress. Exam/Review of Systems Vital Signs Vitals Vital Signs Date Time Temp Pulse Resp B/P Pulse Ox O2 Delivery O2 Flow Rate FiO2 02/01/17 12:02 82 02/01/17 11:49 99.2 18 115/57 98 01/31/17 20:00 Nasal Cannula 2.0 Intake and Output 01/31/17 01/31/17 02/01/17 15:00 23:00 07:00 Intake Total 850 ml Output Total 400 ml Balance 450 ml Exam Constitutional: alert, oriented Psych: nl mood/affect Head: normocephalic Eyes: nl conjunctiva Neck: supple Respiratory: minimally diminished at base. no obvious wheezing Cardiovascular: regular rate and rhythm Gastrointestinal: non-tender, soft Musculoskeletal: No nl gait and stance Neurological: PROJECTION TECHNICIAN II-XII intact, nl mental status, nl speech Skin: nl turgor Results Result Diagram: 02/01/17 0812 02/01/17 0812 Results 24 hrs Laboratory Tests Test 02/01/17 08:12 White Blood Count 17.1 H Red Blood Count 3.41 L Hemoglobin 9.8 L Hematocrit 31.1 L Mean Corpuscular Volume 91.2 Mean Corpuscular Hemoglobin 28.7 L Mean Corpuscular Hemoglobin Concent 31.5 L Red Cell Distribution Width 17.1 H Platelet Count 332 Mean Platelet Volume 11.7 H Neutrophils % 82.8 H Lymphocytes % 7.2 L Monocytes % 9.0 Eosinophils % 0.1 Basophils % 0.4 Nucleated Red Blood Cells % 0.0 Neutrophils # 14.2 H Lymphocytes # 1.2 Monocytes # 1.5 H Eosinophils # 0.0 Basophils # 0.1 Nucleated Red Blood Cells # 0.0 Sodium Level 145 H Potassium Level 3.5 Chloride Level 108 Carbon Dioxide Level 30 Anion Gap 11 Blood Urea Nitrogen 38 H Creatinine 0.84 Glucose Level 113 Calcium Level 8.9 Medications Medications Current Medications Ondansetron HCl (Zofran Inj) 4 mg Q6H PRN IV NAUSEA AND/OR VOMITING; Start at 14:30 Acetaminophen (Tylenol Tab) 650 mg Q6H PRN PO PAIN LEVEL 1-3 OR FEVER Last administered on 01/26/17 13:51; Admin Dose 650 MG; Start 01/23/17 at 14:30 Acetaminophen/ Hydrocodone Bitart ([place] (5/325)) 1 tab Q6H PRN PO PAIN LEVEL 4 -6 Last administered on 02/01/17 04:10; Admin Dose 1 TAB; Start 01/23/17 at 14:30 Atorvastatin Calcium (Lipitor) 20 mg QHS PO Last administered on 01/31/17 21: 39; Admin Dose 20 MG; Start 01/23/17 at 21:00 Citalopram Hydrobromide (Celexa) 20 mg DAILY PO Last administered on 09:18; Admin Dose 20 MG; Start 01/24/17 at 09:00 Morphine Sulfate (morphine) 1 mg Q4H PRN IV PAIN Last administered on 00:34; Admin Dose 1 MG; Start 01/24/17 at 04:30 Sucralfate (Carafate Susp) 1 gm QID PO Last administered on 02/01/17 14:08; Admin Dose 1 GM; Start 01/26/17 at 19:00 Docusate Sodium (Colace Liquid Cup) 100 mg BID PO Last administered on 09:17; Admin Dose 100 MG; Start 01/27/17 at 09:00 Metoprolol Tartrate (Lopressor) 100 mg BID PO Last administered on 02/01/17 09:17; Admin Dose 100 MG; Start 01/27/17 at 21:00 Furosemide (Lasix) 20 mg DAILY PO Last administered on 02/01/17 09:17; Admin Dose 20 MG; Start 01/28/17 at 09:00 Pantoprazole (Protonix Tab) 40 mg BID@18 PO Last administered on 02/01/17 06:15; Admin Dose 40 MG; Start 01/28/17 at 18:00 CHEMO BURROWS Feb 01, 2017 14:16
[2017-02-01] MEDS: ATORVASTATIN 20 MG TAB PO SCH (20:56)
[2017-02-02] VITALS (13 sets, daily range): BP systolic 104–133; BP diastolic 52–82; PULSE 92–160; RESP 18–19
[2017-02-02] MEDS: HYDROCODONE/APAP (5/325) TAB PO PRN ×3 (04:19→14:56)
[2017-02-02] MEDS ORDERED: SOD CHLORIDE 0.9% 250 ML IV ONE (05:00)
[2017-02-02] MEDS: LEVOTHYROXINE 50 MCG TAB PO SCH (06:19)
[2017-02-02] MEDS: PANTOPRAZOLE (EC) 40 MG TAB PO SCH ×2 (06:19→17:18)
[2017-02-02 08:52] LABS: ABNORMAL IP MESSAGE 1; BASOPHIL # 0.1 10^3/ul (0.0-0.1); BASOPHILS % 0.4 % (0.0-2.0); EOSINOPHILS % 0.1 % (0.0-7.0); HEMOGLOBIN 9.5 g/dl (12.0-16.0); LYMPHOCYTES # 1.3 10^3/ul (0.8-2.9); LYMPHOCYTES % 7.6 % (15.0-51.0); MEAN CORPUSCULAR HEMOGLOBIN 29.2 pg (29.0-33.0); MEAN CORPUSCULAR HGB CONC 31.7 g/dl (32.0-37.0); MEAN CORPUSCULAR VOLUME 92.3 fl (82.0-101.0); MEAN PLATELET VOLUME 12.2 fl (7.4-10.4); MONOCYTE # 1.9 10^3/ul (0.3-0.9); MONOCYTES % 10.8 % (0.0-11.0); NEUTROPHILS % 80.6 % (39.0-77.0); PLATELET COUNT 368 10^3/UL (140-415); RED BLOOD COUNT 3.25 10^6/ul (4.20-5.40); RED CELL DISTRIBUTION WIDTH 17.3 % (11.5-14.5); WHITE BLOOD COUNT 17.4 10^3/ul (4.8-10.8)
[2017-02-02 08:54] LABS: CALCIUM 9.1 mg/dl (8.4-10.2); CREATININE 0.82 mg/dl (0.44-1.00); POTASSIUM 3.3 mmol/L (3.5-5.1)
[2017-02-02] MEDS: DOCUSATE SODIUM 10 MG/ML (10ML CUP) PO SCH ×2 (09:11→21:48)
[2017-02-02] MEDS: SUCRALFATE (100 MG/ML) 10ML CUP PO SCH ×4 (09:11→21:48)
[2017-02-02] MEDS: FUROSEMIDE 20 MG TAB PO SCH (09:12)
[2017-02-02] MEDS: CITALOPRAM 20 MG TAB PO SCH (09:12)
--- NOTE | 2017-02-02 11:06 | CONS ---
Date/Time of Note Date/Time of Note DATE: 02/02/17 TIME: 11:05 Consult Date/Type/Reason Admit Date/Time Jan 23, 2017 at 13:10 Initial Consult Date 01/30/17 Type of Consultation: Pulmonary Ordering Provider: SANCHEZ APARICIO FIBERGLASS SKI MAKER Subjective Patient appears comfortable this morning. No respiratory distress Objective Vital Signs Date Time Temp Pulse Resp B/P Pulse Ox O2 Delivery O2 Flow Rate FiO2 02/02/17 08:09 98.5 88 18 105/52 97 02/01/17 20:00 Nasal Cannula 2.0 Intake and Output 02/01/17 02/01/17 02/02/17 15:00 23:00 07:00 Intake Total 800 ml 120 ml Output Total 400 ml 350 ml Balance 400 ml -230 ml Exam GENERAL: Thin elderly lady appears comfortable no acute distress. VITAL SIGNS: per chart NECK: Supple. No JVD or lymphadenopathy. CARDIAC EXAM: S1, S2. No added sounds or murmurs. CHEST: clear bilaterally, No added sounds, rales or wheezes ABDOMEN: Soft, nontender. No guarding or rebound. EXTREMITIES: No cyanosis, clubbing or edema. NEUROLOGIC: Generalized weakness. No focal deficits. Results/Medications Result Diagram: 02/02/17 0702/02/17 0729 Results 24 hrs Laboratory Tests Test 02/02/17 07:29 White Blood Count 17.4 H Red Blood Count 3.25 L Hemoglobin 9.5 L Hematocrit 30.0 L Mean Corpuscular Volume 92.3 Mean Corpuscular Hemoglobin 29.2 Mean Corpuscular Hemoglobin Concent 31.7 L Red Cell Distribution Width 17.3 H Platelet Count 368 Mean Platelet Volume 12.2 H Neutrophils % 80.6 H Lymphocytes % 7.6 L Monocytes % 10.8 Eosinophils % 0.1 Basophils % 0.4 Nucleated Red Blood Cells % 0.0 Neutrophils # 14.0 H Lymphocytes # 1.3 Monocytes # 1.9 H Eosinophils # 0.0 Basophils # 0.1 Nucleated Red Blood Cells # 0.0 Sodium Level 148 H Potassium Level 3.3 L Chloride Level 110 Carbon Dioxide Level 30 Anion Gap 11 Blood Urea Nitrogen 39 H Creatinine 0.82 Glucose Level 128 Calcium Level 9.1 Medications Current Medications Ondansetron HCl (Zofran Inj) 4 mg Q6H PRN IV NAUSEA AND/OR VOMITING; Start at 14:30 Acetaminophen (Tylenol Tab) 650 mg Q6H PRN PO PAIN LEVEL 1-3 OR FEVER Last administered on 01/26/17 13:51; Admin Dose 650 MG; Start 01/23/17 at 14:30 Atorvastatin Calcium (Lipitor) 20 mg QHS PO Last administered on 02/01/17 20: 56; Admin Dose 20 MG; Start 01/23/17 at 21:00 Citalopram Hydrobromide (Celexa) 20 mg DAILY PO Last administered on 09:12; Admin Dose 20 MG; Start 01/24/17 at 09:00 Morphine Sulfate (morphine) 1 mg Q4H PRN IV PAIN Last administered on 17:09; Admin Dose 1 MG; Start 01/24/17 at 04:30 Sucralfate (Carafate Susp) 1 gm QID PO Last administered on 02/02/17 09:11; Admin Dose 1 GM; Start 01/26/17 at 19:00 Docusate Sodium (Colace Liquid Cup) 100 mg BID PO Last administered on 09:11; Admin Dose 100 MG; Start 01/27/17 at 09:00 Metoprolol Tartrate (Lopressor) 100 mg BID PO Last administered on 02/01/17 20:56; Admin Dose 100 MG; Start 01/27/17 at 21:00 Furosemide (Lasix) 20 mg DAILY PO Last administered on 02/02/17 09:12; Admin Dose 20 MG; Start 01/28/17 at 09:00 Pantoprazole (Protonix Tab) 40 mg BID@18 PO Last administered on 02/02/17 06:19; Admin Dose 40 MG; Start 01/28/17 at 18:00 Acetaminophen/ Hydrocodone Bitart ([place] (5/325)) 1 tab Q4H PRN PO PAIN LEVEL 4 -6 Last administered on 02/02/17 09:21; Admin Dose 1 TAB; Start 02/02/17 at 04:40 Acetaminophen/ Hydrocodone Bitart ([place] (5/325)) 2 tab Q4H PRN PO PAIN LEVEL 7 -10; Start 02/02/17 at 05:00 Assessment/Plan Chief Complaint/Hosp Course Assessment 1. Likely significant aspiration risk 2. Persistent leukocytosis 3. Left pleural effusion 4. History of pancreatic cancer tail of pancreas nonsurgical Plan 1. Repeat chest x-ray. If increasing left effusion thoracentesis. 2. Continue antibiotics 3. Aspiration precautions speech therapy evaluation 4. [place] evabran. Problems: TYRON MEANS MD, [facility] Feb 02, 2017 11:06
--- NOTE | 2017-02-02 11:29 | CONS ---
Date/Time of Note Date/Time of Note DATE: 02/02/17 TIME: 11:28 Assessment/Plan Assessment/Plan Chief Complaint/Hosp Course 1. Hypernatremia, resolved 2. Severe anemia, improved 3. Acute renal failure. 4. Elevated INR> improved, theraputic level 5. Urinary tract infection with GNR 6. Elevated BNP. 7. History of hypertension. 8. Hypothyroidism. 9. Pneumonia. 10. 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 11. SIRS 12. Constipation Problems: Additional Assessment/Plan 1/ Nephrology clear 2. Optimization kidney function Consultation Date/Type/Reason Admit Date/Time Jan 23, 2017 at 13:10 Initial Consult Date 01/23/17 Type of Consultation: nephrology Reason for Consultation Dr Jay Referring Provider: SANCHEZ APARICIO NP Exam/Review of Systems Vital Signs Vitals Vital Signs Date Time Temp Pulse Resp B/P Pulse Ox O2 Delivery O2 Flow Rate FiO2 02/02/17 08:09 98.5 88 18 105/52 97 02/01/17 20:00 Nasal Cannula 2.0 Intake and Output 02/01/17 02/01/17 02/02/17 15:00 23:00 07:00 Intake Total 800 ml 120 ml Output Total 400 ml 350 ml Balance 400 ml -230 ml Exam pale Constitutional: alert, oriented Respiratory: diminished breath sounds Cardiovascular: regular rate and rhythm Results Result Diagram: 02/02/17 0729 02/02/17 0729 Results 24 hrs Laboratory Tests Test 02/02/17 07:29 White Blood Count 17.4 H Red Blood Count 3.25 L Hemoglobin 9.5 L Hematocrit 30.0 L Mean Corpuscular Volume 92.3 Mean Corpuscular Hemoglobin 29.2 Mean Corpuscular Hemoglobin Concent 31.7 L Red Cell Distribution Width 17.3 H Platelet Count 368 Mean Platelet Volume 12.2 H Neutrophils % 80.6 H Lymphocytes % 7.6 L Monocytes % 10.8 Eosinophils % 0.1 Basophils % 0.4 Nucleated Red Blood Cells % 0.0 Neutrophils # 14.0 H Lymphocytes # 1.3 Monocytes # 1.9 H Eosinophils # 0.0 Basophils # 0.1 Nucleated Red Blood Cells # 0.0 Sodium Level 148 H Potassium Level 3.3 L Chloride Level 110 Carbon Dioxide Level 30 Anion Gap 11 Blood Urea Nitrogen 39 H Creatinine 0.82 Glucose Level 128 Calcium Level 9.1 Medications Medications Current Medications Ondansetron HCl (Zofran Inj) 4 mg Q6H PRN IV NAUSEA AND/OR VOMITING; Start at 14:30 Acetaminophen (Tylenol Tab) 650 mg Q6H PRN PO PAIN LEVEL 1-3 OR FEVER Last administered on 01/26/17 13:51; Admin Dose 650 MG; Start 01/23/17 at 14:30 Atorvastatin Calcium (Lipitor) 20 mg QHS PO Last administered on 02/01/17 20: 56; Admin Dose 20 MG; Start 01/23/17 at 21:00 Citalopram Hydrobromide (Celexa) 20 mg DAILY PO Last administered on 09:12; Admin Dose 20 MG; Start 01/24/17 at 09:00 Morphine Sulfate (morphine) 1 mg Q4H PRN IV PAIN Last administered on 17:09; Admin Dose 1 MG; Start 01/24/17 at 04:30 Sucralfate (Carafate Susp) 1 gm QID PO Last administered on 02/02/17 09:11; Admin Dose 1 GM; Start 01/26/17 at 19:00 Docusate Sodium (Colace Liquid Cup) 100 mg BID PO Last administered on 09:11; Admin Dose 100 MG; Start 01/27/17 at 09:00 Metoprolol Tartrate (Lopressor) 100 mg BID PO Last administered on 02/01/17 20:56; Admin Dose 100 MG; Start 01/27/17 at 21:00 Furosemide (Lasix) 20 mg DAILY PO Last administered on 02/02/17 09:12; Admin Dose 20 MG; Start 01/28/17 at 09:00 Pantoprazole (Protonix Tab) 40 mg BID@,18 PO Last administered on 02/02/17 06:19; Admin Dose 40 MG; Start 01/28/17 at 18:00 Acetaminophen/ Hydrocodone Bitart ([place] (5/325)) 1 tab Q4H PRN PO PAIN LEVEL 4 -6 Last administered on 02/02/17 09:21; Admin Dose 1 TAB; Start 02/02/17 at 04:40 Acetaminophen/ Hydrocodone Bitart ([place] (5/325)) 2 tab Q4H PRN PO PAIN LEVEL 7 -10; Start 02/02/17 at 05:00 KEVIN PEREZ Feb 02, 2017 11:29
[2017-02-02] MEDS ORDERED: POTASSIUM CHLORIDE 20 MEQ POWDER FOR ORAL SOLN PO ONE (12:00)
--- NOTE | 2017-02-02 12:09 | CONS ---
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 Likely from blood products and IV hydration. Euvolemic Chronic Afib with RVR: Partially compensatory to multiple active issues. HR better controlled Coagulopathy: INR >10 on admission, now normalized Anemia with upper GI bleed: Hgb 6.6 on admission, now improved with transfusion. EGD with esophageal ulcer Sepsis secondary to UTI UTI Acute vs chronic renal failure Pancreatic ca -lasix 20mg PO daily to keep even -metoprolol 100mg BID -continue to hold coumadin until ok per GI -encourage free water intake Problems: Consultation Date/Type/Reason Admit Date/Time Jan 23, 2017 at 13:10 Initial Consult Date 01/23/17 Type of Consultation: Cardiology Referring Provider: SANCHEZ APARICIO NP 24 HR Interval Summary Free Text/Dictation No o/n events. HR controlled Exam/Review of Systems Vital Signs Vitals Vital Signs Date Time Temp Pulse Resp B/P Pulse Ox O2 Delivery O2 Flow Rate FiO2 02/02/17 12:07 113 02/02/17 12:01 98.1 18 133/58 99 02/01/17 20:00 Nasal Cannula 2.0 Intake and Output 02/01/17 02/01/17 02/02/17 15:00 23:00 07:00 Intake Total 800 ml 120 ml Output Total 400 ml 350 ml Balance 400 ml -230 ml Exam Constitutional: alert, oriented Psych: nl mood/affect, no complaints Head: atraumatic, normocephalic Neck: No jvd Respiratory: clear to auscultation, No crackles/rales Cardiovascular: systolic murmur (2/6 RONNY), No edema, No regular rate and rhythm Gastrointestinal: non-tender, soft Neurological: nl mental status, nl speech Results Result Diagram: 02/02/17 0729 02/02/17 0729 Results 24 hrs Laboratory Tests Test 02/02/17 07:29 White Blood Count 17.4 H Red Blood Count 3.25 L Hemoglobin 9.5 L Hematocrit 30.0 L Mean Corpuscular Volume 92.3 Mean Corpuscular Hemoglobin 29.2 Mean Corpuscular Hemoglobin Concent 31.7 L Red Cell Distribution Width 17.3 H Platelet Count 368 Mean Platelet Volume 12.2 H Neutrophils % 80.6 H Lymphocytes % 7.6 L Monocytes % 10.8 Eosinophils % 0.1 Basophils % 0.4 Nucleated Red Blood Cells % 0.0 Neutrophils # 14.0 H Lymphocytes # 1.3 Monocytes # 1.9 H Eosinophils # 0.0 Basophils # 0.1 Nucleated Red Blood Cells # 0.0 Sodium Level 148 H Potassium Level 3.3 L Chloride Level 110 Carbon Dioxide Level 30 Anion Gap 11 Blood Urea Nitrogen 39 H Creatinine 0.82 Glucose Level 128 Calcium Level 9.1 Medications Medications Current Medications Ondansetron HCl (Zofran Inj) 4 mg Q6H PRN IV NAUSEA AND/OR VOMITING; Start at 14:30 Acetaminophen (Tylenol Tab) 650 mg Q6H PRN PO PAIN LEVEL 1-3 OR FEVER Last administered on 01/26/17 13:51; Admin Dose 650 MG; Start 01/23/17 at 14:30 Atorvastatin Calcium (Lipitor) 20 mg QHS PO Last administered on 02/01/17 20: 56; Admin Dose 20 MG; Start 01/23/17 at 21:00 Citalopram Hydrobromide (Celexa) 20 mg DAILY PO Last administered on 09:12; Admin Dose 20 MG; Start 01/24/17 at 09:00 Morphine Sulfate (morphine) 1 mg Q4H PRN IV PAIN Last administered on 17:09; Admin Dose 1 MG; Start 01/24/17 at 04:30 Sucralfate (Carafate Susp) 1 gm QID PO Last administered on 02/02/17 09:11; Admin Dose 1 GM; Start 01/26/17 at 19:00 Docusate Sodium (Colace Liquid Cup) 100 mg BID PO Last administered on 09:11; Admin Dose 100 MG; Start 01/27/17 at 09:00 Metoprolol Tartrate (Lopressor) 100 mg BID PO Last administered on 02/01/17 20:56; Admin Dose 100 MG; Start 01/27/17 at 21:00 Furosemide (Lasix) 20 mg DAILY PO Last administered on 02/02/17 09:12; Admin Dose 20 MG; Start 01/28/17 at 09:00 Pantoprazole (Protonix Tab) 40 mg BID@06,18 PO Last administered on 02/02/17 06:19; Admin Dose 40 MG; Start 01/28/17 at 18:00 Acetaminophen/ Hydrocodone Bitart ([place] (5/325)) 1 tab Q4H PRN PO PAIN LEVEL 4 -6 Last administered on 02/02/17 09:21; Admin Dose 1 TAB; Start 02/02/17 at 04:40 Acetaminophen/ Hydrocodone Bitart ([place] (5/325)) 2 tab Q4H PRN PO PAIN LEVEL 7 -10; Start 02/02/17 at 05:00 ERIC LUCIO Feb 02, 2017 12:09
--- NOTE | 2017-02-02 12:19 | PN ---
Date/Time of Note Date/Time of Note DATE: 02/02/17 TIME: 12:12 Assessment/Plan VTE Prophylaxis VTE Prophylaxis Intervention: SCD's Lines/Catheters [facility]from [facility] Saline Lock Urinary Cath still in place: Yes Reason Cath still needed: other (indicate) (monitor I&O) Assessment/Plan Chief Complaint/Hosp Course Assessment and plan 1. Sepsis secondary to underlying UTI. Continue antibiotics. Afebrile present. Stable at present. 2. Coagulopathy. Secondary to Coumadin toxicity. Off of Coumadin at this time. Resume per structural designer. Improved status post vitamin K and fresh frozen plasma administration 3. Atrial fibrillation with RVR. Patient is status post Cardizem IV. Continue on beta-iraida. Continue telemetry monitoring. 4. Acute kidney injury. Improving at present. [employer] Adviser following. Medications to be renally dosed. 5. Symptomatic anemia. Improved status post blood transfusion. GI following. Status post EGD that showed a 6 mm clean-based esophageal ulcer and distal esophagitis and also moderate gastritis. Continue PPI medication. Monitor H& H. Continue on Carafate. 6. Essential hypertension. Continue antihypertensives and adjust as needed. 7. 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 Continue optimization with beta iraida. No MEHRAN inhibitor at this time due to recent CKD. 8. Acute on chronic systolic heart failure. Continue diuresis per cardiology. 9. Pulmonary hypertension with PA systolic pressure of 52 mmHg. Continue with O2 as needed. Diuretics per structural designer. Stable at this time . 10. Hypothyroidism. Continue Synthroid 11. Reported dysphagia. Continue with. [place] thick liquids. Continue with ST or conditions. 12. 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 Continue with conservative management. patient for outpatient follow up 13. Pleural effusion. Patient was consulted by human resources training manager. Follow-up with recommendations. No plan for thoracentesis at this time. monitor for improvement Disposition plan: continue current tx. awaiting possible to transfer to [place] vs[facility]. follow up with case management Discussed plan of care with Problems: Subjective 24 Hr Interval Summary Free Text/Dictation no s/s of distress. comfortable at present Exam/Review of Systems Vital Signs Vitals Vital Signs Date Time Temp Pulse Resp B/P Pulse Ox O2 Delivery O2 Flow Rate FiO2 02/02/17 12:07 113 02/02/17 12:01 98.1 18 133/58 99 02/01/17 20:00 Nasal Cannula 2.0 Intake and Output 02/01/17 02/01/17 02/02/17 15:00 23:00 07:00 Intake Total 800 ml 120 ml Output Total 400 ml 350 ml Balance 400 ml -230 ml Exam Constitutional: alert, oriented Psych: nl mood/affect Head: normocephalic Eyes: nl conjunctiva Neck: supple Respiratory: minimally diminished at base. no obvious wheezing Cardiovascular: regular rate and rhythm Gastrointestinal: non-tender, soft Musculoskeletal: No nl gait and stance Neurological: UTILITY ARBORIST II-XII intact, nl mental status, nl speech Skin: nl turgor Results Result Diagram: 02/02/1772802/02/17 07 Results 24 hrs Laboratory Tests Test 02/02/17 07:29 White Blood Count 17.4 H Red Blood Count 3.25 L Hemoglobin 9.5 L Hematocrit 30.0 L Mean Corpuscular Volume 92.3 Mean Corpuscular Hemoglobin 29.2 Mean Corpuscular Hemoglobin Concent 31.7 L Red Cell Distribution Width 17.3 H Platelet Count 368 Mean Platelet Volume 12.2 H Neutrophils % 80.6 H Lymphocytes % 7.6 L Monocytes % 10.8 Eosinophils % 0.1 Basophils % 0.4 Nucleated Red Blood Cells % 0.0 Neutrophils # 14.0 H Lymphocytes # 1.3 Monocytes # 1.9 H Eosinophils # 0.0 Basophils # 0.1 Nucleated Red Blood Cells # 0.0 Sodium Level 148 H Potassium Level 3.3 L Chloride Level 110 Carbon Dioxide Level 30 Anion Gap 11 Blood Urea Nitrogen 39 H Creatinine 0.82 Glucose Level 128 Calcium Level 9.1 Medications Medications Current Medications Ondansetron HCl (Zofran Inj) 4 mg Q6H PRN IV NAUSEA AND/OR VOMITING; Start at 14:30 Acetaminophen (Tylenol Tab) 650 mg Q6H PRN PO PAIN LEVEL 1-3 OR FEVER Last administered on 01/26/17 13:51; Admin Dose 650 MG; Start 01/23/17 at 14:30 Atorvastatin Calcium (Lipitor) 20 mg QHS PO Last administered on 02/01/17 20: 56; Admin Dose 20 MG; Start 01/23/17 at 21:00 Citalopram Hydrobromide (Celexa) 20 mg DAILY PO Last administered on 09:12; Admin Dose 20 MG; Start 01/24/17 at 09:00 Morphine Sulfate (morphine) 1 mg Q4H PRN IV PAIN Last administered on 17:09; Admin Dose 1 MG; Start 01/24/17 at 04:30 Sucralfate (Carafate Susp) 1 gm QID PO Last administered on 02/02/17 09:11; Admin Dose 1 GM; Start 01/26/17 at 19:00 Docusate Sodium (Colace Liquid Cup) 100 mg BID PO Last administered on 09:11; Admin Dose 100 MG; Start 01/27/17 at 09:00 Metoprolol Tartrate (Lopressor) 100 mg BID PO Last administered on 02/01/17 20:56; Admin Dose 100 MG; Start 01/27/17 at 21:00 Furosemide (Lasix) 20 mg DAILY PO Last administered on 02/02/17 09:12; Admin Dose 20 MG; Start 01/28/17 at 09:00 Pantoprazole (Protonix Tab) 40 mg BID@06,18 PO Last administered on 02/02/17 06:19; Admin Dose 40 MG; Start 01/28/17 at 18:00 Acetaminophen/ Hydrocodone Bitart ([place] (5/325)) 1 tab Q4H PRN PO PAIN LEVEL 4 -6 Last administered on 02/02/17 09:21; Admin Dose 1 TAB; Start 02/02/17 at 04:40 Acetaminophen/ Hydrocodone Bitart ([place] (5/325)) 2 tab Q4H PRN PO PAIN LEVEL 7 -10; Start 02/02/17 at 05:00 CHEMO BURROWS Feb 02, 2017 12:19
--- NOTE | 2017-02-02 12:26 | RADRPT ---
PROCEDURE: Chest x-ray CLINICAL INDICATION: Shortness of breath TECHNIQUE: Chest single view COMPARISON: 01/29/2017 FINDINGS: There is stable mild cardiomegaly and an sclerotic aortic calcification. Bony vessels are borderline prominent. There is increasing left lung consolidation and left pleural effusion. Right lung is rosalinda ssly clear. Right costophrenic angle sharp. IMPRESSION: 1. Increasing left lower lung consolidation and left pleural effusion. 2. Stable mild cardiomegaly and minimal central venous congestion. 3. Right lung grossly clear RPTAT: HH .Sedrick Conley MD, Date Time Electronically viewed and signed by .Sedrick Conley MD, on 02/02/2017 12:25 .W/
[2017-02-02] MEDS: METOPROLOL 100 MG TAB PO SCH ×2 (13:40→21:48)
[2017-02-02] MEDS: morphine 2 MG INJ IV PRN ×2 (17:27→22:34)
--- NOTE | 2017-02-02 19:25 | CONS ---
Date/Time of Note Date/Time of Note DATE: 02/02/17 TIME: 19:20 Assessment/Plan Assessment/Plan Chief Complaint/Hosp Course ID PROGRESS NOTE CURRENT ABX: OFF ABX 24H s/p #10 =>cefepime -> DC'd 02/01/17 status post vancomycin. 24H INTERVAL SUMMARY * 86 yo F, resting comfortably , afebrile, VSS, NAD, * CHART REVIEWED: She is oriented to self only, otherwise confused, takes po thickened w/1:1 feeder, now chem code only, no CPR * MICRO REVIEWED: MICROBIOLOGY: Blood culture on admission grew gram-positive rods, 1 out of 2 sets. Urine culture grew E. coli. PHYSICAL EXAMINATION: GENERAL: VSS, afebrile, NAD HEENT: Unremarkable NECK: Supple, trach midline CHEST: Equal chest rise bilaterally, without dyspnea on observation HEART: RRR ABDOMEN: Soft, NT, ND EXT: Warm, no edema SKIN: No rash, no diaphoresis ID ASSESSMENT: 86 yo F admit [facility]: 1. Sepsis with Escherichia coli urinary tract infection on admission=> Completed ABX course 2. Bacteremia with blood culture growing gram-positive rods, one set, consistent with contaminant. 3. Questionable pneumonia. 4. Status post rapid atrial fibrillation. 5. Acute anemia. 6. Pancreatic cancer. 7. Acute kidney injury. (- )Influenza A/B screen ABX ALLERGIES: NKDA INVASIVES: PIV CURRENT ABX: OFF ABX 24H s/p #10 =>cefepime -> DC'd 02/01/17 status post vancomycin. ID RECOMMENDATIONS/PLAN: 1. Patient has completed full course of ABX, continue to monitor OFF ABX 2. May DC OFF ABX as long as no recurrent clinical indicators for infection . Problems: Consultation Date/Type/Reason Admit Date/Time Jan 23, 2017 at 13:10 Initial Consult Date 01/23/17 Type of Consultation: ID Referring Provider: SANCHEZ APARICIO QUICKBOOKS BOOKKEEPER Exam/Review of Systems Vital Signs Vitals Vital Signs Date Time Temp Pulse Resp B/P Pulse Ox O2 Delivery O2 Flow Rate FiO2 02/02/17 16:57 98.0 104 18 114/82 98 02/01/17 20:00 Nasal Cannula 2.0 Intake and Output 02/01/17 02/01/17 02/02/17 15:00 23:00 07:00 Intake Total 800 ml 120 ml Output Total 400 ml 350 ml Balance 400 ml -230 ml Results Result Diagram: 02/02/17 0729 02/02/17 0729 Results 24 hrs Laboratory Tests Test 02/02/17 07:29 White Blood Count 17.4 H Red Blood Count 3.25 L Hemoglobin 9.5 L Hematocrit 30.0 L Mean Corpuscular Volume 92.3 Mean Corpuscular Hemoglobin 29.2 Mean Corpuscular Hemoglobin Concent 31.7 L Red Cell Distribution Width 17.3 H Platelet Count 368 Mean Platelet Volume 12.2 H Neutrophils % 80.6 H Lymphocytes % 7.6 L Monocytes % 10.8 Eosinophils % 0.1 Basophils % 0.4 Nucleated Red Blood Cells % 0.0 Neutrophils # 14.0 H Lymphocytes # 1.3 Monocytes # 1.9 H Eosinophils # 0.0 Basophils # 0.1 Nucleated Red Blood Cells # 0.0 Sodium Level 148 H Potassium Level 3.3 L Chloride Level 110 Carbon Dioxide Level 30 Anion Gap 11 Blood Urea Nitrogen 39 H Creatinine 0.82 Glucose Level 128 Calcium Level 9.1 Medications Medications Current Medications Ondansetron HCl (Zofran Inj) 4 mg Q6H PRN IV NAUSEA AND/OR VOMITING; Start at 14:30 Acetaminophen (Tylenol Tab) 650 mg Q6H PRN PO PAIN LEVEL 1-3 OR FEVER Last administered on 01/26/17 13:51; Admin Dose 650 MG; Start 01/23/17 at 14:30 Atorvastatin Calcium (Lipitor) 20 mg QHS PO Last administered on 02/01/17 20: 56; Admin Dose 20 MG; Start 01/23/17 at 21:00 Citalopram Hydrobromide (Celexa) 20 mg DAILY PO Last administered on 09:12; Admin Dose 20 MG; Start 01/24/17 at 09:00 Morphine Sulfate (morphine) 1 mg Q4H PRN IV PAIN Last administered on 17:27; Admin Dose 1 MG; Start 01/24/17 at 04:30 Sucralfate (Carafate Susp) 1 gm QID PO Last administered on 02/02/17 17:17; Admin Dose 1 GM; Start 01/26/17 at 19:00 Docusate Sodium (Colace Liquid Cup) 100 mg BID PO Last administered on 09:11; Admin Dose 100 MG; Start 01/27/17 at 09:00 Metoprolol Tartrate (Lopressor) 100 mg BID PO Last administered on 02/02/17 13:40; Admin Dose 100 MG; Start 01/27/17 at 21:00 Furosemide (Lasix) 20 mg DAILY PO Last administered on 02/02/17 09:12; Admin Dose 20 MG; Start 01/28/17 at 09:00 Pantoprazole (Protonix Tab) 40 mg BID@18 PO Last administered on 02/02/17 17:18; Admin Dose 40 MG; Start 01/28/17 at 18:00 Acetaminophen/ Hydrocodone Bitart ([place] (5/325)) 1 tab Q4H PRN PO PAIN LEVEL 4 -6 Last administered on 02/02/17 14:56; Admin Dose 1 TAB; Start 02/02/17 at 04:40 Acetaminophen/ Hydrocodone Bitart ([place] (5/325)) 2 tab Q4H PRN PO PAIN LEVEL 7 -10; Start 02/02/17 at 05:00 KEVIN RED NP Feb 02, 2017 19:25
[2017-02-02] MEDS: ATORVASTATIN 20 MG TAB PO SCH (21:48)
[2017-02-03] VITALS (12 sets, daily range): BP systolic 102–131; BP diastolic 42–80; PULSE 77–111; RESP 20–21
[2017-02-03] MEDS: morphine 2 MG INJ IV PRN ×3 (02:31→22:59)
[2017-02-03 06:32] LABS: BASOPHIL # 0.1 10^3/ul (0.0-0.1); BASOPHILS % 0.5 % (0.0-2.0); EOSINOPHILS % 0.3 % (0.0-7.0); HEMATOCRIT 31.6 % (37.0-47.0); HEMOGLOBIN 9.7 g/dl (12.0-16.0); LYMPHOCYTES # 1.4 10^3/ul (0.8-2.9); MEAN CORPUSCULAR HEMOGLOBIN 28.6 pg (29.0-33.0); MEAN CORPUSCULAR HGB CONC 30.7 g/dl (32.0-37.0); MEAN CORPUSCULAR VOLUME 93.2 fl (82.0-101.0); MEAN PLATELET VOLUME 11.6 fl (7.4-10.4); MONOCYTE # 1.4 10^3/ul (0.3-0.9); MONOCYTES % 10.2 % (0.0-11.0); NEUTROPHIL # 10.8 10^3/ul (1.6-7.5); NEUTROPHILS % 78.4 % (39.0-77.0); PLATELET COUNT 377 10^3/UL (140-415); RED BLOOD COUNT 3.39 10^6/ul (4.20-5.40); RED CELL DISTRIBUTION WIDTH 17.2 % (11.5-14.5); WHITE BLOOD COUNT 13.8 10^3/ul (4.8-10.8)
[2017-02-03] MEDS: LEVOTHYROXINE 50 MCG TAB PO SCH (06:48)
[2017-02-03] MEDS: PANTOPRAZOLE (EC) 40 MG TAB PO SCH ×2 (06:48→17:53)
[2017-02-03 07:13] LABS: CALCIUM 9.4 mg/dl (8.4-10.2); CREATININE 0.87 mg/dl (0.44-1.00)
[2017-02-03] MEDS: SUCRALFATE (100 MG/ML) 10ML CUP PO SCH ×4 (08:48→20:35)
[2017-02-03] MEDS: DOCUSATE SODIUM 10 MG/ML (10ML CUP) PO SCH ×2 (08:48→20:35)
[2017-02-03] MEDS: FUROSEMIDE 20 MG TAB PO SCH (08:49)
[2017-02-03] MEDS: METOPROLOL 100 MG TAB PO SCH ×2 (08:49→20:35)
[2017-02-03] MEDS: CITALOPRAM 20 MG TAB PO SCH (08:49)
--- NOTE | 2017-02-03 09:55 | PN ---
Date/Time of Note Date/Time of Note DATE: 02/03/17 TIME: 09:48 Assessment/Plan VTE Prophylaxis VTE Prophylaxis Intervention: SCD's Lines/Catheters IV Catheter Type (from [facility]): Saline Lock Urinary Cath still in place: Yes Reason Cath still needed: other (indicate) (monitor I&O) Assessment/Plan Chief Complaint/Hosp Course Assessment and plan 1. Sepsis secondary to underlying UTI. Continue antibiotics. Afebrile present. Stable at present. improved 2. Coagulopathy. Secondary to Coumadin toxicity. Off of Coumadin at this time. Resume per marketing trainee. Improved status post vitamin K and fresh frozen plasma administration 3. Atrial fibrillation with RVR. Patient is status post Cardizem IV. Continue on beta-iraida. Continue telemetry monitoring. 4. Acute kidney injury. Improving at present. Management Department Chair following. Medications to be renally dosed. 5. Symptomatic anemia. Improved status post blood transfusion. GI following. Status post EGD that showed a 6 mm clean-based esophageal ulcer and distal esophagitis and also moderate gastritis. Continue PPI medication. Monitor H& H. Continue on Carafate. 6. Essential hypertension. Continue antihypertensives and adjust as needed. 7. 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 Continue optimization with beta iraida. No MEHRAN inhibitor at this time due to recent CKD. 8. Acute on chronic systolic heart failure. Continue diuresis per cardiology. 9. Pulmonary hypertension with PA systolic pressure of 52 mmHg. Continue with O2 as needed. Diuretics per marketing trainee. Stable at this time . 10. Hypothyroidism. Continue Synthroid 11. Reported dysphagia. Continue with. [place] thick liquids. Continue with ST or conditions. 12. 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 Continue with conservative management. patient for outpatient follow up 13. Pleural effusion. Patient was consulted by social worker assistant. slightly worse per recent CXR. follow up with recs Disposition plan: with little worse pleural effusion on left. continue with diuretic. Follow up with social worker assistant recs if need for thoracentesis. Awaiting placement Discussed plan of care with Problems: Subjective 24 Hr Interval Summary Free Text/Dictation resting at this time. no resp distress seen. no specific complaints Exam/Review of Systems Vital Signs Vitals Vital Signs Date Time Temp Pulse Resp B/P Pulse Ox O2 Delivery O2 Flow Rate FiO2 02/03/17 08:33 98.0 100 20 131/80 97 02/02/17 20:00 Nasal Cannula 2.0 Intake and Output 02/02/17 02/02/17 02/03/17 14:59 22:59 06:59 Intake Total 500 ml 50 ml Output Total 450 ml 450 ml Balance 50 ml -400 ml Exam Constitutional: alert, Psych: nl mood/affect Head: normocephalic Eyes: nl conjunctiva Neck: supple Respiratory: no congestion. Cardiovascular: regular rate and rhythm Gastrointestinal: non-tender, soft Musculoskeletal: No nl gait and stance Neurological: WEB PRESSMAN II-XII intact, nl mental status, nl speech Results Result Diagram: 02/03/17 0531 02/03/17 0531 Results 24 hrs Laboratory Tests Test 02/03/17 05:31 White Blood Count 13.8 #H Red Blood Count 3.39 L Hemoglobin 9.7 L Hematocrit 31.6 L Mean Corpuscular Volume 93.2 Mean Corpuscular Hemoglobin 28.6 L Mean Corpuscular Hemoglobin Concent 30.7 L Red Cell Distribution Width 17.2 H Platelet Count 377 Mean Platelet Volume 11.6 H Neutrophils % 78.4 H Lymphocytes % 10.0 L Monocytes % 10.2 Eosinophils % 0.3 Basophils % 0.5 Nucleated Red Blood Cells % 0.0 Neutrophils # 10.8 H Lymphocytes # 1.4 Monocytes # 1.4 H Eosinophils # 0.0 Basophils # 0.1 Nucleated Red Blood Cells # 0.0 Sodium Level 151 H Potassium Level 4.0 Chloride Level 112 H Carbon Dioxide Level 32 H Anion Gap 11 Blood Urea Nitrogen 35 H Creatinine 0.87 Glucose Level 105 Calcium Level 9.4 Medications Medications Current Medications Ondansetron HCl (Zofran Inj) 4 mg Q6H PRN IV NAUSEA AND/OR VOMITING; Start at 14:30 Acetaminophen (Tylenol Tab) 650 mg Q6H PRN PO PAIN LEVEL 1-3 OR FEVER Last administered on 01/26/17 13:51; Admin Dose 650 MG; Start 01/23/17 at 14:30 Atorvastatin Calcium (Lipitor) 20 mg QHS PO Last administered on 02/02/17 21: 48; Admin Dose 20 MG; Start 01/23/17 at 21:00 Citalopram Hydrobromide (Celexa) 20 mg DAILY PO Last administered on 08:49; Admin Dose 20 MG; Start 01/24/17 at 09:00 Morphine Sulfate (morphine) 1 mg Q4H PRN IV PAIN Last administered on 02:31; Admin Dose 1 MG; Start 01/24/17 at 04:30 Sucralfate (Carafate Susp) 1 gm QID PO Last administered on 02/03/17 08:48; Admin Dose 1 GM; Start 01/26/17 at 19:00 Docusate Sodium (Colace Liquid Cup) 100 mg BID PO Last administered on 08:48; Admin Dose 100 MG; Start 01/27/17 at 09:00 Metoprolol Tartrate (Lopressor) 100 mg BID PO Last administered on 02/03/17 08:49; Admin Dose 100 MG; Start 01/27/17 at 21:00 Furosemide (Lasix) 20 mg DAILY PO Last administered on 02/03/17 08:49; Admin Dose 20 MG; Start 01/28/17 at 09:00 Pantoprazole (Protonix Tab) 40 mg BID@06,18 PO Last administered on 02/03/17 06:48; Admin Dose 40 MG; Start 01/28/17 at 18:00 Acetaminophen/ Hydrocodone Bitart ([place] (5/325)) 1 tab Q4H PRN PO PAIN LEVEL 4 -6 Last administered on 02/02/17 14:56; Admin Dose 1 TAB; Start 02/02/17 at 04:40 Acetaminophen/ Hydrocodone Bitart ([place] (5/325)) 2 tab Q4H PRN PO PAIN LEVEL 7 -10; Start 02/02/17 at 05:00 CHEMO BURROWS Feb 03, 2017 09:55
--- NOTE | 2017-02-03 11:22 | CONS ---
KEVIN PEREZ 02/03/17 1122: Date/Time of Note Date/Time of Note DATE: 02/03/17 TIME: 11:21 Assessment/Plan Assessment/Plan Chief Complaint/Hosp Course 1. Hypernatremia, worse 2. Severe anemia, improved 3. Acute renal failure. 4. Elevated INR> improved, therapeutic level 5. Urinary tract infection with GNR 6. Elevated BNP. 7. History of hypertension. 8. Hypothyroidism. 9. Pneumonia. 10. 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 11. SIRS Problems: Additional Assessment/Plan 1. palliative care, dr Castillo is on case 2. Hypernatremia worse, Start dextrose 5 water50 ml hour Consultation Date/Type/Reason Admit Date/Time Jan 23, 2017 at 13:10 Initial Consult Date 01/23/17 Type of Consultation: nephrology Reason for Consultation Dr Costa Referring Provider: SANCHEZ APARICIO BITE BLOCK MAKER 24 HR Interval Summary Free Text/Dictation in pain, grimacing. Exam/Review of Systems Vital Signs Vitals Vital Signs Date Time Temp Pulse Resp B/P Pulse Ox O2 Delivery O2 Flow Rate FiO2 02/03/17 08:33 98.0 100 20 131/80 97 02/03/17 08:00 Nasal Cannula 2.0 Intake and Output 02/02/17 02/02/17 02/03/17 15:00 23:00 07:00 Intake Total 500 ml 50 ml Output Total 450 ml 450 ml Balance 50 ml -400 ml Exam pale Constitutional: alert, oriented Neck: supple Cardiovascular: regular rate and rhythm Gastrointestinal: rebound or guarding, soft Genitourinary - Female: nl external genitalia Results Result Diagram: 02/03/17 0531 02/03/17 0531 Results 24 hrs Laboratory Tests Test 02/03/17 05:31 White Blood Count 13.8 #H Red Blood Count 3.39 L Hemoglobin 9.7 L Hematocrit 31.6 L Mean Corpuscular Volume 93.2 Mean Corpuscular Hemoglobin 28.6 L Mean Corpuscular Hemoglobin Concent 30.7 L Red Cell Distribution Width 17.2 H Platelet Count 377 Mean Platelet Volume 11.6 H Neutrophils % 78.4 H Lymphocytes % 10.0 L Monocytes % 10.2 Eosinophils % 0.3 Basophils % 0.5 Nucleated Red Blood Cells % 0.0 Neutrophils # 10.8 H Lymphocytes # 1.4 Monocytes # 1.4 H Eosinophils # 0.0 Basophils # 0.1 Nucleated Red Blood Cells # 0.0 Sodium Level 151 H Potassium Level 4.0 Chloride Level 112 H Carbon Dioxide Level 32 H Anion Gap 11 Blood Urea Nitrogen 35 H Creatinine 0.87 Glucose Level 105 Calcium Level 9.4 Medications Medications Current Medications Ondansetron HCl (Zofran Inj) 4 mg Q6H PRN IV NAUSEA AND/OR VOMITING; Start at 14:30 Acetaminophen (Tylenol Tab) 650 mg Q6H PRN PO PAIN LEVEL 1-3 OR FEVER Last administered on 01/26/17 13:51; Admin Dose 650 MG; Start 01/23/17 at 14:30 Atorvastatin Calcium (Lipitor) 20 mg QHS PO Last administered on 02/02/17 21: 48; Admin Dose 20 MG; Start 01/23/17 at 21:00 Citalopram Hydrobromide (Celexa) 20 mg DAILY PO Last administered on 08:49; Admin Dose 20 MG; Start 01/24/17 at 09:00 Morphine Sulfate (morphine) 1 mg Q4H PRN IV PAIN Last administered on 02:31; Admin Dose 1 MG; Start 01/24/17 at 04:30 Sucralfate (Carafate Susp) 1 gm QID PO Last administered on 02/03/17 08:48; Admin Dose 1 GM; Start 01/26/17 at 19:00 Docusate Sodium (Colace Liquid Cup) 100 mg BID PO Last administered on 08:48; Admin Dose 100 MG; Start 01/27/17 at 09:00 Metoprolol Tartrate (Lopressor) 100 mg BID PO Last administered on 02/03/17 08:49; Admin Dose 100 MG; Start 01/27/17 at 21:00 Pantoprazole (Protonix Tab) 40 mg BID@18 PO Last administered on 02/03/17 06:48; Admin Dose 40 MG; Start 01/28/17 at 18:00 Acetaminophen/ Hydrocodone Bitart ([place] (5/325)) 1 tab Q4H PRN PO PAIN LEVEL 4 -6 Last administered on 02/02/17 14:56; Admin Dose 1 TAB; Start 02/02/17 at 04:40 Acetaminophen/ Hydrocodone Bitart ([place] (5/325)) 2 tab Q4H PRN PO PAIN LEVEL 7 -10; Start 02/02/17 at 05:00 LIZZETTE BLANC MD 02/03/17 1638: Assessment/Plan Assessment/Plan Additional Assessment/Plan D5 W at 50 for hypernatremia Hold Lasix Exam/Review of Systems Results Result Diagram: 02/03/17 0531 02/03/17 0531 KEVIN PEREZ Feb 03, 2017 11:22 LIZZETTE BLANC MD Feb 03, 2017 16:38
--- NOTE | 2017-02-03 11:24 | CONS ---
Date/Time of Note Date/Time of Note DATE: 02/03/17 TIME: 11:20 Consult Date/Type/Reason Admit Date/Time Jan 23, 2017 at 13:10 Initial Consult Date 01/30/17 Type of Consultation: Pulmonary Ordering Provider: SANCHEZ APARICIO FORENSIC ENGINEER Subjective Pulmonary status remains stable. Objective Vital Signs Date Time Temp Pulse Resp B/P Pulse Ox O2 Delivery O2 Flow Rate FiO2 02/03/17 08:33 98.0 100 20 131/80 97 02/03/17 08:00 Nasal Cannula 2.0 Intake and Output 02/02/17 02/02/17 02/03/17 15:00 23:00 07:00 Intake Total 500 ml 50 ml Output Total 450 ml 450 ml Balance 50 ml -400 ml Exam Patient comfortable at rest. GENERAL: Thin elderly lady appears comfortable no acute distress. VITAL SIGNS: per chart NECK: Supple. No JVD or lymphadenopathy. CARDIAC EXAM: S1, S2. No added sounds or murmurs. CHEST: clear bilaterally, No added sounds, rales or wheezes ABDOMEN: Soft, nontender. No guarding or rebound. EXTREMITIES: No cyanosis, clubbing or edema. NEUROLOGIC: Generalized weakness. No focal deficits. Results/Medications Result Diagram: 02/03/17 0531 02/03/17 0531 Results 24 hrs Laboratory Tests Test 02/03/17 05:31 White Blood Count 13.8 #H Red Blood Count 3.39 L Hemoglobin 9.7 L Hematocrit 31.6 L Mean Corpuscular Volume 93.2 Mean Corpuscular Hemoglobin 28.6 L Mean Corpuscular Hemoglobin Concent 30.7 L Red Cell Distribution Width 17.2 H Platelet Count 377 Mean Platelet Volume 11.6 H Neutrophils % 78.4 H Lymphocytes % 10.0 L Monocytes % 10.2 Eosinophils % 0.3 Basophils % 0.5 Nucleated Red Blood Cells % 0.0 Neutrophils # 10.8 H Lymphocytes # 1.4 Monocytes # 1.4 H Eosinophils # 0.0 Basophils # 0.1 Nucleated Red Blood Cells # 0.0 Sodium Level 151 H Potassium Level 4.0 Chloride Level 112 H Carbon Dioxide Level 32 H Anion Gap 11 Blood Urea Nitrogen 35 H Creatinine 0.87 Glucose Level 105 Calcium Level 9.4 Medications Current Medications Ondansetron HCl (Zofran Inj) 4 mg Q6H PRN IV NAUSEA AND/OR VOMITING; Start at 14:30 Acetaminophen (Tylenol Tab) 650 mg Q6H PRN PO PAIN LEVEL 1-3 OR FEVER Last administered on 01/26/17 13:51; Admin Dose 650 MG; Start 01/23/17 at 14:30 Atorvastatin Calcium (Lipitor) 20 mg QHS PO Last administered on 02/02/17 21: 48; Admin Dose 20 MG; Start 01/23/17 at 21:00 Citalopram Hydrobromide (Celexa) 20 mg DAILY PO Last administered on 08:49; Admin Dose 20 MG; Start 01/24/17 at 09:00 Morphine Sulfate (morphine) 1 mg Q4H PRN IV PAIN Last administered on 02:31; Admin Dose 1 MG; Start 01/24/17 at 04:30 Sucralfate (Carafate Susp) 1 gm QID PO Last administered on 02/03/17 08:48; Admin Dose 1 GM; Start 01/26/17 at 19:00 Docusate Sodium (Colace Liquid Cup) 100 mg BID PO Last administered on 08:48; Admin Dose 100 MG; Start 01/27/17 at 09:00 Metoprolol Tartrate (Lopressor) 100 mg BID PO Last administered on 02/03/17 08:49; Admin Dose 100 MG; Start 01/27/17 at 21:00 Pantoprazole (Protonix Tab) 40 mg BID@06,18 PO Last administered on 02/03/17 06:48; Admin Dose 40 MG; Start 01/28/17 at 18:00 Acetaminophen/ Hydrocodone Bitart ([place] (5/325)) 1 tab Q4H PRN PO PAIN LEVEL 4 -6 Last administered on 02/02/17 14:56; Admin Dose 1 TAB; Start 02/02/17 at 04:40 Acetaminophen/ Hydrocodone Bitart ([place] (5/325)) 2 tab Q4H PRN PO PAIN LEVEL 7 -10; Start 02/02/17 at 05:00 Assessment/Plan Chief Complaint/Hosp Course Assessment 1. Likely significant aspiration risk 2. Persistent leukocytosis 3. Left pleural effusion 4. History of pancreatic cancer tail of pancreas nonsurgical Plan 1. Left thoracentesis prior to discharge 2. Continue antibiotics 3. Aspiration precautions speech therapy evaluation 4. transfer to [place] facility [place] from primary standpoint. Problems: TYRON MEANS MD, [facility] Feb 03, 2017 11:24
[2017-02-03] MEDS: HYDROCODONE/APAP (5/325) TAB PO PRN (13:54)
[2017-02-03] MEDS: DEXTROSE 5% 1,000 ML IV SCH (13:57)
[2017-02-03] MEDS: FUROSEMIDE 20 MG INJ IV SCH (17:54)
[2017-02-03] MEDS: ATORVASTATIN 20 MG TAB PO SCH (20:35)
--- NOTE | 2017-02-03 20:57 | CONS ---
Date/Time of Note Date/Time of Note DATE: 02/03/17 TIME: 20:56 Assessment/Plan Assessment/Plan Chief Complaint/Hosp Course ID PROGRESS NOTE CURRENT ABX: OFF ABX 48H s/p #10 =>cefepime -> DC'd 02/01/17 status post vancomycin. 24H INTERVAL SUMMARY * Confused, lethargic 86 yo F, resting w/supplemental O2 via NC, no fevers, WBC down today 13.8 * CHART REVIEWED: She is oriented to self only, otherwise confused, takes po thickened w/1:1 feeder, now chem code only, no CPR * MICRO REVIEWED: MICROBIOLOGY: Blood culture on admission grew gram-positive rods, 1 out of 2 sets. Urine culture grew E. coli. PHYSICAL EXAMINATION: GENERAL: VSS, afebrile, NAD HEENT: Unremarkable NECK: Supple, trach midline CHEST: Equal chest rise bilaterally, without dyspnea on observation HEART: RRR ABDOMEN: Soft, NT, ND EXT: Warm, no edema SKIN: No rash, no diaphoresis ID ASSESSMENT: 86 yo F admit [facility]: 1. Sepsis with Escherichia coli urinary tract infection on admission=> Completed ABX course 2. Bacteremia with blood culture growing gram-positive rods, one set, consistent with contaminant. 3. Questionable pneumonia. 4. Status post rapid atrial fibrillation. 5. Acute anemia. 6. Pancreatic cancer. 7. Acute kidney injury. (- )Influenza A/B screen ABX ALLERGIES: NKDA INVASIVES: PIV CURRENT ABX: OFF ABX 48H s/p #10 =>cefepime -> DC'd 02/01/17 status post vancomycin. ID RECOMMENDATIONS/PLAN: 1. Patient has completed full course of ABX, continue to monitor OFF ABX 2. May DC OFF ABX as long as no recurrent clinical indicators for infection 3. Aspiration precautions . Problems: Consultation Date/Type/Reason Admit Date/Time Jan 23, 2017 at 13:10 Initial Consult Date 01/23/17 Type of Consultation: ID Referring Provider: SANCHEZ APARICIO OPERATOR HELPER Exam/Review of Systems Vital Signs Vitals Vital Signs Date Time Temp Pulse Resp B/P Pulse Ox O2 Delivery O2 Flow Rate FiO2 02/03/17 20:07 98 02/03/17 20:00 98.0 20 125/58 94 02/03/17 08:00 Nasal Cannula 2.0 Intake and Output 02/02/17 02/02/17 02/03/17 15:00 23:00 07:00 Intake Total 500 ml 50 ml Output Total 450 ml 450 ml Balance 50 ml -400 ml Results Result Diagram: 02/03/1731 02/03/17 0531 Results 24 hrs Laboratory Tests Test 02/03/17 05:31 White Blood Count 13.8 #H Red Blood Count 3.39 L Hemoglobin 9.7 L Hematocrit 31.6 L Mean Corpuscular Volume 93.2 Mean Corpuscular Hemoglobin 28.6 L Mean Corpuscular Hemoglobin Concent 30.7 L Red Cell Distribution Width 17.2 H Platelet Count 377 Mean Platelet Volume 11.6 H Neutrophils % 78.4 H Lymphocytes % 10.0 L Monocytes % 10.2 Eosinophils % 0.3 Basophils % 0.5 Nucleated Red Blood Cells % 0.0 Neutrophils # 10.8 H Lymphocytes # 1.4 Monocytes # 1.4 H Eosinophils # 0.0 Basophils # 0.1 Nucleated Red Blood Cells # 0.0 Sodium Level 151 H Potassium Level 4.0 Chloride Level 112 H Carbon Dioxide Level 32 H Anion Gap 11 Blood Urea Nitrogen 35 H Creatinine 0.87 Glucose Level 105 Calcium Level 9.4 Medications Medications Current Medications Ondansetron HCl (Zofran Inj) 4 mg Q6H PRN IV NAUSEA AND/OR VOMITING; Start at 14:30 Acetaminophen (Tylenol Tab) 650 mg Q6H PRN PO PAIN LEVEL 1-3 OR FEVER Last administered on 01/26/17 13:51; Admin Dose 650 MG; Start 01/23/17 at 14:30 Atorvastatin Calcium (Lipitor) 20 mg QHS PO Last administered on 02/03/17 20: 35; Admin Dose 20 MG; Start 01/23/17 at 21:00 Citalopram Hydrobromide (Celexa) 20 mg DAILY PO Last administered on 08:49; Admin Dose 20 MG; Start 01/24/17 at 09:00 Morphine Sulfate (morphine) 1 mg Q4H PRN IV PAIN Last administered on 15:11; Admin Dose 1 MG; Start 01/24/17 at 04:30 Sucralfate (Carafate Susp) 1 gm QID PO Last administered on 02/03/17 20:35; Admin Dose 1 GM; Start 01/26/17 at 19:00 Docusate Sodium (Colace Liquid Cup) 100 mg BID PO Last administered on 20:35; Admin Dose 100 MG; Start 01/27/17 at 09:00 Metoprolol Tartrate (Lopressor) 100 mg BID PO Last administered on 02/03/17 20:35; Admin Dose 100 MG; Start 01/27/17 at 21:00 Pantoprazole (Protonix Tab) 40 mg BID@06,18 PO Last administered on 02/03/17 17:53; Admin Dose 40 MG; Start 01/28/17 at 18:00 Acetaminophen/ Hydrocodone Bitart ([place] (5/325)) 1 tab Q4H PRN PO PAIN LEVEL 4 -6 Last administered on 02/03/17 13:54; Admin Dose 1 TAB; Start 02/02/17 at 04:40 Acetaminophen/ Hydrocodone Bitart 2 tab 2 tab Q4H PRN PO PAIN LEVEL 7-10; Start 02/02/17 at 05:00 Dextrose (D5W) 1,000 ml @ 50 mls/hr Q20H IV Last administered on 02/03/17 13 :57; Admin Dose 50 MLS/HR; Start 02/03/17 at 12:30 KEVIN RED NP Feb 03, 2017 20:57
[2017-02-04] VITALS (11 sets, daily range): BP systolic 113–131; BP diastolic 54–58; PULSE 86–119; RESP 18–22
[2017-02-04 06:22] LABS: BASOPHIL # 0.1 10^3/ul (0.0-0.1); BASOPHILS % 0.4 % (0.0-2.0); EOSINOPHILS # 0.1 10^3/ul (0.0-0.5); EOSINOPHILS % 0.6 % (0.0-7.0); HEMATOCRIT 31.5 % (37.0-47.0); HEMOGLOBIN 9.7 g/dl (12.0-16.0); LYMPHOCYTES # 1.3 10^3/ul (0.8-2.9); LYMPHOCYTES % 10.7 % (15.0-51.0); MEAN CORPUSCULAR HEMOGLOBIN 28.6 pg (29.0-33.0); MEAN CORPUSCULAR HGB CONC 30.8 g/dl (32.0-37.0); MEAN CORPUSCULAR VOLUME 92.9 fl (82.0-101.0); MEAN PLATELET VOLUME 11.4 fl (7.4-10.4); MONOCYTE # 1.3 10^3/ul (0.3-0.9); MONOCYTES % 10.7 % (0.0-11.0); NEUTROPHIL # 9.5 10^3/ul (1.6-7.5); PLATELET COUNT 349 10^3/UL (140-415); RED BLOOD COUNT 3.39 10^6/ul (4.20-5.40); WHITE BLOOD COUNT 12.4 10^3/ul (4.8-10.8)
[2017-02-04] MEDS: LEVOTHYROXINE 50 MCG TAB PO SCH (06:46)
[2017-02-04] MEDS: FUROSEMIDE 20 MG INJ IV SCH ×2 (06:46→17:28)
[2017-02-04] MEDS: PANTOPRAZOLE (EC) 40 MG TAB PO SCH ×2 (06:46→17:27)
[2017-02-04 07:04] LABS: CALCIUM 8.8 mg/dl (8.4-10.2); CREATININE 0.83 mg/dl (0.44-1.00); POTASSIUM 3.3 mmol/L (3.5-5.1)
[2017-02-04] MEDS: CITALOPRAM 20 MG TAB PO SCH (08:42)
[2017-02-04] MEDS: SUCRALFATE (100 MG/ML) 10ML CUP PO SCH ×4 (08:42→21:12)
[2017-02-04] MEDS: METOPROLOL 100 MG TAB PO SCH ×2 (08:42→21:12)
[2017-02-04] MEDS: DEXTROSE 5% 1,000 ML IV SCH (08:43)
[2017-02-04] MEDS: DOCUSATE SODIUM 10 MG/ML (10ML CUP) PO SCH ×2 (08:43→21:12)
[2017-02-04 08:50] LABS: INR 1.25; PROTIME 15.8 Sec (12.2-14.2); PT RATIO 1.2
--- NOTE | 2017-02-04 09:52 | PN ---
Date/Time of Note Date/Time of Note DATE: 02/04/17 TIME: 09:46 Assessment/Plan VTE Prophylaxis VTE Prophylaxis Intervention: SCD's Lines/Catheters IV [facility] Saline Lock Urinary Cath still in place: Yes Reason Cath still needed: other (indicate) (monitor I&O) Assessment/Plan Chief Complaint/Hosp Course Assessment and plan 1. Sepsis secondary to underlying UTI. off antibiotics. Afebrile present. Stable at present. improved 2. Coagulopathy. Secondary to Coumadin toxicity. Off of Coumadin at this time. Resume per desktop architect. Improved status post vitamin K and fresh frozen plasma administration 3. Atrial fibrillation with RVR. Patient is status post Cardizem IV. Continue on beta-iraida. Continue telemetry monitoring. 4. Acute kidney injury. Improving at present. Customer Success Intern following. Medications to be renally dosed. 5. Symptomatic anemia. Improved status post blood transfusion. GI following. Status post EGD that showed a 6 mm clean-based esophageal ulcer and distal esophagitis and also moderate gastritis. Continue PPI medication. Monitor H& H. Continue on Carafate. 6. Essential hypertension. Continue antihypertensives and adjust as needed. 7. 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 Continue optimization with beta iraida. No MEHRAN inhibitor at this time due to recent CKD. 8. Acute on chronic systolic heart failure. Continue diuresis per cardiology. 9. Pulmonary hypertension with PA systolic pressure of 52 mmHg. Continue with O2 as needed. Diuretics per desktop architect. Stable at this time . 10. Hypothyroidism. Continue Synthroid 11. Reported dysphagia. Continue with. Bath thick liquids. Continue with ST or conditions. 12. 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 Continue with conservative management. patient for outpatient follow up 13. Pleural effusion. Plan for thoracentesis Disposition plan: Thoracentesis was planned for February 03 over due to elevated INR was placed on hold. INR at 1.25 today. Follow-up with radiology for thoracentesis today. Discussed plan of care with Problems: Subjective 24 Hr Interval Summary Free Text/Dictation no obvious respiratory distress at this time Exam/Review of Systems Vital Signs Vitals Vital Signs Date Time Temp Pulse Resp B/P Pulse Ox O2 Delivery O2 Flow Rate FiO2 02/04/17 08:11 97.9 107 22 131/57 96 02/04/17 07:35 Nasal Cannula 2.0 Intake and Output 02/03/17 02/03/17 02/04/17 15:00 23:00 07:00 Intake Total 490 ml 50 ml Output Total 500 ml 900 ml Balance -10 ml -850 ml Exam Constitutional: alert, Psych: nl mood/affect Head: normocephalic Eyes: nl conjunctiva Neck: supple Respiratory: diminished left lung field Cardiovascular: regular rate and rhythm Gastrointestinal: non-tender, soft Musculoskeletal: No nl gait and stance Neurological: nl speech Results Result Diagram: 02/04/17 0546 02/04/17 0546 Results 24 hrs Laboratory Tests Test 02/04/17 05:46 02/04/17 08:17 White Blood Count 12.4 H Red Blood Count 3.39 L Hemoglobin 9.7 L Hematocrit 31.5 L Mean Corpuscular Volume 92.9 Mean Corpuscular Hemoglobin 28.6 L Mean Corpuscular Hemoglobin Concent 30.8 L Red Cell Distribution Width 17.0 H Platelet Count 349 Mean Platelet Volume 11.4 H Neutrophils % 77.0 Lymphocytes % 10.7 L Monocytes % 10.7 Eosinophils % 0.6 Basophils % 0.4 Nucleated Red Blood Cells % 0.0 Neutrophils # 9.5 H Lymphocytes # 1.3 Monocytes # 1.3 H Eosinophils # 0.1 Basophils # 0.1 Nucleated Red Blood Cells # 0.0 Sodium Level 144 Potassium Level 3.3 L Chloride Level 104 Carbon Dioxide Level 31 Anion Gap 12 Blood Urea Nitrogen 36 H Creatinine 0.83 Glucose Level 139 Calcium Level 8.8 Prothrombin Time 15.8 #H Prothrombin Time Ratio 1.2 INR International Normalized Ratio 1.25 Medications Medications Current Medications Ondansetron HCl (Zofran Inj) 4 mg Q6H PRN IV NAUSEA AND/OR VOMITING; Start at 14:30 Acetaminophen (Tylenol Tab) 650 mg Q6H PRN PO PAIN LEVEL 1-3 OR FEVER Last administered on 01/26/17 13:51; Admin Dose 650 MG; Start 01/23/17 at 14:30 Atorvastatin Calcium (Lipitor) 20 mg QHS PO Last administered on 02/03/17 20: 35; Admin Dose 20 MG; Start 01/23/17 at 21:00 Citalopram Hydrobromide (Celexa) 20 mg DAILY PO Last administered on 08:42; Admin Dose 20 MG; Start 01/24/17 at 09:00 Morphine Sulfate (morphine) 1 mg Q4H PRN IV PAIN Last administered on 22:59; Admin Dose 1 MG; Start 01/24/17 at 04:30 Sucralfate (Carafate Susp) 1 gm QID PO Last administered on 02/04/17 08:42; Admin Dose 1 GM; Start 01/26/17 at 19:00 Docusate Sodium (Colace Liquid Cup) 100 mg BID PO Last administered on 08:43; Admin Dose 100 MG; Start 01/27/17 at 09:00 Metoprolol Tartrate (Lopressor) 100 mg BID PO Last administered on 02/04/17 08:42; Admin Dose 100 MG; Start 01/27/17 at 21:00 Pantoprazole (Protonix Tab) 40 mg BID@06,18 PO Last administered on 02/04/17 06:46; Admin Dose 40 MG; Start 01/28/17 at 18:00 Acetaminophen/ Hydrocodone Bitart ([place] (5/325)) 1 tab Q4H PRN PO PAIN LEVEL 4 -6 Last administered on 02/03/17 13:54; Admin Dose 1 TAB; Start 02/02/17 at 04:40 Acetaminophen/ Hydrocodone Bitart 2 tab 2 tab Q4H PRN PO PAIN LEVEL 7-10; Start 02/02/17 at 05:00 Dextrose (D5W) 1,000 ml @ 50 mls/hr Q20H IV Last administered on 02/04/17 08 :43; Admin Dose 50 MLS/HR; Start 02/03/17 at 12:30 CHEMO BURROWS Feb 04, 2017 09:52
--- NOTE | 2017-02-04 11:45 | CONS ---
Date/Time of Note Date/Time of Note DATE: 02/04/17 TIME: 11:45 Consult Date/Type/Reason Admit Date/Time Jan 23, 2017 at 13:10 Initial Consult Date 01/30/17 Type of Consultation: Pulmonary Ordering Provider: SANCHEZ APARICIO CIRCULAR GANG SAW OPERATOR Subjective Patient remains stable. No new events. Pending thoracentesis. Objective Vital Signs Date Time Temp Pulse Resp B/P Pulse Ox O2 Delivery O2 Flow Rate FiO2 02/04/17 08:11 97.9 107 22 131/57 96 02/04/17 07:35 Nasal Cannula 2.0 Intake and Output 02/03/17 02/03/17 02/04/17 14:59 22:59 06:59 Intake Total 490 ml 50 ml Output Total 500 ml 900 ml Balance -10 ml -850 ml Exam GENERAL: Thin elderly lady appears comfortable no acute distress. VITAL SIGNS: per chart NECK: Supple. No JVD or lymphadenopathy. CARDIAC EXAM: S1, S2. No added sounds or murmurs. CHEST: clear bilaterally, No added sounds, rales or wheezes ABDOMEN: Soft, nontender. No guarding or rebound. EXTREMITIES: No cyanosis, clubbing or edema. NEUROLOGIC: Generalized weakness. No focal deficits. Results/Medications Result Diagram: 02/04/17 0546 02/04/17 0546 Results 24 hrs Laboratory Tests Test 02/04/17 05:46 02/04/17 08:17 White Blood Count 12.4 H Red Blood Count 3.39 L Hemoglobin 9.7 L Hematocrit 31.5 L Mean Corpuscular Volume 92.9 Mean Corpuscular Hemoglobin 28.6 L Mean Corpuscular Hemoglobin Concent 30.8 L Red Cell Distribution Width 17.0 H Platelet Count 349 Mean Platelet Volume 11.4 H Neutrophils % 77.0 Lymphocytes % 10.7 L Monocytes % 10.7 Eosinophils % 0.6 Basophils % 0.4 Nucleated Red Blood Cells % 0.0 Neutrophils # 9.5 H Lymphocytes # 1.3 Monocytes # 1.3 H Eosinophils # 0.1 Basophils # 0.1 Nucleated Red Blood Cells # 0.0 Sodium Level 144 Potassium Level 3.3 L Chloride Level 104 Carbon Dioxide Level 31 Anion Gap 12 Blood Urea Nitrogen 36 H Creatinine 0.83 Glucose Level 139 Calcium Level 8.8 Prothrombin Time 15.8 #H Prothrombin Time Ratio 1.2 INR International Normalized Ratio 1.25 Medications Current Medications Ondansetron HCl (Zofran Inj) 4 mg Q6H PRN IV NAUSEA AND/OR VOMITING; Start at 14:30 Acetaminophen (Tylenol Tab) 650 mg Q6H PRN PO PAIN LEVEL 1-3 OR FEVER Last administered on 01/26/17 13:51; Admin Dose 650 MG; Start 01/23/17 at 14:30 Atorvastatin Calcium (Lipitor) 20 mg QHS PO Last administered on 02/03/17 20: 35; Admin Dose 20 MG; Start 01/23/17 at 21:00 Citalopram Hydrobromide (Celexa) 20 mg DAILY PO Last administered on 08:42; Admin Dose 20 MG; Start 01/24/17 at 09:00 Morphine Sulfate (morphine) 1 mg Q4H PRN IV PAIN Last administered on 22:59; Admin Dose 1 MG; Start 01/24/17 at 04:30 Sucralfate (Carafate Susp) 1 gm QID PO Last administered on 02/04/17 08:42; Admin Dose 1 GM; Start 01/26/17 at 19:00 Docusate Sodium (Colace Liquid Cup) 100 mg BID PO Last administered on 08:43; Admin Dose 100 MG; Start 01/27/17 at 09:00 Metoprolol Tartrate (Lopressor) 100 mg BID PO Last administered on 02/04/17 08:42; Admin Dose 100 MG; Start 01/27/17 at 21:00 Pantoprazole (Protonix Tab) 40 mg BID@06,18 PO Last administered on 02/04/17 06:46; Admin Dose 40 MG; Start 01/28/17 at 18:00 Acetaminophen/ Hydrocodone Bitart ([place] (5/325)) 1 tab Q4H PRN PO PAIN LEVEL 4 -6 Last administered on 02/03/17 13:54; Admin Dose 1 TAB; Start 02/02/17 at 04:40 Acetaminophen/ Hydrocodone Bitart 2 tab 2 tab Q4H PRN PO PAIN LEVEL 7-10; Start 02/02/17 at 05:00 Dextrose (D5W) 1,000 ml @ 50 mls/hr Q20H IV Last administered on 02/04/17 08 :43; Admin Dose 50 MLS/HR; Start 02/03/17 at 12:30 Assessment/Plan Chief Complaint/Hosp Course Assessment 1. Likely significant aspiration risk 2. Persistent leukocytosis 3. Left pleural effusion 4. History of pancreatic cancer tail of pancreas nonsurgical Plan 1. Left thoracentesis prior to discharge 2. Continue antibiotics 3. Aspiration precautions speech therapy evaluation 4. transfer to senior living facility [place] from [place]. Problems: TYRON MEANS MD, [facility] Feb 04, 2017 11:45
--- NOTE | 2017-02-04 11:47 | RADRPT ---
PROCEDURE: US guided thoracentesis CLINICAL INDICATION: Left pleural effusion. TECHNIQUE: The patient's son and aboriginal community council member was informed of the benefits and risks of the procedure and signed consent was obtained. Risks include bleeding, infection, pneumothorax. The chest was sterilely prepped and draped and local anesthesia with 1% lidocaine was administered. The patient was placed in upright sitting position on bed. Under ultrasound guidance, a 19-gauge Everdreameh multi side -hole centesis needle and sheath was advanced into the pleural fluid. Approximately 600 cc of seros anguineous pleural fluid was aspirated by vacuum. The patient tolerated procedure well and there we re no complications. Patient left department in stable condition. Fluid specimen was given to labor atory for testing to be ordered by referring clinician. Postprocedural chest x-ray to follow. COMPARISON: None FINDINGS: Initial localizing sonogram of the chest shows the pleural effusion. IMPRESSION: US-guided left thoracentesis yielding 600 cc of serosanguineous pleural fluid given to laboratory fo r testing to be ordered by referring clinician. RPTAT: QQ .Som Domingo MD, Date Time Electronically viewed and signed by .Som Domingo MD, on 02/04/2017 11:47 .L/
--- NOTE | 2017-02-04 11:49 | RADRPT ---
AMENDMENT: 02/04/2017 11:53:23 AM Som Domingo M.d PROCEDURE: XR Chest. CLINICAL INDICATION: Pneumonia. Congestive heart failure. TECHNIQUE: Single frontal chest x-ray. COMPARISON: 02/02/2017 FINDINGS: There is moderate left pleural effusion with left basilar atelectasis consolidation slightly improve d since prior exam. The right lung is clear. Cardiomegaly with calcific atherosclerosis of the aorta is present unchanged. Osseous structures are intact. IMPRESSION: Moderate pleural effusion with left basilar atelectasis improved since prior. Cardiomegaly with calcified aorta. Disregard report below. PROCEDURE: XR Chest. CLINICAL INDICATION: Status post thoracentesis . TECHNIQUE: Single frontal chest x-ray. COMPARISON: 10:00 a.m. FINDINGS: There is near complete evacuation of left pleural effusion following thoracentesis without evidence of pneumothorax. Residual left lower lung atelectasis is present. The right lung is clear. .. Cardi omegaly with calcific atherosclerosis of the aorta is present.. The osseous structures are intact. IMPRESSION: Near resolution of left pleural effusion following thoracentesis without pneumothorax. Residual left lower lung atelectasis. Cardiomegaly.. RPTAT: QQ .Som Domingo MD, MD Date Time Electronically viewed and signed by .Som Domingo MD, on 02/04/2017 11:53 .L/
--- NOTE | 2017-02-04 11:52 | RADRPT ---
PROCEDURE: XR Chest. CLINICAL INDICATION: Status post thoracentesis . TECHNIQUE: Single frontal chest x-ray. COMPARISON: 10:00 a.m. FINDINGS: There is near complete evacuation of left pleural effusion following thoracentesis without evidence of pneumothorax. Residual left lower lung atelectasis is present. The right lung is clear. .. Cardio megaly with calcific atherosclerosis of the aorta is present.. The osseous structures are intact. IMPRESSION: Near resolution of left pleural effusion following thoracentesis without pneumothorax. Residual left lower lung atelectasis. Cardiomegaly.. RPTAT: QQ .Som Domingo MD, MD Date Time Electronically viewed and signed by .Som Domingo MD, on 02/04/2017 11:51 .L/
[2017-02-04 13:23] LABS: FLD MN% 39.4 %; FLD PMN% 60.6 %; FLD RBC 46000 /uL; FLD WBC 2674 /cmm
[2017-02-04 13:46] LABS: FLUID TYPE THORACENTESIS FLUID
[2017-02-04 13:47] LABS: FLUID GLUCOSE 156 mg/dl; FLUID LD 579 U/L; FLUID TOTAL PROTEIN 3.4 g/dl; FLUID TYPE THORACENTESIS FLUID
[2017-02-04 14:11] LABS: FLD CLARITY BLOODY; FLD COLOR RED; FLD TYPE THORACENTHESIS
--- NOTE | 2017-02-04 15:05 | CONS ---
Date/Time of Note Date/Time of Note DATE: 02/04/17 TIME: 15:02 Assessment/Plan Assessment/Plan Chief Complaint/Hosp Course 86-year-old woman presenting with: 1. Sepsis, likely secondary to urinary tract infection and pneumonia. 2. Severe anemia in the setting of coagulopathy with INR greater than 10 which is improved 3. Acute renal failure. Baseline creatinine 0.94 in 2013. At this period of time, patient has sepsis, etiology of renal failure. The patient has relatively high BUN as compared to creatinine ratio, indicates either dehydration, steroid use, or gastrointestinal bleeding. Plus family was saying the patient has decreased p.o. intake. The patient also had Motrin use at home , and patient was also taking Losartan at home, which could have contributed to the renal failure. reolved 4. Elevated INR> improved 5. Urinary tract infection with GNR 6. Elevated BNP. 7. History of hypertension. 8. Hypothyroidism. 9. Pneumonia. 10. 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 11 Hypokalemia due to Lasix 12 Hyperndatremia resolved Recs - Replete K - Renal u/s + medical renal disease and negative for hydronephrosis - c/w Hold Losartan/motrin - Avoid Nephrotoxic agents - Please renally dose all meds - Will fu pt with Primary team Problems: Consultation Date/Type/Reason Admit Date/Time Jan 23, 2017 at 13:10 Initial Consult Date 01/23/17 Type of Consultation: Renal Referring Provider: SANCHEZ APARICIO NP 24 HR Interval Summary Free Text/Dictation s/p Thoracentesis according to son not doing well as in lot of pain Exam/Review of Systems Vital Signs Vitals Vital Signs Date Time Temp Pulse Resp B/P Pulse Ox O2 Delivery O2 Flow Rate FiO2 02/04/17 12:00 86 02/04/17 08:11 97.9 22 131/57 96 02/04/17 07:35 Nasal Cannula 2.0 Intake and Output 02/03/17 02/03/17 02/04/17 15:00 23:00 07:00 Intake Total 490 ml 50 ml Output Total 500 ml 900 ml Balance -10 ml -850 ml Exam Constitutional: alert, Psych: nl mood/affect Head: normocephalic Eyes: nl conjunctiva Neck: supple Respiratory: diminished left lung field Cardiovascular: regular rate and rhythm Gastrointestinal: non-tender, soft Musculoskeletal: No nl gait and stance Neurological: nl speech Results Result Diagram: 02/04/17 0546 02/04/17 0546 Results 24 hrs Laboratory Tests Test 02/04/17 05:46 02/04/17 08:17 02/04/17 11:00 White Blood Count 12.4 H Red Blood Count 3.39 L Hemoglobin 9.7 L Hematocrit 31.5 L Mean Corpuscular Volume 92.9 Mean Corpuscular Hemoglobin 28.6 L Mean Corpuscular Hemoglobin Concent 30.8 L Red Cell Distribution Width 17.0 H Platelet Count 349 Mean Platelet Volume 11.4 H Neutrophils % 77.0 Lymphocytes % 10.7 L Monocytes % 10.7 Eosinophils % 0.6 Basophils % 0.4 Nucleated Red Blood Cells % 0.0 Neutrophils # 9.5 H Lymphocytes # 1.3 Monocytes # 1.3 H Eosinophils # 0.1 Basophils # 0.1 Nucleated Red Blood Cells # 0.0 Sodium Level 144 Potassium Level 3.3 L Chloride Level 104 Carbon Dioxide Level 31 Anion Gap 12 Blood Urea Nitrogen 36 H Creatinine 0.83 Glucose Level 139 Calcium Level 8.8 Prothrombin Time 15.8 #H Prothrombin Time Ratio 1.2 INR International Normalized Ratio 1.25 Body Fluid Type THORACENTESIS FLUID Body Fluid Volume 550.0 Body Fluid Color RED Body Fluid Appearance BLOODY Body Fluid WBC 2674 Body Fluid RBC (Auto) 21401 Body Fluid Polynuclear WBCs (%) 60.6 Body Fluid Mononuclear Cells % Auto 39.4 Body Fluid Glucose 156 Body Fluid Total Protein 3.4 Body Fluid Lactate Dehydrogenase 579 Medications Medications Current Medications Ondansetron HCl (Zofran Inj) 4 mg Q6H PRN IV NAUSEA AND/OR VOMITING; Start at 14:30 Acetaminophen (Tylenol Tab) 650 mg Q6H PRN PO PAIN LEVEL 1-3 OR FEVER Last administered on 01/26/17 13:51; Admin Dose 650 MG; Start 01/23/17 at 14:30 Atorvastatin Calcium (Lipitor) 20 mg QHS PO Last administered on 02/03/17 20: 35; Admin Dose 20 MG; Start 01/23/17 at 21:00 Citalopram Hydrobromide (Celexa) 20 mg DAILY PO Last administered on 08:42; Admin Dose 20 MG; Start 01/24/17 at 09:00 Morphine Sulfate (morphine) 1 mg Q4H PRN IV PAIN Last administered on 22:59; Admin Dose 1 MG; Start 01/24/17 at 04:30 Sucralfate (Carafate Susp) 1 gm QID PO Last administered on 02/04/17 12:39; Admin Dose 1 GM; Start 01/26/17 at 19:00 Docusate Sodium (Colace Liquid Cup) 100 mg BID PO Last administered on 08:43; Admin Dose 100 MG; Start 01/27/17 at 09:00 Metoprolol Tartrate (Lopressor) 100 mg BID PO Last administered on 02/04/17 08:42; Admin Dose 100 MG; Start 01/27/17 at 21:00 Pantoprazole (Protonix Tab) 40 mg BID@06,18 PO Last administered on 02/04/17 06:46; Admin Dose 40 MG; Start 01/28/17 at 18:00 Acetaminophen/ Hydrocodone Bitart ([place] (5/325)) 1 tab Q4H PRN PO PAIN LEVEL 4 -6 Last administered on 02/03/17 13:54; Admin Dose 1 TAB; Start 02/02/17 at 04:40 Acetaminophen/ Hydrocodone Bitart 2 tab 2 tab Q4H PRN PO PAIN LEVEL 7-10; Start 02/02/17 at 05:00 Dextrose (D5W) 1,000 ml @ 50 mls/hr Q20H IV Last administered on 02/04/17 08 :43; Admin Dose 50 MLS/HR; Start 02/03/17 at 12:30 LIZZETTE BLANC MD Feb 04, 2017 15:05
[2017-02-04] MEDS ORDERED: LIDOCAINE 1% (MPF) 5 ML VIAL ONE (15:07)
[2017-02-04] MEDS: HYDROCODONE/APAP (5/325) TAB PO PRN (16:37)
--- NOTE | 2017-02-04 17:12 | CONS ---
Date/Time of Note Date/Time of Note DATE: 02/04/17 TIME: 17:10 Assessment/Plan Assessment/Plan Chief Complaint/Hosp Course ID PROGRESS NOTE CURRENT ABX: OFF ABX 72H s/p #10 =>cefepime -> DC'd 02/01/17 status post vancomycin. 24H INTERVAL SUMMARY * No fevers, WBC down to 12.4 -- remains confused, lethargic 86 yo F, resting w /supplemental O2 via NC * 02/04/17 CXR: . IMPRESSION:Near resolution of left pleural effusion following thoracentesis without pneumothorax.Residual left lower lung atelectasis.Cardiomegaly.. PHYSICAL EXAMINATION: GENERAL: VSS, afebrile, NAD HEENT: Unremarkable NECK: Supple, trach midline CHEST: Equal chest rise bilaterally, without dyspnea on observation HEART: RRR ABDOMEN: Soft, NT, ND EXT: Warm, no edema SKIN: No rash, no diaphoresis ID ASSESSMENT: 86 yo F admit [facility]: 1. Sepsis with Escherichia coli urinary tract infection on admission=> Completed ABX course 2. Bacteremia with blood culture growing gram-positive rods, one set, consistent with contaminant. 3. Questionable pneumonia. 4. Status post rapid atrial fibrillation. 5. Acute anemia. 6. Pancreatic cancer. 7. Acute kidney injury. (- )Influenza A/B screen ABX ALLERGIES: NKDA INVASIVES: PIV CURRENT ABX: OFF ABX 72H s/p #10 =>cefepime -> DC'd 02/01/17 status post vancomycin. ID RECOMMENDATIONS/PLAN: 1. Patient has completed full course of ABX, continue to monitor OFF ABX 2. May DC OFF ABX as long as no recurrent clinical indicators for infection 3. Aspiration precautions . Problems: Consultation Date/Type/Reason Admit Date/Time Jan 23, 2017 at 13:10 Initial Consult Date 01/23/17 Type of Consultation: ID Referring Provider: SANCHEZ APARICIO MANAGER [employer]ICAL SERVICES Exam/Review of Systems Vital Signs Vitals Vital Signs Date Time Temp Pulse Resp B/P Pulse Ox O2 Delivery O2 Flow Rate FiO2 02/04/17 16:37 98.5 98 21 114/58 100 02/04/17 07:35 Nasal Cannula 2.0 Intake and Output 02/03/17 02/03/17 02/04/17 15:00 23:00 07:00 Intake Total 490 ml 50 ml Output Total 500 ml 900 ml Balance -10 ml -850 ml Results Result Diagram: 02/04/17 0546 02/04/17 0546 Results 24 hrs Laboratory Tests Test 02/04/17 05:46 02/04/17 08:17 02/04/17 11:00 White Blood Count 12.4 H Red Blood Count 3.39 L Hemoglobin 9.7 L Hematocrit 31.5 L Mean Corpuscular Volume 92.9 Mean Corpuscular Hemoglobin 28.6 L Mean Corpuscular Hemoglobin Concent 30.8 L Red Cell Distribution Width 17.0 H Platelet Count 349 Mean Platelet Volume 11.4 H Neutrophils % 77.0 Lymphocytes % 10.7 L Monocytes % 10.7 Eosinophils % 0.6 Basophils % 0.4 Nucleated Red Blood Cells % 0.0 Neutrophils # 9.5 H Lymphocytes # 1.3 Monocytes # 1.3 H Eosinophils # 0.1 Basophils # 0.1 Nucleated Red Blood Cells # 0.0 Sodium Level 144 Potassium Level 3.3 L Chloride Level 104 Carbon Dioxide Level 31 Anion Gap 12 Blood Urea Nitrogen 36 H Creatinine 0.83 Glucose Level 139 Calcium Level 8.8 Prothrombin Time 15.8 #H Prothrombin Time Ratio 1.2 INR International Normalized Ratio 1.25 Body Fluid Type THORACENTESIS FLUID Body Fluid Volume 550.0 Body Fluid Color RED Body Fluid Appearance BLOODY Body Fluid WBC 2674 Body Fluid RBC (Auto) 06289 Body Fluid Polynuclear WBCs (%) 60.6 Body Fluid Mononuclear Cells % Auto 39.4 Body Fluid Glucose 156 Body Fluid Total Protein 3.4 Body Fluid Lactate Dehydrogenase 579 Medications Medications Current Medications Ondansetron HCl (Zofran Inj) 4 mg Q6H PRN IV NAUSEA AND/OR VOMITING; Start at 14:30 Acetaminophen (Tylenol Tab) 650 mg Q6H PRN PO PAIN LEVEL 1-3 OR FEVER Last administered on 01/26/17 13:51; Admin Dose 650 MG; Start 01/23/17 at 14:30 Atorvastatin Calcium (Lipitor) 20 mg QHS PO Last administered on 02/03/17 20: 35; Admin Dose 20 MG; Start 01/23/17 at 21:00 Citalopram Hydrobromide (Celexa) 20 mg DAILY PO Last administered on 08:42; Admin Dose 20 MG; Start 01/24/17 at 09:00 Morphine Sulfate (morphine) 1 mg Q4H PRN IV PAIN Last administered on 22:59; Admin Dose 1 MG; Start 01/24/17 at 04:30 Sucralfate (Carafate Susp) 1 gm QID PO Last administered on 02/04/17 16:36; Admin Dose 1 GM; Start 01/26/17 at 19:00 Docusate Sodium (Colace Liquid Cup) 100 mg BID PO Last administered on 08:43; Admin Dose 100 MG; Start 01/27/17 at 09:00 Metoprolol Tartrate (Lopressor) 100 mg BID PO Last administered on 02/04/17 08:42; Admin Dose 100 MG; Start 01/27/17 at 21:00 Pantoprazole (Protonix Tab) 40 mg BID@,18 PO Last administered on 02/04/17 06:46; Admin Dose 40 MG; Start 01/28/17 at 18:00 Acetaminophen/ Hydrocodone Bitart ([place] (5/325)) 1 tab Q4H PRN PO PAIN LEVEL 4 -6 Last administered on 02/03/17 13:54; Admin Dose 1 TAB; Start 02/02/17 at 04:40 Acetaminophen/ Hydrocodone Bitart ([place] (5/325)) 2 tab Q4H PRN PO PAIN LEVEL 7 -10 Last administered on 02/04/17 16:37; Admin Dose 2 TAB; Start 02/02/17 at 05:00 KEVIN RED NP Feb 04, 2017 17:12
[2017-02-04] MEDS: ATORVASTATIN 20 MG TAB PO SCH (21:12)
[2017-02-04] MEDS: morphine 2 MG INJ IV PRN (23:51)
[2017-02-05] VITALS (12 sets, daily range): BP systolic 100–126; BP diastolic 52–69; PULSE 68–97; RESP 19–22
[2017-02-05] MEDS: HYDROCODONE/APAP (5/325) TAB PO PRN ×2 (02:47→12:28)
[2017-02-05] MEDS: LEVOTHYROXINE 50 MCG TAB PO SCH (07:00)
[2017-02-05] MEDS: PANTOPRAZOLE (EC) 40 MG TAB PO SCH (07:00)
[2017-02-05] MEDS: FUROSEMIDE 20 MG INJ IV SCH (07:04)
[2017-02-05] MEDS: DOCUSATE SODIUM 10 MG/ML (10ML CUP) PO SCH ×2 (10:01→20:42)
[2017-02-05] MEDS: METOPROLOL 100 MG TAB PO SCH ×2 (10:01→20:43)
[2017-02-05] MEDS: CITALOPRAM 20 MG TAB PO SCH (10:02)
[2017-02-05] MEDS: SUCRALFATE (100 MG/ML) 10ML CUP PO SCH (10:02)
--- NOTE | 2017-02-05 10:28 | CONS ---
Date/Time of Note Date/Time of Note DATE: 02/05/17 TIME: 10:26 Assessment/Plan Assessment/Plan Chief Complaint/Hosp Course dictated # [id number] Problems: Additional Assessment/Plan Assessment and recommendations; 1. Patient admitted with shortness of breath and mild hypoxemia with interval improvement. 2. Status post left thoracentesis yesterday, 600 mL of fluid was removed. 3. Nonoperable pancreatic cancer. 4. Severe generalized deconditioning. Continue current supportive care. Patient awaiting transfer to rehab center. Prognosis is poor. Consultation Date/Type/Reason Admit Date/Time Jan 23, 2017 at 13:10 Initial Consult Date 01/30/17 Type of Consultation: Pulmonary Referring Provider: SANCHEZ APARICIO NP 24 HR Interval Summary Free Text/Dictation Patient condition is stable. Denies any shortness of breath, chest pain. Complains of generalized weakness. General exam; elderly woman, awake, currently in no distress. Exam/Review of Systems Vital Signs Vitals Vital Signs Date Time Temp Pulse Resp B/P Pulse Ox O2 Delivery O2 Flow Rate FiO2 02/05/17 08:06 88 02/05/17 07:51 97.5 20 100/58 100 02/04/17 20:00 Nasal Cannula 2.0 Intake and Output 02/04/17 02/04/17 02/05/17 15:00 23:00 07:00 Intake Total 600 ml 50 ml Output Total 900 ml 450 ml Balance -300 ml -400 ml Exam HEENT exam; supple neck, no JVD. No lymphadenopathy. Midline trachea. No thyromegaly. Pharynx is clear. Patient has a multiple carious teeth. Has bilateral intraocular lens implants. Chest exam; diminished but clear breath sounds. S1-S2 audible, no murmurs. Regular rhythm. Abdomen exam; soft, nontender. No organomegaly. Bowel sounds audible. Extremity exam; no edema. BUSINESS ANALYT[employer] MEMBER exam; no focal motor deficit. Results Result Diagram: 02/04/17 0546 02/04/1746 Results 24 hrs Laboratory Tests Test 02/04/17 11:00 Body Fluid Type THORACENTESIS FLUID Body Fluid Volume 550.0 Body Fluid Color RED Body Fluid Appearance BLOODY Body Fluid WBC 2674 Body Fluid RBC (Auto) 30712 Body Fluid Polynuclear WBCs (%) 60.6 Body Fluid Mononuclear Cells % Auto 39.4 Body Fluid Glucose 156 Body Fluid Total Protein 3.4 Body Fluid Lactate Dehydrogenase 579 Medications Medications Current Medications Ondansetron HCl (Zofran Inj) 4 mg Q6H PRN IV NAUSEA AND/OR VOMITING; Start at 14:30 Acetaminophen (Tylenol Tab) 650 mg Q6H PRN PO PAIN LEVEL 1-3 OR FEVER Last administered on 01/26/17 13:51; Admin Dose 650 MG; Start 01/23/17 at 14:30 Atorvastatin Calcium (Lipitor) 20 mg QHS PO Last administered on 02/04/17 21: 12; Admin Dose 20 MG; Start 01/23/17 at 21:00 Citalopram Hydrobromide (Celexa) 20 mg DAILY PO Last administered on 10:02; Admin Dose 20 MG; Start 01/24/17 at 09:00 Morphine Sulfate (morphine) 1 mg Q4H PRN IV PAIN Last administered on 23:51; Admin Dose 1 MG; Start 01/24/17 at 04:30 Sucralfate (Carafate Susp) 1 gm QID PO Last administered on 02/05/17 10:02; Admin Dose 1 GM; Start 01/26/17 at 19:00 Docusate Sodium (Colace Liquid Cup) 100 mg BID PO Last administered on 10:01; Admin Dose 100 MG; Start 01/27/17 at 09:00 Metoprolol Tartrate (Lopressor) 100 mg BID PO Last administered on 02/05/17 10:01; Admin Dose 100 MG; Start 01/27/17 at 21:00 Pantoprazole (Protonix Tab) 40 mg BID@,18 PO Last administered on 02/05/17 07:00; Admin Dose 40 MG; Start 01/28/17 at 18:00 Acetaminophen/ Hydrocodone Bitart ([place] (5/325)) 1 tab Q4H PRN PO PAIN LEVEL 4 -6 Last administered on 02/03/17 13:54; Admin Dose 1 TAB; Start 02/02/17 at 04:40 Acetaminophen/ Hydrocodone Bitart ([place] (5/325)) 2 tab Q4H PRN PO PAIN LEVEL 7 -10 Last administered on 02/05/17 02:47; Admin Dose 2 TAB; Start 02/02/17 at 05:00 SEBASTIAN WEST Feb 05, 2017 10:28
--- NOTE | 2017-02-05 12:53 | CONS ---
Date/Time of Note Date/Time of Note DATE: 02/05/17 TIME: 12:52 Assessment/Plan Assessment/Plan Chief Complaint/Hosp Course SUBJECTIVE: No acute events overnight. Awake, looks comfortable, afebrile. Family at bedside PHYSICAL EXAMINATION: GENERAL: This is a fragile, chronically ill-appearing, elderly woman who is in no distress. HEENT: Head atraumatic, normocephalic. Sclerae anicteric. Buccal mucosa dry. NECK: Supple. CHEST: Rise symmetrical. Breath sounds diminished to bases, more on the Left. HEART: S1, S2. ABDOMEN: Soft. Bowel tones hypoactive. EXTREMITIES: Without cyanosis or edema. ASSESSMENT: 1. S/p sepsis with leukocytosis and encephalopathy, rapid atrial fibrillation, low grade fever and admission. 2. S/p Urinary tract infection. 3. S/p LLL pneumonia 4. Coagulopathy from Coumadin toxicity. 5. Status post rapid atrial fibrillation. 6. Acute kidney injury. 7. Symptomatic anemia, status post blood transfusion. 8. Pancreatic ca 9. Failure to thrive PLAN: Clinically stable, no fevers, patient is off antibiotics, will repeat cultures if she spikes fever, continue present care, aspiration precautions. DW staff Problems: Consultation Date/Type/Reason Admit Date/Time Jan 23, 2017 at 13:10 Initial Consult Date 01/23/17 Type of Consultation: ID Referring Provider: SANCHEZ APARICIO SENIOR GAME DESIGNER Exam/Review of Systems Vital Signs Vitals Vital Signs Date Time Temp Pulse Resp B/P Pulse Ox O2 Delivery O2 Flow Rate FiO2 02/05/17 12:07 89 02/05/17 11:51 98.4 20 105/52 100 02/05/17 08:00 Nasal Cannula 2.0 Intake and Output 02/04/17 02/04/17 02/05/17 15:00 23:00 07:00 Intake Total 600 ml 50 ml Output Total 900 ml 450 ml Balance -300 ml -400 ml Results Result Diagram: 02/04/17 0546 02/04/17 0546 Medications Medications Current Medications Ondansetron HCl (Zofran Inj) 4 mg Q6H PRN IV NAUSEA AND/OR VOMITING; Start at 14:30 Acetaminophen (Tylenol Tab) 650 mg Q6H PRN PO PAIN LEVEL 1-3 OR FEVER Last administered on 01/26/17t 13:51; Admin Dose 650 MG; Start 01/23/17 at 14:30 Atorvastatin Calcium (Lipitor) 20 mg QHS PO Last administered on 02/04/17 21: 12; Admin Dose 20 MG; Start 01/23/17 at 21:00 Citalopram Hydrobromide (Celexa) 20 mg DAILY PO Last administered on 10:02; Admin Dose 20 MG; Start 01/24/17 at 09:00 Morphine Sulfate (morphine) 1 mg Q4H PRN IV PAIN Last administered on 23:51; Admin Dose 1 MG; Start 01/24/17 at 04:30 Sucralfate (Carafate Susp) 1 gm QID PO Last administered on 02/05/17 10:02; Admin Dose 1 GM; Start 01/26/17 at 19:00 Docusate Sodium (Colace Liquid Cup) 100 mg BID PO Last administered on 10:01; Admin Dose 100 MG; Start 01/27/17 at 09:00 Metoprolol Tartrate (Lopressor) 100 mg BID PO Last administered on 02/05/17 10:01; Admin Dose 100 MG; Start 01/27/17 at 21:00 Pantoprazole (Protonix Tab) 40 mg BID@,18 PO Last administered on 02/05/17 07:00; Admin Dose 40 MG; Start 01/28/17 at 18:00 Acetaminophen/ Hydrocodone Bitart ([place] (5/325)) 1 tab Q4H PRN PO PAIN LEVEL 4 -6 Last administered on 02/03/17 13:54; Admin Dose 1 TAB; Start 02/02/17 at 04:40 Acetaminophen/ Hydrocodone Bitart ([place] (5/325)) 2 tab Q4H PRN PO PAIN LEVEL 7 -10 Last administered on 02/05/17 12:28; Admin Dose 2 TAB; Start 02/02/17 at 05:00 SHELIA HUFF NP Feb 05, 2017 12:53
[2017-02-05] MEDS: SUCRALFATE 1 GM TAB PO SCH ×3 (14:35→20:42)
[2017-02-05] MEDS ORDERED: traMADol 50 MG TAB PO ONE (15:00)
--- NOTE | 2017-02-05 16:57 | CONS ---
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 Likely from blood products and IV hydration. Euvolemic Chronic Afib with RVR: Partially compensatory to multiple active issues. HR controlled Coagulopathy: INR >10 on admission, now normalized Anemia with upper GI bleed: Hgb 6.6 on admission, now improved with transfusion. EGD with esophageal ulcer Sepsis secondary to UTI UTI Acute vs chronic renal failure Pancreatic ca Dysphagia -lasix 20mg PO BID to keep even -metoprolol 100mg BID -continue to hold coumadin until ok per GI Problems: Consultation Date/Type/Reason Admit Date/Time Jan 23, 2017 at 13:10 Initial Consult Date 01/23/17 Type of Consultation: Cardiology Referring Provider: SANCHEZ APARICIO TELEPHONE ANSWERER 24 HR Interval Summary Free Text/Dictation Per son, pt choking on food and has SOB with eating. Also with generalized abd pain. Exam/Review of Systems Vital Signs Vitals Vital Signs Date Time Temp Pulse Resp B/P Pulse Ox O2 Delivery O2 Flow Rate FiO2 02/05/17 16:08 89 02/05/17 16:01 98.3 20 112/57 100 02/05/17 08:00 Nasal Cannula 2.0 Intake and Output 02/04/17 02/04/17 02/05/17 15:00 23:00 07:00 Intake Total 600 ml 50 ml Output Total 900 ml 450 ml Balance -300 ml -400 ml Exam Constitutional: alert, distress (mild ) Psych: nl mood/affect, no complaints Head: atraumatic, normocephalic Neck: No jvd Respiratory: No clear to auscultation (mild crackles ) Cardiovascular: systolic murmur (2/6 RONNY), No edema, No regular rate and rhythm Gastrointestinal: non-tender, soft, No distended Neurological: nl mental status Results Result Diagram: 02/04/17 0546 02/04/17 0546 Medications Medications Current Medications Ondansetron HCl (Zofran Inj) 4 mg Q6H PRN IV NAUSEA AND/OR VOMITING; Start at 14:30 Acetaminophen (Tylenol Tab) 650 mg Q6H PRN PO PAIN LEVEL 1-3 OR FEVER Last administered on 01/26/17 13:51; Admin Dose 650 MG; Start 01/23/17 at 14:30 Atorvastatin Calcium (Lipitor) 20 mg QHS PO Last administered on 02/04/17 21: 12; Admin Dose 20 MG; Start 01/23/17 at 21:00 Citalopram Hydrobromide (Celexa) 20 mg DAILY PO Last administered on 10:02; Admin Dose 20 MG; Start 01/24/17 at 09:00 Morphine Sulfate (morphine) 1 mg Q4H PRN IV PAIN Last administered on 23:51; Admin Dose 1 MG; Start 01/24/17 at 04:30 Docusate Sodium (Colace Liquid Cup) 100 mg BID PO Last administered on 10:01; Admin Dose 100 MG; Start 01/27/17 at 09:00 Metoprolol Tartrate (Lopressor) 100 mg BID PO Last administered on 02/05/17 10:01; Admin Dose 100 MG; Start 01/27/17 at 21:00 Pantoprazole (Protonix Tab) 40 mg BID@,18 PO Last administered on 02/05/17 07:00; Admin Dose 40 MG; Start 01/28/17 at 18:00 Acetaminophen/ Hydrocodone Bitart ([place] (5/325)) 1 tab Q4H PRN PO PAIN LEVEL 4 -6 Last administered on 02/03/17 13:54; Admin Dose 1 TAB; Start 02/02/17 at 04:40 Acetaminophen/ Hydrocodone Bitart ([place] (5/325)) 2 tab Q4H PRN PO PAIN LEVEL 7 -10 Last administered on 02/05/17 12:28; Admin Dose 2 TAB; Start 02/02/17 at 05:00 Sucralfate (Carafate) 1 gm QID PO Last administered on 02/05/17 14:35; Admin Dose 1 GM; Start 02/05/17 at 14:00 ERIC LUCIO Feb 05, 2017 16:57
--- NOTE | 2017-02-05 17:04 | PN ---
Date/Time of Note Date/Time of Note DATE: 02/05/17 TIME: 17:02 Assessment/Plan VTE Prophylaxis VTE Prophylaxis Intervention: contraindicated Lines/Catheters [facility] Saline Lock Urinary Cath still in place: Yes Reason Cath still needed: other (indicate) Assessment/Plan Chief Complaint/Hosp Course 1. Status post sepsis secondary to underlying urinary tract infection. S/P antibiotics as per ID. 2. Coagulopathy. From Coumadin toxicity. No overt sources of bleeding. Resolved with vitamin K and fresh frozen plasma. Brain CT scan negative for any acute bleed. We will avoid any anticoagulation. 3. Left pleural effusion. Status post ultrasound-guided left thoracentesis with drainage of 600 cc of serosanguineous fluid on 02/04/2017. 4. Atrial fibrillation with rapid ventricular response. Status post IV Cardizem in the emergency room. Continue beta-blockers. Cardiology following. 5. Acute kidney injury. Unknown baseline creatinine. Probably she has underlying chronic kidney disease. Nephrotoxic drugs will be avoided. Nephrology following. 6. Symptomatic anemia. Improved status post multiple blood transfusions. No evidence of any underlying iron deficiency. Gastroenterology following. Status post esophagogastroduodenoscopy on 01/26/2017 that showed a 6 mm clean- based esophageal ulcer, distal esophagitis, small hiatal hernia, and moderate gastritis. Continue proton pump inhibitors. The patient was also started on Carafate. 7. Essential hypertension. Continue antihypertensives. 8. Cardiomyopathy with ejection fraction of 45%. The patient on beta- blockers. No MEHRAN inhibitors as of now because of renal function. 9. Acute on chronic systolic heart failure exacerbation. Continue diuresis as per cardiology. 10. Pulmonary hypertension. PA systolic pressure of 52 mmHg as per 2D echocardiogram. Most probably secondary to underlying valvular heart disease. 11. Hypothyroidism. Continue Synthroid. 12. Dysphagia. ST evaluation ongoing. Pureed diet with nectar thick liquids. 13. 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 14. Fluids, electrolytes, and nutrition. Pured diet with nectar thick liquids. 15. DVT prophylaxis. Contraindicated. 16. Gastrointestinal prophylaxis. Proton pump inhibitors. 17. Plan. The patient is severely deconditioned. Poor progress with physical therapy. Meanwhile, the patient's code status has been changed to chemical code. The patient's family wants to consider hospice because of the patient's underlying multiple comorbidities and the history of advanced neoplasm. Case discussed with Dr. Castro. Problems: Subjective 24 Hr Interval Summary Free Text/Dictation The patient has been asking for pain medication for abdominal pain. Dyspnea improved. Exam/Review of Systems Vital Signs Vitals Vital Signs Date Time Temp Pulse Resp B/P Pulse Ox O2 Delivery O2 Flow Rate FiO2 02/05/17 16:08 89 02/05/17 16:01 98.3 20 112/57 100 02/05/17 08:00 Nasal Cannula 2.0 Intake and Output 02/04/17 02/04/17 02/05/17 15:00 23:00 07:00 Intake Total 600 ml 50 ml Output Total 900 ml 450 ml Balance -300 ml -400 ml Exam General: 86-year-old, elderly, pale looking female lying in bed in no apparent distress. HEENT: Normocephalic, atraumatic. Eyes: Anicteric sclerae, conjunctivae clear. ENT: Nasal septum midline, oral mucosa moist. Neck supple, JVD noticed. Respiratory: Bilaterally diminished breath sounds. No use of accessory muscles of respiration. No adventitious breath sounds. Cardiovascular: S1, S2 heard. Irregularly irregular rhythm. Systolic murmur. Abdomen: Soft, nontender, and nondistended. Bowel sounds positive in all 4 quadrants. Genitourinary: Deferred. Extremities: No cyanosis, no clubbing, no edema. Peripheral pulses palpable. Neurologic: Patient is awake and alert. No focal weakness. Skin: Normal skin turgor. No skin rashes. Results Result Diagram: 02/04/1746 02/04/17545 Medications Medications Current Medications Ondansetron HCl (Zofran Inj) 4 mg Q6H PRN IV NAUSEA AND/OR VOMITING; Start at 14:30 Acetaminophen (Tylenol Tab) 650 mg Q6H PRN PO PAIN LEVEL 1-3 OR FEVER Last administered on 01/26/17 13:51; Admin Dose 650 MG; Start 01/23/17 at 14:30 Atorvastatin Calcium (Lipitor) 20 mg QHS PO Last administered on 02/04/17 21: 12; Admin Dose 20 MG; Start 01/23/17 at 21:00 Citalopram Hydrobromide (Celexa) 20 mg DAILY PO Last administered on 10:02; Admin Dose 20 MG; Start 01/24/17 at 09:00 Morphine Sulfate (morphine) 1 mg Q4H PRN IV PAIN Last administered on 23:51; Admin Dose 1 MG; Start 01/24/17 at 04:30 Docusate Sodium (Colace Liquid Cup) 100 mg BID PO Last administered on 10:01; Admin Dose 100 MG; Start 01/27/17 at 09:00 Metoprolol Tartrate (Lopressor) 100 mg BID PO Last administered on 02/05/17 10:01; Admin Dose 100 MG; Start 01/27/17 at 21:00 Pantoprazole (Protonix Tab) 40 mg BID@ PO Last administered on 02/05/17 07:00; Admin Dose 40 MG; Start 01/28/17 at 18:00 Acetaminophen/ Hydrocodone Bitart ([place] (5/325)) 1 tab Q4H PRN PO PAIN LEVEL 4 -6 Last administered on 02/03/17 13:54; Admin Dose 1 TAB; Start 02/02/17 at 04:40 Acetaminophen/ Hydrocodone Bitart ([place] (5/325)) 2 tab Q4H PRN PO PAIN LEVEL 7 -10 Last administered on 02/05/17 12:28; Admin Dose 2 TAB; Start 02/02/17 at 05:00 Sucralfate (Carafate) 1 gm QID PO Last administered on 02/05/17 14:35; Admin Dose 1 GM; Start 02/05/17 at 14:00 SANCHEZ APARICIO NP Feb 05, 2017 17:04
[2017-02-05] MEDS: LANSOPRAZOLE 30 MG CAP PO SCH (17:59)
[2017-02-05] MEDS: FUROSEMIDE 20 MG TAB PO SCH (18:00)
--- NOTE | 2017-02-05 19:39 | CONS ---
Date/Time of Note Date/Time of Note DATE: 02/05/17 TIME: 19:35 Assessment/Plan Assessment/Plan Chief Complaint/Hosp Course 1.JORGITO better 2. Severe anemia 3. hypokalemia 4. Elevated INR> improved 5. Urinary tract infection with GNR 6. Elevated BNP. 7. History of hypertension. 8. Hypothyroidism. 9. Pneumonia. 10. 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 11 Hypokalemia due to Lasix plan kcl Problems: Consultation Date/Type/Reason Admit Date/Time Jan 23, 2017 at 13:10 Initial Consult Date 01/30/17 Type of Consultation: renal Referring Provider: SANCHEZ APARICIO DIRECTOR OF RESTAURANT 24 HR Interval Summary Constitutional: no complaints Exam/Review of Systems Vital Signs Vitals Vital Signs Date Time Temp Pulse Resp B/P Pulse Ox O2 Delivery O2 Flow Rate FiO2 02/05/17 16:08 89 02/05/17 16:01 98.3 20 112/57 100 02/05/17 08:00 Nasal Cannula 2.0 Intake and Output 02/04/17 02/04/17 02/05/17 14:59 22:59 06:59 Intake Total 600 ml 50 ml Output Total 900 ml 450 ml Balance -300 ml -400 ml Exam Neck: supple Respiratory: diminished breath sounds Cardiovascular: regular rate and rhythm Gastrointestinal: bowel sounds (+), soft Extremities: edema (neg) Results Result Diagram: 02/04/17 0546 02/04/17 0546 Medications Medications Current Medications Ondansetron HCl (Zofran Inj) 4 mg Q6H PRN IV NAUSEA AND/OR VOMITING; Start at 14:30 Acetaminophen (Tylenol Tab) 650 mg Q6H PRN PO PAIN LEVEL 1-3 OR FEVER Last administered on 01/26/17 13:51; Admin Dose 650 MG; Start 01/23/17 at 14:30 Atorvastatin Calcium (Lipitor) 20 mg QHS PO Last administered on 02/04/17 21: 12; Admin Dose 20 MG; Start 01/23/17 at 21:00 Citalopram Hydrobromide (Celexa) 20 mg DAILY PO Last administered on 10:02; Admin Dose 20 MG; Start 01/24/17 at 09:00 Morphine Sulfate (morphine) 1 mg Q4H PRN IV PAIN Last administered on 23:51; Admin Dose 1 MG; Start 01/24/17 at 04:30 Docusate Sodium (Colace Liquid Cup) 100 mg BID PO Last administered on 10:01; Admin Dose 100 MG; Start 01/27/17 at 09:00 Metoprolol Tartrate (Lopressor) 100 mg BID PO Last administered on 02/05/17 10:01; Admin Dose 100 MG; Start 01/27/17 at 21:00 Acetaminophen/ Hydrocodone Bitart ([place] (5/325)) 1 tab Q4H PRN PO PAIN LEVEL 4 -6 Last administered on 02/03/17 13:54; Admin Dose 1 TAB; Start 02/02/17 at 04:40 Acetaminophen/ Hydrocodone Bitart ([place] (5/325)) 2 tab Q4H PRN PO PAIN LEVEL 7 -10 Last administered on 02/05/17 12:28; Admin Dose 2 TAB; Start 02/02/17 at 05:00 Sucralfate (Carafate) 1 gm QID PO Last administered on 02/05/17 18:00; Admin Dose 1 GM; Start 02/05/17 at 14:00 Lansoprazole (Prevacid) 30 mg BID@06,18 PO Last administered on 02/05/17 17: 59; Admin Dose 30 MG; Start 02/05/17 at 18:00 SHUKRI PHILLIP MD Feb 05, 2017 19:39
[2017-02-05] MEDS: ATORVASTATIN 20 MG TAB PO SCH (20:42)
[2017-02-05] MEDS ORDERED: POTASSIUM CHLORIDE 20 MEQ in DEXTROSE 5% 100 ML IVPB ONE (22:00)
[2017-02-06] VITALS (12 sets, daily range): BP systolic 99–125; BP diastolic 52–85; PULSE 77–130; RESP 17–20
[2017-02-06] MEDS: LEVOTHYROXINE 50 MCG TAB PO SCH (06:17)
[2017-02-06] MEDS: LANSOPRAZOLE 30 MG CAP PO SCH ×2 (06:18→16:46)
[2017-02-06] MEDS: FUROSEMIDE 20 MG TAB PO SCH (06:18)
[2017-02-06 06:44] LABS: BASOPHILS % 0.4 % (0.0-2.0); EOSINOPHILS # 0.1 10^3/ul (0.0-0.5); EOSINOPHILS % 0.7 % (0.0-7.0); HEMATOCRIT 34.7 % (37.0-47.0); HEMOGLOBIN 10.9 g/dl (12.0-16.0); LYMPHOCYTES # 1.3 10^3/ul (0.8-2.9); LYMPHOCYTES % 12.6 % (15.0-51.0); MEAN CORPUSCULAR HEMOGLOBIN 28.9 pg (29.0-33.0); MEAN CORPUSCULAR HGB CONC 31.4 g/dl (32.0-37.0); MEAN PLATELET VOLUME 11.5 fl (7.4-10.4); NEUTROPHIL # 7.7 10^3/ul (1.6-7.5); NEUTROPHILS % 75.9 % (39.0-77.0); PLATELET COUNT 290 10^3/UL (140-415); RED BLOOD COUNT 3.77 10^6/ul (4.20-5.40); RED CELL DISTRIBUTION WIDTH 16.3 % (11.5-14.5); WHITE BLOOD COUNT 10.2 10^3/ul (4.8-10.8)
[2017-02-06 07:00] LABS: MAGNESIUM 1.7 mg/dl (1.7-2.5); PHOSPHORUS 3.9 mg/dl (2.5-4.9)
[2017-02-06 07:03] LABS: ALBUMIN 2.6 g/dl (3.3-4.9); ALBUMIN/GLOBULIN RATIO 0.78; BILIRUBIN,INDIRECT 0.3 mg/dl (0-1.1); BILIRUBIN,TOTAL 0.3 mg/dl (0.2-1.3); CALCIUM 8.8 mg/dl (8.4-10.2); CREATININE 0.78 mg/dl (0.44-1.00); POTASSIUM 3.8 mmol/L (3.5-5.1); TOTAL PROTEIN 5.9 g/dl (6.1-8.1)
[2017-02-06] MEDS: DOCUSATE SODIUM 10 MG/ML (10ML CUP) PO SCH ×2 (08:22→20:35)
[2017-02-06] MEDS: HYDROCODONE/APAP (5/325) TAB PO PRN ×3 (08:22→20:39)
[2017-02-06] MEDS: METOPROLOL 100 MG TAB PO SCH ×2 (08:23→20:36)
[2017-02-06] MEDS: CITALOPRAM 20 MG TAB PO SCH (08:23)
[2017-02-06] MEDS: SUCRALFATE 1 GM TAB PO SCH ×4 (08:24→20:35)
--- NOTE | 2017-02-06 10:20 | CONS ---
Date/Time of Note Date/Time of Note DATE: 02/06/17 TIME: 10:18 Assessment/Plan Assessment/Plan Chief Complaint/Hosp Course dictated # [id number] Problems: Additional Assessment/Plan Assessment and recommendations; 1. Patient admitted with shortness of breath status post left thoracentesis, 600 mL of fluid was removed with improvement in shortness of breath. 2. Nonoperable pancreatic cancer. 3. Severe generalized deconditioning. Continue current supportive care. Prognosis is poor. [facility] Consultation Date/Type/Reason Admit Date/Time Jan 23, 2017 at 13:10 Initial Consult Date 01/30/17 Type of Consultation: Pulmonary Referring Provider: SANCHEZ APARICIO COMMUNITY MARKETING MANAGER 24 HR Interval Summary Free Text/Dictation Patient's condition is stable. Patient however getting progressively weaker. General exam; elderly female, awake, currently in no distress. Appears occasionally lethargic. Exam/Review of Systems Vital Signs Vitals Vital Signs Date Time Temp Pulse Resp B/P Pulse Ox O2 Delivery O2 Flow Rate FiO2 02/06/17 08:15 Nasal Cannula 2.0 02/06/17 08:05 112 02/06/17 08:00 97.8 20 125/85 100 Intake and Output 02/05/17 02/05/17 02/06/17 14:59 22:59 06:59 Intake Total 510 ml 100 ml Output Total 600 ml 550 ml Balance -90 ml -450 ml Exam HEENT exam; supple neck, no JVD. No lymphadenopathy. Midline trachea. No thyromegaly. Patient has multiple carious teeth. Bilateral intraocular lens implants are present. Chest exam; diminished but clear breath sounds. S1-S2 audible, no murmurs. Regular rhythm. Abdomen exam; soft, nontender. No organomegaly. Bowel sounds audible. Extremity exam; no edema. CREDIT COLLECTIONS SPECIALIST exam; no focal motor deficit, however patient exhibiting profound generalized weakness. Results Result Diagram: 02/06/17 0603 02/06/17 0603 Results 24 hrs Laboratory Tests Test 02/06/17 06:03 White Blood Count 10.2 Red Blood Count 3.77 L Hemoglobin 10.9 L Hematocrit 34.7 L Mean Corpuscular Volume 92.0 Mean Corpuscular Hemoglobin 28.9 L Mean Corpuscular Hemoglobin Concent 31.4 L Red Cell Distribution Width 16.3 H Platelet Count 290 Mean Platelet Volume 11.5 H Neutrophils % 75.9 Lymphocytes % 12.6 L Monocytes % 10.0 Eosinophils % 0.7 Basophils % 0.4 Nucleated Red Blood Cells % 0.0 Neutrophils # 7.7 H Lymphocytes # 1.3 Monocytes # 1.0 H Eosinophils # 0.1 Basophils # 0.0 Nucleated Red Blood Cells # 0.0 Sodium Level 140 Potassium Level 3.8 Chloride Level 99 Carbon Dioxide Level 28 Anion Gap 17 H Blood Urea Nitrogen 43 H Creatinine 0.78 Glucose Level 97 Calcium Level 8.8 Phosphorus Level 3.9 Magnesium Level 1.7 Total Bilirubin 0.3 Direct Bilirubin 0.00 Indirect Bilirubin 0.3 Aspartate Amino Transf (AST/SGOT) 61 H Alanine Aminotransferase (ALT/SGPT) 77 H Alkaline Phosphatase 192 H Total Protein 5.9 L Albumin 2.6 L Globulin 3.30 H Albumin/Globulin Ratio 0.78 Medications Medications Current Medications Ondansetron HCl (Zofran Inj) 4 mg Q6H PRN IV NAUSEA AND/OR VOMITING; Start at 14:30 Acetaminophen (Tylenol Tab) 650 mg Q6H PRN PO PAIN LEVEL 1-3 OR FEVER Last administered on 01/26/17 13:51; Admin Dose 650 MG; Start 01/23/17 at 14:30 Atorvastatin Calcium (Lipitor) 20 mg QHS PO Last administered on 02/05/17 20: 42; Admin Dose 20 MG; Start 01/23/17 at 21:00 Citalopram Hydrobromide (Celexa) 20 mg DAILY PO Last administered on 08:23; Admin Dose 20 MG; Start 01/24/17 at 09:00 Morphine Sulfate (morphine) 1 mg Q4H PRN IV PAIN Last administered on 23:51; Admin Dose 1 MG; Start 01/24/17 at 04:30 Docusate Sodium (Colace Liquid Cup) 100 mg BID PO Last administered on 08:22; Admin Dose 100 MG; Start 01/27/17 at 09:00 Metoprolol Tartrate (Lopressor) 100 mg BID PO Last administered on 02/06/17 08:23; Admin Dose 100 MG; Start 01/27/17 at 21:00 Acetaminophen/ Hydrocodone Bitart ([place] (5/325)) 1 tab Q4H PRN PO PAIN LEVEL 4 -6 Last administered on 02/06/17 08:22; Admin Dose 1 TAB; Start 02/02/17 at 04:40 Acetaminophen/ Hydrocodone Bitart ([place] (5/325)) 2 tab Q4H PRN PO PAIN LEVEL 7 -10 Last administered on 02/05/17 12:28; Admin Dose 2 TAB; Start 02/02/17 at 05:00 Sucralfate (Carafate) 1 gm QID PO Last administered on 02/06/17 08:24; Admin Dose 1 GM; Start 02/05/17 at 14:00 Lansoprazole (Prevacid) 30 mg BID@,18 PO Last administered on 02/06/17 06: 18; Admin Dose 30 MG; Start 02/05/17 at 18:00 SEBASTIAN WEST Feb 06, 2017 10:20
--- NOTE | 2017-02-06 11:23 | PN ---
Date/Time of Note Date/Time of Note DATE: 02/06/17 TIME: 11:20 Assessment/Plan VTE Prophylaxis VTE Prophylaxis Intervention: contraindicated Lines/Catheters IV Catheter Type (from [facility]): Saline Lock Urinary Cath still in place: Yes Reason Cath still needed: other (indicate) Assessment/Plan Chief Complaint/Hosp Course 1. Status post sepsis secondary to underlying urinary tract infection. S/P antibiotics as per ID. 2. Coagulopathy. From Coumadin toxicity. No overt sources of bleeding. Resolved with vitamin K and fresh frozen plasma. Brain CT scan negative for any acute bleed. We will avoid any anticoagulation. 3. Left pleural effusion. Status post ultrasound-guided left thoracentesis with drainage of 600 cc of serosanguineous fluid on 02/04/2017. 4. Atrial fibrillation with rapid ventricular response. Status post IV Cardizem in the emergency room. Continue beta-blockers. Cardiology following. 5. Acute kidney injury. Unknown baseline creatinine. Probably she has underlying chronic kidney disease. Nephrotoxic drugs will be avoided. Nephrology following. 6. Symptomatic anemia. Improved status post multiple blood transfusions. No evidence of any underlying iron deficiency. Gastroenterology following. Status post esophagogastroduodenoscopy on 01/26/2017 that showed a 6 mm clean- based esophageal ulcer, distal esophagitis, small hiatal hernia, and moderate gastritis. Continue proton pump inhibitors. The patient was also started on Carafate. 7. Essential hypertension. Continue antihypertensives. 8. Cardiomyopathy with ejection fraction of 45%. The patient on beta- blockers. No MEHRAN inhibitors as of now because of renal function. 9. Acute on chronic systolic heart failure exacerbation. Continue diuresis as per cardiology. 10. Pulmonary hypertension. PA systolic pressure of 52 mmHg as per 2D echocardiogram. Most probably secondary to underlying valvular heart disease. 11. Hypothyroidism. Continue Synthroid. 12. Dysphagia. Pureed diet with nectar thick liquids. 13. 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 14. Fluids, electrolytes, and nutrition. Pured diet with nectar thick liquids. 15. DVT prophylaxis. Contraindicated. 16. Gastrointestinal prophylaxis. Proton pump inhibitors. 17. Plan. The patient is severely deconditioned. Poor progress with physical therapy. Meanwhile, the patient's code status has been changed to chemical code. Hospice talked to the patient's family on 02/05/2017. The patient's family is not ready for outpatient hospice. Needs placement. Case discussed with Dr. Castro. Problems: Subjective 24 Hr Interval Summary Free Text/Dictation Denies any pain at this time. Exam/Review of Systems Vital Signs Vitals Vital Signs Date Time Temp Pulse Resp B/P Pulse Ox O2 Delivery O2 Flow Rate FiO2 02/06/17 08:15 Nasal Cannula 2.0 02/06/17 08:05 112 02/06/17 08:00 97.8 20 125/85 100 Intake and Output 02/05/17 02/05/17 02/06/17 15:00 23:00 07:00 Intake Total 510 ml 100 ml Output Total 600 ml 550 ml Balance -90 ml -450 ml Exam General: 86-year-old, elderly, pale looking female lying in bed in no apparent distress. HEENT: Normocephalic, atraumatic. Eyes: Anicteric sclerae, conjunctivae clear. ENT: Nasal septum midline, oral mucosa moist. Neck supple, JVD noticed. Respiratory: Bilaterally diminished breath sounds. No use of accessory muscles of respiration. No adventitious breath sounds. Cardiovascular: S1, S2 heard. Irregularly irregular rhythm. Systolic murmur. Abdomen: Soft, nontender, and nondistended. Bowel sounds positive in all 4 quadrants. Genitourinary: Deferred. Extremities: No cyanosis, no clubbing, no edema. Peripheral pulses palpable. Neurologic: Patient is awake and alert. No focal weakness. Skin: Normal skin turgor. No skin rashes. Results Result Diagram: 02/06/17 0603 02/06/17 0603 Results 24 hrs Laboratory Tests Test 02/06/17 06:03 White Blood Count 10.2 Red Blood Count 3.77 L Hemoglobin 10.9 L Hematocrit 34.7 L Mean Corpuscular Volume 92.0 Mean Corpuscular Hemoglobin 28.9 L Mean Corpuscular Hemoglobin Concent 31.4 L Red Cell Distribution Width 16.3 H Platelet Count 290 Mean Platelet Volume 11.5 H Neutrophils % 75.9 Lymphocytes % 12.6 L Monocytes % 10.0 Eosinophils % 0.7 Basophils % 0.4 Nucleated Red Blood Cells % 0.0 Neutrophils # 7.7 H Lymphocytes # 1.3 Monocytes # 1.0 H Eosinophils # 0.1 Basophils # 0.0 Nucleated Red Blood Cells # 0.0 Sodium Level 140 Potassium Level 3.8 Chloride Level 99 Carbon Dioxide Level 28 Anion Gap 17 H Blood Urea Nitrogen 43 H Creatinine 0.78 Glucose Level 97 Calcium Level 8.8 Phosphorus Level 3.9 Magnesium Level 1.7 Total Bilirubin 0.3 Direct Bilirubin 0.00 Indirect Bilirubin 0.3 Aspartate Amino Transf (AST/SGOT) 61 H Alanine Aminotransferase (ALT/SGPT) 77 H Alkaline Phosphatase 192 H Total Protein 5.9 L Albumin 2.6 L Globulin 3.30 H Albumin/Globulin Ratio 0.78 Medications Medications Current Medications Ondansetron HCl (Zofran Inj) 4 mg Q6H PRN IV NAUSEA AND/OR VOMITING; Start at 14:30 Acetaminophen (Tylenol Tab) 650 mg Q6H PRN PO PAIN LEVEL 1-3 OR FEVER Last administered on 01/26/17 13:51; Admin Dose 650 MG; Start 01/23/17 at 14:30 Atorvastatin Calcium (Lipitor) 20 mg QHS PO Last administered on 02/05/17 20: 42; Admin Dose 20 MG; Start 01/23/17 at 21:00 Citalopram Hydrobromide (Celexa) 20 mg DAILY PO Last administered on 08:23; Admin Dose 20 MG; Start 01/24/17 at 09:00 Morphine Sulfate (morphine) 1 mg Q4H PRN IV PAIN Last administered on 23:51; Admin Dose 1 MG; Start 01/24/17 at 04:30 Docusate Sodium (Colace Liquid Cup) 100 mg BID PO Last administered on 08:22; Admin Dose 100 MG; Start 01/27/17 at 09:00 Metoprolol Tartrate (Lopressor) 100 mg BID PO Last administered on 02/06/17 08:23; Admin Dose 100 MG; Start 01/27/17 at 21:00 Acetaminophen/ Hydrocodone Bitart ([place] (5/325)) 1 tab Q4H PRN PO PAIN LEVEL 4 -6 Last administered on 02/06/17 08:22; Admin Dose 1 TAB; Start 02/02/17 at 04:40 Acetaminophen/ Hydrocodone Bitart ([place] (5/325)) 2 tab Q4H PRN PO PAIN LEVEL 7 -10 Last administered on 02/05/17 12:28; Admin Dose 2 TAB; Start 02/02/17 at 05:00 Sucralfate (Carafate) 1 gm QID PO Last administered on 02/06/17 08:24; Admin Dose 1 GM; Start 02/05/17 at 14:00 Lansoprazole (Prevacid) 30 mg BID@,18 PO Last administered on 02/06/17 06: 18; Admin Dose 30 MG; Start 02/05/17 at 18:00 SANCHEZ APARICIO NP Feb 06, 2017 11:23
--- NOTE | 2017-02-06 14:55 | CONS ---
Date/Time of Note Date/Time of Note DATE: 02/06/17 TIME: 14:55 Assessment/Plan Assessment/Plan Chief Complaint/Hosp Course SUBJECTIVE: No acute events overnight. Looks comfortable, no fevers PHYSICAL EXAMINATION: GENERAL: This is a fragile, chronically ill-appearing, elderly woman who is in no distress. HEENT: Head atraumatic, normocephalic. Sclerae anicteric. Buccal mucosa dry. NECK: Supple. CHEST: Rise symmetrical. Breath sounds diminished to bases, more on the Left. HEART: S1, S2. ABDOMEN: Soft. Bowel tones hypoactive. EXTREMITIES: Without cyanosis or edema. ASSESSMENT: 1. S/p sepsis with leukocytosis and encephalopathy, rapid atrial fibrillation, low grade fever and admission. 2. S/p Urinary tract infection. 3. S/p LLL pneumonia 4. Coagulopathy from Coumadin toxicity. 5. Status post rapid atrial fibrillation. 6. Acute kidney injury. 7. Symptomatic anemia, status post blood transfusion. 8. Pancreatic ca 9. Failure to thrive PLAN: Maintenance stable, continue present care, repeat cultures as needed DW staff Problems: Consultation Date/Type/Reason Admit Date/Time Jan 23, 2017 at 13:10 Initial Consult Date 01/23/17 Type of Consultation: id Referring Provider: SANCHEZ APARICIO MILLWRIGHT Exam/Review of Systems Vital Signs Vitals Vital Signs Date Time Temp Pulse Resp B/P Pulse Ox O2 Delivery O2 Flow Rate FiO2 02/06/17 12:02 88 02/06/17 11:53 97.4 20 107/52 99 02/06/17 08:15 Nasal Cannula 2.0 Intake and Output 02/05/17 02/05/17 02/06/17 14:59 22:59 06:59 Intake Total 510 ml 100 ml Output Total 600 ml 550 ml Balance -90 ml -450 ml Results Result Diagram: 02/06/17 0603 02/06/17 0603 Results 24 hrs Laboratory Tests Test 02/06/17 06:03 White Blood Count 10.2 Red Blood Count 3.77 L Hemoglobin 10.9 L Hematocrit 34.7 L Mean Corpuscular Volume 92.0 Mean Corpuscular Hemoglobin 28.9 L Mean Corpuscular Hemoglobin Concent 31.4 L Red Cell Distribution Width 16.3 H Platelet Count 290 Mean Platelet Volume 11.5 H Neutrophils % 75.9 Lymphocytes % 12.6 L Monocytes % 10.0 Eosinophils % 0.7 Basophils % 0.4 Nucleated Red Blood Cells % 0.0 Neutrophils # 7.7 H Lymphocytes # 1.3 Monocytes # 1.0 H Eosinophils # 0.1 Basophils # 0.0 Nucleated Red Blood Cells # 0.0 Sodium Level 140 Potassium Level 3.8 Chloride Level 99 Carbon Dioxide Level 28 Anion Gap 17 H Blood Urea Nitrogen 43 H Creatinine 0.78 Glucose Level 97 Calcium Level 8.8 Phosphorus Level 3.9 Magnesium Level 1.7 Total Bilirubin 0.3 Direct Bilirubin 0.00 Indirect Bilirubin 0.3 Aspartate Amino Transf (AST/SGOT) 61 H Alanine Aminotransferase (ALT/SGPT) 77 H Alkaline Phosphatase 192 H Total Protein 5.9 L Albumin 2.6 L Globulin 3.30 H Albumin/Globulin Ratio 0.78 Medications Medications Current Medications Ondansetron HCl (Zofran Inj) 4 mg Q6H PRN IV NAUSEA AND/OR VOMITING; Start at 14:30 Acetaminophen (Tylenol Tab) 650 mg Q6H PRN PO PAIN LEVEL 1-3 OR FEVER Last administered on 01/26/17 13:51; Admin Dose 650 MG; Start 01/23/17 at 14:30 Atorvastatin Calcium (Lipitor) 20 mg QHS PO Last administered on 02/05/17 20: 42; Admin Dose 20 MG; Start 01/23/17 at 21:00 Citalopram Hydrobromide (Celexa) 20 mg DAILY PO Last administered on 08:23; Admin Dose 20 MG; Start 01/24/17 at 09:00 Morphine Sulfate (morphine) 1 mg Q4H PRN IV PAIN Last administered on 23:51; Admin Dose 1 MG; Start 01/24/17 at 04:30 Docusate Sodium (Colace Liquid Cup) 100 mg BID PO Last administered on 08:22; Admin Dose 100 MG; Start 01/27/17 at 09:00 Metoprolol Tartrate (Lopressor) 100 mg BID PO Last administered on 02/06/17 08:23; Admin Dose 100 MG; Start 01/27/17 at 21:00 Acetaminophen/ Hydrocodone Bitart ([place] (5/325)) 1 tab Q4H PRN PO PAIN LEVEL 4 -6 Last administered on 02/06/17 08:22; Admin Dose 1 TAB; Start 02/02/17 at 04:40 Acetaminophen/ Hydrocodone Bitart ([place] (5/325)) 2 tab Q4H PRN PO PAIN LEVEL 7 -10 Last administered on 02/06/17 12:29; Admin Dose 2 TAB; Start 02/02/17 at 05:00 Sucralfate (Carafate) 1 gm QID PO Last administered on 02/06/17 12:25; Admin Dose 1 GM; Start 02/05/17 at 14:00 Lansoprazole (Prevacid) 30 mg BID@,18 PO Last administered on 02/06/17 06: 18; Admin Dose 30 MG; Start 02/05/17 at 18:00 SHELIA HUFF NP Feb 06, 2017 14:55
[2017-02-06] MEDS: morphine 2 MG INJ IV PRN ×2 (16:47→23:03)
--- NOTE | 2017-02-06 17:00 | CONS ---
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 Likely from blood products and IV hydration. Euvolemic Chronic Afib with RVR: Partially compensatory to multiple active issues. HR controlled Coagulopathy: INR >10 on admission, now normalized Anemia with upper GI bleed: Hgb 6.6 on admission, now improved with transfusion. EGD with esophageal ulcer Sepsis secondary to UTI UTI Acute vs chronic renal failure Pancreatic ca Dysphagia -change to lasix 20mg PO daily to keep even as BUN rising -metoprolol 100mg BID -continue to hold coumadin until ok per GI Problems: Consultation Date/Type/Reason Admit Date/Time Jan 23, 2017 at 13:10 Initial Consult Date 01/23/17 Type of Consultation: Cardiology Referring Provider: SANCHEZ APARICIO NP 24 HR Interval Summary Free Text/Dictation No o/n events. Plan for placement Exam/Review of Systems Vital Signs Vitals Vital Signs Date Time Temp Pulse Resp B/P Pulse Ox O2 Delivery O2 Flow Rate FiO2 02/06/17 16:02 88 02/06/17 15:48 97.8 20 99/67 98 02/06/17 08:15 Nasal Cannula 2.0 Intake and Output 02/05/17 02/05/17 02/06/17 15:00 23:00 07:00 Intake Total 510 ml 100 ml Output Total 600 ml 550 ml Balance -90 ml -450 ml Exam Constitutional: alert, oriented Psych: nl mood/affect, no complaints Head: atraumatic, normocephalic Neck: No jvd Respiratory: diminished breath sounds, No clear to auscultation Cardiovascular: systolic murmur (2/6 RONNY), No edema, No regular rate and rhythm Gastrointestinal: non-tender, soft Neurological: nl mental status, nl speech Results Result Diagram: 02/06/17 0603 02/06/17 0603 Results 24 hrs Laboratory Tests Test 02/06/17 06:03 White Blood Count 10.2 Red Blood Count 3.77 L Hemoglobin 10.9 L Hematocrit 34.7 L Mean Corpuscular Volume 92.0 Mean Corpuscular Hemoglobin 28.9 L Mean Corpuscular Hemoglobin Concent 31.4 L Red Cell Distribution Width 16.3 H Platelet Count 290 Mean Platelet Volume 11.5 H Neutrophils % 75.9 Lymphocytes % 12.6 L Monocytes % 10.0 Eosinophils % 0.7 Basophils % 0.4 Nucleated Red Blood Cells % 0.0 Neutrophils # 7.7 H Lymphocytes # 1.3 Monocytes # 1.0 H Eosinophils # 0.1 Basophils # 0.0 Nucleated Red Blood Cells # 0.0 Sodium Level 140 Potassium Level 3.8 Chloride Level 99 Carbon Dioxide Level 28 Anion Gap 17 H Blood Urea Nitrogen 43 H Creatinine 0.78 Glucose Level 97 Calcium Level 8.8 Phosphorus Level 3.9 Magnesium Level 1.7 Total Bilirubin 0.3 Direct Bilirubin 0.00 Indirect Bilirubin 0.3 Aspartate Amino Transf (AST/SGOT) 61 H Alanine Aminotransferase (ALT/SGPT) 77 H Alkaline Phosphatase 192 H Total Protein 5.9 L Albumin 2.6 L Globulin 3.30 H Albumin/Globulin Ratio 0.78 Medications Medications Current Medications Ondansetron HCl (Zofran Inj) 4 mg Q6H PRN IV NAUSEA AND/OR VOMITING; Start at 14:30 Acetaminophen (Tylenol Tab) 650 mg Q6H PRN PO PAIN LEVEL 1-3 OR FEVER Last administered on 01/26/17 13:51; Admin Dose 650 MG; Start 01/23/17 at 14:30 Atorvastatin Calcium (Lipitor) 20 mg QHS PO Last administered on 02/05/17 20: 42; Admin Dose 20 MG; Start 01/23/17 at 21:00 Citalopram Hydrobromide (Celexa) 20 mg DAILY PO Last administered on 08:23; Admin Dose 20 MG; Start 01/24/17 at 09:00 Morphine Sulfate (morphine) 1 mg Q4H PRN IV PAIN Last administered on 23:51; Admin Dose 1 MG; Start 01/24/17 at 04:30 Docusate Sodium (Colace Liquid Cup) 100 mg BID PO Last administered on 08:22; Admin Dose 100 MG; Start 01/27/17 at 09:00 Metoprolol Tartrate (Lopressor) 100 mg BID PO Last administered on 02/06/17 08:23; Admin Dose 100 MG; Start 01/27/17 at 21:00 Acetaminophen/ Hydrocodone Bitart ([place] (5/325)) 1 tab Q4H PRN PO PAIN LEVEL 4 -6 Last administered on 02/06/17 08:22; Admin Dose 1 TAB; Start 02/02/17 at 04:40 Acetaminophen/ Hydrocodone Bitart ([place] (5/325)) 2 tab Q4H PRN PO PAIN LEVEL 7 -10 Last administered on 02/06/17 12:29; Admin Dose 2 TAB; Start 02/02/17 at 05:00 Sucralfate (Carafate) 1 gm QID PO Last administered on 02/06/17 12:25; Admin Dose 1 GM; Start 02/05/17 at 14:00 Lansoprazole (Prevacid) 30 mg BID@ PO Last administered on 02/06/17 06: 18; Admin Dose 30 MG; Start 02/05/17 at 18:00 ERIC LUCIO Feb 06, 2017 17:00
--- NOTE | 2017-02-06 19:33 | CONS ---
Date/Time of Note Date/Time of Note DATE: 02/06/17 TIME: 19:31 Assessment/Plan Assessment/Plan Chief Complaint/Hosp Course 1.JORGITO better 2. Severe anemia 3. hypokalemia BETTER 4. Elevated INR> improved 5. Urinary tract infection with GNR 6. Elevated BNP. 7. History of hypertension. 8. Hypothyroidism. 9. Pneumonia. 10. 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 11 Hypokalemia due to Lasix plan F/U LYTES Problems: Consultation Date/Type/Reason Admit Date/Time Jan 23, 2017 at 13:10 Initial Consult Date 01/30/17 Type of Consultation: RENAL Referring Provider: SANCHEZ APARICIO MONOTYPE SETTER 24 HR Interval Summary Constitutional: other (NO SOB) Exam/Review of Systems Vital Signs Vitals Vital Signs Date Time Temp Pulse Resp B/P Pulse Ox O2 Delivery O2 Flow Rate FiO2 02/06/17 16:02 88 02/06/17 15:48 97.8 20 99/67 98 02/06/17 08:15 Nasal Cannula 2.0 Intake and Output 02/05/17 02/05/17 02/06/17 15:00 23:00 07:00 Intake Total 510 ml 100 ml Output Total 600 ml 550 ml Balance -90 ml -450 ml Exam Neck: supple Respiratory: diminished breath sounds Cardiovascular: regular rate and rhythm Gastrointestinal: soft Extremities: edema (+) Results Result Diagram: 02/06/17 0603 02/06/17 0603 Results 24 hrs Laboratory Tests Test 02/06/17 06:03 White Blood Count 10.2 Red Blood Count 3.77 L Hemoglobin 10.9 L Hematocrit 34.7 L Mean Corpuscular Volume 92.0 Mean Corpuscular Hemoglobin 28.9 L Mean Corpuscular Hemoglobin Concent 31.4 L Red Cell Distribution Width 16.3 H Platelet Count 290 Mean Platelet Volume 11.5 H Neutrophils % 75.9 Lymphocytes % 12.6 L Monocytes % 10.0 Eosinophils % 0.7 Basophils % 0.4 Nucleated Red Blood Cells % 0.0 Neutrophils # 7.7 H Lymphocytes # 1.3 Monocytes # 1.0 H Eosinophils # 0.1 Basophils # 0.0 Nucleated Red Blood Cells # 0.0 Sodium Level 140 Potassium Level 3.8 Chloride Level 99 Carbon Dioxide Level 28 Anion Gap 17 H Blood Urea Nitrogen 43 H Creatinine 0.78 Glucose Level 97 Calcium Level 8.8 Phosphorus Level 3.9 Magnesium Level 1.7 Total Bilirubin 0.3 Direct Bilirubin 0.00 Indirect Bilirubin 0.3 Aspartate Amino Transf (AST/SGOT) 61 H Alanine Aminotransferase (ALT/SGPT) 77 H Alkaline Phosphatase 192 H Total Protein 5.9 L Albumin 2.6 L Globulin 3.30 H Albumin/Globulin Ratio 0.78 Medications Medications Current Medications Ondansetron HCl (Zofran Inj) 4 mg Q6H PRN IV NAUSEA AND/OR VOMITING; Start at 14:30 Acetaminophen (Tylenol Tab) 650 mg Q6H PRN PO PAIN LEVEL 1-3 OR FEVER Last administered on 01/26/17 13:51; Admin Dose 650 MG; Start 01/23/17 at 14:30 Atorvastatin Calcium (Lipitor) 20 mg QHS PO Last administered on 02/05/17 20: 42; Admin Dose 20 MG; Start 01/23/17 at 21:00 Citalopram Hydrobromide (Celexa) 20 mg DAILY PO Last administered on 08:23; Admin Dose 20 MG; Start 01/24/17 at 09:00 Morphine Sulfate (morphine) 1 mg Q4H PRN IV PAIN Last administered on 16:47; Admin Dose 1 MG; Start 01/24/17 at 04:30 Docusate Sodium (Colace Liquid Cup) 100 mg BID PO Last administered on 08:22; Admin Dose 100 MG; Start 01/27/17 at 09:00 Metoprolol Tartrate (Lopressor) 100 mg BID PO Last administered on 02/06/17 08:23; Admin Dose 100 MG; Start 01/27/17 at 21:00 Acetaminophen/ Hydrocodone Bitart ([place] (5/325)) 1 tab Q4H PRN PO PAIN LEVEL 4 -6 Last administered on 02/06/17 08:22; Admin Dose 1 TAB; Start 02/02/17 at 04:40 Acetaminophen/ Hydrocodone Bitart ([place] (5/325)) 2 tab Q4H PRN PO PAIN LEVEL 7 -10 Last administered on 02/06/17 12:29; Admin Dose 2 TAB; Start 02/02/17 at 05:00 Sucralfate (Carafate) 1 gm QID PO Last administered on 02/06/17 16:47; Admin Dose 1 GM; Start 02/05/17 at 14:00 Lansoprazole (Prevacid) 30 mg BID@06,18 PO Last administered on 02/06/17 16: 46; Admin Dose 30 MG; Start 02/05/17 at 18:00 Furosemide (Lasix) 20 mg DAILY PO ; Start 02/07/17 at 09:00 SHUKRI PHILLIP MD Feb 06, 2017 19:33
[2017-02-06] MEDS: ATORVASTATIN 20 MG TAB PO SCH (20:35)
[2017-02-07] VITALS (8 sets, daily range): BP systolic 85–104; BP diastolic 47–58; PULSE 77–83; RESP 17–20
[2017-02-07] MEDS: HYDROCODONE/APAP (5/325) TAB PO PRN ×3 (02:16→13:53)
[2017-02-07] MEDS: LEVOTHYROXINE 50 MCG TAB PO SCH (06:18)
[2017-02-07] MEDS: LANSOPRAZOLE 30 MG CAP PO SCH (06:18)
[2017-02-07 07:10] LABS: BASOPHIL # 0.1 10^3/ul (0.0-0.1); BASOPHILS % 0.6 % (0.0-2.0); EOSINOPHILS # 0.1 10^3/ul (0.0-0.5); EOSINOPHILS % 1.2 % (0.0-7.0); HEMATOCRIT 33.5 % (37.0-47.0); HEMOGLOBIN 10.2 g/dl (12.0-16.0); LYMPHOCYTES # 1.1 10^3/ul (0.8-2.9); LYMPHOCYTES % 13.2 % (15.0-51.0); MEAN CORPUSCULAR HEMOGLOBIN 28.6 pg (29.0-33.0); MEAN CORPUSCULAR HGB CONC 30.4 g/dl (32.0-37.0); MEAN CORPUSCULAR VOLUME 93.8 fl (82.0-101.0); MEAN PLATELET VOLUME 11.7 fl (7.4-10.4); MONOCYTE # 0.8 10^3/ul (0.3-0.9); MONOCYTES % 9.9 % (0.0-11.0); NEUTROPHIL # 6.2 10^3/ul (1.6-7.5); NEUTROPHILS % 74.7 % (39.0-77.0); PLATELET COUNT 236 10^3/UL (140-415); RED BLOOD COUNT 3.57 10^6/ul (4.20-5.40); RED CELL DISTRIBUTION WIDTH 16.4 % (11.5-14.5); WHITE BLOOD COUNT 8.3 10^3/ul (4.8-10.8)
[2017-02-07 07:43] LABS: ALBUMIN 2.6 g/dl (3.3-4.9); ALBUMIN/GLOBULIN RATIO 0.7; BILIRUBIN,INDIRECT 0.3 mg/dl (0-1.1); BILIRUBIN,TOTAL 0.3 mg/dl (0.2-1.3); CALCIUM 9.2 mg/dl (8.4-10.2); CREATININE 1.01 mg/dl (0.44-1.00); MAGNESIUM 1.7 mg/dl (1.7-2.5); PHOSPHORUS 3.8 mg/dl (2.5-4.9); POTASSIUM 3.2 mmol/L (3.5-5.1); TOTAL PROTEIN 6.3 g/dl (6.1-8.1)
[2017-02-07 07:51] LABS: INR 1.21; PROTIME 15.4 Sec (12.2-14.2); PT RATIO 1.2
[2017-02-07] MEDS ORDERED: FUROSEMIDE 20 MG TAB PO SCH (09:00)
[2017-02-07] MEDS: CITALOPRAM 20 MG TAB PO SCH (09:15)
[2017-02-07] MEDS: DOCUSATE SODIUM 10 MG/ML (10ML CUP) PO SCH (09:15)
[2017-02-07] MEDS: SUCRALFATE 1 GM TAB PO SCH ×2 (09:17→12:49)
[2017-02-07] MEDS: METOPROLOL 100 MG TAB PO SCH (09:17)
[2017-02-07] MEDS ORDERED: POTASSIUM CHLORIDE (SR) 20 MEQ TAB PO SCH (10:30)
--- NOTE | 2017-02-07 13:48 | RADRPT ---
PROCEDURE: XR portable chest CLINICAL INDICATION: Congestive heart failure TECHNIQUE: Portable semi upright chest radiograph COMPARISON: Portable semi upright chest radiograph 02/04/2017 FINDINGS: Worsening of left lower lobe opacity which may be secondary to atelectasis versus consolidation. Pro bable increase in size of small left pleural effusion. New left parahilar hazy opacity, possibly fro m edema or pneumonitis. Decrease in lung volumes. No other significant interval changes seen. IMPRESSION: 1. Worsening of left lower lobe opacity which may be secondary to atelectasis versus consolidation. Probable increase in size of small left pleural effusion. 2. New left parahilar hazy opacity, possibly from edema or pneumonitis. RPTAT: TT Physician Manuel Date Time Electronically viewed and signed by Chelle Khan Physician on 02/07/2017 13:48 JS/
--- NOTE | 2017-02-07 14:14 | PDOCDIS ---
Discharge Instructions DIAGNOSIS Discharge Diagnosis Coagulopathy. Pleural effusion. Sepsis. CONDITION Patient Condition: Stable HOME CARE INSTRUCTIONS: Special Diet: 2 Gm Na pureed OTHER ORDERS: Other Orders: 1. Medications as per medication list. 2. Take a 2 g sodium pureed diet. 3. Activities with assist. SANCHEZ APARICIO NP Feb 07, 2017 14:14
--- NOTE | 2017-02-07 14:55 | CONS ---
Date/Time of Note Date/Time of Note DATE: 02/07/17 TIME: 14:54 Consult Date/Type/Reason Admit Date/Time Jan 23, 2017 at 13:10 Initial Consult Date 01/30/17 Type of Consultation: Pulmonary Ordering Provider: SANCHEZ APARICIO BIOPSYCHOLOGIST Subjective Still moderate weakness. Objective Vital Signs Date Time Temp Pulse Resp B/P Pulse Ox O2 Delivery O2 Flow Rate FiO2 02/07/17 12:08 77 02/07/17 12:05 98.1 18 85/47 99 02/06/17 20:35 Nasal Cannula 2.0 Intake and Output 02/06/17 02/06/17 02/07/17 15:00 23:00 07:00 Intake Total 400 ml 150 ml Output Total 600 ml 400 ml Balance -200 ml -250 ml Exam GENERAL: Chronically ill appearing lady comfortable at rest no acute distress VITAL SIGNS: per chart NECK: Supple. No JVD or lymphadenopathy. CARDIAC EXAM: S1, S2. No added sounds or murmurs. CHEST: Diminished air entry both lung bases ABDOMEN: Soft, nontender. No guarding or rebound. EXTREMITIES: No cyanosis, clubbing or edema. NEUROLOGIC: Generalized weakness. Results/Medications Result Diagram: 02/07/17 0631 02/07/17 0631 Results 24 hrs Laboratory Tests Test 02/07/17 06:31 White Blood Count 8.3 Red Blood Count 3.57 L Hemoglobin 10.2 L Hematocrit 33.5 L Mean Corpuscular Volume 93.8 Mean Corpuscular Hemoglobin 28.6 L Mean Corpuscular Hemoglobin Concent 30.4 L Red Cell Distribution Width 16.4 H Platelet Count 236 Mean Platelet Volume 11.7 H Neutrophils % 74.7 Lymphocytes % 13.2 L Monocytes % 9.9 Eosinophils % 1.2 Basophils % 0.6 Nucleated Red Blood Cells % 0.0 Neutrophils # 6.2 Lymphocytes # 1.1 Monocytes # 0.8 Eosinophils # 0.1 Basophils # 0.1 Nucleated Red Blood Cells # 0.0 Prothrombin Time 15.4 H Prothrombin Time Ratio 1.2 INR International Normalized Ratio 1.21 Activated Partial Thromboplast Time 40.0 H Sodium Level 142 Potassium Level 3.2 L Chloride Level 99 Carbon Dioxide Level 35 H Anion Gap 11 Blood Urea Nitrogen 51 H Creatinine 1.01 H Glucose Level 96 Calcium Level 9.2 Phosphorus Level 3.8 Magnesium Level 1.7 Total Bilirubin 0.3 Direct Bilirubin 0.00 Indirect Bilirubin 0.3 Aspartate Amino Transf (AST/SGOT) 38 Alanine Aminotransferase (ALT/SGPT) 59 Alkaline Phosphatase 167 H Total Protein 6.3 Albumin 2.6 L Globulin 3.70 H Albumin/Globulin Ratio 0.70 Medications Current Medications Ondansetron HCl (Zofran Inj) 4 mg Q6H PRN IV NAUSEA AND/OR VOMITING; Start at 14:30 Acetaminophen (Tylenol Tab) 650 mg Q6H PRN PO PAIN LEVEL 1-3 OR FEVER Last administered on 01/26/17 13:51; Admin Dose 650 MG; Start 01/23/17 at 14:30 Atorvastatin Calcium (Lipitor) 20 mg QHS PO Last administered on 02/06/17 20: 35; Admin Dose 20 MG; Start 01/23/17 at 21:00 Citalopram Hydrobromide (Celexa) 20 mg DAILY PO Last administered on 09:15; Admin Dose 20 MG; Start 01/24/17 at 09:00 Morphine Sulfate (morphine) 1 mg Q4H PRN IV PAIN Last administered on 23:03; Admin Dose 1 MG; Start 01/24/17 at 04:30 Docusate Sodium (Colace Liquid Cup) 100 mg BID PO Last administered on 09:15; Admin Dose 100 MG; Start 01/27/17 at 09:00 Metoprolol Tartrate (Lopressor) 100 mg BID PO Last administered on 02/07/17 09:17; Admin Dose 100 MG; Start 01/27/17 at 21:00 Acetaminophen/ Hydrocodone Bitart ([place] (5/325)) 1 tab Q4H PRN PO PAIN LEVEL 4 -6 Last administered on 02/06/17 08:22; Admin Dose 1 TAB; Start 02/02/17 at 04:40 Acetaminophen/ Hydrocodone Bitart ([place] (5/325)) 2 tab Q4H PRN PO PAIN LEVEL 7 -10 Last administered on 02/07/17 13:53; Admin Dose 2 TAB; Start 02/02/17 at 05:00 Sucralfate (Carafate) 1 gm QID PO Last administered on 02/07/17 12:49; Admin Dose 1 GM; Start 02/05/17 at 14:00 Lansoprazole (Prevacid) 30 mg BID@06,18 PO Last administered on 02/07/17 06: 18; Admin Dose 30 MG; Start 02/05/17 at 18:00 Furosemide (Lasix) 20 mg DAILY PO Last administered on 02/07/17 09:17; Admin Dose 20 MG; Start 02/07/17 at 09:00 Potassium Chloride (Klor-Con 20) 20 meq BID PO Last administered on 02/07/17 12:49; Admin Dose 20 MEQ; Start 02/07/17 at 10:30 Assessment/Plan Chief Complaint/Hosp Course Assessment 1. Likely significant aspiration risk 2. Persistent leukocytosis 3. Left pleural effusion status post thoracentesis 4. History of pancreatic cancer tail of pancreas nonsurgical Plan 1. Postthoracentesis no complications 2. Continue antibiotics 3. Aspiration precautions speech therapy evaluation 4. transfer to longterm facility okay from primary standpoint. Problems: TYRON MEANS MD, [facility] Feb 07, 2017 14:55
--- NOTE | 2017-02-07 15:00 | CONS ---
Date/Time of Note Date/Time of Note DATE: 02/07/17 TIME: 14:59 Assessment/Plan Assessment/Plan Chief Complaint/Hosp Course SUBJECTIVE: No acute events overnight. Alert, looks comfortable, no fevers PHYSICAL EXAMINATION: GENERAL: This is a fragile, chronically ill-appearing, elderly woman who is in no distress. HEENT: Head atraumatic, normocephalic. Sclerae anicteric. Buccal mucosa dry. NECK: Supple. CHEST: Rise symmetrical. Breath sounds diminished to bases, more on the Left. HEART: S1, S2. ABDOMEN: Soft. Bowel tones hypoactive. EXTREMITIES: Without cyanosis or edema. ASSESSMENT: 1. S/p sepsis with leukocytosis and encephalopathy, rapid atrial fibrillation, low grade fever and admission. 2. S/p Urinary tract infection. 3. S/p LLL pneumonia 4. Coagulopathy from Coumadin toxicity. 5. Status post rapid atrial fibrillation. 6. Acute kidney injury. 7. Symptomatic anemia, status post blood transfusion. 8. Pancreatic ca 9. Failure to thrive PLAN: Remains stable, continue present care, poss dc plan DW family Problems: Consultation Date/Type/Reason Admit Date/Time Jan 23, 2017 at 13:10 Initial Consult Date 01/23/17 Type of Consultation: id Referring Provider: SANCHEZ APARICIO DIAMOND POWDER MIXER Exam/Review of Systems Vital Signs Vitals Vital Signs Date Time Temp Pulse Resp B/P Pulse Ox O2 Delivery O2 Flow Rate FiO2 02/07/17 12:08 77 02/07/17 12:05 98.1 18 85/47 99 02/06/17 20:35 Nasal Cannula 2.0 Intake and Output 02/06/17 02/06/17 02/07/17 15:00 23:00 07:00 Intake Total 400 ml 150 ml Output Total 600 ml 400 ml Balance -200 ml -250 ml Results Result Diagram: 02/07/17 0631 02/07/17 0631 Results 24 hrs Laboratory Tests Test 02/07/17 06:31 White Blood Count 8.3 Red Blood Count 3.57 L Hemoglobin 10.2 L Hematocrit 33.5 L Mean Corpuscular Volume 93.8 Mean Corpuscular Hemoglobin 28.6 L Mean Corpuscular Hemoglobin Concent 30.4 L Red Cell Distribution Width 16.4 H Platelet Count 236 Mean Platelet Volume 11.7 H Neutrophils % 74.7 Lymphocytes % 13.2 L Monocytes % 9.9 Eosinophils % 1.2 Basophils % 0.6 Nucleated Red Blood Cells % 0.0 Neutrophils # 6.2 Lymphocytes # 1.1 Monocytes # 0.8 Eosinophils # 0.1 Basophils # 0.1 Nucleated Red Blood Cells # 0.0 Prothrombin Time 15.4 H Prothrombin Time Ratio 1.2 INR International Normalized Ratio 1.21 Activated Partial Thromboplast Time 40.0 H Sodium Level 142 Potassium Level 3.2 L Chloride Level 99 Carbon Dioxide Level 35 H Anion Gap 11 Blood Urea Nitrogen 51 H Creatinine 1.01 H Glucose Level 96 Calcium Level 9.2 Phosphorus Level 3.8 Magnesium Level 1.7 Total Bilirubin 0.3 Direct Bilirubin 0.00 Indirect Bilirubin 0.3 Aspartate Amino Transf (AST/SGOT) 38 Alanine Aminotransferase (ALT/SGPT) 59 Alkaline Phosphatase 167 H Total Protein 6.3 Albumin 2.6 L Globulin 3.70 H Albumin/Globulin Ratio 0.70 Medications Medications Current Medications Ondansetron HCl (Zofran Inj) 4 mg Q6H PRN IV NAUSEA AND/OR VOMITING; Start at 14:30 Acetaminophen (Tylenol Tab) 650 mg Q6H PRN PO PAIN LEVEL 1-3 OR FEVER Last administered on 01/26/17 13:51; Admin Dose 650 MG; Start 01/23/17 at 14:30 Atorvastatin Calcium (Lipitor) 20 mg QHS PO Last administered on 02/06/17 20: 35; Admin Dose 20 MG; Start 01/23/17 at 21:00 Citalopram Hydrobromide (Celexa) 20 mg DAILY PO Last administered on 09:15; Admin Dose 20 MG; Start 01/24/17 at 09:00 Morphine Sulfate (morphine) 1 mg Q4H PRN IV PAIN Last administered on 23:03; Admin Dose 1 MG; Start 01/24/17 at 04:30 Docusate Sodium (Colace Liquid Cup) 100 mg BID PO Last administered on 09:15; Admin Dose 100 MG; Start 01/27/17 at 09:00 Metoprolol Tartrate (Lopressor) 100 mg BID PO Last administered on 02/07/17 09:17; Admin Dose 100 MG; Start 01/27/17 at 21:00 Acetaminophen/ Hydrocodone Bitart ([place] (5/325)) 1 tab Q4H PRN PO PAIN LEVEL 4 -6 Last administered on 02/06/17 08:22; Admin Dose 1 TAB; Start 02/02/17 at 04:40 Acetaminophen/ Hydrocodone Bitart ([place] (5/325)) 2 tab Q4H PRN PO PAIN LEVEL 7 -10 Last administered on 02/07/17 13:53; Admin Dose 2 TAB; Start 02/02/17 at 05:00 Sucralfate (Carafate) 1 gm QID PO Last administered on 02/07/17 12:49; Admin Dose 1 GM; Start 02/05/17 at 14:00 Lansoprazole (Prevacid) 30 mg BID@,18 PO Last administered on 02/07/17 06: 18; Admin Dose 30 MG; Start 02/05/17 at 18:00 Furosemide (Lasix) 20 mg DAILY PO Last administered on 02/07/17 09:17; Admin Dose 20 MG; Start 02/07/17 at 09:00 Potassium Chloride (Klor-Con 20) 20 meq BID PO Last administered on 02/07/17 12:49; Admin Dose 20 MEQ; Start 02/07/17 at 10:30 SHELIA HUFF NP Feb 07, 2017 15:00
--- NOTE | 2017-02-07 16:53 | DS ---
Date/Time of Note Date/Time of Note DATE: 02/07/17 TIME: 16:49 Discharge Summary Admission/Discharge Info Admit Date/Time Jan 23, 2017 at 13:10 Discharge Date/Time Discharge Diagnosis 1. Status post sepsis secondary to underlying urinary tract infection. 2. Coagulopathy. 3. Left pleural effusion. Status post ultrasound-guided left thoracentesis with drainage of 600 cc of serosanguineous fluid on 02/04/2017. 4. Atrial fibrillation with rapid ventricular response. 5. Acute kidney injury. 6. Symptomatic anemia secondary to acute blood loss. 7. 6 mm clean-based esophageal ulcer. 8. Distal esophagitis. 9. Moderate gastritis. 10. Essential hypertension. 11. Cardiomyopathy with ejection fraction of 45%. 12. Acute on chronic systolic heart failure exacerbation. 13. Pulmonary hypertension. PA systolic pressure of 52 mmHg as per 2D echocardiogram. 14. Hypothyroidism. 15. Dysphagia. 16. 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 Patient Condition: Stable Consults 1. Negro Goddard MD, cardiology. 2. Vitor Costa MD, Nephrology. 3. Yuki Alvarez MD, Nephrology. 4. Can Bill MD, Infectious Diseases. 5. Je Jimenez MD, Gastroenterology. 6. Heath Shin MD, Pulmonology. 7. John Paul Luna MD, Pulmonology. Procedures Procedure Date 01/26/17 Indication: other (ANEMIA) Pre-procedure Diagnosis Anemia Post-procedure Diagnosis Impression: 6 mm clean base esophageal ulcer Distal esophagitis Small hiatal hernia Moderate gastritis. Rule out H. pylori infection. Biopsies obtained Otherwise normal EGD Brain CT IMPRESSION: 1. No acute intracranial abnormality. No intracranial hemorrhage, extra-axial fluid collection, mass lesion or hydrocephalous. 2. Moderate peripheral and central cerebral volume loss. 3. Severe patchy and confluent periventricular and subcortical white matter hypodensity, likely related to chronic microangiopathic changes. 4. Remote infarct involving the left frontal operculum. Number 5. Remote lacunar infarcts involving the paramedian right thalamus and the left thalamus. 5. No CT evidence of acute infarct at this time. If clinical concern for acute infarct, MRI is recommended for further evaluation. Ultrasound-Guided Left Thoracentesis IMPRESSION: US-guided left thoracentesis yielding 600 cc of serosanguineous pleural fluid given to laboratory for testing to be ordered by referring clinician. 2D Echocardiogram Conclusions 1. Normal left ventricular cavity size. Normal left ventricular wall thickness. Mild left ventricular systolic dysfunction. Ejection fraction is visually estimated at 45 %. 2. Moderate mitral annular calcification. Moderate mitral valve regurgitation. 3. Moderate aortic valve regurgitation. 4. Moderate to severe tricuspid regurgitation. 5. Severe biatrial enlargement. 6. Estimated peak PA systolic pressure 52 mmHg based on RA pressure of 8 mmHg. Hx of Present Illness Reason for admission: Generalized weakness. 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 The patient also complained of some dyspnea. There was no reported fevers. The patient's family also complained of poor oral intake. There was no reported nausea or vomiting. There was no reported overt bleeding. The patient follows up with Dr. Kriss Roblero for her primary care issues. She does not have an outpatient nurse case management. In the emergency room, the patient was noticed to be significantly anemic with a hemoglobin and hematocrit of 6.6 and 20.0 respectively. The patient was found to be coagulopathic with an INR of greater than 10. She had underlying leukocytosis with a WBC of 32.3 with bandemia. She had evidence of acute kidney injury with increased BUN/creatinine ratio. Lactic acid levels were within normal limits. The patient's chest x-ray showed left lower lobe opacification; pneumonia versus atelectasis and small pleural effusion. The patient's urinalysis showed positive nitrate and positive leukocyte esterase with urine microscopic WBC of 53. The patient was treated with IV vancomycin and IV ceftriaxone. The patient was given Cardizem IV push 1 for her underlying A. fib with RVR. Hospital Course The patient was admitted to inpatient telemetry floor. Cardiology, nephrology, gastroenterology, and infectious diseases consult was obtained. The patient's urine culture showed positive E. coli. The patient had underlying sepsis secondary to urinary tract infection. The patient was maintained on antimicrobials as per infectious diseases. The patient's stool studies remained negative. The patient had no evidence of any septic shock. The patient had underlying coagulopathy. The patient came with an INR of greater than 10. The patient's coagulopathy was treated with fresh frozen plasma and vitamin K with resolution of the patient's coagulopathy. The patient's coagulopathy was probably from Coumadin toxicity although the patient was not taking Coumadin on a regular basis. The patient was also noticed to have underlying left-sided pleural effusion. The patient underwent a ultrasound-guided thoracentesis on with drainage of 600 cc of serosanguineous fluid. The patient was also in atrial fibrillation with rapid ventricular response at some point of time during her hospitalization. The patient was treated with beta blockers and Cardizem with improvement in the patient's heart rate. The patient is not an ideal candidate for anticoagulation because of her advanced age and because of her underlying symptomatic anemia. The patient had some acute kidney injury upon presentation. The patient was being followed by nephrology. The patient's BUN and creatinine improved with holding her nephrotoxic medications. The patient had symptomatic anemia secondary to acute blood loss. The patient had no evidence of any underlying iron deficiency. The patient received multiple units of PRBC transfusion. The patient underwent an esophagogastroduodenoscopy on 01/26/2017 that showed a 6 mm clean-based esophageal ulcer, distal esophagitis and moderate gastritis. The patient was maintained on proton pump inhibitors and Carafate. The patient has underlying essential hypertension. She was maintained on antihypertensives for the same. The patient was noticed to have cardiomyopathy with an ejection fraction of 45%. The patient was maintained on beta-blockers. MEHRAN inhibitors were avoided because of borderline elevated renal function. The patient was also noticed to have underlying pulmonary hypertension with a PA systolic pressure 52 mmHg as per 2D echocardiogram. The patient has underlying valvular heart disease. The patient's pulmonary hypertension was deemed to be secondary to her underlying valvular heart disease. The patient has underlying hypothyroidism. The patient was maintained on Synthroid for the same. The patient has underlying dysphagia. The patient was seen and evaluated by speech therapy and the patient was maintained on a pured diet with nectar thick liquids. The patient has history of adenocarcinoma the tail of the pancreas the patient was being managed conservatively. The patient was noticed to be debilitated during this hospitalization. The patient was seen and evaluated by physical therapy. The patient had poor progress with physical therapy. Meanwhile, the patient's CODE STATUS was changed to chemical code only after talking to the patient's family and explaining the poor prognosis and multiple comorbidities. At one point of time the patient was evaluated by [facility]. The patient's family requested for inpatient hospice. The patient was not an ideal candidate for inpatient hospice. Therefore, a decision was made to discharge the patient to a detention facility since the patient's family verbalized that they do not have enough support to take care of the patient at home. The patient had a prolonged hospital course because of the multiple comorbidities, multiple procedures to be done, and the patient's poor progress. At this time I like to thank all the consultants for seeing the patient, doing the necessary procedures, and providing clinical recommendations. The patient was seen in collaboration with Dr. Castro. Home Meds Active Scripts Citalopram Hydrobromide* (Celexa*) 20 Mg Tablet, 20 MG PO DAILY for 30 Days, TAB Prov:CHEMO BURROWS 01/31/17 Furosemide (Lasix) 20 Mg Tab, 20 MG PO DAILY for 30 Days, TAB Prov:CHEMO BURROWS 01/31/17 Levothyroxine Sodium* (Synthroid*) 50 Mcg Tablet, 50 MCG PO BEFORE BREAKFAST for 30 Days, TAB Prov:CHEMO BURROWS 01/31/17 Sucralfate* (Carafate*) 1 Gm/10 Ml Susp, 1 GM PO QID for 30 Days Prov:CHEMO BURROWS 01/31/17 Pantoprazole* (Pantoprazole*) 40 Mg Tablet.dr, 40 MG PO BID@06,18 for 30 Days Prov:CHEMO BURROWS 01/31/17 Metoprolol Tartrate* (Lopressor*) 100 Mg Tablet, 100 MG PO BID for 30 Days, TAB Prov:CHEMO BURROWS 01/31/17 Reported Medications Melatonin-Pyridoxine Hcl (Melatonin) 5-10 Mg Tablet, 1 TAB PO HS, TAB 10/18/16 Megestrol Acetate* (Megestrol Acetate*) 40 Mg Tablet, 40 MG PO DAILY, TAB 10/18/16 Docusate Sodium* (Docusate Sodium*) 100 Mg Capsule, 100 MG PO BID, #60 CAP 10/18/16 Vitamin E (Dl,Tocopheryl Acet) (Vitamin E) 100 Unit/0.25 Ml Drops, 100 UNIT PO, DROP 07/24/16 Vit C/Giuliano Ac/Lut/Copper/Znox (PRESERVISION LUTEIN SOFTGEL) 1 Each Capsule, 1 EACH PO, CAP 07/24/16 Discontinued Reported Medications Warfarin Sodium* (Coumadin*) 3 Mg Tablet, 3 MG PO DAILY, TAB PATIENT IS TAKING ONLY 3 TIMES A WEEK PER 10/18/16 Follow-up Plan The patient is being discharged to a detention facility where she will be followed by an attending physician. Primary Care Provider Silvino Ly Time spent on discharge: 40 minutes. Pending Labs Name: DRU REVELES Age/Sex: 86/F Attend Dr: KWAME CASTRO MD Acct: [id number] MR# : [id number] : 1930 Location: [facility] [place] [id number] Admit: 01/23/17 Specimen: [id number] Status: Complete Cristel: 01/23/17 Rcvd: 01/23-1250 Source: CATHETER U Sp Descrip: Procedure Result Microbiology URINE CULTURE Final Organism 1 ESCHERICHIA COLI COLONY COUNT >100,000 CFU/ml E COLI M.I.C. RX --------- --- AMPICILLIN >=32 R CEFAZOLIN S CEFOTAXIME S CIPROFLOXACIN <=0.25 S GENTAMICIN <=1 S LEVOFLOXACIN 0.25 S NITROFURANTOIN <=16 S TOBRAMYCIN <=1 S TRIMETHOPRIM/SULFAMETHOXAZOLE >=320 R ................................................................................ ............ Flags: Critical Hi = *H Critical Lo = *L Microbiology Abnormal = * Abnormal Hi = H Abnormal Lo = L Blood Bank Abnormal = * Susceptability Flags: S = Sensitive R = Resistant I = Intermediate END OF REPORT Laboratory Tests Test 02/07/17 06:31 White Blood Count 8.310^3/ul (4.8-10.8) Red Blood Count 3.5710^6/ul (4.20-5.40) Hemoglobin 10.2g/dl (12.0-16.0) Hematocrit 33.5% (37.0-47.0) Mean Corpuscular Volume 93.8fl (82.0-101.0) Mean Corpuscular Hemoglobin 28.6pg (29.0-33.0) Mean Corpuscular Hemoglobin Concent 30.4g/dl (32.0-37.0) Red Cell Distribution Width 16.4% (11.5-14.5) Platelet Count 17898^3/UL (140-415) Mean Platelet Volume 11.7fl (7.4-10.4) Neutrophils % 74.7% (39.0-77.0) Lymphocytes % 13.2% (15.0-51.0) Monocytes % 9.9% (0.0-11.0) Eosinophils % 1.2% (0.0-7.0) Basophils % 0.6% (0.0-2.0) Nucleated Red Blood Cells % 0.0/100WBC (0.0-0.0) Neutrophils # 6.210^3/ul (1.6-7.5) Lymphocytes # 1.110^3/ul (0.8-2.9) Monocytes # 0.810^3/ul (0.3-0.9) Eosinophils # 0.110^3/ul (0.0-0.5) Basophils # 0.110^3/ul (0.0-0.1) Nucleated Red Blood Cells # 0.010^3/ul (0.0-0.0) Prothrombin Time 15.4Sec (12.2-14.2) Prothrombin Time Ratio 1.2 INR International Normalized Ratio 1.21 Activated Partial Thromboplast Time 40.0Sec (25.0-35.0) Sodium Level 142mmol/L (135-144) Potassium Level 3.2mmol/L (3.5-5.1) Chloride Level 99mmol/L (97-110) Carbon Dioxide Level 35mmol/L (21-31) Anion Gap 11 (8-16) Blood Urea Nitrogen 51mg/dl (7-20) Creatinine 1.01mg/dl (0.44-1.00) Glucose Level 96mg/dl (70-220) Calcium Level 9.2mg/dl (8.4-10.2) Phosphorus Level 3.8mg/dl (2.5-4.9) Magnesium Level 1.7mg/dl (1.7-2.5) Total Bilirubin 0.3mg/dl (0.2-1.3) Direct Bilirubin 0.00mg/dl (0.00-0.20) Indirect Bilirubin 0.3mg/dl (0-1.1) Aspartate Amino Transf (AST/SGOT) 38IU/L (15-46) Alanine Aminotransferase (ALT/SGPT) 59IU/L (13-69) Alkaline Phosphatase 167IU/L (42-121) Total Protein 6.3g/dl (6.1-8.1) Albumin 2.6g/dl (3.3-4.9) Globulin 3.70g/dl (1.3-3.2) Albumin/Globulin Ratio 0.70 SANCHEZ APARICIO NP Feb 07, 2017 16:53 6.3g/dl (6.1-8.1) Albumin 2.6g/dl (3.3-4.9) Globulin 3.70g/dl (1.3-3.2) Albumin/Globulin Ratio 0.70 SANCHEZ APARICIO NP Feb 07, 2017 16:53 (1.3-3.2) Albumin/Globulin Ratio 0.70 SANCHEZ APARICIO NP Feb 07, 2017 16:53
--- NOTE | 2017-02-07 18:56 | CONS ---
Date/Time of Note Date/Time of Note DATE: 02/07/17 TIME: 18:55 Assessment/Plan Assessment/Plan Chief Complaint/Hosp Course 1.JORGITO 2. Severe anemia 3. hypokalemia 4. Elevated INR> improved 5. Urinary tract infection with GNR 6. Elevated BNP. 7. History of hypertension. 8. Hypothyroidism. 9. Pneumonia. 10. 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 11 Hypokalemia due to Lasix plan F/U LYTES kcl Problems: Consultation Date/Type/Reason Admit Date/Time Jan 23, 2017 at 13:10 Initial Consult Date 01/30/17 Type of Consultation: renal Referring Provider: SANCHEZ APARICIO NURSE MONITORING 24 HR Interval Summary Constitutional: other (seen today) Exam/Review of Systems Vital Signs Vitals Vital Signs Date Time Temp Pulse Resp B/P Pulse Ox O2 Delivery O2 Flow Rate FiO2 02/07/17 12:08 77 02/07/17 12:05 98.1 18 85/47 99 02/07/17 08:00 Nasal Cannula 3.0 Intake and Output 02/06/17 02/06/17 02/07/17 14:59 22:59 06:59 Intake Total 400 ml 150 ml Output Total 600 ml 400 ml Balance -200 ml -250 ml Exam Cardiovascular: regular rate and rhythm Gastrointestinal: bowel sounds (+), soft Musculoskeletal: nl extremities to inspection Results Result Diagram: 02/07/1731 02/07/17 0631 Results 24 hrs Laboratory Tests Test 02/07/17 06:31 White Blood Count 8.3 Red Blood Count 3.57 L Hemoglobin 10.2 L Hematocrit 33.5 L Mean Corpuscular Volume 93.8 Mean Corpuscular Hemoglobin 28.6 L Mean Corpuscular Hemoglobin Concent 30.4 L Red Cell Distribution Width 16.4 H Platelet Count 236 Mean Platelet Volume 11.7 H Neutrophils % 74.7 Lymphocytes % 13.2 L Monocytes % 9.9 Eosinophils % 1.2 Basophils % 0.6 Nucleated Red Blood Cells % 0.0 Neutrophils # 6.2 Lymphocytes # 1.1 Monocytes # 0.8 Eosinophils # 0.1 Basophils # 0.1 Nucleated Red Blood Cells # 0.0 Prothrombin Time 15.4 H Prothrombin Time Ratio 1.2 INR International Normalized Ratio 1.21 Activated Partial Thromboplast Time 40.0 H Sodium Level 142 Potassium Level 3.2 L Chloride Level 99 Carbon Dioxide Level 35 H Anion Gap 11 Blood Urea Nitrogen 51 H Creatinine 1.01 H Glucose Level 96 Calcium Level 9.2 Phosphorus Level 3.8 Magnesium Level 1.7 Total Bilirubin 0.3 Direct Bilirubin 0.00 Indirect Bilirubin 0.3 Aspartate Amino Transf (AST/SGOT) 38 Alanine Aminotransferase (ALT/SGPT) 59 Alkaline Phosphatase 167 H Total Protein 6.3 Albumin 2.6 L Globulin 3.70 H Albumin/Globulin Ratio 0.70 SHUKRI PHILLIP MD Feb 07, 2017 18:56
== END 2017-02-07 15:30 | DRG 871 ==
LOC: E/R 11:01 → MS3 13:10 → MS4 01-24 23:46
PROVIDERS: ADMIT Internal Medicine; ATTEND Internal Medicine
PROC: 30233N1 Transfusion of Nonautologous Red Blood Cells into Peripheral Vein, Percutaneous Approach (ICD-10-PCS; 2017-01-23)
PROC: 30233K1 Transfusion of Nonautologous Frozen Plasma into Peripheral Vein, Percutaneous Approach (ICD-10-PCS; 2017-01-23)
PROC: 0DB78ZX Excision of Stomach, Pylorus, Via Natural or Artificial Opening Endoscopic, Diagnostic (ICD-10-PCS; 2017-01-26)
PROC: 0DB68ZX Excision of Stomach, Via Natural or Artificial Opening Endoscopic, Diagnostic (ICD-10-PCS; principal; 2017-01-26 21:00)
PROC: 0W9B3ZZ Drainage of Left Pleural Cavity, Percutaneous Approach (ICD-10-PCS; 2017-02-04)
DX: A41.51 Sepsis due to Escherichia coli [E. coli] (principal); G93.40 Encephalopathy, unspecified; I50.23 Acute on chronic systolic (congestive) heart failure; N17.9 Acute kidney failure, unspecified; J90 Pleural effusion, not elsewhere classified; K22.10 Ulcer of esophagus without bleeding; D68.9 Coagulation defect, unspecified; I42.9 Cardiomyopathy, unspecified; C25.2 Malignant neoplasm of tail of pancreas; N39.0 Urinary tract infection, site not specified; D62 Acute posthemorrhagic anemia; K92.2 Gastrointestinal hemorrhage, unspecified; R13.10 Dysphagia, unspecified; I27.29 Other secondary pulmonary hypertension; I48.2 Chronic atrial fibrillation; I12.9 Hypertensive chronic kidney disease with stage 1 through stage 4 chronic kidney disease, or unspecified chronic kidney disease; T45.515A Adverse effect of anticoagulants, initial encounter; E03.9 Hypothyroidism, unspecified; H54.8 Legal blindness, as defined in USA; N18.9 Chronic kidney disease, unspecified; E87.6 Hypokalemia; T50.1X5A Adverse effect of loop [high-ceiling] diuretics, initial encounter; D63.0 Anemia in neoplastic disease; K44.9 Diaphragmatic hernia without obstruction or gangrene; K29.70 Gastritis, unspecified, without bleeding; R62.7 Adult failure to thrive; K20.9 Esophagitis, unspecified; I08.3 Combined rheumatic disorders of mitral, aortic and tricuspid valves
CPT/HCPCS: 32555; 36415; 36430; 70450; 71010; 76775; 80048; 80053; 80076; 81001; 81003; 82550; 82553; 82607; 82728; 82746; 82945; 82962; 83036; 83540; 83605; 83615; 83735; 83880; 84100; 84132; 84155; 84157; 84300; 84439; 84443; 84484; 85014; 85018; 85025; 85610; 85730; 86644; 86850; 86900; 86901; 86920; 87040; 87045; 87070; 87075; 87086; 87102; 87116; 87400; 88104; 88305; 88312; 89051; 89190; 92526; 92610; 93005; 93306; 96374; 96375; 97110; 97162; 97530; J1940; C9113; J0692; J1885; J2270; J3370; J3475; J3480; J7030; J7040; J7070; P9016; P9059

== ENCOUNTER 2017-03-13 13:24 | Emergency (ER) | END 2017-03-13 17:04 | disposition home or self-care (01) ==

== ENCOUNTER 2017-08-08 12:14 | Inpatient (IN) | END 2017-08-10 04:08 | disposition EXP | DRG 871 ==